=== PATIENT | female | born 1940 | race Caucasian/White ===

== ENCOUNTER 2023-07-17 15:49 | Outpatient (CLI) | payer MEDICARE, BC, SELFPAY | END 2023-07-17 15:50 | disposition home or self-care (01) | LOC: AMB 07-20 21:15 | PROVIDERS: PCP Family Medicine; Visit Provider Emergency Medicine | DX: R07.89 Other chest pain (principal) | CPT/HCPCS: A0425; A0427; A0434 ==

== ENCOUNTER 2023-07-17 16:17 | Emergency (ER) | payer MEDICARE, BC, SELFPAY ==
[2023-07-17 16:21] VITALS: BP 134/73; O2SAT 96
[2023-07-17 16:26] VITALS: BP 133/75; BP 142/72; O2SAT 94; O2SAT 95
[2023-07-17 16:28] VITALS: BP 127/73; PULSE 67; RESP 17; TEMP 36.1; O2SAT 95; BMI 28.3
--- NOTE | 2023-07-17 16:29 | ED_ITS ---
HPI - Chest Pain General Chief Complaint: Chest Pain Stated Complaint: Possible STEMI Time Seen by Provider: 07/17/23 16:25 History of Present Illness HPI narrative: This 83-year-old female comes in by ambulance because of chest pain that began about an hour prior to arrival. She states that she was vacuuming at the time in began to have chest pain and pressure. She had some associated shortness of breath and lightheadedness. She also had diaphoresis. She does not report any nausea or vomiting. She states that she may have had some more mild chest discomfort with exertion in the recent past. EKG from ambulance personnel shows evidence of acute STEMI. Initial EKG here also shows suspicion for an anterior lateral infarct. She has some ST elevation in lead 1, aVL, and V2. The patient received 100 mcg of fentanyl from ambulance and root. She states that she still is having pain at 9/10 in severity. She also received 4 baby aspirin prior to arrival. She states that she is DNR DNI. Related Data Home Medications Medication Instructions Recorded Confirmed sertraline 100 mg tablet 100 mg PO BID 07/05/23 07/05/23 Previous Rx's Medication Instructions Recorded benzonatate 200 mg capsule 200 mg PO BID-TID PRN cough #30 07/05/23 caps nirmatrelvir 300 mg (150 mg See Rx Instructions PO .COMPLEX 07/05/23 x2)-ritonavir 100 mg tablet,dose #30 ea pack (Paxlovid) Allergies Allergy/AdvReac Type Severity Reaction Status Date / Time Penicillins Allergy Unknown Verified 07/05/23 16:45 Review of Systems Status of ROS Reports: 10 or more systems reviewed and unremarkable except as noted in History and below Narrative Constitutional: No fevers, no weight gain or loss. Eyes: No discharge. No vision changes. HENT: No congestion, no sore throat, no ear pain. Cardiovascular: No palpitations. Chest pain as described above. Respiratory: No wheezes, no cough. She reports some shortness of breath with the chest pain. She was diagnosed with COVID a couple weeks ago. Gastrointestinal: No abdominal pain, no vomiting, no diarrhea. Genitourinary: No dysuria, no hematuria. Musculoskeletal: Normal range of motion. Skin: No rashes, no pruritis. Neurological: No weakness, sensory change, speech change. She reports some lightheadedness with the chest pain. Endo/Heme/Allergies: No bruising or bleeding. No polydipsia. Pysch: no suicidality, no anxiety, no insomnia. All other systems reviewed and are negative. Exam Narrative Exam Narrative: Constitutional: Well-developed, well-nourished, no acute distress. HEENT: Normocephalic, atraumatic. Neck: Normal range of motion. Nontender. Supple. Heart: Regular. No murmurs. Normal rate. Intact distal pulses. Lungs: Clear to auscultation. No chest discomfort. No wheezes, rhonchi, or r ales. Abdomen: Normal bowel sounds. Nontender. No rebound tenderness. Genitalia: Deferred. Back: No midline tenderness. Normal range of motion. Extremities: Normal range of motion. No injury. Skin: Intact. No rash. Warm. No erythema or pallor. Neurologic: No altered sensation. No weakness. Alert and oriented. Psychiatric: No suicidality. No anxiety or depression. No insomnia. Nursing notes and vitals signs are reviewed. Const Vital Signs, click to edit/add: Vital Signs - 24 hr 07/17/23 16:28 Temperature 96.9 F L Pulse Rate [Apical] 67 Respiratory Rate 17 Blood Pressure [Left Upper Arm] 127/73 Pulse Oximetry 95 Oxygen Delivery Method Nasal Cannula Course Vital Signs Vital signs: Initial Vital Signs Temperature 96.9 F L 07/17/23 16:28 Temperature Source Temporal Artery Scan 07/17/23 16:28 Pulse Rate 67 07/17/23 16:28 Respiratory Rate 17 07/17/23 16:28 Blood Pressure 127/73 07/17/23 16:28 Blood Pressure Mean 91 07/17/23 16:28 Pulse Oximetry 95 07/17/23 16:28 Oxygen Delivery Method Nasal Cannula 07/17/23 16:28 Vital Signs Temperature 96.9 F L 07/17/23 16:28 Pulse Rate 67 07/17/23 16:28 Respiratory Rate 17 07/17/23 16:28 Blood Pressure 127/73 07/17/23 16:28 Pulse Oximetry 95 07/17/23 16:28 Oxygen Delivery Method Nasal Cannula 07/17/23 16:28 Temperature 96.9 F L 07/17/23 16:28 Pulse Rate 67 07/17/23 16:28 Respiratory Rate 17 10/28/23 16:28 Blood Pressure 127/73 10/28/23 16:28 Pulse Oximetry 95 07/17/23 16:28 Oxygen Delivery Method Nasal Cannula 07/17/23 16:28 MDM - Chest Pain MDM Narrative Medical decision making narrative: This patient arrives from ambulance transport with evidence of acute STEMI. I was able to see her within a minute upon arrival and did hear report from ambulance personnel. EKG was acquired in the next couple minutes which did show evidence of STEMI. A page went to [facility] immediately and Y was able to speak with the environmental program manager there to arrange for transfer. She did receive aspirin in route here along with fentanyl. Upon arrival she is continuing to have pain at 9/10 in severity and is maintaining normal vital signs. An IV is established where she received heparin according to ACS protocol, ticagrelor 180 mg orally, morphine 2 mg IV, and metoprolol 5 mg IV. I spoke with the environmental program manager on-call at [facility], Dr. Taylor, who agrees to her transfer to the emergency department at [facility] where she will be next in line for an angiogram. The patient states that she is DNR DNI but agrees to have this status lifted for the next 24 hours in order for the angiogram to occur. The patient also received nitroglycerin at 5 mcg to be titrated for pain relief and to maintain sufficient blood pressure. Despite these treatments the patient continues to have severe chest pain that she reports at 9/10 in severity. ECG Data Attestation: I personally reviewed and interpreted this ECG as follows: Interpretation: Normal sinus rhythm. ST elevation in leads 1, aVL, and V2. ST depression in leads 3 and AVF. Rate is 66 beats per minute. EKG shows evidence of acute STEMI. Discharge Plan Discharge Clinical Impression: ST elevation (STEMI) myocardial infarction Patient Disposition: Xfer [facility] Condition: Unchanged Prescriptions: No Action sertraline 100 mg tablet 100 mg PO BID benzonatate 200 mg capsule 200 mg PO BID-TID PRN (Reason: cough) Qty: 30 0RF Paxlovid 300 mg (150 mg x 2)-100 mg tablets,dose pack See Rx Instructions PO .COMPLEX Qty: 30 0RF Rx Instructions: take TWO 150 mg tablets of nirmatrelvir with ONE 100 mg tablet of ritonavir twice daily for 5 days PO Stand Alone Forms: [employer] Info Instructions
[2023-07-17] MEDS: MORPHINE 4 MG/ML INJ 2 MG IVP (16:35)
[2023-07-17 16:37] VITALS: BP 138/74; BP 142/92; O2SAT 94; O2SAT 96
[2023-07-17 16:42] LABS: Basophils Absolute Auto 0.01 K/uL (0.00-0.30); Basophils Percent Auto 0.2 % (0.0-3.0); Eosinophils Absolute Auto 0.06 K/uL (0.00-0.50); Eosinophils Percent Auto 1.1 % (0.0-7.0); Hematocrit 44.5 % (33.0-51.0); Hemoglobin* 14.7 gm/dL (12.0-16.0); Immature Granulocytes Abs Auto 0.01 K/uL (0.00-0.30); Immature Granulocytes Pct Auto 0.2 %; Lymphocytes Percent Auto 33.8 % (20-44); Mean Corpuscular HGB Conc 33 gm/dL (32-36); Mean Corpuscular Hemoglobin 27 pg (26-34); Mean Corpuscular Volume 82 fL (80-100); Monocytes Percent Auto 10.3 % (0.0-11.0); Neutrophils Absolute Auto 2.89 K/uL (1.7-7.0); Neutrophils Percent Auto 54.4 % (42.0-72.0); Platelet Count* 164 K/uL (140-440); Red Blood Count 5.42 m/uL (4.00-5.20); White Blood Count* 5.32 K/uL (4.50-11.00)
[2023-07-17] MEDS: METOPROLOL TARTRATE 1 MG/ML inj 5 MG IVP (16:46)
--- NOTE | 2023-07-17 16:47 | ED.NURSE ---
Dispatch contacted for emergent transport to [facility]. Pre-arrival details also given to [facility].
[2023-07-17] MEDS: TICAGRELOR 90 MG TABLET 180 MG PO (16:51)
[2023-07-17] MEDS: HEPARIN 5,000 UNIT/0.5 ML INJ 3900 UNIT IVP (16:53)
[2023-07-17] MEDS: HEPARIN 25,000 UNIT/500 ML BAG 20 UNIT IV (16:54)
[2023-07-17 17:03] LABS: Slide Review Reflex No
[2023-07-17 17:08] LABS: Chloride* 108 mmol/L (96-114); Sodium* 142 mmol/L (135-149)
[2023-07-17 17:09] LABS: Potassium* 3.3 mmol/L (3.6-5.1)
[2023-07-17 17:11] LABS: Anion Gap 10 mEq/L (7-15); Blood Urea Nitrogen* 15 mg/dL (7-30); Carbon Dioxide* 24 mmol/L (20-32); Creatinine* 0.6 mg/dL (0.5-1.5); Est. Creatinine Clearance* 30.08; Estimated Glomerular Filt Rate 88 ml/min
[2023-07-17 17:12] VITALS: BP 136/72; O2SAT 94
[2023-07-17 17:12] LABS: Calcium* 9.6 mg/dL (8.4-10.6); Glucose* 103 mg/dL (60-115)
[2023-07-17 17:13] VITALS: BP 139/70; BP 140/73; O2SAT 93; O2SAT 98
[2023-07-17] MEDS: NITROGLYCERIN/DEXTROSE 25,000 MCG/250 ML BOTTLE 3 MCG IVPB (17:20)
[2023-07-17 17:22] LABS: NT Pro B Type NatriureticPept* 336 pg/mL
--- NOTE | 2023-07-17 17:32 | ED.NURSE ---
Report called to [facility] triage nurse, pt transferred via ambulance to [facility].
[2023-07-17 19:19] LABS: Troponin, Point-of-Care* 0.73 ng/ml (0.01-0.04)
== END 2023-07-17 17:33 | disposition short-term general hospital (02) ==
PROVIDERS: Emergency Provider Emergency Medicine Emergency Medical Services; PCP Family Medicine
DX: I21.3 ST elevation (STEMI) myocardial infarction of unspecified site (principal)
CPT/HCPCS: 36415; 80048; 83880; 84484; 85025; 85730; 93005; 96374; 96375; 99285; A9270; J1644; J2270

== ENCOUNTER 2023-07-17 17:02 | Outpatient (CLI) | payer MEDICARE, BC, SELFPAY | END 2023-07-17 17:03 | disposition home or self-care (01) | LOC: AMB 07-20 22:08 | PROVIDERS: PCP Family Medicine; Visit Provider Emergency Medicine | DX: I21.3 ST elevation (STEMI) myocardial infarction of unspecified site (principal) | CPT/HCPCS: A0425; A0434 ==

== ENCOUNTER 2024-03-30 13:00 | Outpatient (RCR) | payer MEDICARE, BC, SELFPAY | END 2024-07-28 23:59 | disposition home or self-care (01) | PROVIDERS: PCP Family Medicine; Visit Provider Family Medicine | DX: R41.3 Other amnesia (principal); Z91.89 Other specified personal risk factors, not elsewhere classified; Z51.89 Encounter for other specified aftercare | CPT/HCPCS: 97165; 97535 ==

== ENCOUNTER 2024-04-10 08:44 | Emergency (ER) | payer MEDICARE, BC, SELFPAY ==
[2024-04-10] VITALS (9 sets, daily range): BP systolic 136–155; BP diastolic 62–70; PULSE 58–68; RESP 18; TEMP 36.5; O2SAT 94–97; BMI 28.3
--- NOTE | 2024-04-10 10:17 | CRLHL7_ITS ---
For Patients: As a result of the Century Cures Act, medical imaging exams and procedure reports are released immediately into your electronic medical record. You may view this report before your referring provider. If you have questions, please contact your health care provider. INDICATION: Dizziness, vertigo TECHNIQUE: Noncontrast axial CT of the head. Coronal and sagittal reformats. Bone and soft tissue algorithms. COMPARISON: No relevant comparison studies available at this institution. FINDINGS: Prominence of the ventricles and cortical sulci, compatible with generalized cerebral volume loss. No acute intracranial hemorrhage or abnormal extra-axial fluid collection. No midline shift, hydrocephalus or herniation. Preserved coppola-white matter differentiation. Scattered hypoattenuation throughout the supratentorial white matter, typical of chronic microangiopathy. Calcific intracranial atherosclerotic plaquing. Unremarkable midline structures. Intact calvarium. Clear visualized paranasal sinuses and mastoid air cells. Bilateral lens implants. IMPRESSION: 1. No CT evidence of acute intracranial abnormality. 2. Mild generalized cerebral volume loss and mild chronic microangiopathy changes. Please note that all CT scans at this facility use dose modulation, iterative reconstruction, and/or weight-based dosing when appropriate to reduce radiation dose to as low as reasonably achievable. Dictated by Maggy Castillo MD @ 04/10/2024 11:24:34 AM (Electronically Signed)
--- NOTE | 2024-04-10 10:20 | ED_ITS ---
HPI - General Adult General Date Seen: 04/10/24 Chief complaint: Hypertension Stated complaint: High BP Time Seen by Provider: 04/10/24 09:49 Source: patient Mode of arrival: ambulatory Limitations: no limitations History of Present Illness HPI narrative: 83-year-old female who presents here with the her grand daughter, with vague complaints of head feeling funny. This is been for the last 48 hours, she feels it was a gradual onset, did start all the sudden, went to urgent care yesterday. And had complaints of high blood pressure, with systolic readings of 180. The doctor or provider there was checked her out and thought that everything seemed okay. Said the come to the emergency room if the symptoms were ongoing. She said she feels better today, but there is still this which she describes is a funny feeling in her head. She does not describe his pain. She feels that it is more that she feels slightly dizzy. Worse when she walks. She has not fallen she has no nausea she describes no visual changes that are new. She has no numbness tingling or weakness in her hands or feet. No problems with talking or none seeing her words. She describes no headache per se with this. Chest pain shortness of breath abdominal pain, dysuria frequency or really any other complaints. She tells me she has been taking her medications as directed, she feels she is more forgetful last year. But this is more of a chronic problem. 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 Treatments prior to arrival: none Related Data Home Medications ?Medication ?Instructions ?Recorded ?Confirmed sertraline 100 mg tablet 100 mg PO BID 07/05/23 04/10/24 doesn't know medications PO 04/09/24 calcium carbonate (Calcium 500) 500 mg PO DAILY 04/10/24 04/10/24 clopidogrel 75 mg tablet 75 mg PO DAILY 04/10/24 04/10/24 famotidine 40 mg tablet 40 mg PO QPM 04/10/24 04/10/24 losartan 25 mg tablet mg PO 04/10/24 metoprolol succinate 25 mg mg PO 04/10/24 tablet,extended release 24 hr omeprazole 40 mg capsule,delayed 40 mg PO 04/10/24 release rosuvastatin 10 mg tablet 10 mg PO QPM 07/22/24 07/22/24 spironolactone 25 mg tablet 12.5 mg PO QAM 04/10/24 04/10/24 sucralfate 1 gram tablet 1 g PO QID 04/10/24 04/10/24 zolpidem 5 mg tablet 5 mg PO QPM 04/10/24 04/10/24 Allergies Allergy/AdvReac Type Severity Reaction Status Date / Time bee venom protein (honey bee) Allergy Mild swelling Verified 04/10/24 09:25 Penicillins Allergy Unknown Verified 04/10/24 09:25 Review of Systems Status of ROS: Reports: 10 or more systems reviewed and unremarkable except as noted in History and below [facility] Medical History Depression ?F32.A - Depression, unspecified (ICD-10) Heart attack ?I21.9 - Acute myocardial infarction, unspecified (ICD-10) Surgical History H/O heart artery stent ?Z95.5 - Presence of coronary angioplasty implant and graft (ICD-10) Social History Smoking Status: Never smoker Do you use any of these nicotine containing products: None How often do you have a drink containing alcohol: never AUDIT-C Alcohol total score: 0 Non-prescribed substance use: denies use Exam Narrative: Exam Narrative: Patient is seen and stabilization room 2, she is in no apparent distress she is very pleasant, when I tell her her blood pressure has normalized, in the 128/70 region. She says then she would like to go home. She speaks normally she is oriented x3, GCS is 15/15 her pupils are equal round reactive to light but she does have 2 beats of nystagmus, primarily to the left. When she looks around. There is an no abnormality of her visual figueroa. Her TMs bilaterally are normal, her oropharynx is normal her cranial nerves 3-12 are all normal, carotid upstrokes are equal bilaterally, no bruits are noted JVP is flat, her chest is good air entry bilaterally with no wheezes crackles noted her heart sounds no clicks murmurs or gallops. Slightly kyphotic. Her abdomen is soft there is no guarding no organomegaly. Bowel sounds are normal, she moves all extremities independently well both upper lower, her gait is a reviewed. She is not ataxic, or wide-based when she walks. Skin reveals no petechiae or rashes. Const: Vital Signs, click to edit/add: Vital Signs - 24 hr 04/10/24 09:11 04/10/24 10:17 04/10/24 11:04 Temperature 97.7 F Pulse Rate 63 Pulse Rate [Pulse Oximeter] 68 Respiratory Rate 18 Blood Pressure 136/62 Blood Pressure [Ri ght Upper Arm] 136/70 Pulse Oximetry 97 95 96 Oxygen Delivery Me thod Room Air 04/10/24 11:05 04/10/24 11:30 04/10/24 11:32 Temperature Pulse Rate 62 62 61 Pulse Rate [Pulse Oximeter] Respiratory Rate Blood Pressure 137/62 Blood Pressure [Ri ght Upper Arm] Pulse Oximetry 97 94 95 Oxygen Delivery Me thod Course Course ED Course: I discussed with the patient that her lab tests show some mild thrombocytopenia leukopenia, and her examination shows that she is maybe has some slight vertigo, likely from a peripheral source. Everything else looks fairly normal with the exception her urinalysis is not back. I will check this to ensure that she does not have a bladder infection, but she feels excellent at the present time and I watched her walk, she clearly does not have ataxia are any problems with walking. She would like to go and I think this is reasonable. Follow-up with her regular physician in 1-2 weeks for recheck would be suggested. And maybe a blood test in 2-3 to recheck her CBC. Return as needed. Vital Signs Vital signs: Initial Vital Signs Temperature 97.7 F 04/10/24 09:11 Temperature Source Temporal Artery Scan 04/10/24 09:11 Pulse Rate 68 04/10/24 09:11 Respiratory Rate 18 04/10/24 09:11 Blood Pressure 136/70 04/10/24 09:11 Blood Pressure Mean 92 04/10/24 09:11 Blood Pressure Position Sitting 04/10/24 09:11 Pulse Oximetry 97 04/10/24 09:11 Oxygen Delivery Method Room Air 04/10/24 09:11 Vital Signs Temperature 97.7 F 04/10/24 09:11 Pulse Rate 68 04/10/24 09:11 Respiratory Rate 18 04/10/24 09:11 Blood Pressure 136/70 04/10/24 09:11 Pulse Oximetry 97 04/10/24 09:11 Oxygen Delivery Method Room Air 04/10/24 09:11 Temperature 97.7 F 04/10/24 09:11 Pulse Rate 61 04/10/24 11:32 Respiratory Rate 18 04/10/24 09:11 Blood Pressure 137/62 04/10/24 11:32 Pulse Oximetry 95 04/10/24 11:32 Oxygen Delivery Method Room Air 04/10/24 09:11 Medical Decision Making MDM Narrative Medical decision making narrative: Life-threatening differential diagnosis considered include stroke, coronary artery disease, pneumonia, and heart failure. Other differential diagnosis include but are not limited to electrolyte imbalances, anemia, medication reactions, and urinary tract infection I think it would be reasonable to check some labs, his head CT, EKG. On this nice lady. I do believe that there is an element of anxiety. With this but given her past history, I could not rule out numerous things going on with her. Lab Data Lab results reviewed: Yes I reviewed the patient's lab results Labs: Lab Results 04/10/24 04/10/24 Range/Units 10:38 10:58 WBC 3.68 L (4.50-11.00) K/uL RBC 4.80 (4.00-5.20) m/uL Hgb 13.0 (12.0-16.0) gm/dL Hct 40.6 (33.0-51.0) % MCV 85 (80-100) fL MCH 27 (26-34) pg MCHC 32 (32-36) gm/dL RDW Coeff of Jose Manuel 13.6 (11.5-15.5) % Plt Count 112 L (140-440) K/uL Neut % (Auto) 71.5 (42.0-72.0) % Lymph % (Auto) 17.1 L (20-44) % [place] % (Auto) 8.4 (0.0-11.0) % Eos % (Auto) 2.4 (0.0-7.0) % Baso % (Auto) 0.3 (0.0-3.0) % Neut # (Auto) 2.60 (1.7-7.0) K/uL Lymph # (Auto) 0.60 L (0.90-2.90) K/uL [place] # (Auto) 0.30 (0.00-0.90) K/UL Eos # (Auto) 0.10 (0.00-0.50) K/uL Baso # (Auto) 0.00 (0.00-0.30) K/uL Abs Immat Gran (auto) 0.00 (0.00-0.30) K/uL Imm/Tot Granulo (auto) 0.3 % D-Dimer Quant (PE/DVT) 0.23 (0.00-0.50) ug/ml Sodium 143 (135-149) mmol/L Potassium 3.9 (3.6-5.1) mmol/L Chloride 109 (96-114) mmol/L Carbon Dioxide 27 (20-32) mmol/L Anion Gap 7 (7-15) mEq/L BUN 17 (7-30) mg/dL Creatinine 0.8 (0.5-1.5) mg/dL Estimated Creat Clear 30.08 Estimated GFR 73 ml/min Glucose 101 (60-115) mg/dL Calcium 8.9 (8.4-10.6) mg/dL Troponin I < 0.01 L (0.01-0.04) ng/mL Procalcitonin 0.07 (<0.50) ng/mL Ethyl Alcohol < 0.01 L (0.01-0.03) % SARS-CoV-2 (PCR) Negative SARS-CoV-2 (Negative) Imaging Data CT scan - head: Attestation: I have reviewed the pertinent imaging results. My impression: My review of her head CT did not show anything acute, some overall volume loss. Is noted ECG Data Attestation: I personally reviewed and interpreted this ECG as follows: Prior ECG tracings: available for review Interpretation: EKG shows normal sinus rhythm, left axis deviation, ventricular rate of 64, rhythm appears to be sinus. QT QTC are normal. Poor R-wave progression over the precordial leads may be related to previous anteroseptal infarct. Assessment abnormal EKG with no acute changes when compared to old EKG from 07/15/2023. Acute changes have resolved. Discharge Plan Discharge Clinical Impression: Leukopenia, Thrombocytopenia, Vertigo Patient Disposition: Home w/ Parent or Adult Condition: Stable Instructions: Dizziness (ED), Thrombocytopenia (ED) Additional Instructions: I would suggest you follow-up with your doctor in 2-3 weeks and get a repeat CBC did check where the leukopenia and thrombocytopenia are going. I do think that she might have had a virus causing these problems, clearly your walking is good and there is no evidence of any problems to suggest that she might fall. Would however be careful in standing and getting up, going from lying to standing positions cause often this will exacerbate the feeling of dizziness or funny feeling in your head. Overall if you have problems with numbness or tingling or weakness or headache which were not seeing here that I would recommend to come back and get reassessed, but everything looks good at the present time. I will check your urine to make sure that you do not have a bladder infection. Activity Level: Light activity Prescriptions: No Action doesn't know medications PO sertraline 100 mg tablet 100 mg PO BID calcium carbonate [Calcium 500] 500 mg calcium (1,250 mg) tablet,chewable 500 mg PO DAILY sucralfate 1 gram tablet 1 g PO QID famotidine 40 mg tablet 40 mg PO QPM clopidogrel 75 mg tablet 75 mg PO DAILY omeprazole 40 mg capsule,delayed release(DR/EC) 40 mg PO spironolactone 25 mg tablet 12.5 mg PO QAM losartan 25 mg tablet PO zolpidem 5 mg tablet 5 mg PO QPM metoprolol succinate 25 mg tablet extended release 24 hr PO rosuvastatin 10 mg tablet 10 mg PO QPM Follow Up/Referrals: Pau Franklin MD [Primary Care Provider] - Stand Alone Forms: [employer] Info Instructions
[2024-04-10 10:56] LABS: Basophils Percent Auto 0.3 % (0.0-3.0); Eosinophils Percent Auto 2.4 % (0.0-7.0); Hematocrit 40.6 % (33.0-51.0); Immature Granulocytes Pct Auto 0.3 %; Lymphocytes Percent Auto 17.1 % (20-44); Mean Corpuscular HGB Conc 32 gm/dL (32-36); Mean Corpuscular Hemoglobin 27 pg (26-34); Mean Corpuscular Volume 85 fL (80-100); Monocytes Percent Auto 8.4 % (0.0-11.0); Neutrophils Percent Auto 71.5 % (42.0-72.0); Platelet Count* 112 K/uL (140-440); RDW Coefficient of Variation % 13.6 % (11.5-15.5); White Blood Count* 3.68 K/uL (4.50-11.00)
[2024-04-10 11:08] LABS: Slide Review Reflex No
[2024-04-10 11:17] LABS: Chloride* 109 mmol/L (96-114); Sodium* 143 mmol/L (135-149)
[2024-04-10 11:18] LABS: D Dimer Quantitative* 0.23 ug/ml (0.00-0.50); Potassium* 3.9 mmol/L (3.6-5.1)
[2024-04-10 11:20] LABS: Creatinine* 0.8 mg/dL (0.5-1.5); Est. Creatinine Clearance* 30.08; Estimated Glomerular Filt Rate 73 ml/min
[2024-04-10 11:21] LABS: Anion Gap 7 mEq/L (7-15); Blood Urea Nitrogen* 17 mg/dL (7-30); Calcium* 8.9 mg/dL (8.4-10.6); Carbon Dioxide* 27 mmol/L (20-32); Glucose* 101 mg/dL (60-115)
[2024-04-10 11:36] LABS: Procalcitonin* 0.07 ng/mL (<0.50)
[2024-04-10 11:42] LABS: Ethanol* < 0.01 % (0.01-0.03); Troponin I* < 0.01 ng/mL (0.01-0.04)
[2024-04-10 11:47] LABS: SARS PCR* Negative SARS-CoV-2 (Negative)
[2024-04-10 12:26] LABS: Appearance Urine Clear (Clear); Bilirubin Urine Negative (Negative); Blood Urine Negative (Negative); Color Urine Yellow (Yellow); Glucose Urine Negative (Negative); Ketones Urine Negative (Negative); Leukocyte Esterase Urine Negative (Negative); Nitrite Urine Negative (Negative); Protein Urine Negative (Negative); Specific Gravity Urine <= 1.005 (1.000-1.030); Urobilinogen Urine 0.2 (0.2-1.0)
[2024-04-10 12:41] LABS: RBC Urine 0-2 (0-2); Squamous Epithelial Cell Urine Few (None-Few); WBC Urine 0-2 (0-5)
== END 2024-04-10 12:52 | disposition home or self-care (01) ==
PROVIDERS: Emergency Provider Family Medicine; PCP Family Medicine
DX: I10 Essential (primary) hypertension (principal)
CPT/HCPCS: 36415; 70450; 80048; 81001; 82077; 84145; 84484; 85025; 85379; 87635; 93005; 94761; 99284; 99285

== ENCOUNTER 2024-04-12 09:03 | Emergency (ER) | payer MEDICARE, BC, SELFPAY ==
[2024-04-12 09:10] VITALS: BP 176/67; PULSE 68; RESP 16; TEMP 36.3; O2SAT 99; BMI 28.1
--- OUTSIDE RECORDS SUMMARY | 2024-04-12 10:06 | XMS_ITS | Clinical Summary ---
Author Organization [facility] Address [place], [place] [address] Care Team Providers Care Auto Dismantler Name Role Phone Steven Tellez Unavailable [phone] Pau Franklin MD Primary Care Provide r Allergies Active Allergy Reactions Criticality Noted Date Comments Bee Pollen Edema 02/11/2007 Codeine GI Upset Penicillins Other - Describe In Comment Field 02/11/2007 Lips and fingers go numb Medications Medication Sig Dispensed Refills Start Date End Date Status cholecalciferol (VITAMIN D) 1,000 unit capsule Take 1 capsule by mouth once daily. 0 01/30/2011 Active LORazepam (ATIVAN) 0.5 mg tabIndications:An xiety state Take 1 Tablet (0.5 mg) by mouth once daily if needed for Anxiety. 30 Tablet 05/19/2022 Active calcium carbonate (OS-JOSÉ LUIS 500) 500 mg calcium (1,250 mg) tablet Take 500 mg by mouth once daily with a meal. Active multivitamins-min erals-lutein (Multivitamin 50 Plus) tab tablet Take 1 Tablet by mouth once daily. Active ascorbic acid, vitamin C, (Vitamin C) 500 mg tablet Take 500 mg by mouth once daily. Active tetrahydrozoline (Visine) 0.05 % ophthalmic solution Place 1 Drop into both eyes 4 times daily if needed (irritated eyes). Active clopidogreL (PLAVIX) 75 mg tabletIndications :ST elevation myocardial infarction (STEMI), unspecified artery (HC) Take 1 Tablet (75 mg) by mouth once daily. Do not stop taking or miss doses for minimum one year/ until OK'd by caregiver assisted living. 30 Tablet 11 07/23/2023 Active Walker - 4 wheelsIndications :Post-op pain For home use. Length of need: 20 years Walker with a seat. 1 Each 07/29/2023 Active omeprazole (PRILOSEC) 40 mg Delayed-Release capsuleIndication s:Chronic GERD Take 1 Capsule (40 mg) by mouth once daily before a meal. 90 Capsule 3 08/09/2023 Active rosuvastatin (CRESTOR) 10 mg tabletIndications :ST elevation myocardial infarction (STEMI), unspecified artery (HC) Take 1 Tablet (10 mg) by mouth at bedtime. 90 Tablet 3 08/31/2023 Active metoprolol succinate (TOPROL XL) 25 mg Sustained-Release tabletIndications :ST elevation myocardial infarction (STEMI), unspecified artery (HC) Take 0.5 Tablets (12.5 mg) by mouth once daily. 45 Tablet 3 08/31/2023 Active losartan (COZAAR) 25 mg tabletIndications :ST elevation myocardial infarction (STEMI), unspecified artery (HC) Take 0.5 Tablets (12.5 mg) by mouth once daily. 45 Tablet 3 08/31/2023 Active spironolactone (ALDACTONE) 25 mg tabletIndications :ST elevation myocardial infarction (STEMI), unspecified artery (HC) Take 0.5 Tablets (12.5 mg) by mouth every morning. 45 Tablet 3 08/31/2023 Active sertraline (ZOLOFT) 100 mg tabletIndications :Major depressive disorder, recurrent episode, mild (HC) Take 1 Tablet (100 mg) by mouth once daily. 90 Tablet 3 11/09/2023 Active aspirin (ECOTRIN) 81 mg enteric coated tablet Take 1 Tablet (81 mg) by mouth once daily with a meal. 11/22/2023 Active sucralfate (CARAFATE) 1 gram tabletIndications :Chronic GERD TAKE 1 TABLET (1 G) BY MOUTH FOUR TIMES DAILY BEFORE MEALS AND AT BEDTIME. 360 Tablet 03/24/2024 Active zolpidem (AMBIEN) 5 mg tabletIndications :Insomnia, idiopathic TAKE 1 TABLET (5 MG) BY MOUTH AT BEDTIME. 60 Tablet 2 03/26/2024 Active zolpidem (AMBIEN) 5 mg tabletIndications :Insomnia, idiopathic Take 1 Tablet (5 mg) by mouth at bedtime. 90 Tablet 3 08/31/2023 03/26/2024 Discontinued sucralfate (CARAFATE) 1 gram tabletIndications :Chronic GERD TAKE 1 TABLET (1 G) BY MOUTH FOUR TIMES DAILY BEFORE MEALS AND AT BEDTIME. 360 Tablet 12/24/2023 03/24/2024 Discontinued Active Problems Problem Noted Date Diagnosed Date Acute anterior wall GA 07/17/2023 Long sleeper 02/02/2023 Insomnia, idiopathic 10/01/2017 Routine adult health maintenance 09/01/2017 Overview: Colonoscopy 08/2017 normal, no follow up needed HARDY (stress urinary incontinence, female) 2014 Major depressive disorder, recurrent episode, mi ld 07/02/2014 TRI 05/2007 AHI-26.5 03/20/2013 Allergy to insect stings 02/17/2013 ACP (advance care planning) 01/29/2012 Overview: Done years ago. She has HCD available. Anxiety state, unspecified 07/11/2007 Reflux esophagitis Osteopenia Overview: dexa in 2006 Resolved Problems Problem Noted Date Diagnosed Date Resolved Date Obstructive sleep apnea (adult) (pediatric) 07/11/2007 07/17/2019 Overview: Uses CPAP and works well 07/08/2010 Encounters Date Type Department Care Team Description 04/10/2024 Orders Only [facility] Scanner 1 scan: (1-Ord) [facility], CT HEAD/BRAIN WO CON, 04/10/2024 03/22/2024 Refill [facility] [address] [place] [address] Pau Franklin MD Refill Request (Sucralfate, Zolpidem) from Last 3 Months Immunizations Name Administration Dates Next Due AMB Influenza, IIV3 (Age >=3 years)(Flu Clinic Only) 06/28/2009 COVID-19 vaccine ([employer] 30mcg/0.3mL) TREVOR KENDALL 07/15/2021,11/26/2020,11/05/2020 Influenza Virus, Unspecified 07/17/2019, 07/08/2018,06/20/2018,2016,07/20/2016,07/16/2016,06/20/2014,0 06/02/2013,06/02/2011,07/08/2010, 009,07/12/2008,07/11/2007,07/07/2005,,07/16/2003 Influenza, High-dose Inactivated 07/08/2018,06/21,06/20/2014 Influenza, High-dose Quadriv alent Inactivated 06/23/2023,07/03/2022,06/24/2021,2019 Influenza, IIV3 (Age 6-35 mos) 06/02/2011 Influenza, IIV3 (Age >=3 years) 06/02/20 13,06/02/2011,07/08/2010,2008,07/12/2008,07/11/2007,07/07/2005,1 ,07/16/2003 Influenza, Inactivated IIV3 (Age 65+ Years) Preserv Free 06/07/2017 Pneumococcal Poly,23-Valent (Pneumovax) 07/11/2007,07/29/1995 Pneumococcal conj 13-Valent (Prevnar 13) 05/26/2016 Td (Age >=7 Years) 07/11/2007,01/05/1996 Td, Preservative Free (age > = 7 Years) 07/11/2007 Tdap 01/30/2011 Zoster (Shingrix-RZV, recombinant) 03/09/2019, Zoster (Zostavax-ZVL, live) 05/07/2009 Family History Medical History Relation Name Comments Hypertension Brother 1 Hypertension Brother 2 Hypertension Father at 94 Heart Disease Mother age 72--first GA. at 90. dementia Hypertension Mother Stroke Mother Cancer Other 1 none Diabetes Other 2 none Cancer-breast Paternal Aunt Hypertension Sister Relation Name Status Comments Brother 1 Brother 2 Father Alive Mother Alive Other 1 Other 2 Paternal Aunt Sister Social History Tobacco Use Types Packs/Day Years Used Date Smoking Tobacco: Never Smokeless Tobacco: Never Tobacco Cessation:Counseling Given: Yes Alcohol Use Standard Drinks/Week Comments No 0 (1 standard drink = 0.6 oz pur e alcohol) PHQ-2 Answer Date Recorded PHQ-2 TOTAL SCORE 1 12/07/2023 Social Connections Answer Date Recorded Frequency of Communication with Friends and Fami ly 0 07/27/2023 Financial Resource Strain Answer Date R ecorded Difficulty of Paying Living Expenses 3 07/27/2023 Difficulty of Paying Living Expenses Not on file 07/27/2023 Food Insecurity Answer Date Recorded Worried About Running Out of Food in the Last Ye ar 1 07/27/2023 Transportation Needs Answer Date Record ed Lack of Transportation (Medical) 1 07/27/2023 Housing Stability Answer Date Recorded Unable to Pay for Housing in the Last Year 1 07/27/2023 Sex and Gender Information Value Date Recorded Sex Assigned at Female 10/02/2020 12:00 PM DOOR AND ARRIVAL ATTENDANT Gender Identity Female 10/02/2020 12:00 PM DOOR AND ARRIVAL ATTENDANT Sexual Orientation Straight 10/02/2020 12 :00 PM DOOR AND ARRIVAL ATTENDANT Obstetrics History Para Term AB IAB SAB Ectopic Multiple Livin g Live Births 6 5 5 1 1 5 Date Outcome GA Total Labor Labor/2nd/3rd Weight Sex Type Anes PTL Janneth A1 A5 Name Clin Term Term Term Term Term SAB Last Filed Vital Signs Vital Sign Reading Time Taken Comments Blood Pressure 119/68 11/09/2023 3:56 PM DOOR AND ARRIVAL ATTENDANT Pulse 60 11/09/2023 3:56 PM DOOR AND ARRIVAL ATTENDANT Temperature 36.8 ??C (98.2 ??F) 08/19/2023 1 0:51 AM DOOR AND ARRIVAL ATTENDANT Respiratory Rate 16 09/29/2023 8:30 AM DOOR AND ARRIVAL ATTENDANT Oxygen Saturation 97% 11/09/2023 3:56 PM DOOR AND ARRIVAL ATTENDANT Inhaled Oxygen Concentration - - Weight 63.4 kg (139 lb 12.8 oz) 11/09/2023 3:56 PM DOOR AND ARRIVAL ATTENDANT Height 152.4 cm (5') 11/09/2023 3:56 PM DOOR AND ARRIVAL ATTENDANT Body Mass Index 27.3 11/09/2023 3:56 PM DOOR AND ARRIVAL ATTENDANT Plan of Treatment Upcoming Encounters Date Type Department Care Team (Late st Contact Info) Description 04/18/2024 1:25 PM CDT Office Visit [facility] [address] [place] [address] Pau Franklin MD [address] [place] [id number] Health Maintenance Due Date Last Done Comments Tetanus booster 01/30/2021 01/30/2011, 06/21, 07/11/2007, Additional history exists Medicare Wellness for age 65+ 11/18/2023, 10/10/2021, 10/04/2020, Additional history exists COVID-19 vaccine series (2022-24 season) 2024 11/08/2023, 07/03/2022, 04/09/2022, Additional history exists Influenza for age 65+ 05/21/2024 06/23/2023 , 07/03/2022, 06/24/2021, Additional history exists BMI (ht and wt on same day) for age 18+ 11/09/2024 11/09/2023, 11/17/2022, 10/10/2021, Additional history exists Depression screening for age 12+ 12/06/2024 12/07/2023, 12/03/2023, 08/31/2023, Additional history exists Tdap Completed 01/30/2011 Pneumococcal series for age 65+ Completed 05/26/2016, 07/11/2007, 07/29/1995 Zoster (shingles) series for age 50+ Completed 03/09/2019, 11/15/2018, 05/07/2009 DEXA/DXA scan for age 65+ Completed 2020, 07/29/2017, 02/28/2013, Additional history exists Procedures Procedure Name Priority Date/Time Associated Diagnosis Comments SCAN-CT INTERPRETATION 12:00 AM CDT XR DXA BONE DENSITY 2 SITES AXIAL Routine 10/07/2020 1:32 PM DOOR AND ARRIVAL ATTENDANT Asymptomatic postmenopausal state from Last 3 Months or Most Recently Relevant to Health Maintenance Results * SCAN-CT INTERPRETATION (04/10/2024 12:00 AM CDT) Anatomical Region Laterality Modality Other Scanner OTHER * (ABNORMAL) XR DXA BONE DENSITY 2 SITES AXIAL (10/07/2020 1:32 PM DOOR AND ARRIVAL ATTENDANT) Anatomical Region Laterality Modality Spine, HIPS, HIPL, HIPR Other Narrative 10/09/2020 2:44 PM DOOR AND ARRIVAL ATTENDANT Please see scanned document for results of this study. Pau SHEIKH from Last 3 Months or Most Recently Relevant to Health Maintenance Advance Directives Documents on File Type Date Recorded Patient Embedded Firmware Engineer Expl anation Healthcare Directive 02/24/2013 12:14 PM AM Girma ANA ROSA, 08/06/2005 * DNR (Latest Code Status on File) Date Activated Date Inactivated Comments 07/18/2023 8:51 AM 07/22/2023 8:41 PM Question Answer Comments Code Status Discussion: Reviewed Preferences * Full Code Date Activated Date Inactivated Comments 07/17/2023 6:17 PM 07/18/2023 8:51 AM Patient re versed her code status for cardiac cath Question Answer Comments Code Status Discussion: Reviewed Preferences Care Teams Auto Dismantler Relationship Specialty Start Date End Date Pau Franklin MD [address] [place] [address] PCP - General Family Practice 06/25/14 Steven Tellez [address] [place] [id number] Benefit Authorizer 01/29/12
--- NOTE | 2024-04-12 11:33 | ED.GENADULT ---
HPI - General Adult General Date Seen: 04/12/24 Chief complaint: Hypertension Stated complaint: High BP again, seen yesterday Time Seen by Provider: 04/12/24 09:44 Source: patient, RN notes reviewed and old records reviewed Mode of arrival: ambulatory Limitations: no limitations History of Present Illness HPI narrative: Patient is an 83-year-old woman who was here couple days ago feeling just a little bit off and concerned about her blood pressure. It was elevated initially but then was normal after she rested in the ER for a little while, she had labs and a CT of the head, only findings were of mild neutropenia with the white blood cell count in the mid threes and mild thrombocytopenia with 112,000 platelets. She was recommended to follow this up with primary care in the next week or 2 for recheck. She comes in today saying that she still having high blood pressures in the morning. She does not feel badly really but she was concerned and did not know what to do about it. She says on our initial conversation that she does not take anything for her blood pressure and has no history of high blood pressure. She does have a history of coronary artery disease and stenting. She has losartan listed on her medications, 25 mg daily. She says that medicine does some from earlier in she thinks she takes it, she was not aware was for blood pressure. She does not smoke or drink. Lives independently. Related Data Home Medications ?Medication ?Instructions ?Recorded ?Confirmed sertraline 100 mg tablet 100 mg PO BID 07/05/23 04/10/24 doesn't know medications PO 04/09/24 calcium carbonate (Calcium 500) 500 mg PO DAILY 04/10/24 04/10/24 clopidogrel 75 mg tablet 75 mg PO DAILY 04/10/24 04/10/24 famotidine 40 mg tablet 40 mg PO QPM 04/10/24 04/10/24 losartan 25 mg tablet mg PO 04/10/24 metoprolol succinate 25 mg mg PO 04/10/24 tablet,extended release 24 hr omeprazole 40 mg capsule,delayed 40 mg PO 04/10/24 release rosuvastatin 10 mg tablet 10 mg PO QPM 04/10/24 04/10/24 spironolactone 25 mg tablet 12.5 mg PO QAM 04/10/24 04/10/24 sucralfate 1 gram tablet 1 g PO QID 04/10/24 04/10/24 zolpidem 5 mg tablet 5 mg PO QPM 04/10/24 04/10/24 Previous Rx's ?Medication ?Instructions ?Recorded losartan 50 mg tablet 50 mg PO DAILY #30 tabs 04/12/24 Allergies Allergy/AdvReac Type Severity Reaction Status Date / Time bee venom protein (honey bee) Allergy Mild swelling Verified 04/10/24 09:25 Penicillins Allergy Unknown Verified 04/10/24 09:25 Review of Systems Status of ROS: Reports: 6 or more systems reviewed and unremarkable except as noted in History and below [facility] Medical History Depression ?F32.A - Depression, unspecified (ICD-10) Heart attack ?I21.9 - Acute myocardial infarction, unspecified (ICD-10) Surgical History H/O heart artery stent ?Z95.5 - Presence of coronary angioplasty implant and graft (ICD-10) Social History Smoking Status: Never smoker Do you use any of these nicotine containing products: None How often do you have a drink containing alcohol: never AUDIT-C Alcohol total score: 0 Non-prescribed substance use: denies use Exam Narrative: Exam Narrative: Vital signs as noted above. In general, an alert, well-appearing patient. Head: Normocephalic, atraumatic. Eyes: Pupils are equal reactive. Extraocular movements are full. Conjunctivae are normal. ENT: Mucous membranes are moist. Neck: Supple without lymphadenopathy. Heart: Regular rate and rhythm. No murmur or rub. Lungs: Clear bilaterally. No increased work of breathing, crackles or wheezes. Extremities: Well perfused. No edema. No calf tenderness. Pulses intact. Neurologic: Patient is alert and oriented to person and place. Speech is fluent. Face is symmetric. Moves all extremities equally. Affect: Normal. Skin: Warm and dry. Well perfused. Const: Vital Signs, click to edit/add: Vital Signs - 24 hr 04/12/24 09:10 Temperature 97.4 F L Pulse Rate [Pulse Oximeter] 68 Respiratory Rate 16 Blood Pressure [Ri ght Upper Arm] 176/67 H Pulse Oximetry 99 Oxygen Delivery Me thod Room Air Documenting provider has reviewed patient's vital signs: yes Course Course ED Course: Had a long chat with her. Her blood pressure is elevated here 176/67. She is otherwise pretty asymptomatic and I do not think needs repeat evaluation. Reviewed that losartan is a blood pressure medicine, she is on a relatively small dose. Discussed that without knowing what her blood pressures or drooling throughout the day it is a little hard to know whether we might run into trouble with lower blood pressures if we increase the dose, but she would like to give that a try and see how she does. I prescribed 50 mg losartan for her, she has an appointment with her primary doctor next week and they can see how she is doing on that dose. Reviewed that if she is having problems with dizziness or seeing blood pressures that are lower than 100/60 that she should go back to the 25 mg dose and then discuss further with Dr. Franklin. Return as needed. Vital Signs Vital signs: Initial Vital Signs Temperature 97.4 F L 04/12/24 09:10 Temperature Source Temporal Artery Scan 04/12/24 09:10 Pulse Rate 68 04/12/24 09:10 Respiratory Rate 16 04/12/24 09:10 Respiratory Effort Normal 04/12/24 09:10 Respiratory Depth Normal 04/12/24 09:10 Respiratory Pattern Normal 04/12/24 09:10 Blood Pressure 176/67 H 04/12/24 09:10 Blood Pressure Mean 103 04/12/24 09:10 Blood Pressure Position Supine 04/12/24 09:10 Pulse Oximetry 99 04/12/24 09:10 Oxygen Delivery Method Room Air 04/12/24 09:10 Vital Signs Temperature 97.4 F L 04/12/24 09:10 Pulse Rate 68 04/12/24 09:10 Respiratory Rate 16 04/12/24 09:10 Blood Pressure 176/67 H 04/12/24 09:10 Pulse Oximetry 99 04/12/24 09:10 Oxygen Delivery Method Room Air 04/12/24 09:10 Temperature 97.4 F L 04/12/24 09:10 Pulse Rate 68 04/12/24 09:10 Respiratory Rate 16 04/12/24 09:10 Blood Pressure 176/67 H 04/12/24 09:10 Pulse Oximetry 99 04/12/24 09:10 Oxygen Delivery Method Room Air 04/12/24 09:10 Discharge Plan Discharge Clinical Impression: BP (high blood pressure) Patient Disposition: Home, Self-Care Condition: Stable Instructions: Hypertension (ED) Additional Instructions: Increase losartan as directed. Follow-up with primary care next week for reassessment and to determine whether dosage is having the desired effect. If you start to have trouble with lower blood pressures, less than 100/60, you should hold the medication and discuss further with your primary doctor. Prescriptions: New losartan 50 mg tablet 50 mg PO DAILY Qty: 30 2RF No Action doesn't know medications PO sertraline 100 mg tablet 100 mg PO BID calcium carbonate [Calcium 500] 500 mg calcium (1,250 mg) tablet,chewable 500 mg PO DAILY sucralfate 1 gram tablet 1 g PO QID famotidine 40 mg tablet 40 mg PO QPM clopidogrel 75 mg tablet 75 mg PO DAILY omeprazole 40 mg capsule,delayed release(DR/EC) 40 mg PO spironolactone 25 mg tablet 12.5 mg PO QAM losartan 25 mg tablet PO zolpidem 5 mg tablet 5 mg PO QPM metoprolol succinate 25 mg tablet extended release 24 hr PO rosuvastatin 10 mg tablet 10 mg PO QPM Follow Up/Referrals: Pau Franklin MD [Primary Care Provider] - Stand Alone Forms: SMB Suite Info Instructions
== END 2024-04-12 10:17 | disposition home or self-care (01) ==
LOC: ED 10:03
PROVIDERS: Emergency Provider Emergency Medicine; PCP Family Medicine
DX: I10 Essential (primary) hypertension (principal)
CPT/HCPCS: 99282; 99283

== ENCOUNTER 2024-05-07 10:20 | Emergency (ER) | payer MEDICARE, BC, SELFPAY ==
[2024-05-07 10:28] VITALS: BP 159/67; PULSE 65; RESP 14; TEMP 36.7; O2SAT 97; BMI 27.9
[2024-05-07 11:02] VITALS: BP 138/60
--- NOTE | 2024-05-07 11:09 | ED_ITS ---
HPI - General Adult General Chief complaint: Hypertension Stated complaint: High blood pressure Time Seen by Provider: 05/07/24 10:33 History of Present Illness HPI narrative: This 83-year-old female comes in with her daughter stating that she has felt some mild symptoms of fatigue and weakness recently. During this time she is measure her blood pressure and saw that it was somewhat elevated. She is able to get up and ambulate. She does not have any unilateral weakness. She is not reporting any chest pain. She does have a history of a STEMI almost a year ago and has been doing well since then. She was seen about a month ago in this emergency department with concern about blood pressure. At that time it was explained that we typically do not manage elevated blood pressure. Her blood pressure was a systolic value of around 170 at that time. She was taking losartan 25 mg daily and this was increased to 50 mg daily. She did have a follow-up appointment with her primary physician about 2 weeks ago and labs were acquired at that time with normal results. Today she arrives reporting a blood pressure in the 140s and blood pressure here upon arrival was 159/67. Related Data Home Medications ?Medication ?Instructions ?Recorded ?Confirmed sertraline 100 mg tablet 200 mg PO DAILY 07/05/23 05/07/24 calcium carbonate (Calcium 500) 500 mg PO DAILY 04/10/24 05/07/24 clopidogrel 75 mg tablet 75 mg PO DAILY 04/10/24 05/07/24 metoprolol succinate 25 mg 12.5 mg PO DAILY 04/10/24 05/07/24 tablet,extended release 24 hr omeprazole 40 mg capsule,delayed 40 mg PO DAILY 04/10/24 05/07/24 release rosuvastatin 10 mg tablet 10 mg PO QPM 04/10/24 05/07/24 spironolactone 25 mg tablet 12.5 mg PO QAM 04/10/24 05/07/24 sucralfate 1 gram tablet 1 g PO QID 04/10/24 05/07/24 Previous Rx's ?Medication ?Instructions ?Recorded losartan 50 mg tablet 50 mg PO DAILY #30 tabs 04/12/24 Allergies Allergy/AdvReac Type Severity Reaction Status Date / Time bee venom protein (honey bee) Allergy Mild swelling Verified 05/07/24 10:26 Penicillins Allergy Unknown Verified 05/07/24 10:26 Review of Systems Status of ROS: Reports: 10 or more systems reviewed and unremarkable except as noted in History and below Narrative: Constitutional: No fevers, no weight gain or loss. Eyes: No discharge. No vision changes. HENT: No congestion, no sore throat, no ear pain. Cardiovascular: No chest pain, no palpitations. Respiratory: No shortness of breath, no wheezes, no cough. Gastrointestinal: No abdominal pain, no vomiting, no diarrhea. Genitourinary: No dysuria, no hematuria. Musculoskeletal: Normal range of motion. Skin: No rashes, no pruritis. Neurological: No dizziness, weakness, sensory change, speech change. Endo/Heme/Allergies: No bruising or bleeding. No polydipsia. Pysch: no suicidality, no anxiety, no insomnia. All other systems reviewed and are negative. [facility] Medical History Depression ?F32.A - Depression, unspecified (ICD-10) Heart attack ?I21.9 - Acute myocardial infarction, unspecified (ICD-10) Surgical History H/O heart artery stent ?Z95.5 - Presence of coronary angioplasty implant and graft (ICD-10) Social History Smoking Status: Never smoker Do you use any of these nicotine containing products: None How often do you have a drink containing alcohol: never AUDIT-C Alcohol total score: 0 Non-prescribed substance use: denies use Exam Narrative: Exam Narrative: Constitutional: Well-developed, well-nourished, no acute distress. HEENT: Normocephalic, atraumatic. Neck: Normal range of motion. Nontender. Supple. Heart: Regular. No murmurs. Normal rate. Intact distal pulses. Lungs: Clear to auscultation. No chest discomfort. No wheezes, rhonchi, or rales. Abdomen: Normal bowel sounds. Nontender. No rebound tenderness. Genitalia: Deferred. Back: No midline tenderness. Normal range of motion. Extremities: Normal range of motion. No injury. Skin: Intact. No rash. Warm. No erythema or pallor. Neurologic: No altered sensation. No weakness. Alert and oriented. Psychiatric: No suicidality. No anxiety or depression. No insomnia. Nursing notes and vitals signs are reviewed. Const: Vital Signs, click to edit/add: Vital Signs - 24 hr 05/07/24 10:28 Temperature 98.1 F Pulse Rate [Pulse Oximeter] 65 Respiratory Rate 14 Blood Pressure [Ri ght Upper Arm] 159/67 H Pulse Oximetry 97 Oxygen Delivery Me thod Room Air Course Vital Signs Vital signs: Initial Vital Signs Temperature 98.1 F 05/07/24 10:28 Temperature Source Temporal Artery Scan 05/07/24 10:28 Pulse Rate 65 05/07/24 10:28 Pulse Rhythm Regular 05/07/24 10:28 Respiratory Rate 14 05/07/24 10:28 Blood Pressure 159/67 H 05/07/24 10:28 Blood Pressure Mean 97 05/07/24 10:28 Blood Pressure Position Sitting 05/07/24 10:28 Pulse Oximetry 97 05/07/24 10:28 Oxygen Delivery Method Room Air 05/07/24 10:28 Vital Signs Temperature 98.1 F 05/07/24 10:28 Pulse Rate 65 05/07/24 10:28 Respiratory Rate 14 05/07/24 10:28 Blood Pressure 159/67 H 05/07/24 10:28 Pulse Oximetry 97 05/07/24 10:28 Oxygen Delivery Method Room Air 05/07/24 10:28 Temperature 98.1 F 05/07/24 10:28 Pulse Rate 65 05/07/24 10:28 Respiratory Rate 14 05/07/24 10:28 Blood Pressure 159/67 H 05/07/24 10:28 Pulse Oximetry 97 05/07/24 10:28 Oxygen Delivery Method Room Air 05/07/24 10:28 Medical Decision Making MDM Narrative Medical decision making narrative: This patient comes in with concern about her blood pressure. She is not having any significant symptoms. I did explain matters related to blood pressure management. She did have an increase in her dosage in her last ER visit and is following through with her primary physician. This discussion about his blood pressure was informed of a specially to the patient's daughter who understands management and treatment processes and goals. She will continue to monitor her blood pressure and follow-up with her primary physician for ongoing management. Discharge Plan Discharge Clinical Impression: Elevated blood pressure reading Patient Disposition: Home, Self-Care Condition: Stable Additional Instructions: Continue current plans. Record blood pressures and follow up with primary physician for ongoing management. Return if worsening. Prescriptions: No Action sertraline 100 mg tablet 200 mg PO DAILY calcium carbonate [Calcium 500] 500 mg calcium (1,250 mg) tablet,chewable 500 mg PO DAILY sucralfate 1 gram tablet 1 g PO QID clopidogrel 75 mg tablet 75 mg PO DAILY omeprazole 40 mg capsule,delayed release(DR/EC) 40 mg PO DAILY spironolactone 25 mg tablet 12.5 mg PO QAM metoprolol succinate 25 mg tablet extended release 24 hr 12.5 mg PO DAILY rosuvastatin 10 mg tablet 10 mg PO QPM losartan 50 mg tablet 50 mg PO DAILY Qty: 30 2RF Follow Up/Referrals: Pau Franklin MD [Primary Care Provider] - Stand Alone Forms: [employer] Info Instructions
[2024-05-07 11:18] VITALS: BP 138/60; PULSE 65; RESP 14; TEMP 36.7
== END 2024-05-07 11:20 | disposition home or self-care (01) ==
PROVIDERS: Emergency Provider Emergency Medicine Emergency Medical Services; PCP Family Medicine
DX: R03.0 Elevated blood-pressure reading, without diagnosis of hypertension (principal)
CPT/HCPCS: 99282; 99283; 99284

== ENCOUNTER 2024-08-13 09:11 | Emergency (ER) | payer MEDICARE, BC, SELFPAY ==
[2024-08-13 09:13] VITALS: BP 167/81; PULSE 74; RESP 18; TEMP 36.6; O2SAT 98; BMI 28.3
--- NOTE | 2024-08-13 09:53 | ED_ITS ---
HPI - General Adult General Time Seen by Provider: 10:05 Date Seen: 08/13/24 Chief complaint: Constipation Stated complaint: Constipation/Bowel Obstruction Time Seen by Provider: 08/13/24 09:52 Source: patient and RN notes reviewed Mode of arrival: ambulatory Limitations: no limitations History of Present Illness HPI narrative: This 84-year-old female is coming in with complaint of constipation and no stool result for 5 days. She states her appetite is good, no nausea or vomiting, she has been able to eat without any complication. She has been trying prunes at home, MiraLax, enemas. She last took an enema last night. She denies any abdominal pain right now, no cramping. She states she starting to feel the urge to defecate. She told nursing staff that she had not had a stool in 4 days, she believes it is going on 5 days when I talked to her further. She has no fevers or chills with this. Related Data Home Medications ?Medication ?Instructions ?Recorded ?Confirmed sertraline 100 mg tablet 200 mg PO DAILY 07/05/23 08/13/24 calcium carbonate (Calcium 500) 500 mg PO DAILY 04/10/24 08/13/24 metoprolol succinate 25 mg 12.5 mg PO DAILY 04/10/24 08/13/24 tablet,extended release 24 hr omeprazole 40 mg capsule,delayed 40 mg PO DAILY 04/10/24 08/13/24 release rosuvastatin 10 mg tablet 10 mg PO QPM 04/10/24 08/13/24 spironolactone 25 mg tablet 12.5 mg PO QAM 04/10/24 08/13/24 sucralfate 1 gram tablet 1 g PO QID 04/10/24 08/13/24 Previous Rx's ?Medication ?Instructions ?Recorded losartan 50 mg tablet 50 mg PO DAILY #30 tabs 04/12/24 Allergies Allergy/AdvReac Type Severity Reaction Status Date / Time bee venom protein (honey bee) Allergy Mild swelling Verified 08/13/24 09:20 Penicillins Allergy Unknown Verified 08/13/24 09:20 Review of Systems Status of ROS: Reports: 6 or more systems reviewed and unremarkable except as noted in History and below [facility] Medical History Depression ?F32.A - Depression, unspecified (ICD-10) Heart attack ?I21.9 - Acute myocardial infarction, unspecified (ICD-10) Surgical History H/O heart artery stent ?Z95.5 - Presence of coronary angioplasty implant and graft (ICD-10) Social History Smoking Status: Never smoker Do you use any of these nicotine containing products: None How often do you have a drink containing alcohol: never AUDIT-C Alcohol total score: 0 Non-prescribed substance use: denies use Exam Const: Vital Signs, click to edit/add: Vital Signs - 24 hr 08/13/24 09:13 Temperature 97.9 F Pulse Rate [Pulse Oximeter] 74 Respiratory Rate 18 Blood Pressure [Ri ght Upper Arm] 167/81 H Pulse Oximetry 98 Oxygen Delivery Me thod Room Air This 84-year-old female is alert, interactive, no apparent distress. She is ambulatory into the ED of her own accord. She is very pleasant and conversive. Sclera clear, symmetrical facial function. Lungs are clear, good air entry, no wheeze or crackles. CV regular rate and rhythm, no murmur, normal S1-S2. Abdomen is soft, nontender, nondistended, normal bowel sounds, no organomegaly or masses noted, no rebound or guarding. She has some redundant tissue but no evidence of any bleeding or hemorrhoids at her anus. Digital rectal exam reveals empty rectal vault, cannot feel any stool. Removal of the glove reveals no blood, no significant stool. Documenting provider has reviewed patient's vital signs: yes Course Course ED Course: Reviewed with patient that I do not feel any stool in the rectal vault. We did review that sometimes the stool can be higher than what we can reach, this means that things like enemas may not be as effective. We may need to work from above. Discussed with her doing some abdominal imaging with plain films to see the stool burden. She actually feels the urge to defecate, she wants to try to sit on the toilet 1st. Nursing staff will let me know if there is no results per her abdominal exam is certainly benign right now, she is not tender at all, she has good bowel sounds, feel no masses. Reevaluation(s) Time of Reevaluation #1: 10:29 Reevaluation #1: Nursing staff reports that patient did not have any success, will order flat and upright abdominal imaging. Time of Reevaluation #2: 11:43 Reevaluation #2: Have reviewed patient's abdominal imaging with her, provided a copy. There really is no stool that is seen in the colon. She states she is able to eat, has had no nausea vomiting, no abdominal pain, is passing gas, no fevers or chills. Have reviewed with her that next step in management would be to consider labs and CT imaging of her abdomen. She has absolutely no abdominal pain, was just concerned as she had not had a stool for 5 days. We discussed warning signs, she declines doing any further workup and would like to return home at this time. I do think it is reasonable. Her abdominal exam is absolutely benign at this time. Vital Signs Vital signs: Initial Vital Signs Temperature 97.9 F 08/13/24 09:13 Temperature Source Temporal Artery Scan 08/13/24 09:13 Pulse Rate 74 08/13/24 09:13 Respiratory Rate 18 08/13/24 09:13 Blood Pressure 167/81 H 08/13/24 09:13 Blood Pressure Mean 109 H 08/13/24 09:13 Blood Pressure Position Sitting 08/13/24 09:13 Pulse Oximetry 98 08/13/24 09:13 Oxygen Delivery Method Room Air 08/13/24 09:13 Vital Signs Temperature 97.9 F 08/13/24 09:13 Pulse Rate 74 08/13/24 09:13 Respiratory Rate 18 08/13/24 09:13 Blood Pressure 167/81 H 08/13/24 09:13 Pulse Oximetry 98 08/13/24 09:13 Oxygen Delivery Method Room Air 08/13/24 09:13 Temperature 97.9 F 08/13/24 09:13 Pulse Rate 74 08/13/24 09:13 Respiratory Rate 18 08/13/24 09:13 Blood Pressure 167/81 H 08/13/24 09:13 Pulse Oximetry 98 08/13/24 09:13 Oxygen Delivery Method Room Air 08/13/24 09:13 Medical Decision Making Imaging Data Abdominal x-ray: Attestation: I have reviewed the pertinent imaging results. My impression: Do not see any significant stool, no pathologic bowel pattern on my preliminary review. Radiologist's impression: Patient: JADEN CASTILLO Facility:?[facility] Patient ID:?[id number] Site Patient ID:?[id number]. Site :?[id number] Study:?XRay-Abdomen 2V-08/13/2024 11:12:54 AM Ordering Physician:?Carlos Inman Final Report: Indication: Constipation. Technique: Abdomen 2 view. Comparison: None. Findings/Impression: Bowel: No sign of constipation. There is little to no colonic stool. Moderate amount of gas in the colon. Small bowel is decompressed. Soft tissues: No sign of free air. No sign of soft tissue mass. No suspicious calcifications. Bones: Unremarkable for age. Dictated by Dc Victoria MD @ 08/13/2024 11:33:51 AM (Electronic Signature) Discharge Plan Discharge Clinical Impression: Normal exam Instructions: Constipation (ED) Additional Instructions: If you develop abdominal pain, have nausea vomiting or fever with these symptoms, need to return for further evaluation. As long as you can not eat and are passing gas and do not have abdominal pain, can observe for few days. Try to eat high-fiber foods, drink plenty of fluids. Recheck in clinic if you do not have any concerning abdominal symptoms but have not had stool production within the next couple of days. Activity Level: Activity as Tolerated Prescriptions: No Action sertraline 100 mg tablet 200 mg PO DAILY calcium carbonate [Calcium 500] 500 mg calcium (1,250 mg) tablet,chewable 500 mg PO DAILY sucralfate 1 gram tablet 1 g PO QID omeprazole 40 mg capsule,delayed release(DR/EC) 40 mg PO DAILY spironolactone 25 mg tablet 12.5 mg PO QAM metoprolol succinate 25 mg tablet extended release 24 hr 12.5 mg PO DAILY rosuvastatin 10 mg tablet 10 mg PO QPM losartan 50 mg tablet 50 mg PO DAILY Qty: 30 2RF Follow Up/Referrals: Pau Franklin MD [Primary Care Provider] - Stand Alone [facility]: [facility] Info Instructions
--- NOTE | 2024-08-13 10:28 | CRLHL7_ITS ---
For Patients: As a result of the Century Cures Act, medical imaging exams and procedure reports are released immediately into your electronic medical record. You may view this report before your referring provider. If you have questions, please contact your health care provider. Indication: Constipation. Technique: Abdomen 2 view. Comparison: None. Findings/Impression: Bowel: No sign of constipation. There is little to no colonic stool. Moderate amount of gas in the colon. Small bowel is decompressed. Soft tissues: No sign of free air. No sign of soft tissue mass. No suspicious calcifications. Bones: Unremarkable for age. Dictated by Dc Victoria MD @ 08/13/2024 11:33:51 AM (Electronically Signed)
--- OUTSIDE RECORDS SUMMARY | 2024-08-13 10:43 | XMS_ITS | Continuity of Care Document ---
Author Organization [facility] Address [address] [address] [place] [address] Phone Care Team Providers Care Founder And President Name Role Phone Sharath Sloan MD, Tenzin Hernández Unavailabl e Allergies, Adverse Reactions, Alerts Substance Reaction Status Criticality PENICILLIN HivesHives Active No Information Medications Medication Instructions Dosage Effective Dates (start - stop) Status Comments omeprazole 40 mg capsule,delayed release take 1 capsule by oral route 2 times every day 30-60 mins before breakfast and dinner 40 MG - Active ascorbic acid (vitamin C) 500 mg tablet take 1 tablet by oral route every day 1 tablet - Active calcium carbonate 500 mg calcium (1,250 mg) tablet take 1 tablet by oral route 2 times every day 1 tablet - Active cholecalciferol (vitamin D3) 25 mcg (1,000 unit) capsule take 1 capsule by oral route every day 1 capsule - Active clopidogrel 75 mg tablet take 1 tablet by oral route every day 75 MG - Active lorazepam 0.5 mg tablet take 1 - 2 table t by oral route 3 times every day as needed 0.5 MG - Active losartan 25 mg tablet take .5 tablet by oral route every day - Active metoprolol succinate ER 25 mg tablet,extended release 24 hr take .5 tablet by oral route every day - Active Multivitamin 50 Plus tablet - Active pantoprazole 40 mg tablet,delayed release take 1 tablet by oral route every day 40 MG - Active rosuvastatin 10 mg tablet take 1 tablet by oral route every day 10 MG - Active sertraline 100 mg tablet take 1 tablet by oral route every bedtime 100 MG - Active spironolactone 25 mg tablet take 0.5 tablet by oral route every day 12.5 MG - Active Visine 0.05 % eye drops place 1 drop int o both eyes 4 times daily if needed - Active zolpidem 5 mg tablet take 1 tablet by oral route every day at bedtime 5 MG - Active Vitamin C 500 mg tablet take 1 tablet by oral route every day 1 tablet - Active Vitamin D3 25 mcg (1,000 unit) tablet take 1 tablet by oral route every day 1 tablet - Active sucralfate 1 gram tablet take 1 tablet by oral route 4 times every day on an empty stomach 1 hour before meals and at bedtime 1 G - Active amiodarone 200 mg tablet take 1 tablet by oral route every day 200 MG - Active omeprazole 40 mg capsule,delayed release take 1 capsule by oral route every day 30-60 mins before breakfast 40 MG - Active Ambien 5 mg tablet take 0.5 tablet by oral route every day at bedtime 2.5 MG - Active Procedures Procedure Date Offic/outpt E&m [facility] Advance Directives Directive Yes / No Effective Date File Name No Information Encounters Encounter Description Practice Location Reason(s) For Visit Diagnoses Date Provider Providers Copied on Encounter [facility] [place], [address] [address], [place], [place], [id number], [place] tel:[phone] [facility] No Information 4 Sharath Dave. [address] [facility], [facility] [address], [place], [place], [id number] , [place]. tel:[phone] [facility], [address] [address], [place], [place], [id number], [place] tel:[phone] [facility] No Information 4 Adan Esquivel. [address] [facility], [address], [place], [place], [id number] , [place]. tel:[phone] Offic/outpt E&m [place] [facility], [address] [address], [place], [place], [id number], [place] tel:[phone] [facility] GI Symptoms or Concerns (chief complaint) Gastroesophageal reflux disease, unspecified whether esophagitis presentEssential (primary) hypertension 3 Adan Esquivel. [address] [facility], [address], [place], [place], [id number] , [place]. tel:[phone] Referring Provider: Pau Johnson, [address] [place] [address], [place], [address]. tel:[phone] [facility], [address] [address], [place], [place], [id number], [place] tel:[phone] [facility] No Information 3 Sharath Dave. [address] [facility], [address], [place], [place], [id number] , [place]. [phone] Family History Family Member Type Diagnosis Age At Onset No Information Immunizations Vaccine Date Status Comments tetanus toxoid, reduced diphtheria toxoid, and acellular pertussis vaccine, adsorbed administered Note: [facility] b i-directional interface ; Source: Other Registry Respiratory syncytial virus (RSV), vaccine, recombinant, protein subunit RSV prefusion F, adjuvant reconstituted, 0.5 mL, preservative free administered Note: [facility] bi-direct ional interface ; Source: Other Registry Influenza, high-dose, split virus, trivalent, injectable, preservative free administered Note: [facility] bi-direct ional interface ; Source: Other Registry SARS-COV-2 (COVID-19) vaccin e, mRNA, spike protein, LNP, preservative free, 50 mcg/0.5 mL dose administered Note: [facility] bi-direct ional interface ; Source: Other Registry SARS-COV-2 (COVID-19) vaccin e, mRNA, spike protein, LNP, preservative free, 50 mcg/0.5 mL dose administered Note: [facility] bi-direct ional interface ; Source: Other Registry Influenza, high-dose, split virus, quadrivalent, injectable, preservative free administered Note: [facility] bi-direct ional interface ; Source: Other Registry Influenza, high-dose, split virus, quadrivalent, injectable, preservative free administered Note: [facility] bi-direct ional interface ; Source: Other Registry influenza, high-dose seasona l, quadrivalent, 0.7mL dose, preservative free administered Note: [facility] bi-direct ional interface ; Source: Other Registry Influenza, high-dose, split virus, quadrivalent, injectable, preservative free administered Note: [facility] bi-direct ional interface ; Source: Other Registry SARS-COV-2 (COVID-19) vaccin e, mRNA, spike protein, LNP, bivalent, preservative free, 30 mcg/0.3 mL dose, guicho-sucrose formulation administered Note: [facility] bi-direct ional interface ; Source: Other Registry influenza, high-dose seasona l, quadrivalent, 0.7mL dose, preservative free administered Note: [facility] bi-direct ional interface ; Source: Other Registry SARS-COV-2 (COVID-19) vaccin e, mRNA, spike protein, LNP, preservative free, 30 mcg/0.3mL dose, guicho-sucrose formulation administered Note: [facility] C bi- directional interface ; Source: Other Registry SARS-COV-2 (COVID-19) vaccin e, mRNA, spike protein, LNP, preservative free, 30 mcg/0.3mL dose administered Note: [facility] bi-direct ional interface ; Source: Other Registry Influenza, high-dose, split virus, quadrivalent, injectable, preservative free administered Note: [facility] bi-direct ional interface ; Source: Other Registry influenza, high-dose seasona l, quadrivalent, 0.7mL dose, preservative free administered Note: [facility] bi-direct ional interface ; Source: Other Registry SARS-COV-2 (COVID-19) vaccin e, mRNA, spike protein, LNP, preservative free, 30 mcg/0.3mL dose administered Note: [facility] bi-direct ional interface ; Source: Other Registry SARS-COV-2 (COVID-19) vaccin e, mRNA, spike protein, LNP, preservative free, 30 mcg/0.3mL dose administered Note: [facility] bi-direct ional interface ; Source: Other Registry Influenza, high-dose, split virus, quadrivalent, injectable, preservative free administered Note: [facility] bi-direct ional interface ; Source: Other Registry influenza, high-dose seasona l, quadrivalent, 0.7mL dose, preservative free administered Note: [facility] bi-direct ional interface ; Source: Other Registry Influenza, recombinant, quadrivalent, injectable, preservative free administered Note: [facility] bi-direct ional interface ; Source: Other Registry Seasonal, quadrivalent, recombinant, injectable influenza vaccine, preservative free administered Note: [facility] bi-direct ional interface ; Source: Other Registry zoster vaccine recombinant administered N ote: [facility] bi-directional interface ; Source: Other Registry zoster vaccine recombinant administered N ote: [facility] bi-directional interface ; Source: Other Registry Influenza, high-dose, split virus, trivalent, injectable, preservative free administered Note: [facility] bi-direct ional interface ; Source: Other Registry influenza, high dose seasona l, preservative-free administered Note: [facility] bi-direct ional interface ; Source: Other Registry Influenza, high-dose, split virus, trivalent, injectable, preservative free administered Note: [facility] bi-direct ional interface ; Source: Other Registry influenza, high dose seasona l, preservative-free administered Note: [facility] bi-direct ional interface ; Source: Other Registry Influenza, adjuvanted, inactivated, trivalent, injectable, preservative free administered Note: [facility] bi-directional interface ; Source: Other Registry Seasonal trivalent influenza vaccine, adjuvanted, preservative free administered Note: [facility] bi-direct ional interface ; Source: Other Registry Influenza, high-dose, split virus, trivalent, injectable, preservative free administered Note: [facility] bi-direct ional interface ; Source: Other Registry influenza, high dose seasona l, preservative-free administered Note: [facility] bi-direct ional interface ; Source: Other Registry Influenza, high-dose, split virus, trivalent, injectable, preservative free administered Note: [facility] bi-direct ional interface ; Source: Other Registry influenza, high dose seasona l, preservative-free administered Note: [facility] bi-direct ional interface ; Source: Other Registry Prevnar 13 administered Note: [facility] bi-d irectional interface ; Source: Other Registry Influenza, high-dose, split virus, trivalent, injectable, preservative free administered Note: [facility] bi-direct ional interface ; Source: Other Registry influenza, high dose seasona l, preservative-free administered Note: [facility] bi-direct ional interface ; Source: Other Registry Influenza, split virus, trivalent, injectable, preservative free administered Note: [facility] bi-direct ional interface ; Source: Other Registry Influenza, seasonal, injecta ble, preservative free administered Note: [facility] bi-direct ional interface ; Source: Other Registry tetanus toxoid, reduced diphtheria toxoid, and acellular pertussis vaccine, adsorbed administered Note: [facility] b i-directional interface ; Source: Other Registry Influenza, split virus, trivalent, injectable, contains preservative administered Note: [facility] bi-direct ional interface ; Source: Other Registry Influenza, seasonal, injectable administe red Note: [facility] bi- directional interface ; Source: Other Registry Influenza, split virus, trivalent, injectable, contains preservative administered Note: [facility] bi-direct ional interface ; Source: Other Registry Influenza, seasonal, injectable administe red Note: [facility] bi- directional interface ; Source: Other Registry zoster vaccine, live administered Note: II bi-directional interface ; Source: Other Registry Influenza, split virus, trivalent, injectable, contains preservative administered Note: [facility] bi-direct ional interface ; Source: Other Registry Influenza, seasonal, injectable administe red Note: [facility] bi- directional interface ; Source: Other Registry Influenza, split virus, trivalent, injectable, contains preservative administered Note: [facility] bi-direct ional interface ; Source: Other Registry Pneumovax 23 administered Note: [facility] bi-d irectional interface ; Source: Other Registry tetanus and diphtheria toxoi ds, adsorbed, preservative free, for adult use (5 Lf of tetanus toxoid and 2 Lf of diphtheria toxoid) administered Note: [facility] bi-direct ional interface ; Source: Other Registry Influenza, seasonal, injectable administe red Note: [facility] bi- directional interface ; Source: Other Registry Influenza, split virus, trivalent, injectable, contains preservative administered Note: [facility] bi-direct ional interface ; Source: Other Registry Influenza, seasonal, injectable administe red Note: [facility] bi- directional interface ; Source: Other Registry Influenza, split virus, trivalent, injectable, contains preservative administered Note: [facility] bi-direct ional interface ; Source: Other Registry Influenza, seasonal, injectable administe red Note: [facility] bi- directional interface ; Source: Other Registry Influenza, split virus, trivalent, injectable, contains preservative administered Note: [facility] bi-direct ional interface ; Source: Other Registry Influenza, seasonal, injectable administe red Note: [facility] bi- directional interface ; Source: Other Registry Payers Payer name Insurance type Covered alliance party ID Authoriza tistevie(s) Medicare NGS MB [id number] [employer] Medicare Supplement BL [id number] Social History Type Description Quantity Date Captured Comments Sex Female Smoking Status No Information Chief Complaint And Reason For Visit No Information Reason For Referral Reason For Referral No Information Plan Of Treatment Date Type Action Status Referral Ordered: EGD Appointment date/timeframe: 01/16/2024 ordered History Of Present Illness Encounter Date Complaint History Of Prese nt Illness GI Symptoms or Concerns Radha is an 83-year-old female, seen in clinic today for concerns regarding heartburn and GERD.Radha reports that she has had trouble with heartburn and reflux for the last 2 years. She describes typical retrosternal burning sensation that is made worse by certain foods, particularly citrus. Kfvr-oxi-hayotel antacids as well as PPI seemed to help. She reports having an endoscopy done at [facility] couple of years ago when all these symptoms started and was told that everything was unremarkable. I do not have the results of that endoscopy for review today.In late June 2023, she had an episode of STEMI requiring 3 cardiac stents. She was in the hospital and was started on aspirin, Plavix, another anticoagulant, which she has been taking since discharge. Unfortunately, since that episode of STEMI, her heartburn and reflux symptoms have also gotten much worse.Previously, she was taking pantoprazole 40 mg daily, which was controlling the symptoms, but t Functional Status Date Functional Assessmen t No Information Instructions Date Instruction Additional Infor ramos 1. Increase omeprazo le to 40 mg twice daily. 2. Stop Pepcid. 3. Continue Carafate 1 gram 4 times a day for the next month and then try to stop. 4. We will tentatively plan on repeating an EGD 6 months from her episode of STEMI, which would be end of December 2023. If, however, her symptoms worsen again in the interim, then she will give us a call and we may have to arrange this more urgently.Follow up after endoscopy for continued management. Related to Gastroesophageal reflux disease, unspecified whether esophagitis present Assessments Type Assessment Date No Information Patient Care Teams Name Effective Dates (start - stop) Status Members No Information
--- OUTSIDE RECORDS SUMMARY | 2024-08-13 10:43 | XMS_ITS | Clinical Summary ---
Author Organization [facility] Address [place], [place] [address] Care Team Providers Care Gin Feeder Name Role Phone Steven Tellez Unavailable Pau Franklin MD Primary Care Provide r Allergies Active Allergy Reactions Criticality Noted Date Comments Bee Pollen Edema 02/11/2007 Bee Venom Protein (Honey Bee) Edema,Angioedema Low 04/10/2024 Codeine GI Upset Penicillins Other - Describe In Comment Field,Hives 02/11/2007 Lips and fingers go numb Medications Medication Sig Dispensed Refills Start Date End Date Status cholecalciferol (VITAMIN D) 1,000 unit capsule Take 1 capsule by mouth once daily. 0 1 Active LORazepam (ATIVAN) 0.5 mg tabIndications:A nxiety state Take 1 Tablet (0.5 mg) by mouth once daily if needed for Anxiety. 30 Tablet 2 Active calcium carbonate (OS-JOSÉ LUIS 500) 500 mg calcium (1,250 mg) tablet Take 500 mg by mouth once daily with a meal. Active multivitamins-mi nerals-lutein (Multivitamin 50 Plus) tab tablet Take 1 Tablet by mouth once daily. Active ascorbic acid, vitamin C, (Vitamin C) 500 mg tablet Take 500 mg by mouth once daily. Active tetrahydrozoline (Visine) 0.05 % ophthalmic solution Place 1 Drop into both eyes 4 times daily if needed (irritated eyes). Active Walker - 4 wheelsIndication s:Post-op pain For home use. Length of need: 20 years Walker with a seat. 1 Each 3 Active omeprazole (PRILOSEC) 40 mg Delayed-Release capsuleIndicatio ns:Chronic GERD Take 1 Capsule (40 mg) by mouth once daily before a meal. 90 Capsule 3 3 Active rosuvastatin (CRESTOR) 10 mg tabletIndication s:ST elevation myocardial infarction (STEMI), unspecified artery (HC) Take 1 Tablet (10 mg) by mouth at bedtime. 90 Tablet 3 3 Active metoprolol succinate (TOPROL XL) 25 mg Sustained-Releas e tabletIndication s:ST elevation myocardial infarction (STEMI), unspecified artery (HC) Take 0.5 Tablets (12.5 mg) by mouth once daily. 45 Tablet 3 3 Active aspirin (ECOTRIN) 81 mg enteric coated tablet Take 1 Tablet (81 mg) by mouth once daily with a meal. 4 Active melatonin 1 mg tablet Take 1 Tablet (1 mg) by mouth at bedtime. 4 Active sertraline (ZOLOFT) 100 mg tabletIndication s:Major depressive disorder, recurrent episode, mild (HC) Take 2 Tablets (200 mg) by mouth once daily. 180 Tablet 3 4 Active sucralfate (CARAFATE) 1 gram tabletIndication s:Chronic GERD Take 1 Tablet (1 g) by mouth four times daily before meals and at bedtime. 360 Tablet 3 4 Active losartan (COZAAR) 50 mg tabletIndication s:HTN (hypertension) Take 1 Tablet (50 mg) by mouth once daily. 90 Tablet 3 4 Active CPAPIndications: Obstructive sleep apnea RESMED CPAP (E0601) machine for home use at pressure: 5-15cmw, Choice of mask (A7030 or A7034) w/full face cushion (A7031) x1/mo, nasal cushion (A7032) x2/mo, or nasal pillows (A7033) x 2/mo; Length of Need: 99 months; Frequency of use: Daily 1 Each 11 4 Active DULoxetine (CYMBALTA) 30 mg Delayed-release capsuleIndicatio ns:Major depressive disorder, recurrent episode, mild (HC) Take 30 mg daily for 2 weeks and then 30 mg twice daily 180 Capsule 3 4 Active spironolactone (ALDACTONE) 25 mg tabletIndication s:ST elevation myocardial infarction (STEMI), unspecified artery (HC) TAKE 1/2 TABLET (12.5 MG) BY MOUTH EVERY MORNING. 45 Tablet 2 4 Active spironolactone (ALDACTONE) 25 mg tabletIndication s:ST elevation myocardial infarction (STEMI), unspecified artery (HC) Take 0.5 Tablets (12.5 mg) by mouth every morning. 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 She has HCD available. Anxiety state, unspecified 07/11/2007 Reflux esophagitis Osteopenia Overview (07/15/2009): dexa in 2006 Resolved Problems Problem Noted Date Diagnosed Date Resolved Date Obstructive sleep apnea (adult) (pediatric) 07/11/2007 07/17/2019 Overview (07/08/2010): Uses CPAP and works well 07/08/2010 Encounters Date Type Department Care Team Description 08/11/2024 3:30 PM AIR PLANT ENGINEER Office Visit [facility] [address] [place] [address] Rai Vera MD Follow Up (1 year follow up - Acute anterior wall ID) 08/11/2024 Travel 07/31/2024 Refill [facility] [address] [place] [address] Pau Franklin MD Refill Request (Spironolactone) 07/20/2024 2:40 PM CDT Office Visit [facility] [address] [place] [address] Pau Franklin MD Pre-Op Exam (Upper endoscopy 07/31/24 [facility] / [facility] Memory Loss (Fatigue changes daily and patient suspects it is depression./Anxiety/In terested in Aricept) 07/20/2024 Travel 07/14/2024 Telephone [facility] [address] [place] [address] Pau Franklin MD upcoming appointments 07/10/2024 2:30 PM CDT Telemedicine [address] [address] Nicolás Pryor MD Telehealth (cpap) 07/06/2024 11:30 AM CDT Office Visit [address] [address] Nadeen Pelayo PA Fatigue 07/06/2024 Travel 07/06/2024 Nurse Triage [facility] [address] [place] [address] Nadeen Pelayo PA Fatigue 07/05/2024 Orders Only [facility] Scanner 1 scan: (1-Ord) RESMED, COMPLIANCE REPORT, 07/05/2024 06/21/2024 Refill [facility] [address] [place] [address] Pau Franklin MD Refill Request (Clopidogrel) from Last 3 Months Immunizations Name Administration Dates Next Due AMB Influenza, IIV3 (Age >=3 years)(Flu Clinic Only) 06/28/2009 COVID-19 vaccine (M/A[place]COM [place] Free Classifieds 30mcg/0.3mL) PF, MDV 07/15/2021,11/26/2020,11/05/2020 Influenza Virus, Unspecified 07/17/2019, 07/08/2018,06/20/2018,2016,07/20/2016,07/16/2016,06/20/2014,0 06/02/2013,06/02/2011,07/08/2010, 009,07/12/2008,07/11/2007,07/07/2005,,07/16/2003 Influenza, High-dose Inactivated 024,07/08/2018,07/16/2016,2013 Influenza, High-dose Quadriv alent Inactivated 11/01/2023,06/23/2023,07/03/2022,2020,05/21/2020 Influenza, IIV3 (Age 6-35 mos) 06/02/2011 Influenza, [...] at 89 Heart Disease Mother age 72--first ID. at 90. dementia Hypertension Mother Stroke Mother Cancer Other 1 none Diabetes Other 2 none Cancer-breast Paternal Aunt Hypertension Sister Cancer-ovarian No Family History Relation Name Status Comments Brother 1 Brother [...] 1 12/07/2023 Social Connections Answer Date Recorded Do you often feel lonely or isolated from those around you? 0 07/27/2023 Financial Resource Strain Answer Date R ecorded Difficulty of Paying Living Expenses 3 07/27/2023 Difficulty of Paying Living Expenses Not on file 07/27/2023 Food Insecurity Answer Date Recorded Do you worry your food will run out before you are able to buy more? 1 07/27/2023 Transportation Needs Answer Date Record ed Does lack of transportation keep you from medica l appointments? 1 07/27/2023 Does lack of transportation keep you from work, meetings or getting things that you need? 1 07/27/2023 Housing Stability Answer Date Recorded What is your housing situation today? 1 07/27/2023 Sex and Gender Information Value Date Recorded Sex Assigned at Female 10/02/2020 12:00 PM [employer] PLANT ENGINEER Gender Identity Female 10/02/2020 12:00 PM [employer] PLANT ENGINEER Sexual Orientation Straight 10/02/2020 12 :00 PM AIR PLANT ENGINEER Obstetrics History Para Term AB IAB SAB Ectopic Multiple Livin g Live Births 6 5 5 1 1 5 Date Outcome GA Total Labor Labor/2nd/3rd Weight Sex Type Anes PTL Janneth A1 A5 Name Clin Term Term Term Term Term SAB Last Filed Vital Signs Vital Sign Reading Time Taken Comments Blood Pressure 133/69 08/11/2024 3:43 PM AIR PLANT ENGINEER Pulse 72 08/11/2024 3:43 PM AIR PLANT ENGINEER Temperature 36.6 C (97.9 F) 07/06/2024 11:37 AM CDT Respiratory Rate 16 09/29/2023 8:30 AM AIR PLANT ENGINEER Oxygen Saturation 99% 08/11/2024 3:43 PM AIR PLANT ENGINEER Inhaled Oxygen Concentration - - Weight 66.1 kg (145 lb 12.8 oz) 08/11/2024 3:43 PM AIR PLANT ENGINEER Height 152.4 cm (5') 11/09/2023 3:56 PM AIR PLANT ENGINEER Body Mass Index 28.47 11/09/2023 3:56 PM AIR PLANT ENGINEER Plan of Treatment Upcoming Encounters Date Type Department Care Team (Late st Contact Info) Description 09/14/2024 9:15 AM AIR PLANT ENGINEER Orders Only [facility] [address] [place] [address] Lab, [facility] Maintenance Due Date Last Done Comments RSV vaccine for adults or (1 - 1-dose 75+ series) 2014 Tetanus booster 01/30/2021 01/30/2011, 06/21, 07/11/2007, Additional history exists Medicare Wellness for age 65+ 11/18/2023, 10/10/2021, 10/04/2020, Additional history exists BMI (ht and wt [...] Completed 2020, 07/29/2017, 02/28/2013, Additional history exists COVID-19 vaccine series Completed 06/24/20, 11/08/2023, 07/03/2022, Additional history exists Influenza for age 65+ Completed 06/24/2024 , 11/01/2023, 06/23/2023, Additional history exists Procedures Procedure Name Priority Date/Time Associated Diagnosis Comments BASIC METABOLIC PANEL Routine 07/06/2024 12:07 PM CDT Fatigue, unspecified type CBC WITH AUTO DIFFERENTIAL Routine 07/06/2024 12:07 PM CDT Fatigue, unspecified type URINALYSIS MACROSCOPIC - [facility] ONLY POC DIP ([facility]) Routine 07/06/2024 12:06 PM CDT Fatigue, unspecified type SCAN-DIAGNOSTIC REPORT 07/05/2024 12:00 AM CDT XR DXA BONE DENSITY 2 SITES AXIAL Routine 10/07/2020 1:32 PM AIR PLANT ENGINEER Asymptomatic postmenopausal state from Last 3 Months or Most Recently Relevant to Health Maintenance Results * (ABNORMAL) CBC AND DIFFERENTIAL (07/06/2024 12:07 PM CDT) Pathologist [facility] WHITE BLOOD CELL COUNT 5.0 3.8 - 10.8 Thousand/u L [facility] RED BLOOD CELL COUNT 4.51 3.80 - 5.10 Million/uL [facility] HEMOGLOBIN 12.4 11.7 - 15.5 g/dL [facility] HEMATOCRIT 39.1 35.0 - 45.0 % [facility] MCV 86.7 80.0 - 100.0 fL [facility] MCH 27.5 27.0 - 33.0 pg [facility] MCHC 31.7(L) 32.0 - 36.0 g/dL [facility] Comment: For adults, a slight decrease in the calculated MCHC value (in the range of 30 to 32 g/dL) is most likely not clinically significant; however, it should be interpreted with caution in correlation with other red cell parameters and the patient's clinical condition. RDW 13.5 11.0 - 15.0 % [facility] PLATELET COUNT 138(L) 140 - 400 Thousand/u L [facility] MPV 10.3 7.5 - 12.5 fL [facility] ABSOLUTE NEUTROPHILS 3,670 1,500 - 7,800 cells/uL [facility] ABSOLUTE LYMPHOCYTES 805(L) 850 - 3,900 cells/uL [facility] ABSOLUTE MONOCYTES 425 200 - 950 cells/uL [facility] ABSOLUTE EOSINOPHILS 90 15 - 500 cells/uL [facility] ABSOLUTE BASOPHILS 10 0 - 200 cells/uL [facility] NEUTROPHILS 73.4 % [facility] LYMPHOCYTES 16.1 % [facility] MONOCYTES 8.5 % [facility] EOSINOPHILS 1.8 % [facility] BASOPHILS 0.2 % [facility] Blood BLOOD SPECIMEN / Unknown 07/06/2024 12:07 PM CDT 07/06/2024 12:07 PM CDT Narrative [facility] - 07/07/2024 4:49 AM CDT PATIENT UNABLE TO VOID; ADVISED TO RETURN FOR COLLECTION. Nadeen CHACON HEMATOLOGY [email or web address] [facility] [address] [place] [address], [facility] [address] [place] [address] * (ABNORMAL) BASIC METABOLIC PANEL (07/06/2024 12:07 PM CDT) GLUCOSE 78 65 - 99 mg/dL [facility] Comment: Fasting reference interval UREA NITROGEN (BUN) 20 7 - 25 mg/dL [facility] CREATININE 0.98(H) 0.60 - 0.95 mg/dL [facility] EGFR 57(L) > OR = 60 mL/min/1.7 3m2 [facility] BUN/CREATININE RATIO 20 6 - 22 (calc) [facility] SODIUM 141 135 - 146 mmol/L [facility] POTASSIUM 4.1 3.5 - 5.3 mmol/L [facility] CHLORIDE 105 98 - 110 mmol/L [facility] CARBON DIOXIDE 28 20 - 32 mmol/L [facility] ELECTROLYTE BALANCE 8 7 - 17 mmol/L (calc) [facility] CALCIUM 9.1 8.6 - 10.4 mg/dL [facility] Blood BLOOD SPECIMEN / Unknown 07/06/2024 12:07 PM CDT 07/06/2024 12:07 PM CDT Narrative [facility] - 07/07/2024 11:15 AM CDT PATIENT UNABLE TO VOID; ADVISED TO RETURN FOR COLLECTION. Nadeen CHACON CHEMISTRY [facility] [address] [place] [address], [place] [phone] [facility] [address] [place] [address] * POCT Urinalysis Dipstick Only (07/06/2024 12:06 PM CDT) PH 6.0 5.0 - 8.0 [facility] SPECIFIC GRAVITY < OR = 1.005 1.001 - 1.035 [facility] Comment: Specific Douglas values resulted are outside the analytical measurement range of this device. Recommend repeat/additional testing as clinically indicated. GLUCOSE NEGATIVE NEGATIVE [facility] BILIRUBIN NEGATIVE NEGATIVE [facility] KETONES NEGATIVE NEGATIVE [facility] OCCULT BLOOD NEGATIVE NEGATIVE [facility] PROTEIN NEGATIVE NEGATIVE [facility] NITRITE NEGATIVE NEGATIVE [facility] LEUKOCYTE ESTERASE NEGATIVE NEGATIVE [facility] Urine URINE SPECIMEN / Unknown 07/06/2024 12:06 PM CDT 07/06/2024 12:06 PM CDT Nadeen CHACON URINE [facility] [address] [place] [address], [place] [phone] [facility] [address] [place] [address] * SCAN-DIAGNOSTIC REPORT (07/05/2024 12:00 AM CDT) Scanner OTHER * (ABNORMAL) XR DXA BONE DENSITY 2 SITES AXIAL (10/07/2020 1:32 PM AIR PLANT ENGINEER) Anatomical Region Laterality Modality Spine, HIPS, HIPL, HIPR Other Narrative 10/09/2020 2:44 PM AIR PLANT ENGINEER Please see scanned document for results of this study. Pau Franklin MD DEXA from Last 3 Months or Most Recently Relevant to Health Maintenance Advance Directives Documents on File Type Date Recorded Patient Back Filler Operator Expl anation Healthcare Directive 02/24/2013 12:14 PM AM Girma OSEGUERA 08/06/2005 * DNR (Latest Code Status on File) Date Activated Date Inactivated Comments 07/18/2023 8:51 AM 07/22/2023 8:41 PM Question Answer Comments Code Status Discussion: Reviewed Preferences * Full Code Date Activated Date Inactivated Comments 07/17/2023 6:17 PM 07/18/2023 8:51 AM Patient re versed her code status for cardiac cath Question Answer Comments Code Status Discussion: Reviewed Preferences Care Teams Gin Feeder Relationship Specialty Start Date End Date Pau Franklin MD [address] [place] [address] PCP - General Family Practice 06/25/14 Steven Tellez [address] [place] [id number] Labels Molder 01/29/12
== END 2024-08-13 12:05 | disposition home or self-care (01) ==
LOC: ED 10:42
PROVIDERS: Emergency Provider Family Medicine; PCP Family Medicine
DX: Z71.1 Person with feared health complaint in whom no diagnosis is made (principal)
CPT/HCPCS: 74019; 99283

== ENCOUNTER 2024-08-14 16:16 | Emergency (ER) | payer MEDICARE, BC, SELFPAY ==
[2024-08-14 16:26] VITALS: BP 131/62; PULSE 79; RESP 18; TEMP 36.5; O2SAT 97; BMI 28.3
--- NOTE | 2024-08-14 16:44 | ED.GENADULT ---
HPI - General Adult General Time Seen by Provider: 16:44 Date Seen: 08/14/24 Chief complaint: Constipation Stated complaint: Rectal pain Time Seen by Provider: 08/14/24 16:19 Source: patient, family and RN notes reviewed Mode of arrival: ambulatory Limitations: no limitations History of Present Illness HPI narrative: This 84-year-old female is returning to the ER today with complaint of rectal pain, some bleeding and complaint that she has not had a stool in maybe 5, possibly 6 days now. She told nursing staff as well as her son that she was in urgent care on , had an x-ray done. The son pulled the nurse aside and reviewed concerns for his mom's memory. patient was actually here in the ER yesterday, complained of 4-5 day history of constipation with no results with home remedies including enemas. Her rectal vault was empty, abdominal x-rays revealed no stool burden. I reviewed with the patient that I had actually seen her yesterday here in the ER, she stated sometimes her memory isn't the best since her heart attack. She states her memory has been affected after her heart attack. She does know it is 2023, she does know that she is in the ER at [facility]. Yesterday was Wednesday when she was evaluated, she believes that she was seen in an urgent care on . She tells me that the 2 girls with her x-ray were wrong, she believes that an x-ray was not done, there could not possibly be no stool on the imaging. I did review with her that I personally was the 1 that ordered the x-ray, reviewed my a clinical exam with her yesterday as well as the radiology reading. We did send the radiology report home with the patient as well yesterday. Her son has gotten her [id number] medicines. She has been doing suppositories, told her son that she has been using him over and over. This obviously does not make sense as a suppository is use once and then should be liquified in the rectal vault. She has also been using enemas. She has been given [id number] modalities from her son. She states she has been able to eat without difficulty, no fevers, no abdominal pain. Today she started having rectal pain and did notice a little blood. It is unclear how many suppositories and how many enemas she has actually been using. She does states that she went home in used more enema is maybe last night as well as this morning, we cannot be sure. She has no idea when she last had a colonoscopy. Related Data Home Medications ?Medication ?Instructions ?Recorded ?Confirmed sertraline 100 mg tablet 200 mg PO DAILY 07/05/23 08/13/24 calcium carbonate (Calcium 500) 500 mg PO DAILY 04/10/24 08/13/24 metoprolol succinate 25 mg 12.5 mg PO DAILY 04/10/24 08/13/24 tablet,extended release 24 hr omeprazole 40 mg capsule,delayed 40 mg PO DAILY 04/10/24 08/13/24 release rosuvastatin 10 mg tablet 10 mg PO QPM 04/10/24 08/13/24 spironolactone 25 mg tablet 12.5 mg PO QAM 04/10/24 08/13/24 sucralfate 1 gram tablet 1 g PO QID 04/10/24 08/13/24 Previous Rx's ?Medication ?Instructions ?Recorded losartan 50 mg tablet 50 mg PO DAILY #30 tabs 04/12/24 Allergies Allergy/AdvReac Type Severity Reaction Status Date / Time bee venom protein (honey bee) Allergy Mild swelling Verified 08/13/24 09:20 Penicillins Allergy Unknown Verified 08/13/24 09:20 Review of Systems Status of ROS: Reports: 6 or more systems reviewed and unremarkable except as noted in History and below [facility] Medical History Depression ?F32.A - Depression, unspecified (ICD-10) Heart attack ?I21.9 - Acute myocardial infarction, unspecified (ICD-10) Surgical History H/O heart artery stent ?Z95.5 - Presence of coronary angioplasty implant and graft (ICD-10) Social History Smoking Status: Never smoker Do you use any of these nicotine containing products: None How often do you have a drink containing alcohol: never AUDIT-C Alcohol total score: 0 Non-prescribed substance use: denies use Exam Const: Vital Signs, click to edit/add: Vital Signs - 24 hr 08/14/24 16:26 Temperature 97.7 F Pulse Rate [Pulse Oximeter] 79 Respiratory Rate 18 Blood Pressure [Ri ght Upper Arm] 131/62 Pulse Oximetry 97 Oxygen Delivery Me thod Room Air This 84-year-old female is alert, interactive, no apparent distress. She is pleasant, conversive, laughing at times. Sclera clear, symmetrical facial function, able speak in complete sentences. Lungs are clear, good air entry, no wheezing or crackles, no tachypnea. CV regular rate and rhythm, no murmur, normal S1-S2, no S3-S4. Abdomen is soft, nontender, nondistended, no organomegaly, do not feel any masses, bowel sounds are present and sound normal. She has bit more edematous redundant mucosa around the anus, no thrombosed hemorrhoids. Digital rectal exam reveals no mass or stool that is palpable in the rectal vault, she is notably not tender on examination. Documenting provider has reviewed patient's vital signs: yes Course Course ED Course: Reviewed with patient that we will proceed with CT imaging and labs. Did review with her that we had discussed this yesterday but she does not remember this. She did make comment about feeling funny about being here and maybe she should not have come. Did review with her that we had discussed yesterday if she was having ongoing symptoms that she needed re-evaluation. We will proceed with imaging of her abdomen and pelvis, this will definitely identify any possible stool buildup, there possibly could be restrictive lesion. Her abdominal imaging really did not show any stool on plain films yesterday. If her CT imaging is not showing any concerning change, think we need to consider that this might be summary perseverating on bowel issues and concern for her overall mentation/mental capacity at this time. Reevaluation(s) Time of Reevaluation #1: 17:56 Reevaluation #1: The CT report is reviewed with patient's son Kenny. He had asked that we call him. He notes that he had to get up night and go get his mom MiraLax. Wednesday he got other medicines for her. Wednesday morning she was calling him, 1 did try to stay home to have bowel movement. They did get to urgent care but not until 3:00 p.m. and were not able to be seen. He went to [facility] with her afterwards, got her an enema kit, suppositories, oral laxatives. Wednesday they did go to the urgent care but were advised come here. He received 4 calls from her during the day today stating she was constipated. He does admit that she is having more and more difficulty processing and notes diminished cognitive ability. We reviewed the lesion on the left ovary, potential area of concern within the bladder. I will ultrasound the ovary with a pelvic ultrasound here. This certainly could be an ovarian cancer, there is concern about the right posterior bladder wall with a lesion there, may need to follow-up with urology outpatient. I do have concerns about this patient's cognitive status. She reportedly has a granddaughter that stays with her right now. I do think that they long-term were going to need to look for placement for her sooner rather than later. I did go in to talk to the patient after I spoke with her son. She is dressed, she tells me that she had a really good bowel movement today. I reviewed with her that she is been in to the ER twice in 24 hours with complaint of constipation and telling us that she has had no bowel movement. With the liquid stool that is seen on her CT, there really is not a chance for her to have had a formed bowel movement here. We went over her CT report, reviewed with her that she was going to be getting an ultrasound for a left ovarian lesion. She is dressed, wanting to eat but agrees to have the ultrasound done. Time of Reevaluation #2: 20:45 Reevaluation #2: Reviewed with patient as well as her son and daughter the ultrasound findings. This is appearing to be more consistent with a simple looking cyst but at her age is not expected and certainly not normal. I did do a lab add on for a CA 125 which is tumor marker for ovarian cancer. They were made aware that she is possibly feeling pelvic pressure from this large cyst sitting in her pelvis. There is blood flow, she is having no pain either. We did discuss potentially Tylenol but family really does not feel she is having pain, they agree with this scenario that she is having pressure sensation when making her think she has to go. We discussed keeping her on MiraLax as there is the possibility that there could be pressure and some outlet obstruction from this size of a ovarian cyst in her pelvis. They understand that it could give her diarrhea but I think if she is passing stool she will definitely feel better. They have arrangements at the house to have somebody stay with her. We discussed not having her have access to all the bowel regimens. They will have the MiraLax dispensed in the morning and then put the bottle away. Vital Signs Vital signs: Initial Vital Signs Temperature 97.7 F 08/14/24 16:26 Temperature Source Temporal Artery Scan 08/14/24 16:26 Pulse Rate 79 08/14/24 16:26 Respiratory Rate 18 08/14/24 16:26 Blood Pressure 131/62 08/14/24 16:26 Blood Pressure Mean 85 08/14/24 16:26 Pulse Oximetry 97 08/14/24 16:26 Oxygen Delivery Method Room Air 08/14/24 16:26 Vital Signs Temperature 97.7 F 08/14/24 16:26 Pulse Rate 79 08/14/24 16:26 Respiratory Rate 18 08/14/24 16:26 Blood Pressure 131/62 08/14/24 16:26 Pulse Oximetry 97 08/14/24 16:26 Oxygen Delivery Method Room Air 08/14/24 16:26 Temperature 97.7 F 08/14/24 16:26 Pulse Rate 79 08/14/24 16:26 Respiratory Rate 18 08/14/24 16:26 Blood Pressure 131/62 08/14/24 16:26 Pulse Oximetry 97 08/14/24 16:26 Oxygen Delivery Method Room Air 08/14/24 16:26 Medical Decision Making Lab Data Lab results reviewed: Yes I reviewed the patient's lab results Labs: Lab Results 08/14/24 08/14/24 08/14/24 Range/Units 17:00 17:24 20:08 WBC 4.09 L (4.50-11.00) K/uL RBC 4.60 (4.00-5.20) m/uL Hgb 12.6 (12.0-16.0) gm/dL Hct 39.0 (33.0-51.0) % MCV 85 (80-100) fL MCH 27 (26-34) pg MCHC 32 (32-36) gm/dL RDW Coeff of Jose Manuel 13.5 (11.5-15.5) % Plt Count 120 L (140-440) K/uL Neut % (Auto) 69.5 (42.0-72.0) % Lymph % (Auto) 15.9 L (20-44) % [place] % (Auto) 7.8 (0.0-11.0) % Eos % (Auto) 5.1 (0.0-7.0) % Baso % (Auto) 0.7 (0.0-3.0) % Neut # (Auto) 2.80 (1.7-7.0) K/uL Lymph # (Auto) 0.70 L (0.90-2.90) K/uL [place] # (Auto) 0.30 (0.00-0.90) K/UL Eos # (Auto) 0.20 (0.00-0.50) K/uL Baso # (Auto) 0.00 (0.00-0.30) K/uL Abs Immat Gran (auto) 0.00 (0.00-0.30) K/uL Imm/Tot Granulo (auto) 1.0 % Sodium 141 (135-149) mmol/L Potassium 4.1 (3.6-5.1) mmol/L Chloride 107 (96-114) mmol/L Carbon Dioxide 27 (20-32) mmol/L Anion Gap 7 (7-15) mEq/L BUN 11 (7-30) mg/dL Creatinine 0.7 (0.5-1.5) mg/dL Estimated Creat Clear 29.54 Estimated GFR 85 ml/min Glucose 128 H (60-115) mg/dL Lactate 1.2 (0.5-1.9) mmol/L Calcium 9.3 (8.4-10.6) mg/dL Total Bilirubin 0.3 (0.1-1.5) mg/dL AST 27 (12-35) U/L ALT 25 (4-35) U/L Alkaline Phosphatase 79 (40-150) U/L C-Reactive Protein < 0.5 L (0.5-1.0) mg/dL Total Protein 6.5 (6.0-8.3) g/dL Albumin 4.5 (3.3-5.0) g/dL Urine Color Yellow (Yellow) Urine Appearance Clear (Clear) Urine pH 5.5 (5.0-8.5) Ur Specific [place] <= 1.005 (1.000-1.030) Urine Protein Negative (Negative) Urine Glucose (UA) Negative (Negative) Urine Ketones Negative (Negative) Urine Blood 2+ A (Negative) Urine Nitrite Negative (Negative) Urine Bilirubin Negative (Negative) Urine Urobilinogen 0.2 (0.2-1.0) Ur Leukocyte Esterase Trace A (Negative) Urine RBC 0-2 (0-2) Urine WBC 0-2 (0-5) Ur Squamous Epith Cells None (None-Few) Urine Bacteria None (None) Lab Acknowledgement Test Added POC Creatinine 0.9 (0.6-1.3) mg/dl Imaging Data CT scan - abdomen: Attestation: I have reviewed the pertinent imaging results. My impression: Did review CT imaging. Radiologist's impression: Patient: JADEN CASTILLO Facility:?[facility] Patient ID:?[id number] Site Patient ID:?[id number]. Site :?[id number] Study:?CT-Abdomen/Pelvis W/ ISOVUE 370-08/14/2024 5:39:58 PM Ordering Physician:?Carlos Inman Final Report: INDICATION: Rectal pain, concern for constipation. TECHNIQUE: CT abdomen and pelvis acquired with 71 cc Isovue 370 IV contrast. COMPARISON: None. FINDINGS: Lower chest: Scattered atelectasis. Liver: Unremarkable. Normal in size and attenuation. No suspicious masses. Gallbladder and bile ducts: Cholecystectomy. Pancreas: Unremarkable. No mass or inflammation. Spleen: Unremarkable. Normal in size. No masses. Adrenal glands: Unremarkable. No nodules. Kidneys: Tiny 3 millimeter calcification about the distal right ureter (series 2/image 100), possibly phlebolith. Distal obstructing stone not excluded but thought less likely in the absence of hydronephrosis. No suspicious masses, stones, or hydronephrosis. GI tract: Fluid throughout the colon. Normal in caliber. No sign of mass or inflammation. Appendix not definitely seen, however no right lower quadrant inflammatory stranding. Vasculature: Aortoiliac arterial calcifications. Abdominal aorta is normal in caliber. Mesenteric arteries are patent. Lymph nodes: No lymphadenopathy. Peritoneum/Abdominal Wall: Tiny fat containing umbilical hernia. No sign of mass or infiltration. No free air or significant free fluid. Pelvis: Incidental 8.2 centimeter left adnexal cystic lesion. Moderately distended bladder. Focal 10 millimeter hypervascular lesion in the right posterior bladder wall adjacent to the UVJ.. Bones: Unremarkable for age. IMPRESSION: Fluid throughout the colon which can be seen with diarrheal illness/colitis. Focal 10 millimeter hypervascular lesion in the right posterior bladder wall adjacent to the UVJ. Malignancy is not excluded. Recommend correlation with urinalysis and nonemergent cystoscopy for further evaluation. Also recommend correlation with history of Deflux implant which could have a similar appearance. Incidental 8.2 centimeter left adnexal cystic lesion. This could be further evaluated with nonemergent pelvic ultrasound. Tiny 3 millimeter calcification about the distal right ureter (series 2/image 100), possibly phlebolith. Distal obstructing stone not excluded but thought less likely in the absence of hydronephrosis. Otherwise, no acute intra-abdominal/pelvic abnormality. Please note that all CT scans at this facility use dose modulation, iterative reconstruction, and/or weight-based dosing when appropriate to reduce radiation dose to as low as reasonably achievable. Dictated by Rivas Singletary MD @ 08/14/2024 6:33:45 PM (Electronic Signature) Discharge Plan Discharge Clinical Impression: Cyst of left ovary, Abnormal computed tomography of bladder Instructions: Ovarian Cyst (ED) Additional Instructions: Need to contact clinic and get scheduled for follow-up with Dr. Noemi blas, hopefully within the next week. Need to discuss referral to specialist to discuss ovarian cyst as well as possible bladder abnormality on CT imaging. Gyne Oncology maybe preferred specialist for the ovarian cyst, again, CA 125 has been ordered but is pending. Urology would need to do cystoscopy to look at the bladder, referral can be provided from clinic. There is no constipation, anticipate liquid stools for the next day or so given the liquid that is in her bowel. Activity Level: Activity as Tolerated Prescriptions: No Action sertraline 100 mg tablet 200 mg PO DAILY calcium carbonate [Calcium 500] 500 mg calcium (1,250 mg) tablet,chewable 500 mg PO DAILY sucralfate 1 gram tablet 1 g PO QID omeprazole 40 mg capsule,delayed release(DR/EC) 40 mg PO DAILY spironolactone 25 mg tablet 12.5 mg PO QAM metoprolol succinate 25 mg tablet extended release 24 hr 12.5 mg PO DAILY rosuvastatin 10 mg tablet 10 mg PO QPM losartan 50 mg tablet 50 mg PO DAILY Qty: 30 2RF Follow Up/Referrals: Pau Franklin MD [Primary Care Provider] -
--- NOTE | 2024-08-14 16:54 | CRLHL7_ITS ---
For Patients: As a result of the 21st Century Cures Act, medical imaging exams and procedure reports are released immediately into your electronic medical record. You may view this report before your referring provider. If you have questions, please contact your health care provider. INDICATION: Rectal pain, concern for constipation. TECHNIQUE: CT abdomen and pelvis acquired with 71 cc Isovue 370 IV contrast. COMPARISON: None. FINDINGS: Lower chest: Scattered atelectasis. Liver: Unremarkable. Normal in size and attenuation. No suspicious masses. Gallbladder and bile ducts: Cholecystectomy. Pancreas: Unremarkable. No mass or inflammation. Spleen: Unremarkable. Normal in size. No masses. Adrenal glands: Unremarkable. No nodules. Kidneys: Tiny 3 millimeter calcification about the distal right ureter (series 2/image 100), possibly phlebolith. Distal obstructing stone not excluded but thought less likely in the absence of hydronephrosis. No suspicious masses, stones, or hydronephrosis. GI tract: Fluid throughout the colon. Normal in caliber. No sign of mass or inflammation. Appendix not definitely seen, however no right lower quadrant inflammatory stranding. Vasculature: Aortoiliac arterial calcifications. Abdominal aorta is normal in caliber. Mesenteric arteries are patent. Lymph nodes: No lymphadenopathy. Peritoneum/Abdominal Wall: Tiny fat containing umbilical hernia. No sign of mass or infiltration. No free air or significant free fluid. Pelvis: Incidental 8.2 centimeter left adnexal cystic lesion. Moderately distended bladder. Focal 10 millimeter hypervascular lesion in the right posterior bladder wall adjacent to the UVJ.. Bones: Unremarkable for age. IMPRESSION: Fluid throughout the colon which can be seen with diarrheal illness/colitis. Focal 10 millimeter hypervascular lesion in the right posterior bladder wall adjacent to the UVJ. Malignancy is not excluded. Recommend correlation with urinalysis and nonemergent cystoscopy for further evaluation. Also recommend correlation with history of Deflux implant which could have a similar appearance. Incidental 8.2 centimeter left adnexal cystic lesion. This could be further evaluated with nonemergent pelvic ultrasound. Tiny 3 millimeter calcification about the distal right ureter (series 2/image 100), possibly phlebolith. Distal obstructing stone not excluded but thought less likely in the absence of hydronephrosis. Otherwise, no acute intra-abdominal/pelvic abnormality. Please note that all CT scans at this facility use dose modulation, iterative reconstruction, and/or weight-based dosing when appropriate to reduce radiation dose to as low as reasonably achievable. Dictated by Rivas Singletary MD @ 08/14/2024 6:33:45 PM (Electronically Signed)
[2024-08-14 17:11] LABS: Lactate* 1.2 mmol/L (0.5-1.9)
--- OUTSIDE RECORDS SUMMARY | 2024-08-14 17:11 | XMS_ITS | Clinical Summary ---
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 Memory Loss (Fatigue changes daily and patient suspects it is depression./Anxiety/In terested in Aricept) 07/20/2024 Travel 07/14/2024 Telephone [facility] [address] [place] [address] Pau Franklin MD upcoming appointments 07/10/2024 2:30 PM CDT Telemedicine [address] [address] Nicolás Pryor MD Telehealth (cpap) 07/06/2024 11:30 AM CDT Office Visit [address] [address] Nadeen Pelayo PA Fatigue 07/06/2024 Travel 07/06/2024 Nurse Triage [facility] [address] [place] [address] Nadeen Pelayo PA Fatigue 07/05/2024 Orders Only [facility] Scanner 1 scan: (1-Ord) RESMED, COMPLIANCE REPORT, 07/05/2024 06/21/2024 Refill [facility] [address] [place] [address] Pau Franklin MD Refill Request (Clopidogrel) from Last 3 Months Immunizations Name Administration Dates Next Due AMB Influenza, IIV3 (Age >=3 years)(Flu Clinic Only) 06/28/2009 COVID-19 vaccine ([employer] NTNext 1 Interactive 30mcg/0.3mL) PF, MDV 07/15/2021,11/26/2020,11/05/2020 Influenza Virus, Unspecified [...] at 89 Heart Disease Mother age 72--first NH. at 90. dementia Hypertension Mother Stroke Mother [...] Sex Assigned at Female 10/02/2020 12:00 PM [employer] Gender Identity Female 10/02/2020 12:00 PM [employer] Sexual Orientation Straight 10/02/2020 12 :00 PM [employer] Obstetrics History Para Term AB IAB SAB Ectopic Multiple Livin g Live Births 6 5 5 1 1 5 Date Outcome GA Total Labor Labor/2nd/3rd Weight Sex Type Anes PTL Janneth A1 A5 Name Clin Term Term Term Term Term SAB Last Filed Vital Signs Vital Sign Reading Time Taken Comments Blood Pressure 133/69 08/11/2024 3:43 PM [employer] Pulse 72 08/11/2024 3:43 PM [employer] Temperature 36.6 C (97.9 F) 07/06/2024 11:37 AM CDT Respiratory Rate 16 09/29/2023 8:30 AM [employer] Oxygen Saturation 99% 08/11/2024 3:43 PM [employer] Inhaled Oxygen Concentration - - Weight 66.1 kg (145 lb 12.8 oz) 08/11/2024 3:43 PM [employer] Height 152.4 cm (5') 11/09/2023 3:56 PM [employer] Body Mass Index 28.47 11/09/2023 3:56 PM [employer] Plan of Treatment Upcoming Encounters Date Type Department Care Team (Late st Contact Info) Description 09/14/2024 9:15 AM [employer] Orders Only [facility] [address] [place] [address] Lab, [facility] Maintenance Due Date Last [...] 2 SITES AXIAL Routine 10/07/2020 1:32 PM [employer] Asymptomatic postmenopausal state from Last 3 Months or Most Recently Relevant to Health Maintenance Results * (ABNORMAL) CBC AND DIFFERENTIAL (07/06/2024 12:07 PM CDT) Pathologist [facility] WHITE BLOOD CELL COUNT 5.0 3.8 - [...] TO RETURN FOR COLLECTION. Nadeen CHACON HEMATOLOGY [facility] [address] [place] [address], [facility] [address] [place] [address] * (ABNORMAL) BASIC METABOLIC PANEL (07/06/2024 12:07 [...] FOR COLLECTION. Nadeen CHACON CHEMISTRY [facility] [address] [place] [address], [place] [phone] [facility] [address] [place] [address] * POCT Urinalysis Dipstick Only (07/06/2024 12:06 PM CDT) PH 6.0 5.0 - 8.0 [facility] SPECIFIC GRAVITY < OR = 1.005 1.001 - 1.035 [facility] Comment: Specific Calvert values resulted are outside the analytical measurement range of this device. Recommend repeat/additional testing as clinically indicated. GLUCOSE NEGATIVE NEGATIVE [facility] BILIRUBIN NEGATIVE NEGATIVE [facility] KETONES NEGATIVE NEGATIVE [facility] OCCULT BLOOD NEGATIVE NEGATIVE [facility] PROTEIN NEGATIVE NEGATIVE [facility] NITRITE NEGATIVE NEGATIVE [facility] LEUKOCYTE ESTERASE NEGATIVE NEGATIVE [facility] Urine URINE SPECIMEN / Unknown 07/06/2024 12:06 PM CDT 07/06/2024 12:06 PM CDT Nadeen CHACON URINE [facility] [address] [place] [address], [place] [phone] [facility] [address] [place] [address] * SCAN-DIAGNOSTIC REPORT (07/05/2024 12:00 AM CDT) Scanner OTHER * (ABNORMAL) XR DXA BONE DENSITY 2 SITES AXIAL (10/07/2020 1:32 PM [employer]) Anatomical Region Laterality Modality Spine, HIPS, HIPL, HIPR Other Narrative 10/09/2020 2:44 PM [employer] Please see scanned document for results of this study. Pau Franklin MD DEXA from Last 3 Months or Most Recently Relevant to Health Maintenance Advance Directives Documents on File Type Date Recorded Patient Product Strategy Director Expl anation Healthcare Directive 02/24/2013 12:14 PM [...] Code Status Discussion: Reviewed Preferences Care Teams River Expedition Guide Relationship Specialty Start Date End Date Pau Franklin MD [address] [place] [address] PCP - General Family Practice 06/25/14 Steven Tellez [address] [place] [address] Painter And Paperhanger Apprentice 01/29/12
[2024-08-14 17:14] LABS: Basophils Percent Auto 0.7 % (0.0-3.0); Eosinophils Percent Auto 5.1 % (0.0-7.0); Hemoglobin* 12.6 gm/dL (12.0-16.0); Lymphocytes Percent Auto 15.9 % (20-44); Mean Corpuscular HGB Conc 32 gm/dL (32-36); Mean Corpuscular Hemoglobin 27 pg (26-34); Mean Corpuscular Volume 85 fL (80-100); Monocytes Percent Auto 7.8 % (0.0-11.0); Neutrophils Percent Auto 69.5 % (42.0-72.0); Platelet Count* 120 K/uL (140-440); RDW Coefficient of Variation % 13.5 % (11.5-15.5); White Blood Count* 4.09 K/uL (4.50-11.00)
[2024-08-14 17:20] LABS: Creatinine, Point-of-Care* 0.9 mg/dl (0.6-1.3)
[2024-08-14 17:23] LABS: Slide Review Reflex No
[2024-08-14 17:29] LABS: Albumin* 4.5 g/dL (3.3-5.0); Chloride* 107 mmol/L (96-114)
[2024-08-14 17:30] LABS: Potassium* 4.1 mmol/L (3.6-5.1); Sodium* 141 mmol/L (135-149)
[2024-08-14 17:32] LABS: Bilirubin Total* 0.3 mg/dL (0.1-1.5); Creatinine* 0.7 mg/dL (0.5-1.5); Est. Creatinine Clearance* 29.54; Estimated Glomerular Filt Rate 85 ml/min
[2024-08-14 17:33] LABS: Alanine Aminotransferase* 25 U/L (4-35); Alkaline Phosphatase* 79 U/L (40-150); Aspartate Amino Transferase* 27 U/L (12-35); Blood Urea Nitrogen* 11 mg/dL (7-30); Calcium* 9.3 mg/dL (8.4-10.6); Carbon Dioxide* 27 mmol/L (20-32); Glucose* 128 mg/dL (60-115); Total Protein* 6.5 g/dL (6.0-8.3)
[2024-08-14 17:34] LABS: Anion Gap 7 mEq/L (7-15)
[2024-08-14 17:35] LABS: Appearance Urine Clear (Clear); Bilirubin Urine Negative (Negative); Blood Urine 2+ (Negative); Color Urine Yellow (Yellow); Glucose Urine Negative (Negative); Ketones Urine Negative (Negative); Leukocyte Esterase Urine Trace (Negative); Nitrite Urine Negative (Negative); Protein Urine Negative (Negative); Specific Gravity Urine <= 1.005 (1.000-1.030); Urobilinogen Urine 0.2 (0.2-1.0); pH Urine 5.5 (5.0-8.5)
[2024-08-14 17:36] LABS: C Reactive Protein* < 0.5 mg/dL (0.5-1.0)
[2024-08-14 17:52] LABS: RBC Urine 0-2 (0-2); WBC Urine 0-2 (0-5)
--- NOTE | 2024-08-14 18:46 | CRLHL7_ITS ---
For Patients: As a result of the Century Cures Act, medical imaging exams and procedure reports are released immediately into your electronic medical record. You may view this report before your referring provider. If you have questions, please contact your health care provider. Indication: Pelvic pain, CT with abnormal left ovary Technique: Real-time sonographic images of the pelvis were obtained transabdominally utilizing grayscale, color, and Doppler imaging. Comparison: 08/14/2024. Findings: Suboptimal examination secondary to empty urinary bladder and overlying bowel gas. Uterus: Not visualized. Right ovary: Not visualized. Left ovary: Size: 9.5 x 6.2 x 8.5 cm. Appearance: Normal morphology. Cystic structure measuring 9.2 x 6.0 x 6.9 centimeter; it is difficult to definitively separate from the urinary bladder. Preserved blood flow. Free fluid: None. Impression: 1. Left ovarian cystic structure measuring 9.2 x 6.0 x 6.9 centimeter. Simple cysts measuring greater than 7 cm should be evaluated with pelvic MRI regardless of patient age. Alternatively, surgical consultation may be considered. Adapted from Consensus Recommendations, Radiol:2010;256:943-955. 2. Suboptimal examination secondary to empty urinary bladder and overlying bowel gas. Uterus and right ovary are not visualized. Dictated by Damian Mohan MD @ 08/14/2024 8:30:13 PM (Electronically Signed)
[2024-08-16 13:51] LABS: Cancer Antigen 125 14 U/mL (<=38)
== END 2024-08-14 21:15 | disposition home or self-care (01) ==
LOC: ED 17:09
PROVIDERS: Emergency Provider Family Medicine; PCP Family Medicine
DX: N83.202 Unspecified ovarian cyst, left side (principal); R93.41 Abnormal radiologic findings on diagnostic imaging of renal pelvis, ureter, or bladder
CPT/HCPCS: 36415; 74177; 76856; 80053; 81001; 82565; 83605; 85025; 86140; 86304; 87086; 99284; 99285; Q9967

== ENCOUNTER 2024-09-22 20:41 | Emergency (ER) | payer MEDICARE, BC, SELFPAY ==
--- OUTSIDE RECORDS SUMMARY | 2024-09-22 20:44 | XMS_ITS | Data Portability ---
Author Organization [place] [facility], [facility] Address [address] [place] [address] Care Team Providers Care Chisel Mortiser Operator Name Role Phone GLADYS LANIER Primary Care Provider Assessment Encounter Date Assessment Date Assessment LastModified [...] (TURBT) - Surgery to be performed at [facility] or [facility] - Procedure to include: - Biopsy/resection of [...] Organization Details Last Modified Time Details Appointments None recorded. Lab urinalysis , dipstick 2023 024 [id number] [facility], [address], [place], [address], 08:17:48 Referral None recorded. Procedures None recorded. Surgeries None recorded. Imaging None recorded. Medication Orders None recorded. Patient TargetsNo targets recorded. Patient InstructionsNo instructions recorded. Reason for Referral None Reported. Results Created Date Observation Date Name Description Value Unit Range Abnormal Flag Note LastModifiedBy Organization Detail LastModifiedTime 09/01/20 24 09/01/2024 urina lysis , dipst ick Color-Status Yellow Not Available [facility] [address] [facility] [address], [place], [address], 09/01/2024 16:07:08 09/01/20 24 09/01/2024 urina lysis , dipst ick pH-Status 6.0 Not Available [facility], [place], [address], 09/01/2024 16:07:08 09/01/20 24 09/01/2024 urina lysis , dipst ick Nitrates-Sta tus negati ve Not Available [facility], [place], [address], 09/01/2024 16:07:08 09/01/20 24 09/01/2024 urina lysis , dipst ick Blood-Status Negati ve Not Available [facility], [place], [address], 09/01/2024 16:07:08 09/01/20 24 09/01/2024 urina lysis , dipst ick Leuko-Status Negati ve Not Available [facility], [place], [address], 09/01/2024 16:07:08 08/25/20 24 08/14/2024 CT, abdom [...] Address Organization Details Recorded Time Ureteric stone 76995720 Active 024 JOÃO LOVETT MD [address] [place] [address],[address], [place], [address], [facility] 4 11:38:23 Abnormal findings on diagnostic imaging of urinary organs 772086607 Active 024 JOÃO LOVETT MD [address] [place] [address],[address], [place], [address], [facility] 4 11:39:03 Mass of urinary bladder 896453395 Active 024 JOÃO LOVETT MD [address] [place] [address],[address], [place], [address], [facility] 4 16:03:19 Problem Notes None recorded. Procedures Surgical History Date Name Laterality Status Provider Name and Address Organization Details Recorded Time 09/01/20 CystoscopyFemale completed JOÃO LOVETT MD [address] [place] [address],[address], [place], [address], [facility] 09/01/2024 16:24:17 Imaging Results Imaging Date Name Status LastModified by Organization Details LastModified Time 08/14/2024 CT, abdomen + pelvis, w/ contrast completed Information not available 08/25/2024 16:51:28 08/14/2024 US, pelvis, transabdominal + transvaginal completed Information not available 08/25/2024 16:57:57 Procedure Notes None recorded. Medical Equipment None Reported. Allergies Allergen ID Allergen Name Allergen Category Reaction Reaction Severity Criticality Documentation Date Start Date Code Code System Note Provider Name and Address Organization Details Recorded Time [id number] 2824e Medicinal product containin g penicilli n and acting as antibacte rial agent (product) medicatio n Not available Not available Not available 09/14/2024 33132 05 SNOMED per patie nt Not Available Not Available Not Available Medications Name Sig Start Date Stop Date [...] Updated DateTime 09/01/2024 152.4 cm 27.3 kg/m2 46208.93 g Xiao Giraldo MD - [facility] 09/01/2024 16:04:36 Social History Question Answer Notes LastModified by Organizat ion Details LastModified Time Tobacco Smoking Status Never Smoker Xiao Giraldo haja, [facility] 09/01/2024 16:05:35 What Is Your Level Of [...] History Nothing Reported. Medical History Condition Response Diabetes N Sexually Transmitted Infection N Other N Bleeding Disorder N High Blood Pressure N Kidney Stones N Cancer N Lung Disease N Depression N High Cholesterol N GERD/Acid Reflux Y Heart Disease Y Gynecological HistoryNo gynecological history recorded. Obstetrics History GPAL:G 0 P 0 0 0 0 Immunizations Vaccine Type Date Status Note Provider Nam e and Address Organization Details Recorded Time Influenza, adjuvanted, trivalent, PF 7 [facility] 15:27:30 Influenza, recombinant, quadrivalent, PF 9 completed [facility]/06[facility]24 15:27:30 zoster recombinant 9 completed [facility] [place] [facility] 09/06/2024 15:27:30 zoster recombinant 9 completed Asmita Grady null, [facility] 09/06/2024 15:27:30 Influenza, high-dose, quadrivalent, PF 4 completed [facility]/06/[facility]24 15:27:30 Influenza, high-dose, quadrivalent, PF 0 completed Asmita [place] null, [facility] 09/06/2024 15:27:30 Influenza, high-dose, quadrivalent, PF 3 completed [facility] 15:27:30 Influenza, high-dose, quadrivalent, PF 1 completed Asmita [place] null, [facility] 09/06/2024 15:27:30 Influenza, high-dose, quadrivalent, PF 2 completed Asmita Grady null, [facility] 09/06/2024 15:27:31 COVID-19, mRNA, LNP-S, PF, 30 mcg/0.3 mL dose 1 completed Asmita [place] null, [facility] 09/06/2024 15:27:31 COVID-19, mRNA, LNP-S, PF, 30 mcg/0.3 mL dose 1 completed Asmita Grady null, [facility] 09/06/2024 15:27:31 COVID-19, mRNA, LNP-S, PF, 30 mcg/0.3 mL dose 1 completed Asmita Grady null, [facility] 09/06/2024 15:27:31 COVID-19, mRNA, LNP-S, PF, 30 mcg/0.3 mL dose, guicho-sucrose 2 completed Asmita Grady null, [facility] 09/06/2024 15:27:31 COVID-19, mRNA, LNP-S, bivalent, PF, 30 mcg/0.3 mL dose 2 completed Asmita Grady null, [facility] 09/06/2024 15:27:31 RSV, recombinant, protein subunit RSVpreF, adjuvant reconstituted, 0.5 mL, PF 4 completed Asmita Grady null, [facility] 09/06/2024 15:27:31 COVID-19, mRNA, LNP-S, PF, 50 mcg/0.5 mL 4 completed Asmita Grady null, [facility] 09/06/2024 15:27:31 COVID-19, mRNA, LNP-S, PF, 50 mcg/0.5 mL 4 completed Asmita [place] null, [facility] 09/06/2024 15:27:31 pneumococcal polysaccharide PPV23 7 completed Asmita [place] null, [facility] 09/06/2024 15:27:31 Tdap 1 completed Asmita [place] null, [facility] 09/06/2024 15:27:31 Tdap 4 completed Asmita [place] null, [facility] 09/06/2024 15:27:31 Pneumococcal conjugate PCV 13 6 completed Asmita [place] null, [facility] 09/06/2024 15:27:31 zoster live 9 completed Asmita [place] null, [facility] 09/06/2024 15:27:31 Influenza, high-dose, trivalent, PF 4 completed Asmita [place] null, [facility] [place] 09/06/2024 15:27:31 Influenza, high-dose, trivalent, PF 8 completed Asmita Grady null, [facility] 09/06/2024 15:27:31 Influenza, high-dose, trivalent, PF 4 completed Asmita Grady null, [facility] 09/06/2024 15:27:31 Influenza, high-dose, trivalent, PF 8 completed Asmita [place] null, [facility] 09/06/2024 15:27:31 Influenza, high-dose, trivalent, PF 6 completed Asmita Grady null, [facility] 09/06/2024 15:27:31 Influenza, high-dose, trivalent, PF 6 completed Asmita [place] null, [facility] 09/06/2024 15:27:31 Influenza, split virus, trivalent, preservative 3 completed Asmita Grady null, [facility] 09/06/2024 15:27:31 Influenza, split virus, trivalent, preservative 9 completed Asmita [place] null, [facility] 09/06/2024 15:27:31 Influenza, split virus, trivalent, preservative 4 completed Asmita [place] null, [facility] 09/06/2024 15:27:31 Influenza, split virus, trivalent, preservative 5 completed Asmita [place] null, [facility] [place] [facility] 09/06/2024 15:27:31 Influenza, split virus, trivalent, preservative 0 completed Asmita [place] null, [facility] 09/06/2024 15:27:31 Influenza, split virus, trivalent, preservative 7 completed Asmita [place] null, [facility] 09/06/2024 15:27:31 Influenza, split virus, trivalent, preservative 8 completed Asmita Grady null, [facility] 09/06/2024 15:27:31 Influenza, split virus, trivalent, preservative 3 completed Asmita Grady null, [facility] 09/06/2024 15:27:31 Influenza, split virus, trivalent, PF 1 completed Asmita Grady null, [facility] 09/06/2024 15:27:31 Td (adult), 5 Lf tetanus toxoid, preservative free, adsorbed 7 completed Asmita [place] null, [facility] 09/06/2024 15:27:31 Past Encounters Encounter ID Performer Location Encounter Start Date Encounter Closed Date Diagnosis/Indication Diagnosis SNOMED-CT Code Diagnosis ICD10 Code [id number] JOÃO LOVETT MD _[facility] [address] [address],[address] [place] [address] 09/01/2024 16:03:55 09/04/2024 17:11:46 Ureteric stone 86797002 N20.1 Abnormal f indings on diagnostic imaging of urinary organs 890657417 R93.41 Recurrent urinary tract infection 981335419 N39.0 Mass of ur inary bladder 968264289 N32.89 Health Concerns Section Related Observation LastModified by Organization Detai ls LastModified Time None Recorded Concern Status LastModified by Organization Details LastModified Time None Recorded Advance Directives Directive None Recorded Payers Encounter Date Sequence Insurance Name Policy Number Policy Watters Covered Member ID Watters Member ID Guarantor Name 09/01/2024 1 [place] [employer] Radha A Hand [id number] Radha A Hand 09/01/2024 2 [place] [id number] Radha A Hand [id number] Radha A Hand Notes Date Note Type Note Provider Name and Address Organization Details Recorded Time 09/01/2024 text/html Patient is a 84 yo F with PMH of memory impairment who presents as a new patient for evaluation of possible bladder lesion. Referred by: Dr Lanier Outside records reviewed and in sum:Pt seen in [place] [facility] 08/14/24 for constipation with no BM [...] of urinary tract infectionsPast Medical History:-TRI-HTN-HLD -Constipation-Prior ZH-Cmuwadyhnz-Qtmbrn loss Past Surgical hx- Cholecystectomy- No known kidney or bladder surgeries Social hx: nonsmoker JOÃO LOVETT MD [address], [place], [address], [facility] 09/04/2024 16:05:04 OBGyn Episode No OBEpisode recorded.
--- OUTSIDE RECORDS SUMMARY | 2024-09-22 20:45 | XMS_ITS | Encounter Summary ---
Author Organization [place] Address [address] [place] [address] Care Team Providers Care City Detective Name Role Phone Pau Franklin Primary Care Provider [phone] Reason for Visit * Reason Onset Date Comments Prior Auth - Medication 09/21/2024 Trospium - Denied Encounter Details Date Type Department Care Team (Late st Contact Info) Description 09/21/2024 [facility]phone [facility] [address] [place] [address] Nikki Bartlett MD [facility] [address] [place] [id number] Prior Auth - Medication (Trospium - Denied) Social History Tobacco Use Types Packs/Day Years Used Date Smoking Tobacco: Never Smokeless Tobacco: Never Alcohol Use Standard Drinks/Week Comments Not Currently 0 (1 standard drink = 0.6 oz pur e alcohol) Interpersonal Safety Answer Date Record ed Do you feel physically and e motionally safe where you currently live? Yes 09/21/2024 Within the past 12 months, h ave you been hit, slapped, kicked or otherwise physically hurt by someone? No 09/21/2024 Within the past 12 months, h ave you been humiliated or emotionally abused in other ways by your partner or ex-partner? No 09/21/2024 Comments No Sex and Gender Information Value Date Recorded Sex Assigned at Not on file Legal Sex Female 1:38 PM CDT Gender Identity Not on file Sexual Orientation Not on file documented as of this encounter Miscellaneous Notes * Telephone Encounter - Marta Lara Coy - 09/21/2024 3:38 PM CST Images from the original note were not included. PRIOR AUTHORIZATION DENIED Medication: TROSPIUM CHLORIDE 20 MG PO TABS Insurance Company: Medicare [employer] - Denial Date: 09/21/2024 Denial Reason(s): Appeal Information: Patient Notified: L DIE FINISHER documented in this encounter Plan of Treatment Not on file documented as of this encounter Visit Diagnoses Not on filedocumented in this encounter Care Teams City Detective Relationship Specialty Start Date End Date Pau Franklin [address] [place] [address] PCP - General Family Medicine 09/18/24 documented as of this encounter
--- OUTSIDE RECORDS SUMMARY | 2024-09-22 20:45 | XMS_ITS | Encounter Summary ---
Author Organization [facility] Address [address] [facility] 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.89] Procedures ME CYSTOSCOPY W TX MINOR LESION <0.5 CM ME CYSTOURETHROSCOPY,FULGUR .5-2CM LE* ME CYSTOURETHROSCOPY,FULGUR 2-5CM LESN ME CYSTOURETHROSCOPY,FULGUR >5CM LESN Cystoscopy, with transurethral resection bladder tumor [facility] [address] [place] [address] Phone: tel: Referral ID Status Reason Start Date Expiration Date Visits Re quested Visits Authorized [id number] 1 1 Encounter Details Date Type Department Care Team (Late st Contact Info) Description 09/21/2024 12:23 PM PILOT Anesthesia Event [facility] [address] [place] [address] Lizbeth Thronton [place] [facility] [place] [address] [place], [place] [address] Anesthesia Record Procedure Summary Procedure Name Responsible Anesthesiologist Anesthesia Start Time Anesthesia Stop Time Cystoscopy, with transurethral resection bladder tumor (Urethra) Lizbeth Thornton MD 09/21/24 1223 09/21/24 1329 Events Date Time Event Comment 09/21/2024 1135 1223 An Start Anesthesia Star t is defined as when the anesthesia provider assumed care, began anesthesia prep, remained continuously present with the patient, and excludes all time for performing the pre-anesthesia evaluation. The Pre-Anesthesia Evaluation was completed before Anesthesia Start. 1223 An Start Data 1229 MD Present 1230 AN REASSESS I attest that I have identified and re-evaluated the patient immediately before the induction of anesthesia and I am satisfied that the anesthetic plan is suitable for the patient's condition and procedure. The first vital signs recorded are pre-induction. Jing Alexander APRN COPY CAMERA OPERATOR 1231 An Induction 1234 An Intubation 1235 Anesthesia Ready for Procedu re 1310 AN Extubation All extubation criteria met prior to removal. 1320 an stop data 1329 An Stop Electronically signed by Flor Kirby APRN COPY CAMERA OPERATOR on September 21, 2024 1:29 PM Meds Name Total fentaNYL 50 mcg/mL 100 mcg lidocaine 2% 100 mg propofol 10 mg/mL 120 mg propofol drip mcg/kg/min 230.34 mg rocuronium 10 mg/mL 50 mg dexamethasone (DECADRON) 4 mg/mL 4 mg ondansetron 2 mg/mL 4 mg sugammadex (BRIDION) 200mg/2mL 200 mg dexmedeTOMIDine (PRECEDEX) 4 mcg/mL in N aCl 25mL 8 mcg ceFAZolin Sodium (ANCEF) injection 2 g 2 g lactated ringers infusion 400 mL * Agents Name O2 N2O Air Exp Sevoflurane Exp Isoflurane Exp Desflurane O2 Delivery Device Ins Sevoflurane Ins Isoflurane Ins Desflurane O2 Auxiliary * Blood No blood administrations on file. Lines, Drains, and Airways Type Details Placement Removal Peripheral IV 09/21/24; 1115; 20 G ; Distal, Left, Posterior; Lower forearm; Tolerated well 09/21/24 1115 by Chloe Lancaster RN 09/21/24 1540 by Maurice Pabon RN ETT Placement Date: 09/21/24; Placement Time: 1234 (created via procedure documentation); Mask Ventilation: 1; Induction Type: Intravenous; Ease of Intubation: Easy; Technique: Video laryngoscopy; Tube Size: 7 mm; VL Blade Size: Graham 3; Grade View: 1; Adjucts: Stylet; Placement Person: COPY CAMERA OPERATOR; Attempts: 1 09/21/24 1234 by Jing Alexander APRN COPY CAMERA OPERATOR 09/21/24 1310 by Jing Alexander APRN CRNA Urethral Catheter 09/21/24; 1304; No; Surgical procedure; 18 fr 09/21/24 1304 by Maria Alejandra Dc RN 09/21/24 1707 by Inpatient, Nurse documented in this encounter Social History Tobacco Use Types Packs/Day Years [...] on file documented as of this encounter OR Notes * Anesthesia Postprocedure Evaluation - Lizbeth Thornton MD - 09/21/2024 4:45 PM CST Patient: Radha Painter Procedure: Procedure(s): Cystoscopy, with transurethral resection bladder tumor Anesthesia Type: General Note: Disposition: Outpatient Postop Pain Control: Uneventful Sign Out: Well controlled pain PONV: No Neuro/Psych: Uneventful Sign Out: Acceptable/Baseline neuro status Airway/Respiratory: Uneventful Sign Out: Acceptable/Baseline resp. status CV/Hemodynamics: Uneventful Sign Out: Acceptable CV status; No obvious hypovolemia; No obvious fluid overload Other NRE: NONE DID A NON-ROUTINE EVENT OCCUR? No Last vitals: Vitals Value Taken Time BP 130/65 09/21/24 1445 Temp 36.5 ??C (97.7 ??F) 09/21/24 1445 Pulse 74 09/21/24 1447 Resp 21 09/21/24 1447 SpO2 94 % 09/21/24 1447 Vitals shown include unfiled device data. Electronically Signed By: Lizbeth Thornton MD September 21, 2024 4:45 PM T * Anesthesia Procedure Notes - Jing Alexander APRN CRNA - 09/21/2024 12:46 PM CSTAssociated Order(s): Airway Airway Patient location during procedure: OR Procedure Start/Stop Times: 09/21/2024 12:34 PM Staff - COPY CAMERA OPERATOR: Jing Alexander APRN CRNA Performed By: COPY CAMERA OPERATOR Consent for Airway Urgency: elective Indications and Patient Condition Indications for airway management: ray-procedural Induction type:intravenous Mask difficulty assessment: 1 - vent by mask Final Airway Details Final airway type: endotracheal airway Successful airway: ETT - single Endotracheal Airway Details ETT size (mm): 7.0 Cuffed: yes Successful intubation technique: video laryngoscopy VL Blade Size: Graham 3 Grade View of Cords: 1 Adjucts: stylet Position: Center Measured from: gums/teeth Secured at (cm): 22 Bite block used: None Post intubation assessment Placement verified by: capnometry and equal breath sounds Number of attempts at approach: 1 Secured with: commercial tube bose and tape Ease of procedure: easy Dentition: Intact and Unchanged Medication(s) Administered Medication Administration Time: 09/21/2024 12:34 PM T * Anesthesia Preprocedure Evaluation - Lizbeth Thornton MD - 09/21/2024 10:31 AM CST Anesthesia Pre-Procedure Evaluation Patient: Radha Painter : 1940 Procedure : Procedure(s): Cystoscopy, with transurethral resection bladder tumor Past Medical History: Diagnosis Date Anxiety Gastroesophageal reflux disease with esophagitis Insomnia Major depression, recurrent (H) Mild cognitive impairment NSTEMI (non-ST elevated myocardial infarction) (H) TRI (obstructive sleep apnea) Osteopenia HARDY (stress urinary incontinence, female) Past Surgical History: Procedure Laterality Date APPENDECTOMY ESOPHAGOSCOPY, DIAGNOSTIC BREAST SURGERY CHOLECYSTECTOMY COLONOSCOPY STENT, CORONARY, JESSICA Allergies Allergen Reactions Codeine GI Disturbance GI Upset Honey Bee Venom Protein [Bee Venom] Angioedema Penicillins Hives and Other (See Comments) Lips and fingers go numb Social History Tobacco Use Smoking status: Never Smokeless tobacco: Never Substance Use Topics Alcohol use: Not Currently Wt Readings from Last 1 Encounters: No data found for Wt Anesthesia Evaluation ROS/MED HX ENT/Pulmonary: (+) sleep apnea, uses CPAP, (-) tobacco use, asthma and recent URI Neurologic: Comment: Mild cognitive impairment (-) no seizures, no CVA and no TIA Cardiovascular: (+) - - CAD - past MD (~1 year ago. Completed cardiac rehab. No symptoms since.) - stent- (-) arrhythmias METS/Exercise Tolerance: 3 - Able to walk 1-2 blocks without stopping Hematologic: (-) history of blood clots Musculoskeletal: GI/Hepatic: (+) GERD, Asymptomatic on medication, (-) liver disease Renal/Genitourinary: Comment: Bladder mass Ovarian cyst (-) renal disease Endo: (-) Type II DM Psychiatric/Substance Use: (+) psychiatric history anxiety and depression Infectious Disease: (-) Recent Fever Malignancy: Other: Physical Exam Airway Mallampati: II TM distance: > 3 FB Neck ROM: full Mouth opening: > 3 cm Respiratory Devices and Support Dental (+) Minor Abnormalities - some fillings, tiny chips Cardiovascular Rhythm and rate: regular and normal Pulmonary breath sounds clear to auscultation OUTSIDE LABS: CBC: No results found for: WBC, HGB, HCT, PLT BMP: No results found for: NA, POTASSIUM, CHLORIDE, CO2, BUN, CR, GLC COAGS: No results found for: PTT, INR, FIBR POC: No results found for: BGM, HCG, HCGS HEPATIC: No results found for: ALBUMIN, PROTTOTAL, ALT, AST, GGT, ALKPHOS, BILITOTAL,BILIDIRECT, WADE OTHER: No results found for: PH, LACT, A1C, JOSÉ LUIS, PHOS, MAG, LIPASE, AMYLASE, TSH,T4, T3, CRP, SED Anesthesia Plan ASA Status: 2 NPO Status: NPO Appropriate Anesthesia Type: General. - Airway: LMA Induction: Intravenous, Propofol. Maintenance: TIVA. Consents Anesthesia Plan(s) and associated risks, benefits, and realistic alternatives discussed. Questions answered and patient/entry level sales representative(s) expressed understanding. - Discussed: Risks, Benefits and Alternatives for the PROCEDURE were discussed - Discussed with: Patient (& 2 adult daughters) Postoperative Care Pain management: IV analgesics, Oral pain medications, Multi-modal analgesia. PONV prophylaxis: Ondansetron (or other 5HT-3), Dexamethasone or Solumedrol Comments: Lizbeth Thornton MD I have reviewed the pertinent notes and labs in the chart from the past 30 days and (re)examined the patient. Any updates or changes from those notes are reflected in this note. # Drug Induced Platelet Defect: home medication list includes an antiplatelet medication # Hypertension: Home medication list includes antihypertensive(s) T T documented in this encounter Miscellaneous Notes * Anesthesia Care Transfer Note - Flor Kirby APRN COPY CAMERA OPERATOR - 09/21/2024 1:29 PM CST Patient: Radha Painter Procedure: Procedure(s): Cystoscopy, with transurethral resection bladder tumor Diagnosis: Other specified disorders of bladder [N32.89] Diagnosis Additional Information: No value filed. Anesthesia Type: General Note: Oropharynx: oropharynx clear of all foreign objects and spontaneously breathing Level of Consciousness: awake Oxygen Supplementation: face mask Level of Supplemental Oxygen (L/min / FiO2): 6 Independent Airway: airway patency satisfactory and stable Dentition: dentition unchanged Vital Signs Stable: post-procedure vital signs reviewed and stable Report to RN Given: handoff report given Patient transferred to: PACU Handoff Report: Identifed the Patient, Identified the Reponsible Provider, Reviewed the pertinent medical history, Discussed the surgical course, Reviewed Intra-OP anesthesia mangement and issues during anesthesia, Set expectations for post-procedure period and Allowed opportunity for questions andacknowledgement of understanding Vitals: Vitals Value Taken Time BP 159/69 09/21/24 1323 Temp Pulse 81 09/21/24 1327 Resp 28 09/21/24 1327 SpO2 100 % 09/21/24 1327 Electronically Signed By: Flor Kirby APRN CRNA September 21, 2024 1:29 PM T documented in this encounter Plan of Treatment Not on file documented as of this encounter Procedures Procedure Name Priority Date/Time Associated Diagnosis Comments ANE AIRWAY ETT PERFORMABLE Routine 09/21/2024 12:34 PM PILOT documented in this encounter Results * ANE AIRWAY ETT PERFORMABLE (09/21/2024 12:34 PM PILOT) Narrative Jing Alexander APRN CRNA - 09/21/2024 12:34 PM PILOT Jing Alexander APRN CRNA 09/21/2024 12:47 PM Airway Patient location during procedure: OR Procedure Start/Stop Times: 09/21/2024 12:34 PM Staff - COPY CAMERA OPERATOR: Jing Alexander APRN CRNA Performed By: COPY CAMERA OPERATOR Consent for Airway Urgency: elective Indications and Patient Condition Indications for airway management: ray-procedural Induction type:intravenous Mask difficulty assessment: 1 - vent by mask Final Airway Details Final airway type: endotracheal airway Successful airway: ETT - single Endotracheal Airway Details ETT size (mm): 7.0 Cuffed: yes Successful intubation technique: video laryngoscopy VL Blade Size: Graham 3 Grade View of Cords: 1 Adjucts: stylet Position: Center Measured from: gums/teeth Secured at (cm): 22 Bite block used: None Post intubation assessment Placement verified by: capnometry and equal breath sounds Number of attempts at approach: 1 Secured with: commercial tube bose and tape Ease of procedure: easy Dentition: Intact and Unchanged Medication(s) Administered Medication Administration Time: 09/21/2024 12:34 PM Lizbeth Thornton MD ME ANESTHESIA Final Res ult documented in this encounter Visit Diagnoses Not on filedocumented in this encounter Administered Medications Inactive Administered Medications - up to 3 most recent administrations Medication Order MAR Action Action Date Dose Rate Site ceFAZolin Sodium (ANCEF) injection 2 g Routine, 2 g, Intravenous, PRE-OP/PRE-PROCEDURE, Starting on Yojana 1/2/25 at 1203, For 1 dose, Indications: Perioperative Pharmacoprophylaxis, Pre-procedureIndications:Perioperat ritchie Pharmacoprophylaxis $Given 09/21/2024 12:34 PM PILOT 2 g dexAMETHasone (DECADRON) injection Intravenous, PRN, Administer over 1 Minutes, Starting on Yojana 09/21/24 at 1239, Anesthesia Intra-op $Given 09/21/2024 12:39 PM PILOT 4 mg dexmedeTOMIDine (PRECEDEX) 4 mcg/mL in sodium chloride 0.9 % 50 mL infusion Intravenous, PRN, Starting on Yojana 09/21/24 at 1241, Anesthesia Intra-op $Given 09/21/2024 12:41 P M PILOT 8 mcg fentaNYL (PF) (SUBLIMAZE) injection Intravenous, PRN, Administer over 3-5 Minutes, Starting on Yojana 09/21/24 at 1237, Anesthesia Intra-op $Given 09/21/2024 12:37 PM PILOT 50 mcg $Given 09/21/2024 12:23 PM PILOT 50 mcg lactated ringers infusion at 100 mL/hr, Intravenous, CONTINUOUS, Pre-procedure, Starting on Yojana 09/21/24 at 1100, Until Yojana 09/21/24 at 1322 $New Bag 09/21/2024 12:23 PM PILOT lidocaine 2% injection (MDV) Intravenous, PRN, Starting on Yojana 09/21/24 at 1231, Anesthesia Intra-op $Given 09/21/2024 12:31 PM PILOT 100 mg ondansetron (ZOFRAN) injection Intravenous, PRN, Administer over 2-5 Minutes, Starting on Yojana 09/21/24 at 1239, Anesthesia Intra-op $Given 09/21/2024 12:39 PM PILOT 4 mg propofol (DIPRIVAN) infusion Intravenous, CONTINUOUS PRN, Starting on Yojana 09/21/24 at 1235, Anesthesia Intra-op Rate/Dose Change 09/21/2024 12:56 PM PILOT 125 mcg/kg/min 49.5 mL/hr Rate/Dose Change 09/21/2024 12:43 PM PILOT 150 mcg/kg/min 59 .4 mL/hr Rate/Dose Change 09/21/2024 12:39 PM PILOT 140 mcg/kg/min 55 .44 mL/hr propofol (DIPRIVAN) injection 10 mg/mL vial Intravenous, PRN, Starting on Yojana 09/21/24 at 1231, Anesthesia Intra-op $Given 09/21/2024 12:31 PM PILOT 120 mg rocuronium injection Intravenous, PRN, Starting on Yojana 09/21/24 at 1232, Anesthesia Intra-op $Given 09/21/2024 12:32 PM PILOT 50 mg sugammadex (BRIDION) injection Intravenous, PRN, Starting on Yojana 09/21/24 at 1300, Anesthesia Intra-op $Given 09/21/2024 1:00 PM PILOT 200 mg documented in this encounter Care Teams Operations Clerk Relationship Specialty Start Date End Date Pau Franklin [address] [place] [address] PCP - General Family Medicine 09/18/24 documented as of this encounter
--- OUTSIDE RECORDS SUMMARY | 2024-09-22 20:45 | XMS_ITS | Clinical Summary ---
Author Organization [facility] Address [address] [place] [address] Care Team Providers Care Rn Child Name Role Phone Pau Franklin Primary Care Provider [phone] Allergies Active Allergy Reactions Criticality Noted Date Comments Ciprofloxacin Itching 09/21/2024 Itching above IV access site during infusion. Codeine GI Disturbance 09/21/2024 GI Upset Bee Venom Angioedema 09/21/2024 Penicillins Hives,Other (See Comments) 02/11/2007 Lips and fingers go numb Medications Ascorbic Acid (VITAMIN C) 500 MG CAPS Take 500 mg by mouth daily. Active aspirin 81 MG EC tablet Take 81 mg by mouth daily. Active calcium carbonate (OS-JOSÉ LUIS) 500 MG tablet Take 1 tablet by mouth daily. Active Vitamin D, Cholecalciferol , 25 MCG (1000 UT) CAPS Take 1,000 Units by mouth daily. Active donepezil (ARICEPT) 5 MG tablet Take 5 mg by mouth at bedtime. Active DULoxetine (CYMBALTA) 30 MG capsule Take 30 mg by mouth 2 times daily. Take 60mg in AM and 30m in PM Active LORazepam (ATIVAN) 0.5 MG tablet Take 0.5 mg by mouth daily as needed for anxiety. Active losartan (COZAAR) 50 MG tablet Take 50 mg by mouth daily. Active melatonin 1 MG TABS tablet Take 1 mg by mouth at bedtime. Active metoprolol succinate ER (TOPROL XL) 25 MG 24 hr tablet Take 12.5 mg by mouth daily. Active UNABLE TO FIND Take 1 tablet by mouth daily. MEDICATION NAME: multivitamins-m inerals-lutein (Multivitamin 50 Plus) Active omeprazole (PRILOSEC) [address] capsule Take 40 mg by mouth daily. Active spironolactone (ALDACTONE) 25 MG tablet Take 12.5 mg by mouth daily. Active sucralfate (CARAFATE) 1 GM tablet Take 1 g by mouth 4 times daily. Active tetrahydrozolin e (VISINE) 0.05 % ophthalmic solution Place 1 drop into both eyes 4 times daily as needed. Active rosuvastatin (CRESTOR) 10 MG tablet Take 10 mg by mouth daily. 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 Start taking tomorrow 1/3 5 tablet 5 Active Encounters Date Type Department Care Team Description 09/21/2024 12:23 PM DIETARY SERVER Anesthesia Event [facility] [address] [place] [phone] Lizbeth Thornton MD 09/21/2024 12:15 PM DIETARY SERVER - 09/21/2024 2:35 PM DIETARY SERVER Surgery [facility] [address] [place] [phone] Nikki Bartlett MD Cystoscopy, with transurethral resection bladder tumor 09/21/2024 10:28 AM DIETARY SERVER - 09/21/2024 4:07 PM DIETARY SERVER Hospital Encounter [facility] PreOP/Phase II [address] [place] [address] Nikki Bartlett MD 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) Discharge Disposition: Home or Self Care 09/21/2024 Telephone [facility] Hospitalist Program [address] [place] [address] Nikki Bartlett MD Prior Auth - Medication (Trospium - Denied) from Last 3 Months Social History Tobacco Use Types Packs/Day Years Used Date Smoking Tobacco: Never Smokeless Tobacco: Never Tobacco Cessation:Counseling Given: Not Answered Alcohol Use Standard Drinks/Week Comments Not Currently [...] on file Sexual Orientation Not on file Last Filed Vital Signs Vital Sign Reading Time Taken Comments Blood Pressure 134/74 09/21/2024 3:35 PM DIETARY SERVER Pulse 75 09/21/2024 2:45 PM DIETARY SERVER Temperature 36.6 C (97.9 F) 09/21/2024 3:35 PM DIETARY SERVER Respiratory Rate 18 09/21/2024 3:35 PM DIETARY SERVER Oxygen Saturation 94% 09/21/2024 3:35 PM DIETARY SERVER Inhaled Oxygen Concentration - - Weight 65.9 kg (145 lb 4.8 oz) 09/21/2024 10:58 AM DIETARY SERVER Height 152.4 cm (5') 09/21/2024 10:58 AM DIETARY SERVER Body Mass Index 28.38 09/21/2024 10:58 AM DIETARY SERVER Plan of Treatment Health Maintenance Due Date Last Done Comments ADVANCE CARE PLANNING 1940 ANNUAL REVIEW OF HM ORDERS 1940 LIPID 1939 FALL RISK ASSESSMENT 2004 RSV VACCINE (1 - 1-dose 75+ series) 2014 MEDICARE ANNUAL WELLNESS VISIT 11/17/2023 11/17/2022, 10/10/2021, 10/04/2020 COVID-19 Vaccine ( season) 2024 06/24/2024, 11/08/2023, 07/03/2022, Additional history exists PHQ-2 (once per calendar year) 2024 DTAP/TDAP/TD IMMUNIZATION (3 - Td or Tdap) 07/27/2034 07/27/2024, 01/30/2011, 07/11/2007, Additional history exists DEXA 10/07/2035 10/07/2020 Pneumococcal Vaccine: 50+ Years Completed 05/26/2016, 07/11/2007, 07/29/1995 ZOSTER IMMUNIZATION Completed 03/09/2019, 11/15/2018, 05/07/2009 INFLUENZA VACCINE Completed 06/24/2024, , 06/23/2023, Additional history exists HPV IMMUNIZATION Aged Out No longer e ligible based on patient's age to complete this topic MENINGITIS IMMUNIZATION Aged Out No l onger eligible based on patient's age to complete this topic RSV MONOCLONAL ANTIBODY Aged Out No l onger eligible based on patient's age to complete this topic Procedures Procedure Name Priority Date/Time Associated Diagnosis Comments SURGICAL PATHOLOGY EXAM Routine 09/21/2024 1:04 PM DIETARY SERVER ANE AIRWAY ETT PERFORMABLE Routine 09/21/2024 12:34 PM DIETARY SERVER CYSTOSCOPY, WITH TRANSURETHRAL RESECTION BLADDER TUMOR 09/21/2024 12:23 PM DIETARY SERVER Other specified disorders of bladder Special Needs *marco antonio-cpap, stemi(2022), s3ckd, bgmgyqvjoxszjxky-nas-ooctb appt 09/19 @2pm minutes EKG CARDIAC - HIM SCAN 08/24/2024 12:00 AM DIETARY SERVER from Last 3 Months Results * (ABNORMAL) Surgical Pathology Exam (09/21/2024 1:04 PM DIETARY SERVER) Case Report Surgical Pathology Report Case: [id number] Authorizing Provider: Nikki Bartlett MD Collected: 09/21/2024 01:04 PM Ordering Location: [facility] Received: 09/21/2024 01:19 PM [facility] Pathologist: Rebecca Ortez MD Specimen: Urinary Bladder, BLADDER TUMOR 09/22/2024 10:51 AM [facility] Final Diagnosis Bladder, 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 09/22/2024 10:51 AM [facility] Clinical Information Procedure: Cystoscopy, with transurethral resection bladder tumor Pre-op Diagnosis: Other specified disorders of bladder [N32.89] Post-op Diagnosis: N32.89 - Other specified disorders of bladder [ICD-10-CM] 09/22/2024 10:51 AM [facility] Gross Description A(1). Urinary Bladder, BLADDER TUMOR: The specimen is received in formalin, labeled with the patient's name, medical record number and other identifying information designated bladder tumor. It consists of a Telfa pad containing a 1.0 x 0.7 x 0.2 cm aggregate of richey-pink, shaggy soft tissue fragments which are filtered and submitted entirely in 1 cassette. [facility]) 09/21/2024 1:21 PM 09/22/2024 10:51 AM [facility] Microscopic Description Microscopic examination was performed. 09/22/2024 10:51 AM [facility] MCRS Yes(A) N/A 09/22/2024 10:51 AM [facility] Performing Labs The technical component of this testing was completed at [facility]. Stain controls for all stains resulted within this report have been reviewed and show appropriate reactivity. 09/22/2024 10:51 AM [facility] Case Images 09/22/2024 10:51 AM [facility] Tissue URINARY BLADDER STRUCTURE / Unknown 09/21/2024 1:04 PM DIETARY SERVER 09/21/2024 1:19 PM DIETARY SERVER us Nikki Bartlett MD LAB - PA ELE Final Result [facility] [address] (1st floor, no room number) [place] [address], [place] LABORATORY [facility] [address] floor, [address] [place] [address], [place] [phone] * ANE AIRWAY ETT PERFORMABLE (09/21/2024 12:34 PM DIETARY SERVER) Narrative Jing Alexander APRN TELETYPE TELEGRAPHER - 09/21/2024 12:34 PM DIETARY SERVER Jing Alexander APRN TELETYPE TELEGRAPHER 09/21/2024 12:47 PM Airway Patient location during procedure: OR Procedure Start/Stop Times: 09/21/2024 12:34 PM Staff - TELETYPE TELEGRAPHER: Jing Alexander APRN TELETYPE TELEGRAPHER Performed By: TELETYPE TELEGRAPHER Consent for Airway Urgency: elective Indications and [...] Administered Medication Administration Time: 09/21/2024 12:34 PM us Lizbeth Thornton MD IN ANESTHESIA Final Res ult * EKG Cardiac - HIM Scan (08/24/2024 12:00 AM DIETARY SERVER) 08/24/2024 us Provider Outside ECG ORDERABLES Final Result from Last 3 Months Insurance [place] Care Teams Rn Child Relationship Specialty Start Date End Date Pau Franklin [address] [place] [address] PCP - General Family Medicine 09/18/24
--- OUTSIDE RECORDS SUMMARY | 2024-09-22 20:45 | XMS_ITS | Continuity of Care Document ---
Author Organization [place] [facility] Address [address] [place] [address] Care Team Providers Care Fur Cleaner Name Role Phone GLADYS LANIER Primary Care Provider [phone] Assessment Encounter Date Assessment Date Assessment LastModified [...] (TURBT) - Surgery to be performed at [facility] or [facility] - Procedure to include: - Biopsy/resection of [...] recorded. Lab urinalysis , dipstick 2023 024 [id number] [facility], [address], [place], [address], 08:17:48 Referral None recorded. Procedures None recorded. Surgeries None recorded. Imaging None recorded. Medication Orders None recorded. Patient TargetsNo targets recorded. Patient InstructionsNo instructions recorded. Reason for Referral None Reported. Results Created Date Observation Date Name Description Value Unit Range Abnormal Flag Note LastModifiedBy Organization Detail LastModifiedTime 09/01/20 24 09/01/2024 urina lysis , dipst ick Color-Status Yellow Not Available [facility] [address], [place], [address], 09/01/2024 16:07:08 09/01/20 24 09/01/2024 urina lysis , dipst ick pH-Status 6.0 Not Available [facility], [place], [address], 09/01/2024 16:07:08 09/01/20 24 09/01/2024 urina lysis , dipst ick Nitrates-Sta tus negati ve Not Available [facility], [place], [address], 09/01/2024 16:07:08 09/01/20 24 09/01/2024 urina lysis , dipst ick Blood-Status Negati ve Not Available [facility], [place], [address], 09/01/2024 16:07:08 09/01/20 24 09/01/2024 urina lysis , dipst ick Leuko-Status Negati ve Not Available [facility], [place], [address], 09/01/2024 16:07:08 08/25/20 24 08/14/2024 CT, abdom [...] Address Organization Details Recorded Time Ureteric stone 49013966 Active 024 JOÃO LOVETT MD [address] [place] [address],[address], [place], [address], [facility] 4 11:38:23 Abnormal findings on diagnostic imaging of urinary organs 786517063 Active 024 JOÃO LOVETT MD [address] [place] [address],[address], [place], [address], [facility] 4 11:39:03 Mass of urinary bladder 505221670 Active 024 JOÃO LOVETT MD [address] [place] [address],[address], [place], [address], [facility] 4 16:03:19 Problem Notes None recorded. Procedures Surgical History Date Name Laterality Status Provider Name and Address Organization Details Recorded Time 09/01/20 24 CystoscopyFemale completed JOÃO LOVETT MD [address] [place] [address],[address], [place], [address], [facility] 09/01/2024 16:24:17 Imaging Results None recorded. Procedure Notes None recorded. Medical Equipment None Reported. Allergies Allergen ID Allergen Name Allergen Category Reaction Reaction Severity Criticality Documentation Date Start Date Code Code System Note Provider Name and Address Organization Details Recorded Time [id number] Medicinal product containin g penicilli n and acting as antibacte rial agent (product) medicatio n Not available Not available Not available 09/14/2024 00867 05 SNOMED per patie nt Not Available [...] Updated DateTime 09/01/2024 152.4 cm 27.3 kg/m2 98773.93 g Xiao Giraldo [facility] 09/01/2024 16:04:36 Social History Question Answer Notes LastModified by Organizat ion Details LastModified Time Tobacco Smoking Status Never Smoker Xiao smyth [facility] 09/01/2024 16:05:35 What Is Your Level [...] adjuvanted, trivalent, PF 7 completed Asmita Grady null, [facility] 09/06/2024 15:27:30 Influenza, recombinant, quadrivalent, PF 9 completed Asmita Wainaku null, [facility] 09/06/2024 15:27:30 zoster recombinant 9 completed Asmita Wainaku null, [facility] 09/06/2024 15:27:30 zoster recombinant 9 completed Asmita Wainaku null, [facility] 09/06/2024 15:27:30 Influenza, high-dose, quadrivalent, PF 4 completed Asmita Wainaku null, [facility] 09/06/2024 15:27:30 Influenza, high-dose, quadrivalent, PF 0 completed Asmita Wainaku null, [facility] 09/06/2024 15:27:30 Influenza, high-dose, quadrivalent, PF 3 completed Asmita Grady null, [facility] 09/06/2024 15:27:30 Influenza, high-dose, quadrivalent, PF 1 completed Asmita Grady null, [facility] 09/06/2024 15:27:30 Influenza, high-dose, quadrivalent, PF 2 completed Asmita Grady null, [facility] 09/06/2024 15:27:31 COVID-19, mRNA, LNP-S, PF, 30 mcg/0.3 mL dose 1 completed Asmita Wainaku null, [facility] 09/06/2024 15:27:31 COVID-19, mRNA, LNP-S, PF, 30 mcg/0.3 mL dose 1 completed Asmita Wainaku null, [facility] 09/06/2024 15:27:31 COVID-19, mRNA, LNP-S, PF, 30 mcg/0.3 mL dose 1 completed Asmita Wainaku null, [facility] 09/06/2024 15:27:31 COVID-19, mRNA, LNP-S, PF, 30 mcg/0.3 mL dose, guicho-sucrose 2 completed Asmita Wainaku null, [facility] 09/06/2024 15:27:31 COVID-19, mRNA, LNP-S, bivalent, PF, 30 mcg/0.3 mL dose 2 completed Asmita Wainaku null, [facility] 09/06/2024 15:27:31 RSV, recombinant, protein subunit RSVpreF, adjuvant reconstituted, 0.5 mL, PF 4 completed Asmita Wainaku null, [facility] 09/06/2024 15:27:31 COVID-19, mRNA, LNP-S, PF, 50 mcg/0.5 mL 4 completed Asmita Wainaku null, [facility] 09/06/2024 15:27:31 COVID-19, mRNA, LNP-S, PF, 50 mcg/0.5 mL 4 completed Asmita Wainaku null, [facility] 09/06/2024 15:27:31 pneumococcal polysaccharide PPV23 7 completed Asmita Wainaku null, [facility] 09/06/2024 15:27:31 Tdap 1 completed Asmita Wainaku null, [facility] 09/06/2024 15:27:31 Tdap 4 completed Asmita Grady null, [facility] 09/06/2024 15:27:31 Pneumococcal conjugate PCV 13 6 completed Asmita Wainaku null, [facility] 09/06/2024 15:27:31 zoster live 9 completed Asmita Grady null, [facility] 09/06/2024 15:27:31 Influenza, high-dose, trivalent, PF 4 completed Asmita Grady null, [facility] 09/06/2024 15:27:31 Influenza, high-dose, trivalent, PF 8 completed Asmita Wainaku null, [facility] 09/06/2024 15:27:31 Influenza, high-dose, trivalent, PF 4 completed Asmita Wainaku null, [facility] 09/06/2024 15:27:31 Influenza, high-dose, trivalent, PF 8 completed Asmita Grady null, [facility] 09/06/2024 15:27:31 Influenza, high-dose, trivalent, PF 6 completed Asmita Grady null, [facility] 09/06/2024 15:27:31 Influenza, high-dose, trivalent, PF 6 completed Asmita Grady null, [facility] 09/06/2024 15:27:31 Influenza, split virus, trivalent, preservative 3 completed Asmita Wainaku null, [facility] 09/06/2024 15:27:31 Influenza, split virus, trivalent, preservative 9 completed Asmita Grady null, [facility] 09/06/2024 15:27:31 Influenza, split virus, trivalent, preservative 4 completed Asmita Grady null, [facility] 09/06/2024 15:27:31 Influenza, split virus, trivalent, preservative 5 completed Asmita Wainaku null, [facility] 09/06/2024 15:27:31 Influenza, split virus, trivalent, preservative 0 completed Asmita Wainaku null, [facility] 09/06/2024 15:27:31 Influenza, split virus, trivalent, preservative 7 completed Asmita Wainaku null, [facility] 09/06/2024 15:27:31 Influenza, split virus, trivalent, preservative 8 completed Asmita Grady null, [facility] 09/06/2024 15:27:31 Influenza, split virus, trivalent, preservative 3 completed Asmita Wainaku null, [facility] 09/06/2024 15:27:31 Influenza, split virus, trivalent, PF 1 completed Asmita Wainaku null, [facility] 09/06/2024 15:27:31 Td (adult), 5 Lf tetanus toxoid, preservative free, adsorbed 7 [facility] 15:27:31 Past Encounters Encounter ID Performer Location Encounter Start Date Encounter Closed Date Diagnosis/Indication Diagnosis SNOMED-CT Code Diagnosis ICD10 Code [id number] JOÃO LOVETT MD [facility] [address] [address],[address] [address] 09/01/2024 16:03:55 09/04/2024 17:11:46 Ureteric stone 58878392 N20.1 Abnormal f indings on diagnostic imaging of urinary organs 256542040 R93.41 Recurrent urinary tract infection 134684531 N39.0 Mass of ur inary bladder 562231099 N32.89 Health Concerns Section Related Observation LastModified by Organization Detai ls LastModified Time None Recorded Concern Status LastModified by Organization Details LastModified Time None Recorded Payers Encounter Date Sequence Insurance Name Policy Number Policy Watters Covered Member ID Watters Member ID Guarantor Name 09/01/2024 1 [place] [employer] Radha A Hand [id number] Radha A Hand 09/01/2024 2 [place] [id number] Radha A Hand [id number] Radha A Hand Notes Date Note Type Note Provider Name and Address Organization Details Recorded Time 09/01/2024 text/html Patient is a 84 yo F with PMH of memory impairment who presents as a new patient for evaluation of possible bladder lesion. Referred by: Dr Lanier Outside records reviewed and in sum:Pt seen in [place] [facility] 08/14/24 for constipation with no BM [...] of urinary tract infectionsPast Medical History:-TRI-HTN-HLD -Constipation-Prior LW-Cuirvmpnbt-Xhbsgq loss Past Surgical hx- Cholecystectomy- No known kidney or bladder surgeries Social hx: nonsmoker JOÃO LOVETT MD [address] [place] [address],[address], [place], [address], [facility] 09/04/2024 16:05:04 OBGyn Episode No OBEpisode recorded.
--- OUTSIDE RECORDS SUMMARY | 2024-09-22 20:45 | XMS_ITS | Encounter Summary ---
Author Organization [facility] Address [address] 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.89] Procedures IA CYSTOSCOPY W TX MINOR LESION <0.5 CM IA CYSTOURETHROSCOPY,FULGUR .5-2CM LE* IA CYSTOURETHROSCOPY,FULGUR 2-5CM LESN IA CYSTOURETHROSCOPY,FULGUR >5CM LESN [facility], [facility] [address] [place] [address] Phone: tel: Referral ID Status Reason Start Date Expiration Date Visits Re quested Visits Authorized [id number] 1 1 Encounter Details Date Type Department Care Team (Late st Contact Info) Description 09/21/2024 12:15 PM MINERAL WOOL INSULATION SUPERVISOR - 09/21/2024 2:35 PM MINERAL WOOL INSULATION SUPERVISOR Surgery [facility] [address] [place] [address] Nikki Bartlett MD [facility] [address] [place] [address] Cystoscopy, with transurethral resection bladder tumor Surgery Details Date/Time Status Location OR Service Patient Class Case Class Case Type Trauma Case? 09/21/2024 12:15 PM Posted [facility] OR OR M 31 Urology Same Day Surgery Elective Panel 1 Procedure LRB Anes Op Region Wound Class Comments Cystoscopy, with transurethr al resection bladder tumor N/A General Urethra II-Clean Contamin ated Surgeon Surgeon Role Service Panel Nikki Bartlett MD Primary Urology 1 Special Needs *marco antonio-cpap, stemi(2022), s3ckd, ctuczfqlzxdjyadq-eaj-noswh appt 09/19 @2pm [id number] minutes documented in this encounter Social History Tobacco [...] on file documented as of this encounter Last Filed Vital Signs Vital Sign Reading Time Taken Comments Blood Pressure 131/65 09/21/2024 2:30 PM MIN[employer]AL WOOL INSULATION SUPERVISOR Pulse 74 09/21/2024 2:30 PM MINERAL WOOL INSULATION SUPERVISOR Temperature 37.2 C (99 F) 09/21/2024 2:15 PM MINERAL WOOL INSULATION SUPERVISOR Respiratory Rate 18 09/21/2024 2:30 PM MIN[employer]AL WOOL INSULATION SUPERVISOR Oxygen Saturation 93% 09/21/2024 2:30 PM MINERAL [employer]OL INSULATION SUPERVISOR Inhaled Oxygen Concentration - - Weight 65.9 kg (145 lb 4.8 oz) 09/21/2024 10:58 AM MINERAL WOOL INSULATION SUPERVISOR Height 152.4 cm (5') 09/21/2024 10:58 AM MINERAL WOOL INSULATION SUPERVISOR Body Mass Index 28.38 09/21/2024 10:58 AM MINERAL WOOL INSULATION SUPERVISOR documented in this encounter Discharge Instructions * Discharge Instructions* Pau Egan RN - 09/21/2024 2:05 PM MIN[employer] INSULATION SUPERVISOR Remove catheter at home, Monday 09/25. See instructions below. Same Day Surgery Discharge Instructions for Sedation and General Anesthesia It's not unusual to feel dizzy, light-headed or faint for up to 24 hours after surgery or while taking pain medication. If you have these symptoms: sit for a few minutes before standing and have someone assist you when you get up to walk or use the bathroom. You should rest and relax for the next 24 hours. We recommend you make arrangements to have an adult stay with you for at least 24 hours after your discharge. Avoid hazardous and strenuous activity. DO NOT DRIVE any vehicle or operate mechanical equipment for 24 hours following the end of your surgery. Even though you may feel normal, your reactions may be affected by the medication you have received. Do not drink alcoholic beverages for 24 hours following surgery. Slowly progress to your regular diet as you feel able. It's not unusual to feel nauseated and/or vomit after receiving anesthesia. If you develop these symptoms, drink clear liquids (apple juice, kathy terry, broth, 7-up, etc. ) until you feel better. If your nausea and vomiting persists for 24 hours, please notify your surgeon. All narcotic pain medications, along with inactivity and anesthesia, can cause constipation. Drinking plenty of liquids and increasing fiber intake will help. For any questions of a medical nature, call your surgeon. Do not make important decisions for 24 hours. If you had general anesthesia, you may have a sore throat for a couple of days related to the breathing tube used during surgery. You may use Cepacol lozenges to help with this discomfort. If it worsens or if you develop a fever, contact your surgeon. If you feel your pain is not well managed with the pain medications prescribed by your surgeon, please contact your surgeon's office to let them know so they can address your concerns. Cystoscopy Discharge Instructions Diet: Return to the diet that you were on before the procedure, unless you are given specific diet instructions. It is important to drink 6-8 glasses of fluids per day at home - at least 3-4 glasses should be water. Activity: Walk short distances and increase as your strength allows. You may climb stairs. Do not do strenuous exercise or heavy lifting until approved by surgeon. Do not drive while taking narcotic pain medications. Bathing: You may take a shower. Call your physician if these signs/symptoms are present: Pain that is not relieved by a short rest or ordered pain medications. Temperature at or above 101.0??F or chills. Inability or difficulty urinating. Excessive blood in urine. Any questions or concerns. DISCHARGE INSTRUCTIONS FOR CATHETER CARE AT HOME . Basic Catheter Care Always wash hands before and after handling your catheter. Use soap and water to wash the area around your catheter. Do this procedure twice a day. Proper cleansing will help keep the area from becoming irritated or infected. Leg Bag This is a small plastic bag that collects urine draining from your catheter and then strapped around your thigh. It will need to be emptied when the bag is 1/2 to 3/4 full. Large Drainage Bag This bag is larger than the leg bag and holds more urine. It is to be used while at home, especially at night. Before you go to bed, change the leg bag to the large drainage bag. Pinch off the catheter with your fingers and swab the connection between the catheter and leg bag with alcohol sponge. Disconnect the leg bag and connect the large drainage bag to your catheter. When you get into bed, arrange the drainage tubing so that it doesn???t kink. Be sure to keep the bag below the level of your bladder and allow enough slack for turning. Cleaning Your Drainage Bags Wash hands. Using funnel or syringe, fill the bag half full with a solution of 1/2 vinegar and 1/2 water. Shake bag, allowing mixture to cleanse inside of bag. Empty out all vinegar and water mixture from your bag. Hang bag to dry when not in use. Clean your bags anytime you change them. Helpful Hints Always keep drainage bags below bladder level to insure adequate drainage. Drink 4-6 glasses of water daily along with other fluids you normally drink to keep urine free of infection and / or clots. If you notice no urine in your bag for 2 to 4 hours or you develop extreme discomfort in bladder area, your catheter maybe plugged. Notify your doctor. If you notice your urine becomes foul smelling and cloudy, notify your doctor. Also notify your doctor if you develop fever or chills. If you notice urine leaking around the outside of the catheter, check to be sure catheter or tubingis not kinked. Don???t use leg bag while in bed. HOW TO REMOVE YOUR CATHETER INSTRUCTIONS Wash your hands. Insert the syringe into balloon port of the catheter. Withdraw all the fluid from the balloon. You may have to re-insert the syringe into the port additional times until no more fluid can be withdrawn. Pull gently on the catheter. If no resistance, slowly withdraw. Dispose of the catheter and the syringe. Wash your hands. Call your doctor if unable to urinate within 6-8 hours, or when uncomfortable. If you have questions or concerns about your procedure, call Dr. Bartlett at [phone] RAL WOOL INSULATION SUPERVISOR RAL WOOL INSULATION SUPERVISOR RAL WOOL INSULATION SUPERVISOR documented in this encounter Medications at Time of Discharge Ascorbic Acid (VITAMIN C) 500 MG CAPS Take 500 mg by mouth daily. aspirin 81 MG EC tablet Take 81 mg by mouth daily. calcium carbonate (OS-JOSÉ LUIS) 500 MG tablet Take 1 tablet by mouth daily. donepezil (ARICEPT) 5 MG tablet Take 5 mg by mouth at bedtime. DULoxetine (CYMBALTA) 30 MG capsule Take 30 mg by mouth 2 times daily. Take 60mg in AM and 30m in PM LORazepam (ATIVAN) 0.5 MG tablet Take 0.5 mg by mouth daily as needed for anxiety. losartan (COZAAR) 50 MG tablet Take 50 mg by mouth daily. melatonin 1 MG TABS tablet Take 1 mg by mouth at bedtime. metoprolol succinate ER (TOPROL XL) 25 MG 24 hr tablet Take 12.5 mg by mouth daily. omeprazole (PRILOSEC) [address] capsule Take 40 mg by mouth daily. rosuvastatin (CRESTOR) 10 MG tablet Take 10 mg by mouth daily. 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 30 tablet 09/21/2024 spironolactone (ALDACTONE) 25 MG tablet Take 12.5 mg by mouth daily. sucralfate (CARAFATE) 1 GM tablet Take 1 g by mouth 4 times daily. 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 Start taking tomorrow 1/3 5 tablet 09/21/2024 tetrahydrozoline (VISINE) 0.05 % ophthalmic solution Place 1 drop into both eyes 4 times daily as needed. 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 10 tablet 09/21/2024 UNABLE TO FIND Take 1 tablet by mouth daily. MEDICATION NAME: multivitamins-mi nerals-lutein (Multivitamin 50 Plus) Vitamin D, Cholecalciferol, 25 MCG (1000 UT) CAPS Take 1,000 Units by mouth daily. documented as of this encounter Nursing Notes * Maurice Pabon RN - 09/21/2024 4:06 PM CST Meets criteria for discharge. Discharge instructions reviewed with pt and pt's designated responsible alliance party. Pt label on prescription bag from pharmacy matched to pt's wristband. Pharmacy bag opened with 3 prescriptions inside. Medications were reviewed to match pt wristband while pt and significant other agreed with identification. Prescriptions placed back in pharmacy bag resealed with tape and given to daughter per pt request. RAL WOOL INSULATION SUPERVISOR * Pau Egan RN - 09/21/2024 2:48 PM CST Candelario teaching done with daughters. RAL WOOL INSULATION SUPERVISOR * Kwame Beth RN - 09/21/2024 11:50 AM CST Pt had itching just above the IV site. No redness noted. No hives on body, no swelling of lips, tongue or throat. Cipro stopped and flushed with NS. Dr. Bartlett in room and said no new iv needed and ordered ancef instead. RAL WOOL INSULATION SUPERVISOR * Beverly Handley RN - 09/14/2024 8:50 AM CST Fax number given to daughter Lanny to fax H&P to us. RAL WOOL INSULATION SUPERVISOR documented in this encounter Miscellaneous Notes * Op Note - Nikki Bartlett MD - 09/21/2024 1:30 PM CST OPERATIVE REPORT PATIENT: Radha Painter : 1940, AGE: [age] year old SSN: [id number] SURGEON Nikki Bartlett MD Legal Secretary Receptionist: Sanaz Matos RN; Maria Alejandra Dc RN Scrub Person: Jes Cole; Candice Solis PREOP DIAGNOSIS: Bladder mass, 1.5cm, right trigone POSTOP DIAGNOSIS: Same Procedure(s): Cystoscopy with transurethral resection bladder tumor (TURBT), small ANESTHESIA General COMPLICATIONS: None FINDINGS There was a solitary 1.5cm papillary bladder mass at the right trigone, in close proximity/just lateral to the right UO. The mass was removed in its entirety using the bipolar resectoscope and the base was fulgurated. The resection was deep without perforation. The right UO was intact at the conclusion of case. Urethral caruncle and labia minora erythema redemonstrated on external examination. SPECIMENS Bladder tumor IMPLANTS 18 Fr candelario catheter with 10cc in balloon EBL 0cc OPERATIVE INDICATIONS: The patient is a 84 year old female with a history of hematuria and a small 1.5 cm bladder mass noted on office cystoscopy who presents for cystoscopy with TURBT. She and her family were appraised ofthe risks and benefits of the procedure and wish to proceed. DESCRIPTION OF PROCEDURE: After properly identifying the patient and verifying informed consent, he was brought to the operating room in stable condition. After sufficient induction of general anesthetic, she was placed in the lithotomy position. Her genitalia were prepped and draped in the usual fashion. The case was begunby introducing the 22Fr rigid cystoscope. There was redemonstration of a urethral caruncle and additional patchy erythema involving the labia minora around the introitus. The bladder was surveyed in its entirety and notable for a solitary small 1.5cm right trigonal bladder mass which was papillary appearing. I then introduced the 26-Tristanian resectoscope into the patient's bladder. Resection of the tumor was undertaken with the bipolar cautery loop. The tumor was resected completely and down to the level of visible muscle fibers. The specimen was removed and sent to pathology. The resection site was cauterized. The bladder was then emptied and surveyed. All visible tumor was resected, hemostasis was excellent and there was no evidence of bladder perforation. A 18 Fr candelario catheter was placed at the conclusion of the case, using 10 cc of sterile water to inflate the balloon. The bladder was irrigated via the catheter and the returns were clear. At this point, the patient was awakened from anesthesia and brought to recovery in stable condition. There was minimal blood loss and no apparent complications. PLAN: Remove candelario at home on Wednesday09/25/24. Follow up in clinic in about 2-3 weeks to review pathology. Will obtain renal US in 4-6 weeks to assess for any hydronephrosis given close proximity of the mass and resection site to the right UO. Nikki Bartlett MD [facility] Pager: [phone] Office: [phone] Surgical [phone] RAL WOOL INSULATION SUPERVISOR RAL WOOL INSULATION SUPERVISOR documented in this encounter Plan of Treatment Not on file documented as of this encounter Procedures Procedure Name Priority Date/Time Associated Diagnosis Comments SURGICAL PATHOLOGY EXAM Routine 09/21/2024 1:04 PM MINERAL WOOL INSULATION SUPERVISOR CYSTOSCOPY, WITH TRANSURETHRAL RESECTION BLADDER TUMOR 09/21/2024 12:23 PM MINERAL WOOL INSULATION SUPERVISOR Other specified disorders of bladder Special Needs *marco antonio-cpap, stemi(2022), s3ckd, cjygmrjakodczpug-uct-phvkg appt 09/19 @2pm [id number] minutes EKG CARDIAC - HIM SCAN 08/24/2024 12:00 AM MIN[employer]OL INSULATION SUPERVISOR documented in this encounter Results * (ABNORMAL) Surgical Pathology Exam (09/21/2024 1:04 PM MINERAL WOOL INSULATION SUPERVISOR) Case Report Surgical Pathology Report Case: [id number] Authorizing Provider: Nikki Bartlett MD Collected: 09/21/2024 01:04 PM Ordering Location: [facility] Received: 09/21/2024 01:[address] [facility] OR Pathologist: Rebecca Ortez MD Specimen: Urinary Bladder, BLADDER TUMOR 09/22/2024 10:51 AM [facility] Final Diagnosis Bladder, 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 09/22/2024 10:51 AM [facility] Clinical Information Procedure: Cystoscopy, with transurethral resection bladder tumor Pre-op Diagnosis: Other specified disorders of bladder [N32.89] Post-op Diagnosis: N32.89 - Other specified disorders of bladder [ICD-10-CM] 09/22/2024 10:51 AM [facility] Gross Description A(1). Urinary Bladder, BLADDER TUMOR: The specimen is received in formalin, labeled with the patient's name, medical record number and other identifying information designated bladder tumor. It consists of a Telfa pad containing a 1.0 x 0.7 x 0.2 cm aggregate of richey-pink, shaggy soft tissue fragments which are filtered and submitted entirely in 1 cassette. (OSWALDO Vieira (ASCP) 09/21/2024 1:21 PM 09/22/2024 10:51 AM [facility] Microscopic Description Microscopic examination was performed. 09/22/2024 10:51 AM [facility] MCRS Yes(A) N/A 09/22/2024 10:51 AM [facility] Performing Labs The technical component of this testing was completed at [facility]. Stain controls for all stains resulted within this report have been reviewed and show appropriate reactivity. 09/22/2024 10:51 AM MINERAL WOOL INSULATION SUPERVISOR LABORATORY Case Images 09/22/2024 10:51 AM MINERAL WOOL INSULATION SUPERVISOR LABORATORY Tissue URINARY BLADDER STRUCTURE / Unknown 09/21/2024 1:04 PM MINERAL WOOL INSULATION SUPERVISOR 09/21/2024 1:19 PM MINERAL WOOL INSULATION SUPERVISOR Nikki HSIEH - PA AP Final Result LABORATORY [facility] [address] Lab (1st floor, no room number) [place] [address], [facility] [address] 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 bladder documented in this encounter Administered Medications Inactive Administered Medications - up to 3 most recent administrations Medication Order MAR Action Action Date Dose Rate Site acetaminophen (TYLENOL) tablet 975 mg 975 mg, Oral, ONCE, On Yojana 09/21/24 at 1100, For 1 dose, Maximum acetaminophen dose from all sources = 75 mg/kg/day not to exceed 4 grams/day., Pre-procedure $Given 09/21/2024 11:17 AM MIN[employer] WOOL INSULATION SUPERVISOR 975 mg ciprofloxacin (CIPRO) infusion 400 mg Routine, 400 mg, Intravenous, EVERY 12 HOURS, First dose on Yojana 09/21/24 at 1100, Indications: Perioperative Pharmacoprophylaxis, Pre-procedureIndications:Periopera tive Pharmacoprophylaxis $New Bag 09/21/2024 11:17 AM MIN[employer] WOOL INSULATION SUPERVISOR 400 mg sodium chloride 0.9% (bottle) irrigation PRN, Starting on Yojana 09/21/24 at 1250, Intra-procedure $Given 09/21/2024 12:50 PM MIN[employer]AL WOOL INSULATION SUPERVISOR 1,000 mLs sodium chloride 0.9% irrigation (bag) PRN, Starting on Yojana 09/21/24 at 1251, Intra-procedure $Given 09/21/2024 12:51 PM MINERAL WOOL INSULATION SUPERVISOR 1,000 mLs documented in this encounter Active and Recently Administered Medications Times are shown in MINERAL WOOL INSULATION SUPERVISOR. Scheduled Medication Order 09/19/2024 09/20/2024 09/21/2024 acetaminophen (TYLENOL) tablet 975 mg (COMPLETED)(Linked Group 1) 975 mg, Oral, ONCE, On Yojana 09/21/24 at 1100, For 1 dose, Maximum acetaminophen dose from all sources = 75 mg/kg/day not to exceed 4 grams/day., Pre-procedure 1117 ($Given - Provi laureano: Chloe Lancaster RN) ceFAZolin Sodium (ANCEF) injection 2 g (COMPLETED) Routine, 2 g, Intravenous, PRE-OP/PRE-PROCEDURE, Starting on Yojana 09/21/24 at 1203, For 1 dose, Indications: Perioperative Pharmacoprophylaxis, Pre-procedure 1234 ($Given - Provi laureano: Jing Alexander APRN CRNA) ciprofloxacin (CIPRO) infusion 400 mg (CANCELED) Routine, 400 mg, Intravenous, EVERY 12 HOURS, First dose on Yojana 09/21/24 at 1100, Indications: Perioperative Pharmacoprophylaxis, Pre-procedure 1117 ($New Bag - Pro vider: Chloe Lancaster RN)1205 (Stopped - Provider: Kwame Beth RN - Comment: pt had itching just above the IV site.) Continuous Medication Order 09/19/2024 09/20/2024 09/21/2024 lactated ringers infusion (CANCELED) at 100 mL/hr, Intravenous, CONTINUOUS, Pre-procedure, Starting on Yojana 09/21/24 at 1100, Until Yojana 09/21/24 at 1322 1223 ($New Bag - Pro vider: Jing Alexander APRN CRNA)1302 (Anesthesia Volume Adjustment - Provider: Jing Alexander APRN CRNA) PRN Medication Order 09/19/2024 09/20/2024 09/21/2024 sodium chloride 0.9% (bottle) irrigation (CANCELED) PRN, Starting on Yojana 09/21/24 at 1250, Intra-procedure 1250 ($Given - Provi laureano: Nikki Bartlett MD) sodium chloride 0.9% irrigation (bag) (CANCELED) PRN, Starting on Yojana 09/21/24 at 1251, Intra-procedure 1251 ($Given - Provi laureano: Nikki Bartlett MD) Linked Groups Order Group 1: acetaminophen (TYLENOL) tablet 975 mg (COMPLETED)Jump to med 975 mg, Oral, ONCE, On Yojana 09/21/24 at 1100, For 1 dose, Maximum acetaminophen dose from all sources = 75 mg/kg/day not to exceed 4 grams/day., Pre-procedure Or acetaminophen (TYLENOL) Suppository 650 mg (COMPLETED) 650 mg, Rectal, ONCE, On Yojana 09/21/24 at 1100, For 1 dose, Maximum acetaminophen dose from all sources = 75 mg/kg/day not to exceed 4 grams/day., Pre-procedure documented in this encounter Care Teams Driver Courier Relationship Specialty Start Date End Date Pau Franklin [address] [place] [address] PCP - General Family Medicine 09/18/24 documented as of this encounter
--- OUTSIDE RECORDS SUMMARY | 2024-09-22 20:45 | XMS_ITS | Clinical Summary ---
Author Organization [facility] Address [place], [place] [address] Care Team Providers Care Marine Drafter Name Role Phone Steven Tellez Aida Unavailable [phone] Pau Franklin MD Primary Care Provide r Allergies Active Allergy Reactions Criticality Noted Date Comments Bee Pollen Edema 02/11/2007 Bee Venom Protein (Honey Bee) Angioedema,Edema Low 04/10/2024 Codeine GI Upset Penicillins Other - Describe In Comment Field,Hives 02/11/2007 Lips and fingers go numb Medications cholecalciferol (VITAMIN D) 1,000 unit capsule Take 1 capsule by mouth once daily. 0 1 Active calcium carbonate (OS-JOSÉ LUIS 500) 500 mg calcium (1,250 mg) tablet Take 500 mg by mouth once daily with a meal. Active multivitamins-m inerals-lutein (Multivitamin 50 Plus) tab tablet Take 1 Tablet by mouth once daily. Active ascorbic acid, vitamin C, (Vitamin C) 500 mg tablet Take 500 mg by mouth once daily. Active tetrahydrozolin e (Visine) 0.05 % ophthalmic solution Place 1 Drop into both eyes 4 times daily if needed (irritated eyes). Active Walker - 4 wheelsIndicatio ns:Post-op pain For home use. Length of need: 20 years Walker with a seat. 1 Each 3 Active omeprazole (PRILOSEC) 40 mg Delayed-Release capsuleIndicati ons:Chronic GERD Take 1 Capsule (40 mg) by mouth once daily before a meal. 90 Capsule 3 3 Active rosuvastatin (CRESTOR) 10 mg tabletIndicatio ns:ST elevation myocardial infarction (STEMI), unspecified artery (HC) Take 1 Tablet (10 mg) by mouth at bedtime. 90 Tablet 3 3 Active metoprolol succinate (TOPROL XL) 25 mg Sustained-Relea se tabletIndicatio ns:ST elevation myocardial infarction (STEMI), unspecified artery (HC) Take 0.5 Tablets (12.5 mg) by mouth once daily. 45 Tablet 3 3 Active aspirin (ECOTRIN) 81 mg enteric coated tablet Take 1 Tablet (81 mg) by mouth once daily with a meal. 4 Active melatonin 1 mg tablet Take 1 Tablet (1 mg) by mouth at bedtime. 4 Active sucralfate (CARAFATE) 1 gram tabletIndicatio ns:Chronic GERD Take 1 Tablet (1 g) by mouth four times daily before meals and at bedtime. 360 Tablet 3 4 Active losartan (COZAAR) 50 mg tabletIndicatio ns:HTN (hypertension) Take 1 Tablet (50 mg) by mouth once daily. 90 Tablet 3 4 Active CPAPIndications :Obstructive sleep apnea RESMED CPAP (E0601) machine for home use at pressure: 5-15cmw, Choice of mask (A7030 or A7034) w/full face cushion (A7031) x1/mo, nasal cushion (A7032) x2/mo, or nasal pillows (A7033) x 2/mo; Length of Need: 99 months; Frequency of use: Daily 1 Each 4 Active spironolactone (ALDACTONE) 25 mg tabletIndicatio ns:ST elevation myocardial infarction (STEMI), unspecified artery (HC) TAKE 1/2 TABLET (12.5 MG) BY MOUTH EVERY MORNING. 45 Tablet 2 4 Active DULoxetine (CYMBALTA) 30 mg Delayed-release capsuleIndicati ons:Major depressive disorder, recurrent episode, mild (HC) Take two tablets or 60 mg in the AM and 30 mg in the PM 270 Capsule 3 4 Active donepeziL (ARICEPT) 5 mg tabletIndicatio ns:Memory loss Take 1 Tablet (5 mg) by mouth at bedtime. 90 Tablet 3 4 Active LORazepam (ATIVAN) 0.5 mg tabIndications: Anxiety state Take 1 Tablet (0.5 mg) by mouth once daily if needed for Anxiety. 10 Tablet 4 Active LORazepam (ATIVAN) 0.5 mg tabIndications: Anxiety state Take 1 Tablet (0.5 mg) by mouth once daily if needed for Anxiety. 30 Tablet 2 09/08/20 24 Discontinu ed(Reorder (E-cancel not sent)) sertraline (ZOLOFT) 100 mg tabletIndicatio ns:Major depressive disorder, recurrent episode, mild (HC) Take 2 Tablets (200 mg) by mouth once daily. 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 Long sleeper 02/02/2023 Insomnia, idiopathic 10/01/2017 [...] Encounters Date Type Department Care Team Description 09/19/2024 2:05 PM DIRECTOR VOLUNTEER SERVICES Office Visit [facility] [address] [place] [address] Jed Cleary MD Preoperative Exam (Bladder, 09/21/24, [facility]) 09/19/2024 Travel 09/19/2024 Refill [facility] [address] [facility] [place] [address] Pau Franklin MD Refill Request (Zolpidem, Rosuvastatin, Metoprolol Succinate, Clopidogrel) 09/14/2024 9:15 AM DIRECTOR VOLUNTEER SERVICES Orders Only [facility] [address] [place] [address] Lab, [facility] 09/14/2024 Travel 08/30/2024 Nurse Triage [facility] [address] [facility] [place] [address] Pau Franklin MD Fatigue (Exhaustion and fatigue - worse x3 days) 08/24/2024 9:55 AM DIRECTOR VOLUNTEER SERVICES Office Visit [facility] [address] [place] [address] Pau Franklin MD ER Follow up (cyst in her ovary and a lesion in her bladder found); Medication Management (Duloxetine increase?) 08/24/2024 Orders Only [facility] [address] [facility] [place] [address] Pau Franklin MD 1 scan: (1-Ord) NFLD-EKG-08/24/24 08/24/2024 Travel 08/14/2024 Orders Only [facility] Scanner 1 scan: (1-Ord) [facility], CLINICAL LABORATORY REPORT, 08/14/2024 08/14/2024 Orders Only [facility] Scanner 1 scan: (1-Ord) [facility], PELVIC TA COMPLETE , 08/14/2024 08/14/2024 Orders Only [facility] Scanner 1 scan: (1-Ord) [place], ABDOMEN PELVIS W CONTRAST, 08/14/2024 08/13/2024 Orders Only [facility] Scanner 1 scan: (1-Ord) [facility], XR ABDOMEN, 08/13/2024 08/11/2024 3:30 PM DIRECTOR VOLUNTEER SERVICES Office Visit [facility] [address] [place] [address] Rai Vera MD Follow Up (1 year follow up - Acute anterior wall VT) 08/11/2024 Travel 07/31/2024 Refill [facility] [address] [facility] [place] [address] Pau Franklin MD Refill Request (Spironolactone) 07/20/2024 2:40 PM CDT Office Visit [facility] [address] [facility] [place] [address] Pau Franklin MD Pre-Op Exam (Upper endoscopy 07/31/24 [facility] Memory Loss (Fatigue changes daily and patient suspects it is depression./Anxiety/I nterested in Aricept) 07/20/2024 Travel 07/14/2024 Telephone [facility] [address] [place] [address] Pau Franklin MD upcoming appointments 07/10/2024 2:30 PM CDT Telemedicine [facility] [address] [place] [address] Nicolás Pryor MD Telehealth (cpap) 07/06/2024 11:30 AM CDT Office Visit [facility] [address] [place] [address] Nadeen Pelayo PA Fatigue 07/06/2024 Travel 07/06/2024 Nurse Triage [facility] [address] [place] [address] Nadeen Pelayo PA Fatigue 07/05/2024 Orders Only [facility] Scanner 1 scan: (1-Ord) RESMED, COMPLIANCE REPORT, 07/05/2024 from Last 3 Months Immunizations Name Administration Dates Next Due AMB Influenza, IIV3 (Age >=3 years)(Flu Clinic Only) 06/28/2009 COVID-19 vaccine ([employer] 30mcg/0.3mL) PF, MDV 07/15/2021,11/26/2020,11/05/2020 Influenza Virus, Unspecified 07/17/2019, 07/08/2018,06/20/2018,06/07,07/20/2016,07/16/2016,06/20/2014 ,06/02/2013,06/02/2011,07/08/2010,05/2009,07/12/2008,07/11/2007, 5,07/03/2004,07/16/2003 Influenza, High-dose Inactivated 024,07/08/2018,07/16/2016,06/20 Influenza, High-dose Quadriv alent Inactivated 11/01/2023,06/23/2023,07/03/2022,06/24,05/21/2020 Influenza, IIV3 (Age 6-35 mos) 06/02/2011 Influenza, IIV3 (Age >=3 years) 06/02/20 13,06/02/2011,07/08/2010,06/28,07/12/2008,07/11/2007,07/07/2005 ,07/03/2004,07/16/2003 Influenza, Inactivated IIV3 (Age 65+ Years) Preserv Free 06/07/2017 Pneumococcal Poly,23-Valent (Pneumovax) 07/11/2007,07/29/1995 Pneumococcal conj 13-Valent (Prevnar 13) 05/26/2016 RSV, Recombinant ADJ Reconst ituted (Arexvy 120MCG/0.5mL) 07/27/2024 Td (Age >=7 Years) 07/11/2007,01/05/1996 Td, Preservative Free (age >= 7 Years) 7 Tdap 07/27/2024,01/30/2011 Zoster (Shingrix-RZV, recombinant) 03/09/2019, Zoster (Zostavax-ZVL, live) 05/07/2009 Family History Medical History Relation Name Comments Hypertension Brother 1 Hypertension Brother 2 Hypertension Father at 94 Heart Disease Mother age 72--first VT. at 90. dementia Hypertension Mother Stroke Mother [...] drink = 0.6 oz pur e alcohol) [facility] Utilities Answer Date Recorded Do you have trouble paying f or utilities (for example, heat, electricity, water, phone)? Yes 08/24/2024 PHQ-2 Answer Date Recorded PHQ-2 TOTAL SCORE 1 12/07/2023 Social Connections Answer Date Recorded Do you often feel lonely or isolated from those around you? 0 08/24/2024 Financial Resource Strain Answer Date R ecorded Difficulty of Paying Living Expenses 3 08/24/2024 Difficulty of Paying Living Expenses Not on file 08/24/2024 Food Insecurity Answer Date Recorded Do you worry your food will run out before you are able to buy more? 1 08/24/2024 Transportation Needs Answer Date Record ed Does lack of transportation keep you from medica l appointments? 1 08/24/2024 Does lack of transportation keep you from work, meetings or getting things that you need? 1 08/24/2024 Housing Stability Answer Date Recorded What is your housing situation today? 1 08/24/2024 Comments No Sex and Gender Information Value Date Recorded Sex Assigned at Female 10/02/2020 12:00 PM DIRECTOR VOLUNTEER SERVICES Legal Sex Female 6:41 AM DIRECTOR VOLUNTEER SERVICES Gender Identity Female 10/02/2020 12:00 PM DIRECTOR VOLUNTEER SERVICES Sexual Orientation Straight 10/02/2020 12 :00 PM DIRECTOR VOLUNTEER SERVICES Occupation Industry Job Start Date Job End Date retired Not on file Not on file Not on file Obstetrics History Para Term AB IAB SAB Ectopic Multiple Livin g Live Births 6 5 5 1 1 5 Date Outcome GA Total Labor Labor/2nd/3rd Weight Sex Type Anes PTL Janneth A1 A5 Name Clin Term Term Term Term Term SAB Last Filed Vital Signs Vital Sign Reading Time Taken Comments Blood Pressure 129/69 09/19/2024 2:14 PM DIRECTOR VOLUNTEER SERVICES Pulse 69 09/19/2024 2:14 PM DIRECTOR VOLUNTEER SERVICES Temperature 36.6 C (97.9 F) 09/19/2024 2:14 PM DIRECTOR VOLUNTEER SERVICES Respiratory Rate 16 09/29/2023 8:30 AM DIRECTOR VOLUNTEER SERVICES Oxygen Saturation 100% 09/19/2024 2:14 PM DIRECTOR VOLUNTEER SERVICES Inhaled Oxygen Concentration - - Weight 66.3 kg (146 lb 1.6 oz) 09/19/2024 2:14 P M DIRECTOR VOLUNTEER SERVICES Height 152.4 cm (5') 09/19/2024 2:14 PM DIRECTOR VOLUNTEER SERVICES Body Mass Index 28.53 09/19/2024 2:14 PM DIRECTOR VOLUNTEER SERVICES Plan of Treatment Upcoming Encounters Date Type Department Care Team (Late st Contact Info) Description 10/03/2024 3:05 PM DIRECTOR VOLUNTEER SERVICES Office Visit [facility] [address] [place] [address] Pau Franklin MD [address] [place] [address] Health Maintenance Due Date Last Done Comments Medicare Wellness for age 65+ 11/18/2023, 10/10/2021, 10/04/2020, Additional history exists Depression screening for age 12+ 12/06/2024 12/07/2023, 12/03/2023, 08/31/2023, Additional history exists BMI (ht and wt on same day) for age 18+ 09/19/2025 09/19/2024, 11/09/2023, 11/17/2022, Additional history exists Tetanus booster 07/27/2034 07/27/2024, 01/18, 07/11/2007, Additional history exists Pneumococcal series for age 50+ Completed 05/26/2016, 07/11/2007, 07/29/1995 Zoster (shingles) series for age 50+ Completed 03/09/2019, 11/15/2018, 05/07/2009 DEXA/DXA scan for age 65+ Completed 2020, 07/29/2017, 02/28/2013, Additional history exists COVID-19 vaccine series Completed 06/24/20, 11/08/2023, 07/03/2022, Additional history exists Influenza for age 65+ Completed 06/24/2024 , 11/01/2023, 06/23/2023, Additional history exists RSV vaccine for adults or Completed 07/27/2024 Tdap Completed 07/27/2024, 01/30/2011 Procedures Procedure Name Priority Date/Time Associated Diagnosis Comments LIPID PANEL W REFLEX MEASURED LDL Routine 09/14/2024 8:57 AM DIRECTOR VOLUNTEER SERVICES Pure hypercholesterolemia TX READING EKG - NO CHARGE, COMP ONLY Routine 08/24/2024 3:33 PM DIRECTOR VOLUNTEER SERVICES Left-sided chest pain EKG 12 LEAD Routine 08/24/2024 3:33 PM DIRECTOR VOLUNTEER SERVICES Left-sided chest pain SCAN-LABORATORY REPORT 08/14/2024 12:00 AM DIRECTOR VOLUNTEER SERVICES SCAN-ULTRASOUND REPORT 08/14/2024 12:00 AM DIRECTOR VOLUNTEER SERVICES SCAN-CT INTERPRETATION 08/14/2024 12:00 AM DIRECTOR VOLUNTEER SERVICES SCAN-RADIOLOGY REPORT 08/13/2024 12:00 AM DIRECTOR VOLUNTEER SERVICES BASIC METABOLIC PANEL Routine 07/06/2024 12:07 PM CDT Fatigue, unspecified type CBC WITH AUTO DIFFERENTIAL Routine 07/06/2024 12:07 PM CDT Fatigue, unspecified type URINALYSIS MACROSCOPIC - [facility] ONLY POC DIP ([facility]) Routine 07/06/2024 12:06 PM CDT Fatigue, unspecified type SCAN-DIAGNOSTIC REPORT 07/05/2024 12:00 AM CDT XR DXA BONE DENSITY 2 SITES AXIAL Routine 10/07/2020 1:32 PM DIRECTOR VOLUNTEER SERVICES Asymptomatic postmenopausal state from Last 3 Months or Most Recently Relevant to Health Maintenance Results * LIPID PANEL W REFLEX MEASURED LDL ([id number]) (09/14/2024 8:57 AM DIRECTOR VOLUNTEER SERVICES) [facility] Signature CHOLESTEROL, TOTAL 146 <200 mg/dL [facility] HDL CHOLESTEROL 50 > OR = 50 mg/dL [facility] TRIGLYCERIDES 96 <150 mg/dL [facility] LDL-CHOLESTEROL 78 mg/dL (calc) [facility] Comment: Reference range: <100 Desirable range <100 mg/dL for primary prevention; <70 mg/dL for patients with CHD or diabetic patients with > or = 2 CHD risk factors. LDL-C is now calculated using the Moncho-Aguilar calculation, which is a validated novel method providing better accuracy than the Friedewald equation in the estimation of LDL-C. Moncho SS et al. HAYLEE. 2013;310(19): 6884-1364 (http://education.[employer]/faq/KXA609) CHOL/HDLC RATIO 2.9 <5.0 (calc) [facility] NON HDL CHOLESTEROL 96 <130 mg/dL (calc) [facility] Comment: For patients with diabetes plus 1 major ASCVD risk factor, treating to a non-HDL-C goal of <100 mg/dL (LDL-C of <70 mg/dL) is considered a therapeutic option. Blood BLOOD SPECIMEN / Unknown 09/14/2024 8:57 AM DIRECTOR VOLUNTEER SERVICES 09/14/2024 8:58 AM DIRECTOR VOLUNTEER SERVICES Rai Vera MD CHEMISTRY Final Result [facility] [address] [place] [address], [facility] [address] [place] [address] * EKG 12 LEAD (08/24/2024 3:33 PM DIRECTOR VOLUNTEER SERVICES) Pau Franklin MD EKG ORD Final Result * TX READING EKG - NO CHARGE, COMP ONLY (08/24/2024 3:33 PM DIRECTOR VOLUNTEER SERVICES) Pau Franklin MD PB - PROVIDER READING S Final Result * SCAN-LABORATORY REPORT (08/14/2024 12:00 AM DIRECTOR VOLUNTEER SERVICES) us Scanner OTHER Final Result * SCAN-ULTRASOUND REPORT (08/14/2024 12:00 AM DIRECTOR VOLUNTEER SERVICES) Anatomical Region Laterality Modality Other us Scanner OTHER Final Result * SCAN-CT INTERPRETATION (08/14/2024 12:00 AM DIRECTOR VOLUNTEER SERVICES) Anatomical Region Laterality Modality Other us Scanner OTHER Final Result * SCAN-RADIOLOGY REPORT (08/13/2024 12:00 AM DIRECTOR VOLUNTEER SERVICES) Anatomical Region Laterality Modality Other us Scanner OTHER Final Result * (ABNORMAL) CBC AND DIFFERENTIAL (07/06/2024 12:07 [...] TO RETURN FOR COLLECTION. Nadeen CHACON HEMATOLOGY Final Result Attender [facility] [address] [place] [address], [facility] [address] [place] [id number] * (ABNORMAL) BASIC METABOLIC PANEL (07/06/2024 12:07 PM CDT) [facility] Signature GLUCOSE 78 65 - 99 mg/dL [facility] [...] TO VOID; ADVISED TO RETURN FOR COLLECTION. us Nadeen CHACON CHEMISTRY Final Result Attender [facility] [address] [place] [address], [facility] [address] [place] [address] * POCT Urinalysis Dipstick Only (07/06/2024 12:06 PM CDT) PH 6.0 5.0 - 8.0 [facility] SPECIFIC GRAVITY < OR = 1.005 1.001 - 1.035 [facility] Comment: Specific Peytona values resulted are outside the analytical measurement range of this device. Recommend repeat/additional testing as clinically indicated. GLUCOSE NEGATIVE NEGATIVE [facility] BILIRUBIN NEGATIVE NEGATIVE [facility] KETONES NEGATIVE NEGATIVE [facility] OCCULT BLOOD NEGATIVE NEGATIVE [facility] PROTEIN NEGATIVE NEGATIVE [facility] NITRITE NEGATIVE NEGATIVE [facility] LEUKOCYTE ESTERASE NEGATIVE NEGATIVE [facility] Urine URINE SPECIMEN / Unknown 07/06/2024 12:06 PM CDT 07/06/2024 12:06 PM CDT us Nadeen CHACON URINE Final Result [facility] [address] [place] [address], [facility] [address] [place] [address] * SCAN-DIAGNOSTIC REPORT (07/05/2024 12:00 AM CDT) us Scanner OTHER Final Result * (ABNORMAL) XR DXA BONE DENSITY 2 SITES AXIAL (10/07/2020 1:32 PM DIRECTOR VOLUNTEER SERVICES) Anatomical Region Laterality Modality Spine, HIPS, HIPL, HIPR Other Narrative 10/09/2020 2:44 PM DIRECTOR VOLUNTEER SERVICES Please see scanned document for results of this study. us Pau Franklin MD DEXA Final Result from Last 3 Months or Most Recently Relevant to Health Maintenance Insurance MEDICARE PB ONLY [facility] MEDICARE PART B HB ONLY MEDICARE PART A HB ONLY [facility] MEDICARE PPS Advance Directives Documents on File Type Date Recorded Patient Fagoter Expl anation Healthcare Directive 02/24/2013 12:14 PM AM Girma OSEGUERA, 08/06/2005 * DNR (Latest Code Status on File) Date Activated Date Inactivated Comments 07/18/2023 8:51 AM 07/22/2023 8:41 PM Question Answer Comments Code Status Discussion: Reviewed Preferences * Full Code Date Activated Date Inactivated Comments 07/17/2023 6:17 PM 07/18/2023 8:51 AM Patient re versed her code status for cardiac cath Question Answer Comments Code Status Discussion: Reviewed Preferences Care Teams Marine Drafter Relationship Specialty Start Date End Date Pau Franklin MD [address] [place] [address] PCP - General Family Practice 06/25/14 Steven Tellez [address] [place] [id number] Hall Worker 01/29/12
--- OUTSIDE RECORDS SUMMARY | 2024-09-22 20:45 | XMS_ITS | Encounter Summary ---
Author Organization [place] Address [address] [facility] 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] Procedures MS CYSTOSCOPY W TX MINOR LESION <0.5 CM MS CYSTOURETHROSCOPY,FULGUR .5-2CM LE* MS CYSTOURETHROSCOPY,FULGUR 2-5CM LESN MS CYSTOURETHROSCOPY,FULGUR >5CM LESN Cystoscopy, with transurethral resection bladder tumor [facility] PeriOP Services [address] [place] [address] Phone: tel: Referral ID Status Reason Start Date Expiration Date Visits Re quested Visits Authorized [id number] 1 1 Encounter Details Date Type Department Care Team (Latest Contact Info) Description 09/21/2024 10:28 AM INFORMATION TECHNOLOGY ANALYST - 09/21/2024 4:07 PM INFORMATION TECHNOLOGY ANALYST Hospital Encounter [facility] PreOP/Phase II [address] [place] [phone] Nikki Bartlett MD [facility] [address] [place] [id number] 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) Discharge Disposition: Home or Self Care Social History Tobacco Use Types Packs/Day Years [...] Comments Blood Pressure 134/74 09/21/2024 3:35 PM INFORMATION TECHNOLOGY ANALYST Pulse 75 09/21/2024 2:45 PM INFORMATION TECHNOLOGY ANALYST Temperature 36.6 C (97.9 F) 09/21/2024 3:35 PM INFORMATION TECHNOLOGY ANALYST Respiratory Rate 18 09/21/2024 3:35 PM INFORMATION TECHNOLOGY ANALYST Oxygen Saturation 94% 09/21/2024 3:35 PM INFORMATION TECHNOLOGY ANALYST Inhaled Oxygen Concentration - - Weight 65.9 kg (145 lb 4.8 oz) 09/21/2024 10:58 AM INFORMATION TECHNOLOGY ANALYST Height 152.4 cm (5') 09/21/2024 10:58 AM INFORMATION TECHNOLOGY ANALYST Body Mass Index 28.38 09/21/2024 10:58 AM INFORMATION TECHNOLOGY ANALYST documented in this encounter Discharge Instructions * Discharge Instructions* Pau Egan RN - 09/21/2024 2:05 PM INFORMATION TECHNOLOGY ANALYST Remove catheter at home, Monday 09/25. See [...] about your procedure, call Dr. Bartlett at [phone] RMATION TECHNOLOGY ANALYST RMATION TECHNOLOGY ANALYST RMATION TECHNOLOGY ANALYST documented in this encounter Medications at Time [...] tablet by mouth daily. Start taking tomorrow /3 5 tablet 09/21/2024 tetrahydrozoline (VISINE) 0.05 % [...] of this encounter Nursing Notes * Maurice Pabno RN - 09/21/2024 4:06 PM CST Meets [...] and given to daughter per pt request. RMATION TECHNOLOGY ANALYST * Pau Egan RN - 09/21/2024 2:48 PM CST Candelario teaching done with daughters. RMATION TECHNOLOGY ANALYST * Kwame Beth RN - 09/21/2024 11:50 AM CST Pt had itching just above the IV site. No redness noted. No hives on body, no swelling of lips, tongue or throat. Cipro stopped and flushed with NS. Dr. Bartlett in room and said no new iv needed and ordered ancef instead. RMATION TECHNOLOGY ANALYST * Beverly Handley RN - 09/14/2024 8:50 AM CST Fax number given to daughter Lanny to fax H&P to us. RMATION TECHNOLOGY ANALYST documented in this encounter Miscellaneous Notes * Op Note - Nikki Bartlett MD - 09/21/2024 1:30 PM CST OPERATIVE REPORT PATIENT: Radha Painter : 1940, AGE: [age] year old SSN: [id number] SURGEON Nikki Bartlett MD Supervisor Tubing: Sanaz Matos RN; Maria Alejandra Dc RN [...] was papillary appearing. I then introduced the 26-Hong Konger resectoscope into the patient's bladder. Resection of [...] to the right UO. Nikki Bartlett MD [facility] Pager: [phone] Office: [phone] Surgical [phone] RMATION TECHNOLOGY ANALYST RMATION TECHNOLOGY ANALYST documented in this encounter Plan of Treatment Not on file documented as of this encounter Procedures Procedure Name Priority Date/Time Associated Diagnosis Comments SURGICAL PATHOLOGY EXAM Routine 09/21/2024 1:04 PM INFORMATION TECHNOLOGY ANALYST CYSTOSCOPY, WITH TRANSURETHRAL RESECTION BLADDER TUMOR 09/21/2024 12:23 PM INFORMATION TECHNOLOGY ANALYST Other specified disorders of bladder Special Needs *marco antonio-cpap, stemi(2022), s3ckd, asngcplcfyexuifc-sye-vkirg appt 09/19 @2pm [id number] minutes EKG CARDIAC - HIM SCAN 08/24/2024 12:00 AM INFORMATION TECHNOLOGY ANALYST documented in this encounter Results * (ABNORMAL) Surgical Pathology Exam (09/21/2024 1:04 PM INFORMATION TECHNOLOGY ANALYST) Case Report Surgical Pathology Report Case: [id number] Authorizing Provider: Nikki Bartlett MD Collected: 09/21/2024 01:04 PM Ordering Location: [facility] Received: 09/21/2024 01:19 PM [facility] Main OR Pathologist: Rebecca Ortez MD Specimen: Urinary Bladder, BLADDER TUMOR 09/22/2024 10:51 AM [facility] Final Diagnosis Bladder, 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 09/22/2024 10:51 AM [facility] Clinical Information Procedure: Cystoscopy, with [...] Microscopic examination was performed. 09/22/2024 10:51 AM [facility] MCRS Yes(A) N/A 09/22/2024 10:51 AM [facility] Performing Labs The technical component of this testing was completed at [facility]. Stain controls for all stains resulted within this report have been reviewed and show appropriate reactivity. 09/22/2024 10:51 AM [facility] Case Images 09/22/2024 10:51 AM [facility] Tissue URINARY BLADDER STRUCTURE / Unknown 09/21/2024 1:04 PM INFORMATION TECHNOLOGY ANALYST 09/21/2024 1:19 PM [facility] us Nikki HSIEH - PA LEE Final Result LABORATORY [facility] Acute Care Lab [address] Lab (1st floor, no room number) [place] [address], [place] LABORATORY [facility] Acute Care Lab [address] 1st floor, [address] [place] [address], [place] [phone] * EKG Cardiac - HIM Scan (08/24/2024 12:00 AM INFORMATION TECHNOLOGY ANALYST) 08/24/2024 us Provider Outside ECG ORDERABLES Final Result documented in this encounter Visit Diagnoses Diagnosis 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)- Primary Malignant neoplasm of trigone of urinary bladder documented in this encounter Administered Medications Inactive Administered Medications - up to 3 most recent administrations Medication Order MAR Action Action Date Dose Rate Site acetaminophen (TYLENOL) tablet 975 mg 975 mg, Oral, ONCE, On Yojana 09/21/24 at 1100, For 1 dose, Maximum acetaminophen dose from all sources = 75 mg/kg/day not to exceed 4 grams/day., Pre-procedure $Given 09/21/2024 11:17 AM INFORMATION TECHNOLOGY ANALYST 975 mg ciprofloxacin (CIPRO) infusion 400 mg Routine, 400 mg, Intravenous, EVERY 12 HOURS, First dose on Yojana 09/21/24 at 1100, Indications: Perioperative Pharmacoprophylaxis, Pre-procedureIndications:Perioperat ritchie Pharmacoprophylaxis $New Bag 09/21/2024 11:17 AM INFORMATION TECHNOLOGY ANALYST 400 mg documented in this encounter Active and Recently Administered Medications Times are shown in INFORMATION TECHNOLOGY ANALYST. Scheduled Medication Order 09/19/2024 09/20/2024 09/21/2024 acetaminophen [...] Pharmacoprophylaxis, Pre-procedure 1234 ($Given - Provi laureano: iJng Alexander APRN CRNA) ciprofloxacin (CIPRO) infusion 400 [...] Pre-procedure documented in this encounter Care Teams Children'S Author Relationship Specialty Start Date End Date Pau Franklin [address] [place] [address] PCP - General Family Medicine 09/18/24 documented as of this encounter
--- OUTSIDE RECORDS SUMMARY | 2024-09-22 20:45 | XMS_ITS | Referral Summary ---
Author Organization [place] Address [address] [place] [address] Care Team Providers Care Gasket Maker Name Role Phone Pau Franklin Primary Care Provider [phone] Encounters Date Type Department Care Team Description 09/21/2024 Telephone [facility] Hospitalist Program [address] [facility] [place] [phone] Nikki Bartlett MD Prior Auth - Medication (Trospium - Denied) 09/21/2024 12:23 PM PRODUCE WEIGHER Anesthesia Event [facility] PeriOP Services [address] [place] [phone] Lizbeth Thornton MD 09/21/2024 12:15 PM PRODUCE WEIGHER - 09/21/2024 2:35 PM PRODUCE WEIGHER Surgery [facility] [address] [place] [phone] Nikki Bartlett MD Cystoscopy, with transurethral resection bladder tumor 09/21/2024 10:28 AM PRODUCE WEIGHER - 09/21/2024 4:07 PM PRODUCE WEIGHER Hospital Encounter [facility] PreOP/Phase II [address], [address] [place] [phone] Nikki Bartlett MD 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 10 tablet 01/02/09/26/19 25 Active senna-docusate (SENOKOT-S/RAY COLACE) 8.6-50 MG tabletIndicatio ns: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) Take 1-2 tablets by mouth 2 times daily. 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 Start taking tomorrow 09/22 5 tablet Active Social History Tobacco Use Types Packs/Day Years [...] Comments Blood Pressure 134/74 09/21/2024 3:35 PM PRODUCE WEIGHER Pulse 75 09/21/2024 2:45 PM PRODUCE WEIGHER Temperature 36.6 C (97.9 F) 09/21/2024 3:35 PM PRODUCE WEIGHER Respiratory Rate 18 09/21/2024 3:35 PM PRODUCE WEIGHER Oxygen Saturation 94% 09/21/2024 3:35 PM PRODUCE WEIGHER Inhaled Oxygen Concentration - - Weight 65.9 kg (145 lb 4.8 oz) 09/21/2024 10:58 AM PRODUCE WEIGHER Height 152.4 cm (5') 09/21/2024 10:58 AM PRODUCE WEIGHER Body Mass Index 28.38 09/21/2024 10:58 AM PRODUCE WEIGHER Plan of Treatment Not on file Procedures Procedure Name Priority Date/Time Associated Diagnosis Comments SURGICAL PATHOLOGY EXAM Routine 09/21/2024 1:04 PM PRODUCE WEIGHER ANE AIRWAY ETT PERFORMABLE Routine 09/21/2024 12:34 PM PRODUCE WEIGHER CYSTOSCOPY, WITH TRANSURETHRAL RESECTION BLADDER TUMOR 09/21/2024 12:23 PM PRODUCE WEIGHER Other specified disorders of bladder Special Needs *marco antonio-cpap, stemi(2022), s3ckd, azsqhdqwjnilthhw-tgd-vywxa appt 09/19 @2pm kvliis15 minutes EKG CARDIAC - HIM SCAN 08/24/2024 12:00 AM PRODUCE WEIGHER from Last 3 Months Results * (ABNORMAL) Surgical Pathology Exam (09/21/2024 1:04 PM PRODUCE WEIGHER) Case Report Surgical Pathology Report Case: [id number] Authorizing Provider: Nikki Bartlett MD Collected: 09/21/2024 01:04 PM Ordering Location: [facility] Received: 09/21/2024 01:19 PM [facility] Main OR Pathologist: Rebecca Ortez MD Specimen: Urinary Bladder, BLADDER TUMOR 09/22/2024 10:51 AM PR[facility] WEIG[facility]AT[facility] Final Diagnosis Bladder, 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 09/22/2024 10:51 AM [facility] Clinical Information Procedure: Cystoscopy, with transurethral resection bladder tumor Pre-op Diagnosis: Other specified disorders of bladder [N32.89] Post-op Diagnosis: N32.89 - Other specified disorders of bladder [ICD-10-CM] 09/22/2024 10:51 AM [facility] WE[facility] LABORATORY Gross Description A(1). Urinary Bladder, BLADDER [...] (ASCP) 09/21/2024 1:21 PM 09/22/2024 10:51 AM [facility] WE[facility] LABORATORY Microscopic Description Microscopic examination was performed. 09/22/2024 10:51 AM [facility] MCRS Yes(A) N/A 09/22/2024 10:51 AM [facility] Performing Labs The technical component of this testing was completed at [facility]. Stain controls for all stains resulted within this report have been reviewed and show appropriate reactivity. 09/22/2024 10:51 AM [facility] Case Images 09/22/2024 10:51 AM [facility] Tissue URINARY BLADDER STRUCTURE / Unknown 09/21/2024 1:04 PM PRODUCE WEIGHER 09/21/2024 1:19 PM PRODUCE WEIGHER us Nikki HSIEH - PA LEE Final Result LABORATORY [facility] Acute Care Lab [address] [facility] Lab (1st floor, no room number) [place] [address], [facility] Acute Care Lab [address] 1st floor, [address] [place] [address], [facility] [phone] * ANE AIRWAY ETT PERFORMABLE (09/21/2024 12:34 PM PRODUCE WEIGHER) Narrative Jing Alexander APRN FITNESS CENTRE MANAGER - 09/21/2024 12:34 PM PRODUCE WEIGHER Jing Alexander APRN FITNESS CENTRE MANAGER 09/21/2024 12:47 PM Airway Patient location during procedure: OR Procedure Start/Stop Times: 09/21/2024 12:34 PM Staff - FITNESS CENTRE MANAGER: Jing Alxeander APRN FITNESS CENTRE MANAGER Performed By: FITNESS CENTRE MANAGER Consent for Airway Urgency: elective Indications and [...] 09/21/2024 12:34 PM us Lizbeth Thornton MD [place] [facility] Final Res ult * EKG Cardiac - HIM Scan (08/24/2024 12:00 AM PRODUCE WEIGHER) 08/24/2024 us Provider Outside ECG ORDERABLES Final Result from Last 3 Months Insurance MEDICARE [facility] MEDICARE SUPPLEMENT MEDICARE [employer] [place] MEDICARE SUPPLEMENT Care Teams Gasket Maker Relationship Specialty Start Date End Date Pau Franklin [address] [place] [address] PCP - General Family Medicine 09/18/24
[2024-09-22 20:48] VITALS: BP 136/73; PULSE 70; RESP 16; TEMP 36.5; O2SAT 96
--- NOTE | 2024-09-22 22:14 | ED.GENADULT ---
HPI - General Adult General Date Seen: 09/22/24 Chief complaint: Urogenital Problems, Female Stated complaint: had bladder surgery, may have removed catheter Time Seen by Provider: 09/22/24 21:39 History of Present Illness HPI narrative: Patient is an 84-year-old woman here with her son. She had a bladder surgery done at [facility] last week and has a catheter in place. She scheduled in a couple of weeks to have an ovarian cyst removed as well. She has had cognitive decline over the past months which her son says is been pretty rapid. She is hyper focused on bowel movements, seems to always feel like she needs to have a bowel movement which may be related to this large cyst in her pelvis. She tends to want to use enemas another bowel regimens so they have had to keep pills away from her. Mihaela, she tried to remove her catheter. She does tell me that she knows she is having a lot more problems with her memory and she for got that someone else was post to take catheter out. It is written on the bag not to remove until September 25, which will be 3 days from now. She notes that someone only road on 1 side of the bag instead of both sides the bag and she did not see that side. Her granddaughter is staying with her, she was seen here back in July and had imaging which found these issues, noted at that time to have problems with cognition and concerns about her ability to live independently. It sounds as if family continues to have those concerns, family with her mihaela expressed to me that they feel like she probably will need more help going forward after this next procedure. He is not exactly sure where that procedure is being done. With regard to the Mortensen, they noted a little bit of blood earlier, she denies any pain and the blood has cleared. Mortensen seems to be draining well. Related Data Home Medications ?Medication ?Instructions ?Recorded ?Confirmed sertraline 100 mg tablet 200 mg PO DAILY 07/05/23 09/25/24 calcium carbonate (Calcium 500) 500 mg PO DAILY 04/10/24 09/25/24 metoprolol succinate 25 mg 12.5 mg PO DAILY 04/10/24 09/25/24 tablet,extended release 24 hr omeprazole 40 mg capsule,delayed 40 mg PO DAILY 04/10/24 09/25/24 release rosuvastatin 10 mg tablet 10 mg PO QPM 04/10/24 09/25/24 spironolactone 25 mg tablet 12.5 mg PO QAM 04/10/24 09/25/24 sucralfate 1 gram tablet 1 g PO QID 04/10/24 09/25/24 apixaban 5 mg tablet (Eliquis) 5 mg PO BID 09/25/24 09/25/24 aspirin 81 mg tablet,delayed 81 mg PO QDAY 09/25/24 09/25/24 release clopidogrel 75 mg tablet 75 mg PO DAILY 09/25/24 09/25/24 donepezil 5 mg tablet 5 mg PO QPM 09/25/24 09/25/24 duloxetine 30 mg capsule,delayed mg PO 09/25/24 09/25/24 release lorazepam 0.5 mg tablet 0.5 mg PO DAILY PRN anxiety 09/25/24 09/25/24 losartan 25 mg tablet mg PO 09/25/24 09/25/24 sulfamethoxazole 800 1 tab PO DAILY 09/25/24 09/25/24 mg-trimethoprim 160 mg tablet Previous Rx's ?Medication ?Instructions ?Recorded losartan 50 mg tablet 50 mg PO DAILY #30 tabs 04/12/24 Allergies Allergy/AdvReac Type Severity Reaction Status Date / Time bee venom protein (honey bee) Allergy Mild swelling Verified 09/25/24 14:44 Penicillins Allergy Unknown Verified 09/25/24 14:44 [facility] Medical History Abnormal computed tomography of bladder ?R93.41 - Abnormal radiologic findings on diagnostic imaging of renal pelvis, ureter, or bladder (ICD-10) Cyst of left ovary ?N83.202 - Unspecified ovarian cyst, left side (ICD-10) Depression ?F32.A - Depression, unspecified (ICD-10) Heart attack ?I21.9 - Acute myocardial infarction, unspecified (ICD-10) Surgical History History of cholecystectomy ?Z90.49 - Acquired absence of other specified parts of digestive tract (ICD-10) History of appendectomy ?Z90.49 - Acquired absence of other specified parts of digestive tract (ICD-10) H/O heart artery stent ?Z95.5 - Presence of coronary angioplasty implant and graft (ICD-10) Family History Mother Heart disease Social History Smoking Status: Never smoker Do you use any of these nicotine containing products: None Second hand tobacco smoke exposure: No How often do you have a drink containing alcohol: never AUDIT-C Alcohol total score: 0 Non-prescribed substance use: denies use service: No Exam Narrative: Exam Narrative: Vital signs reviewed. In general, alert, pleasant and cooperative elderly woman. Abdomen: Nontender. Const: Vital Signs, click to edit/add: Vital Signs - 24 hr 09/22/24 20:48 Temperature 97.7 F Pulse Rate [Pulse Oximeter] 70 Respiratory Rate 16 Blood Pressure [Ri ght Upper Arm] 136/73 Pulse Oximetry 96 Oxygen Delivery Me thod Room Air Documenting provider has reviewed patient's vital signs: yes Course Course ED Course: She has clear yellow urine draining out of the Mortensen catheter. No external trauma visualized. I do not see an indication to change the catheter at this time, so will leave in place. There is lot of blood in the bag but this seems to have resolved. Did talk with her son about her cognitive problems, they have concerns about being able to manage things at home after this next procedure. I have encouraged him to discuss this with whoever is doing this procedure so that they can work on placement for after that. Vital Signs Vital signs: Initial Vital Signs Temperature 97.7 F 09/22/24 20:48 Temperature Source Temporal Artery Scan 09/22/24 20:48 Pulse Rate 70 09/22/24 20:48 Respiratory Rate 16 09/22/24 20:48 Blood Pressure 136/73 09/22/24 20:48 Blood Pressure Mean 94 09/22/24 20:48 Blood Pressure Position Sitting 09/22/24 20:48 Pulse Oximetry 96 09/22/24 20:48 Oxygen Delivery Method Room Air 09/22/24 20:48 Vital Signs Temperature 97.7 F 09/22/24 20:48 Pulse Rate 70 09/22/24 20:48 Respiratory Rate 16 09/22/24 20:48 Blood Pressure 136/73 09/22/24 20:48 Pulse Oximetry 96 09/22/24 20:48 Oxygen Delivery Method Room Air 09/22/24 20:48 Temperature 97.7 F 09/22/24 20:48 Pulse Rate 70 09/22/24 20:48 Respiratory Rate 16 09/22/24 20:48 Blood Pressure 136/73 09/22/24 20:48 Pulse Oximetry 96 09/22/24 20:48 Oxygen Delivery Method Room Air 09/22/24 20:48 Discharge Plan Discharge Clinical Impression: Problem with Mortensen catheter, Cyst of left ovary, Cognitive decline Patient Disposition: Home w/ Parent or Adult Condition: Stable Instructions: Ovarian Cyst (ED) Additional Instructions: With regard to the catheter, this appears to be well positioned and draining well. I would not recommend changing this as your urologist did not want the catheter to come out until September 25. As an aside, it looks like there have been some concerns about cognition and ability to manage things at home for several months according to our records. I would strongly suggest that you discuss this with the surgeon doing her next procedure so that alternate arrangements can be made. If the catheter is not draining, or you have other problems, return any time to the ER. Prescriptions: No Action sertraline 100 mg tablet 200 mg PO DAILY sulfamethoxazole-trimethoprim 800-160 mg tablet 1 tab PO DAILY duloxetine 30 mg capsule,delayed release(DR/EC) PO donepezil 5 mg tablet 5 mg PO QPM lorazepam 0.5 mg tablet 0.5 mg PO DAILY PRN (Reason: anxiety) clopidogrel 75 mg tablet 75 mg PO DAILY losartan 25 mg tablet PO Eliquis 5 mg tablet 5 mg PO BID aspirin 81 mg tablet,delayed release (DR/EC) 81 mg PO QDAY calcium carbonate [Calcium 500] 500 mg calcium (1,250 mg) tablet,chewable 500 mg PO DAILY sucralfate 1 gram tablet 1 g PO QID omeprazole 40 mg capsule,delayed release(DR/EC) 40 mg PO DAILY spironolactone 25 mg tablet 12.5 mg PO QAM metoprolol succinate 25 mg tablet extended release 24 hr 12.5 mg PO DAILY rosuvastatin 10 mg tablet 10 mg PO QPM losartan 50 mg tablet 50 mg PO DAILY Qty: 30 2RF Follow Up/Referrals: Pau Franklin MD [Primary Care Provider] - Stand Alone Forms: [employer] Info Instructions
--- OUTSIDE RECORDS SUMMARY | 2024-09-22 22:14 | XMS_ITS | Encounter Summary ---
Author Organization [place] Address [address] [facility] 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 [N32.89] Procedures MT CYSTOSCOPY W TX MINOR LESION <0.5 CM MT CYSTOURETHROSCOPY,FULGUR .5-2CM LE* MT CYSTOURETHROSCOPY,FULGUR 2-5CM LESN MT CYSTOURETHROSCOPY,FULGUR >5CM LESN Cystoscopy, with transurethral resection bladder tumor [facility] [address] [place] [address] Phone: tel: Referral ID Status Reason Start Date Expiration Date Visits Re quested Visits Authorized [id number] 1 1 Encounter Details Date Type Department Care Team (Late st Contact Info) Description 09/21/2024 12:23 PM CNC LASER OPERATOR Anesthesia Event [facility] [address] [place] [address] Lizbeth Thornton [place] [place] [address] [place], [place] [phone] Anesthesia Record Procedure Summary Procedure Name Responsible [...] signs recorded are pre-induction. Jing Alexander APRN SALESPERSON HOUSEHOLD APPLIANCES 1231 An Induction 1234 An Intubation 1235 Anesthesia Ready for Procedu re 1310 AN Extubation All extubation criteria met prior to removal. 1320 an stop data 1329 An Stop Electronically signed by Flor Kirby APRN SALESPERSON HOUSEHOLD APPLIANCES on September 21, 2024 1:29 PM Meds [...] Grade View: 1; Adjucts: Stylet; Placement Person: SALESPERSON HOUSEHOLD APPLIANCES; Attempts: 1 09/21/24 1234 by Jing Alexander APRN SALESPERSON HOUSEHOLD APPLIANCES 09/21/24 1310 by Jing Alexander APRN CRNA [...] Thornton MD September 21, 2024 4:45 PM LASER OPERATOR * Anesthesia Procedure Notes - Jing Alexander APRN CRNA - 09/21/2024 12:46 PM CSTAssociated Order(s): Airway Airway Patient location during procedure: OR Procedure Start/Stop Times: 09/21/2024 12:34 PM Staff - SALESPERSON HOUSEHOLD APPLIANCES: Jing Alexander APRN CRNA Performed By: SALESPERSON HOUSEHOLD APPLIANCES Consent for Airway Urgency: elective Indications and [...] Administered Medication Administration Time: 09/21/2024 12:34 PM LASER OPERATOR * Anesthesia Preprocedure Evaluation - Lizbeth Thornton [...] Cardiovascular: (+) - - CAD - past NH (~1 year ago. Completed cardiac rehab. No [...] and realistic alternatives discussed. Questions answered and patient/new accounts banking representative(s) expressed understanding. - Discussed: Risks, Benefits [...] # Hypertension: Home medication list includes antihypertensive(s) LASER OPERATOR LASER OPERATOR documented in this encounter Miscellaneous Notes * Anesthesia Care Transfer Note - Flor Kirby APRN SALESPERSON HOUSEHOLD APPLIANCES - 09/21/2024 1:29 PM CST Patient: Radha [...] APRN CRNA September 21, 2024 1:29 PM LASER OPERATOR documented in this encounter Plan of Treatment Not on file documented as of this encounter Procedures Procedure Name Priority Date/Time Associated Diagnosis Comments ANE AIRWAY ETT PERFORMABLE Routine 09/21/2024 12:34 PM CNC LASER OPERATOR documented in this encounter Results * ANE AIRWAY ETT PERFORMABLE (09/21/2024 12:34 PM CNC LASER OPERATOR) Narrative Jing Alexander APRN CRNA - 09/21/2024 12:34 PM CNC LASER OPERATOR Jing Alexander APRN CRNA 09/21/2024 12:47 PM Airway Patient location during procedure: OR Procedure Start/Stop Times: 09/21/2024 12:34 PM Staff - SALESPERSON HOUSEHOLD APPLIANCES: Jing Alexander APRN CRNA Performed By: SALESPERSON HOUSEHOLD APPLIANCES Consent for Airway Urgency: elective Indications and [...] Time: 09/21/2024 12:34 PM Lizbeth Thornton MD [place] ANESTHESIA Final Res ult documented in this [...] Pre-procedureIndications:Perioperat ritchie Pharmacoprophylaxis $Given 09/21/2024 12:34 PM CNC LASER OPERATOR 2 g dexAMETHasone (DECADRON) injection Intravenous, PRN, Administer over 1 Minutes, Starting on Yojana 09/21/24 at 1239, Anesthesia Intra-op $Given 09/21/2024 12:39 PM CNC LASER OPERATOR 4 mg dexmedeTOMIDine (PRECEDEX) 4 mcg/mL in sodium chloride 0.9 % 50 mL infusion Intravenous, PRN, Starting on Yojana 09/21/24 at 1241, Anesthesia Intra-op $Given 09/21/2024 12:41 P M CNC LASER OPERATOR 8 mcg fentaNYL (PF) (SUBLIMAZE) injection Intravenous, PRN, Administer over 3-5 Minutes, Starting on Yojana 09/21/24 at 1237, Anesthesia Intra-op $Given 09/21/2024 12:37 PM CNC LASER OPERATOR 50 mcg $Given 09/21/2024 12:23 PM CNC LASER OPERATOR 50 mcg lactated ringers infusion at 100 mL/hr, Intravenous, CONTINUOUS, Pre-procedure, Starting on Yojana 09/21/24 at 1100, Until Yojana 09/21/24 at 1322 $New Bag 09/21/2024 12:23 PM CNC LASER OPERATOR lidocaine 2% injection (MDV) Intravenous, PRN, Starting on Yojana 09/21/24 at 1231, Anesthesia Intra-op $Given 09/21/2024 12:31 PM CNC LASER OPERATOR 100 mg ondansetron (ZOFRAN) injection Intravenous, PRN, Administer over 2-5 Minutes, Starting on Yojana 09/21/24 at 1239, Anesthesia Intra-op $Given 09/21/2024 12:39 PM CNC LASER OPERATOR 4 mg propofol (DIPRIVAN) infusion Intravenous, CONTINUOUS PRN, Starting on Yojana 09/21/24 at 1235, Anesthesia Intra-op Rate/Dose Change 09/21/2024 12:56 PM CNC LASER OPERATOR 125 mcg/kg/min 49.5 mL/hr Rate/Dose Change 09/21/2024 12:43 PM CNC LASER OPERATOR 150 mcg/kg/min 59 .4 mL/hr Rate/Dose Change 09/21/2024 12:39 PM CNC LASER OPERATOR 140 mcg/kg/min 55 .44 mL/hr propofol (DIPRIVAN) injection 10 mg/mL vial Intravenous, PRN, Starting on Yojana 09/21/24 at 1231, Anesthesia Intra-op $Given 09/21/2024 12:31 PM CNC LASER OPERATOR 120 mg rocuronium injection Intravenous, PRN, Starting on Yojana 09/21/24 at 1232, Anesthesia Intra-op $Given 09/21/2024 12:32 PM CNC LASER OPERATOR 50 mg sugammadex (BRIDION) injection Intravenous, PRN, Starting on Yojana 09/21/24 at 1300, Anesthesia Intra-op $Given 09/21/2024 1:00 PM CNC LASER OPERATOR 200 mg documented in this encounter Care Teams Stem Maker Relationship Specialty Start Date End Date Pau Franklin [address] [place] [address] PCP - General Family Medicine 09/18/24 documented as of this encounter
--- OUTSIDE RECORDS SUMMARY | 2024-09-22 22:14 | XMS_ITS | Encounter Summary ---
Author Organization [place] Address [address] [facility] [place] [address] Care Team Providers Care Educational Paraprofessional Name Role Phone Pau Franklin Primary Care Provider [phone] Reason for Visit * Reason Onset Date Comments Prior Auth - Medication 09/21/2024 Trospium - Denied Encounter Details Date Type Department Care Team (Late st Contact Info) Description 09/21/2024 Telephone [facility] Home[facility] [address] [place] [address] Nikki Bartlett MD [facility] [address] [place] [id number] Prior Auth - Medication (Trospium - Denied) [...] 09/21/2024 Denial Reason(s): Appeal Information: Patient Notified: OF MATHEMATICS documented in this encounter Plan of Treatment Not on file documented as of this encounter Visit Diagnoses Not on filedocumented in this encounter Care Teams Educational Paraprofessional Relationship Specialty Start Date End Date Pau Franklin [address] [place] [address] PCP - General Family Medicine 09/18/24 documented as of this encounter
--- OUTSIDE RECORDS SUMMARY | 2024-09-22 22:14 | XMS_ITS | Encounter Summary ---
Author Organization [place] Address [address] [facility] 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] Procedures CA CYSTOSCOPY W TX MINOR LESION <0.5 CM CA CYSTOURETHROSCOPY,FULGUR .5-2CM LE* CA CYSTOURETHROSCOPY,FULGUR 2-5CM LESN CA CYSTOURETHROSCOPY,FULGUR >5CM LESN Cystoscopy, with transurethral resection bladder tumor [facility] PeriOP Services [address] [place] [address] Phone: tel: Referral ID Status Reason Start Date Expiration Date Visits Re quested Visits Authorized [id number] 1 1 Encounter Details Date Type Department Care Team (Latest Contact Info) Description 09/21/2024 10:28 AM LINECASTING MACHINE KEYBOARD OPERATOR - 09/21/2024 4:07 PM LINECASTING MACHINE KEYBOARD OPERATOR Hospital Encounter [facility] PreOP/Phase II [address], [address] [place] [phone] Nikki [place] MD [facility] [address] [place] [id number] Malignant neoplasm of trigone of urinary bladder [...] Comments Blood Pressure 134/74 09/21/2024 3:35 PM LINECASTING MACHINE KEYBOARD OPERATOR Pulse 75 09/21/2024 2:45 PM LINECASTING MACHINE KEYBOARD OPERATOR Temperature 36.6 C (97.9 F) 09/21/2024 3:35 PM LINECASTING MACHINE KEYBOARD OPERATOR Respiratory Rate 18 09/21/2024 3:35 PM LINECASTING MACHINE KEYBOARD OPERATOR Oxygen Saturation 94% 09/21/2024 3:35 PM LINECASTING MACHINE KEYBOARD OPERATOR Inhaled Oxygen Concentration - - Weight 65.9 kg (145 lb 4.8 oz) 09/21/2024 10:58 AM LINECASTING MACHINE KEYBOARD OPERATOR Height 152.4 cm (5') 09/21/2024 10:58 AM LINECASTING MACHINE KEYBOARD OPERATOR Body Mass Index 28.38 09/21/2024 10:58 AM LINECASTING MACHINE KEYBOARD OPERATOR documented in this encounter Discharge Instructions * Discharge Instructions* Pau Egan RN - 09/21/2024 2:05 PM LINECASTING MACHINE KEYBOARD OPERATOR Remove catheter at home, Monday 09/25. See [...] about your procedure, call Dr. [place] at [phone] CASTING MACHINE KEYBOARD OPERATOR CASTING MACHINE KEYBOARD OPERATOR CASTING MACHINE KEYBOARD OPERATOR documented in this encounter Medications at Time [...] reviewed with pt and pt's designated responsible democrat. Pt label on prescription bag from pharmacy matched to pt's wristband. Pharmacy bag opened with 3 prescriptions inside. Medications were reviewed to match pt wristband while pt and significant other agreed with identification. Prescriptions placed back in pharmacy bag resealed with tape and given to daughter per pt request. CASTING MACHINE KEYBOARD OPERATOR * Pau Egan RN - 09/21/2024 2:48 PM CST Candelario teaching done with daughters. CASTING MACHINE KEYBOARD OPERATOR * Kwame Beth RN - 09/21/2024 11:50 AM CST Pt had itching just above the IV site. No redness noted. No hives on body, no swelling of lips, tongue or throat. Cipro stopped and flushed with NS. Dr. [place] in room and said no new iv needed and ordered ancef instead. CASTING MACHINE KEYBOARD OPERATOR * Beverly Handley RN - 09/14/2024 8:50 AM CST Fax number given to daughter Lanny to fax H&P to us. CASTING MACHINE KEYBOARD OPERATOR documented in this encounter Miscellaneous Notes * Op Note - Nikki [place] MD - 09/21/2024 1:30 PM CST OPERATIVE REPORT PATIENT: Radha Painter : 1940, AGE: [age] year old SSN: [id number] SURGEON Nikki [place] MD Hone Operator: Sanaz Matos RN; Maria Alejandra Dc RN [...] was papillary appearing. I then introduced the 26-Ugandan resectoscope into the patient's bladder. Resection of [...] to the right UO. Nikki [place] MD [place] Urology Pager: [phone] Office: [phone] Surgical [phone] CASTING MACHINE KEYBOARD OPERATOR CASTING MACHINE KEYBOARD OPERATOR documented in this encounter Plan of Treatment Not on file documented as of this encounter Procedures Procedure Name Priority Date/Time Associated Diagnosis Comments SURGICAL PATHOLOGY EXAM Routine 09/21/2024 1:04 PM LINECASTING MACHINE KEYBOARD OPERATOR CYSTOSCOPY, WITH TRANSURETHRAL RESECTION BLADDER TUMOR 09/21/2024 12:23 PM LINECASTING MACHINE KEYBOARD OPERATOR Other specified disorders of bladder Special Needs *marco antonio-cpap, stemi(2022), s3ckd, gjoqizgttditipdr-vri-rebho appt 09/19 @2pm minutes EKG CARDIAC - HIM SCAN 08/24/2024 12:00 AM LINECASTING MACHINE KEYBOARD OPERATOR documented in this encounter Results * (ABNORMAL) Surgical Pathology Exam (09/21/2024 1:04 PM LINECASTING MACHINE KEYBOARD OPERATOR) Case Report Surgical Pathology Report Case: [id number] Authorizing Provider: Nikki [place] MD Collected: 09/21/2024 01:04 PM Ordering Location: [facility] Received: 09/21/2024 01:19 PM [place] Main OR Pathologist: Rebecca Ortez MD Specimen: Urinary Bladder, BLADDER TUMOR 09/22/2024 10:51 AM [facility] Final Diagnosis Bladder, 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 Urinary Bladder, BLADDER [...] (ASCP) 09/21/2024 1:21 PM 09/22/2024 10:51 AM [facility] Microscopic Description Microscopic examination was performed. 09/22/2024 10:51 AM [facility] MCRS Yes(A) N/A 09/22/2024 10:51 AM [facility] Performing Labs The technical component of this testing was completed at [facility]. Stain controls for all stains resulted within this report have been reviewed and show appropriate reactivity. 09/22/2024 10:51 AM [facility] Case Images 09/22/2024 10:51 AM [facility] Tissue URINARY BLADDER STRUCTURE / Unknown 09/21/2024 1:04 PM LINECASTING MACHINE KEYBOARD OPERATOR 09/21/2024 1:19 PM [facility] us Nikki HSIEH - PA LEE Final Result LABORATORY [facility] Acute Care Lab [address] Lab (1st floor, no room number) [place] [address], [place] LABORATORY [facility] Acute Care Lab [address] 1st floor, [address] [place] [address], [place] [phone] * EKG Cardiac - HIM Scan (08/24/2024 12:00 AM LINECASTING MACHINE KEYBOARD OPERATOR) 08/24/2024 us Provider Outside ECG ORDERABLES Final [...] 4 grams/day., Pre-procedure $Given 09/21/2024 11:17 AM LINECASTING MACHINE KEYBOARD OPERATOR 975 mg ciprofloxacin (CIPRO) infusion 400 mg Routine, 400 mg, Intravenous, EVERY 12 HOURS, First dose on Yojana 09/21/24 at 1100, Indications: Perioperative Pharmacoprophylaxis, Pre-procedureIndications:Perioperat ritchie Pharmacoprophylaxis $New Bag 09/21/2024 11:17 AM LINECASTING MACHINE KEYBOARD OPERATOR 400 mg documented in this encounter Active and Recently Administered Medications Times are shown in LINECASTING MACHINE KEYBOARD OPERATOR. Scheduled Medication Order 09/19/2024 09/20/2024 09/21/2024 acetaminophen [...] 1250, Intra-procedure 1250 ($Given - Provi laureano: Nkiki Bart[place] MD) sodium chloride 0.9% irrigation (bag) [...] Pre-procedure documented in this encounter Care Teams International Nurse Relationship Specialty Start Date End Date Pau Franklin [address] [place] [address] PCP - General Family Medicine 09/18/24 documented as of this encounter
--- OUTSIDE RECORDS SUMMARY | 2024-09-22 22:14 | XMS_ITS | Referral Summary ---
Author Organization [place] Address [address] [place] [address] Care Team Providers Care Barn Worker Name Role Phone Pau [place] Primary Care Provider [phone] Encounters Date Type Department Care Team Description 09/21/2024 Telephone [facility] Hospitalist Program [address] [phone] Nikki [place] MD Prior Auth - Medication (Trospium - Denied) 09/21/2024 12:23 PM LOOM STOP CHECKER Anesthesia Event [facility] PeriOP Services [address] [place] [phone] Lizbeth Thornton MD 09/21/2024 12:15 PM LOOM STOP CHECKER - 09/21/2024 2:35 PM LOOM STOP CHECKER Surgery [facility] PeriOP Services [address] [place] [phone] Nikki [place] MD Cystoscopy, with transurethral resection bladder tumor 09/21/2024 10:28 AM LOOM STOP CHECKER - 09/21/2024 4:07 PM LOOM STOP CHECKER Hospital Encounter [facility] PreOP/Phase II [address] [place] [phone] Nikki [place] MD Malignant neoplasm of trigone [...] Comments Blood Pressure 134/74 09/21/2024 3:35 PM LOOM STOP CHECKER Pulse 75 09/21/2024 2:45 PM LOOM STOP CHECKER Temperature 36.6 C (97.9 F) 09/21/2024 3:35 PM LOOM STOP CHECKER Respiratory Rate 18 09/21/2024 3:35 PM LOOM STOP CHECKER Oxygen Saturation 94% 09/21/2024 3:35 PM LOOM STOP CHECKER Inhaled Oxygen Concentration - - Weight 65.9 kg (145 lb 4.8 oz) 09/21/2024 10:58 AM LOOM STOP CHECKER Height 152.4 cm (5') 09/21/2024 10:58 AM LOOM STOP CHECKER Body Mass Index 28.38 09/21/2024 10:58 AM LOOM STOP CHECKER Plan of Treatment Not on file Procedures Procedure Name Priority Date/Time Associated Diagnosis Comments SURGICAL PATHOLOGY EXAM Routine 09/21/2024 1:04 PM LOOM STOP CHECKER ANE AIRWAY ETT PERFORMABLE Routine 09/21/2024 12:34 PM LOOM STOP CHECKER CYSTOSCOPY, WITH TRANSURETHRAL RESECTION BLADDER TUMOR 09/21/2024 12:23 PM LOOM STOP CHECKER Other specified disorders of bladder Special Needs *marco antonio-cpap, stemi(2022), s3ckd, qmdfggosbmjyodtp-nfq-wtfvo appt 09/19 @2pm [id number] minutes EKG CARDIAC - HIM SCAN 08/24/2024 12:00 AM LOOM STOP CHECKER from Last 3 Months Results * (ABNORMAL) Surgical Pathology Exam (09/21/2024 1:04 PM LOOM STOP CHECKER) Case Report Surgical Pathology Report Case: [id number] Authorizing Provider: Nikki [place] MD Collected: 09/21/2024 01:04 PM Ordering Location: [facility] Received: 09/21/2024 01:19 PM [facility] Main OR Pathologist: Rebecca Ortez MD Specimen: Urinary Bladder, BLADDER TUMOR 09/22/2024 10:51 AM LOOM STOP CHECKER LABORATORY Final Diagnosis Bladder, 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 09/22/2024 10:51 AM [facility] Clinical Information Procedure: Cystoscopy, with transurethral resection bladder tumor Pre-op Diagnosis: Other specified disorders of bladder [N32.89] Post-op Diagnosis: N32.89 - Other specified disorders of bladder [ICD-10-CM] 09/22/2024 10:51 AM LOOM STOP CHECKER LABORATORY Gross Description A(1). Urinary Bladder, BLADDER [...] (ASCP) 09/21/2024 1:21 PM 09/22/2024 10:51 AM LOOM STOP CHECKER LABORATORY Microscopic Description Microscopic examination was performed. 09/22/2024 10:51 AM [facility] MCRS Yes(A) N/A 09/22/2024 10:51 AM [facility] Performing Labs The technical component of this testing was completed at [facility]. Stain controls for all stains resulted within this report have been reviewed and show appropriate reactivity. 09/22/2024 10:51 AM [facility] Case Images 09/22/2024 10:51 AM [facility] Tissue URINARY BLADDER STRUCTURE / Unknown 09/21/2024 1:04 PM LOOM STOP CHECKER 09/21/2024 1:19 PM LOOM STOP CHECKER us Nikki HSIEH - PA LEE Final Result LABORATORY [facility] Acute Care Lab [address] [facility] Lab (1st floor, no room number) [place] [address], [facility] LABORATORY [facility] Acute Care Lab [address] 1st floor, [address] [place] [address], [facility] [phone] * ANE AIRWAY ETT PERFORMABLE (09/21/2024 12:34 PM LOOM STOP CHECKER) Narrative Jing Alexander APRN CHANNEL CEMENTER OUTSOLE MACHINE - 09/21/2024 12:34 PM LOOM STOP CHECKER Jing Alexander APRN CHANNEL CEMENTER OUTSOLE MACHINE 09/21/2024 12:47 PM Airway Patient location during procedure: OR Procedure Start/Stop Times: 09/21/2024 12:34 PM Staff - CHANNEL CEMENTER OUTSOLE MACHINE: Jing Alexander APRN CHANNEL CEMENTER OUTSOLE MACHINE Performed By: CHANNEL CEMENTER OUTSOLE MACHINE Consent for Airway Urgency: elective Indications and [...] 09/21/2024 12:34 PM us Lizbeth Thornton MD [place] ANESTHESIA Final Res ult * EKG Cardiac - HIM Scan (08/24/2024 12:00 AM LOOM STOP CHECKER) 08/24/2024 us Provider Outside ECG ORDERABLES Final Result from Last 3 Months Insurance MEDICARE [facility] MEDICARE SUPPLEMENT [place]ICARE [place] Care Teams Barn Worker Relationship Specialty Start Date End Date Pau Franklin [address] [place] [address] PCP - General Family Medicine 09/18/24
--- OUTSIDE RECORDS SUMMARY | 2024-09-22 22:14 | XMS_ITS | Encounter Summary ---
Author Organization [place] Address [address] 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 Services [address] [place] [address] Nikki [place] MD [facility] [address] [place] [...] 1 Special Needs *marco antonio-cpap, stemi(2022), s3ckd, hjoupgvhfxdesrkt-ukq-vkshm appt 09/19 @2pm [id number] minutes documented in this encounter Social History [...] Comments Blood Pressure 131/65 09/21/2024 2:30 PM NET REPAIRER Pulse 74 09/21/2024 2:30 PM NET REPAIRER Temperature 37.2 C (99 F) 09/21/2024 2:15 PM NET REPAIRER Respiratory Rate 18 09/21/2024 2:30 PM NET REPAIRER Oxygen Saturation 93% 09/21/2024 2:30 PM NET REPAIRER Inhaled Oxygen Concentration - - Weight 65.9 kg (145 lb 4.8 oz) 09/21/2024 10:58 AM NET REPAIRER Height 152.4 cm (5') 09/21/2024 10:58 AM NET REPAIRER Body Mass Index 28.38 09/21/2024 10:58 AM NET REPAIRER documented in this encounter Discharge Instructions * Discharge Instructions* Pau Egan RN - 09/21/2024 2:05 PM NET REPAIRER Remove catheter at home, Monday 09/25. See [...] about your procedure, call Dr. [place] at [phone] REPAIRER REPAIRER REPAIRER documented in this encounter Medications at Time [...] reviewed with pt and pt's designated responsible green party. Pt label on prescription bag from pharmacy matched to pt's wristband. Pharmacy bag opened with 3 prescriptions inside. Medications were reviewed to match pt wristband while pt and significant other agreed with identification. Prescriptions placed back in pharmacy bag resealed with tape and given to daughter per pt request. REPAIRER * Pau Egan RN - 09/21/2024 2:48 PM CST Candelario teaching done with daughters. REPAIRER * Kwame Beth RN - 09/21/2024 11:50 AM CST Pt had itching just above the IV site. No redness noted. No hives on body, no swelling of lips, tongue or throat. Cipro stopped and flushed with NS. Dr. [place] in room and said no new iv needed and ordered ancef instead. REPAIRER * Beverly Handley RN - 09/14/2024 8:50 AM CST Fax number given to daughter Lanny to fax H&P to us. REPAIRER documented in this encounter Miscellaneous Notes * Op Note - Nikki [place] MD - 09/21/2024 1:30 PM CST OPERATIVE REPORT PATIENT: Radha Painter : 1940, AGE: [age] year old SSN: [id number] SURGEON Nikki [place] MD Cloth Shrinking Machine Operator: Sanaz Matos RN; Maria Alejandra Dc [...] was papillary appearing. I then introduced the 26-Czech resectoscope into the patient's bladder. Resection of [...] to the right UO. Nikki [place] MD [place] [facility] Pager: [phone] Office: [phone] Surgical [phone] REPAIRER REPAIRER documented in this encounter Plan of Treatment Not on file documented as of this encounter Procedures Procedure Name Priority Date/Time Associated Diagnosis Comments SURGICAL PATHOLOGY EXAM Routine 09/21/2024 1:04 PM NET REPAIRER CYSTOSCOPY, WITH TRANSURETHRAL RESECTION BLADDER TUMOR 09/21/2024 12:23 PM NET REPAIRER Other specified disorders of bladder Special Needs *marco antonio-cpap, stemi(2022), s3ckd, ohfsqfjgehhpnmer-fyk-jdkwn appt 09/19 @2pm [id number] minutes EKG CARDIAC - HIM SCAN 08/24/2024 12:00 AM NET REPAIRER documented in this encounter Results * (ABNORMAL) Surgical Pathology Exam (09/21/2024 1:04 PM NET REPAIRER) Case Report Surgical Pathology Report Case: [id number] Authorizing Provider: Nikki [place] MD Collected: 09/21/2024 01:04 PM Ordering Location: [facility] Received: 09/21/2024 01:19 PM [facility] OR Pathologist: Rebecca Ortez MD Specimen: Urinary Bladder, BLADDER TUMOR 09/22/2024 10:51 AM [facility] Final Diagnosis Bladder, 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 09/22/2024 10:51 AM [facility] Clinical Information Procedure: Cystoscopy, with transurethral resection bladder tumor Pre-op Diagnosis: Other specified disorders of bladder [N32.89] Post-op Diagnosis: N32.89 - Other specified disorders of bladder [ICD-10-CM] 09/22/2024 10:51 AM [facility] Gross Description A(1). Urinary Bladder, [...] (ASCP) 09/21/2024 1:21 PM 09/22/2024 10:51 AM [facility] Microscopic Description Microscopic examination was performed. 09/22/2024 10:51 AM [facility] MCRS Yes(A) N/A 09/22/2024 10:51 AM [facility] Performing Labs The technical component of this testing was completed at [facility]. Stain controls for all stains resulted within this report have been reviewed and show appropriate reactivity. 09/22/2024 10:51 AM NET REPAIRER LABORATORY Case Images 09/22/2024 10:51 AM NET REPAIRER LABORATORY Tissue URINARY BLADDER STRUCTURE / Unknown 09/21/2024 1:04 PM NET REPAIRER 09/21/2024 1:19 PM NET REPAIRER Nikki HSIEH - PA AP Final Result LABORATORY [facility] Acute Care Lab [address] Lab (1st floor, no room number) [place] [address], [facility]ORAT[facility] [address] 1st floor, [address] [place] [address], [place] [phone] * EKG Cardiac - HIM Scan (08/24/2024 12:00 AM NET REPAIRER) 08/24/2024 us Provider Outside ECG ORDERABLES Final [...] 4 grams/day., Pre-procedure $Given 09/21/2024 11:17 AM NET REPAIRER 975 mg ciprofloxacin (CIPRO) infusion 400 mg Routine, 400 mg, Intravenous, EVERY 12 HOURS, First dose on Yojana 09/21/24 at 1100, Indications: Perioperative Pharmacoprophylaxis, Pre-procedureIndications:Periopera tive Pharmacoprophylaxis $New Bag 09/21/2024 11:17 AM NET REPAIRER 400 mg sodium chloride 0.9% (bottle) irrigation PRN, Starting on Yojana 09/21/24 at 1250, Intra-procedure $Given 09/21/2024 12:50 PM NET REPAIRER 1,000 mLs sodium chloride 0.9% irrigation (bag) PRN, Starting on Yojana 09/21/24 at 1251, Intra-procedure $Given 09/21/2024 12:51 PM NET REPAIRER 1,000 mLs documented in this encounter Active and Recently Administered Medications Times are shown in NET REPAIRER. Scheduled Medication Order 09/19/2024 09/20/2024 09/21/2024 acetaminophen [...] Pre-procedure documented in this encounter Care Teams Parking Lot Signaler Relationship Specialty Start Date End Date Pau Franklin [address] [place] [address] PCP - General Family Medicine 09/18/24 documented as of this encounter
--- OUTSIDE RECORDS SUMMARY | 2024-09-22 22:14 | XMS_ITS | Clinical Summary ---
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/01/2017 [...] Department Care Team Description 09/19/2024 2:05 PM BEATER AND PULPER FEEDER Office Visit [facility] [address] [place] [address] Jed Cleary MD Preoperative Exam (Bladder, 09/21/24, [facility]) 09/19/2024 Travel 09/19/2024 Refill [facility] [address] [facility] [place] [address] Pau Franklin MD Refill Request (Zolpidem, Rosuvastatin, Metoprolol Succinate, Clopidogrel) 09/14/2024 9:15 AM BEATER AND PULPER FEEDER Orders Only [facility] [place] [address] Lab, [place] [facility] 09/14/2024 Travel 08/30/2024 Nurse Triage [facility] [address] [facility] [place] [address] Pau Franklin MD Fatigue (Exhaustion and fatigue - worse x3 days) 08/24/2024 9:55 AM BEATER AND PULPER FEEDER Office Visit [facility] [address] [place] [address] Pau Franklin MD ER Follow up (cyst in her ovary and a lesion in her bladder found); Medication Management (Duloxetine increase?) 08/24/2024 Orders Only [facility] [address] [facility] [place] [address] Pau Franklin MD 1 scan: (1-Ord) NFLD-EKG-08/24/24 08/24/2024 Travel 08/14/2024 Orders Only [facility] Scanner 1 scan: (1-Ord) [facility], CLINICAL LABORATORY REPORT, 08/14/2024 08/14/2024 Orders Only [facility] Scanner 1 scan: (1-Ord) [facility], PELVIC TA COMPLETE , 08/14/2024 08/14/2024 Orders Only [facility] Scanner 1 scan: (1-Ord) [place], ABDOMEN PELVIS W CONTRAST, 08/14/2024 08/13/2024 Orders Only [facility] Scanner 1 scan: (1-Ord) [facility], XR ABDOMEN, 08/13/2024 08/11/2024 3:30 PM BEATER AND PULPER FEEDER Office Visit [facility] [address] [place] [address] Rai Vera MD Follow Up (1 year follow up - Acute anterior wall NE) 08/11/2024 Travel 07/31/2024 Refill [facility] [address] [facility] [place] [address] Pau Franklin MD Refill Request (Spironolactone) 07/20/2024 2:40 PM CDT Office Visit [facility] [address] [facility] [place] [address] Pau Franklin MD Pre-Op Exam (Upper endoscopy 07/31/24 [facility] Memory Loss (Fatigue changes daily and patient suspects it is depression./Anxiety/I nterested in Aricept) 07/20/2024 Travel 07/14/2024 Telephone [facility] [address] [facility] [place] [address] Pau Franklin MD upcoming appointments 07/10/2024 2:30 PM CDT Telemedicine [facility] [address] [place] [address] Nicolás Pryor MD Telehealth (cpap) 07/06/2024 11:30 AM CDT Office Visit [facility] [address] [place] [address] Nadeen Pelayo PA Fatigue 07/06/2024 Travel 07/06/2024 Nurse Triage [facility] [address] [place] [address] Nadeen Pelayo PA Fatigue 07/05/2024 Orders Only [facility] Scanner 1 scan: (1-Ord) [facility], COMPLIANCE REPORT, 07/05/2024 from Last 3 Months Immunizations Name Administration Dates Next Due AMB Influenza, IIV3 (Age >=3 years)(Flu Clinic Only) 06/28/2009 COVID-19 vaccine ([employer] 30mcg/0.3mL) PF, MDV 07/15/2021,11/26/2020,11/05/2020 Influenza Virus, Unspecified [...] at 89 Heart Disease Mother age 72--first NE. at 90. dementia Hypertension Mother Stroke Mother [...] drink = 0.6 oz pur e alcohol) [facility] Utilities Answer Date Recorded Do you have [...] Sex Assigned at Female 10/02/2020 12:00 PM BEATER AND PULPER FEEDER Legal Sex Female 6:41 AM BEATER AND PULPER FEEDER Gender Identity Female 10/02/2020 12:00 PM BEATER AND PULPER FEEDER Sexual Orientation Straight 10/02/2020 12 :00 PM BEATER AND PULPER FEEDER Occupation Industry Job Start Date Job End [...] Comments Blood Pressure 129/69 09/19/2024 2:14 PM BEATER AND PULPER FEEDER Pulse 69 09/19/2024 2:14 PM BEATER AND PULPER FEEDER Temperature 36.6 C (97.9 F) 09/19/2024 2:14 PM BEATER AND PULPER FEEDER Respiratory Rate 16 09/29/2023 8:30 AM BEATER AND PULPER FEEDER Oxygen Saturation 100% 09/19/2024 2:14 PM BEATER AND PULPER FEEDER Inhaled Oxygen Concentration - - Weight 66.3 kg (146 lb 1.6 oz) 09/19/2024 2:14 P M BEATER AND PULPER FEEDER Height 152.4 cm (5') 09/19/2024 2:14 PM BEATER AND PULPER FEEDER Body Mass Index 28.53 09/19/2024 2:14 PM BEATER AND PULPER FEEDER Plan of Treatment Upcoming Encounters Date Type Department Care Team (Late st Contact Info) Description 10/03/2024 3:05 PM BEATER AND PULPER FEEDER Office Visit [facility] [address] [place] [address] Pau Franklin MD [address] [place] [address] Health Maintenance Due Date Last Done Comments [...] REFLEX MEASURED LDL Routine 09/14/2024 8:57 AM BEATER AND PULPER FEEDER Pure hypercholesterolemia MS READING EKG - NO CHARGE, COMP ONLY Routine 08/24/2024 3:33 PM BEATER AND PULPER FEEDER Left-sided chest pain EKG 12 LEAD Routine 08/24/2024 3:33 PM BEATER AND PULPER FEEDER Left-sided chest pain SCAN-LABORATORY REPORT 08/14/2024 12:00 AM BEATER AND PULPER FEEDER SCAN-ULTRASOUND REPORT 08/14/2024 12:00 AM BEATER AND PULPER FEEDER SCAN-CT INTERPRETATION 08/14/2024 12:00 AM BEATER AND PULPER FEEDER SCAN-RADIOLOGY REPORT 08/13/2024 12:00 AM BEATER AND PULPER FEEDER BASIC METABOLIC PANEL Routine 07/06/2024 12:07 PM CDT Fatigue, unspecified type CBC WITH AUTO DIFFERENTIAL Routine 07/06/2024 12:07 PM CDT Fatigue, unspecified type URINALYSIS MACROSCOPIC - [facility] ONLY POC DIP ([facility]) Routine 07/06/2024 12:06 PM CDT Fatigue, unspecified type SCAN-DIAGNOSTIC REPORT 07/05/2024 12:00 AM CDT XR DXA BONE DENSITY 2 SITES AXIAL Routine 10/07/2020 1:32 PM BEATER AND PULPER FEEDER Asymptomatic postmenopausal state from Last 3 Months or Most Recently Relevant to Health Maintenance Results * LIPID PANEL W REFLEX MEASURED LDL ([id number]) (09/14/2024 8:57 AM BEATER AND PULPER FEEDER) [facility] Signature CHOLESTEROL, TOTAL 146 <200 mg/dL [facility] HDL CHOLESTEROL 50 > OR = 50 mg/dL [facility] TRIGLYCERIDES 96 <150 mg/dL [facility] LDL-CHOLESTEROL 78 mg/dL (calc) [facility] Comment: Reference range: <100 Desirable range <100 mg/dL for primary prevention; <70 mg/dL for patients with CHD or diabetic patients with > or = 2 CHD risk factors. LDL-C is now calculated using the Moncho-[place]guilar calculation, which is a validated novel method providing better accuracy than the Friedewald equation in the estimation of LDL-C. Moncho SS et al. HAYLEE. 2013;310(19): 9438-4496 (http://education.introNetworks/faq/IAP518) CHOL/HDLC RATIO 2.9 <5.0 (calc) [facility] NON HDL CHOLESTEROL 96 <130 mg/dL (calc) [facility] Comment: For patients with diabetes plus 1 major ASCVD risk factor, treating to a non-HDL-C goal of <100 mg/dL (LDL-C of <70 mg/dL) is considered a therapeutic option. Blood BLOOD SPECIMEN / Unknown 09/14/2024 8:57 AM BEATER AND PULPER FEEDER 09/14/2024 8:58 AM BEATER AND PULPER FEEDER Rai Vera MD CHEMISTRY Final Result [email or web address] [address] [place] [address], [facility] [address] [place] [address] * EKG 12 LEAD (08/24/2024 3:33 PM BEATER AND PULPER FEEDER) Pau Franklin MD EKG ORD Final Result * MS READING EKG - NO CHARGE, COMP ONLY (08/24/2024 3:33 PM BEATER AND PULPER FEEDER) Pau Franklin MD PB - PROVIDER READING S Final Result * SCAN-LABORATORY REPORT (08/14/2024 12:00 AM BEATER AND PULPER FEEDER) us Scanner OTHER Final Result * SCAN-ULTRASOUND REPORT (08/14/2024 12:00 AM BEATER AND PULPER FEEDER) Anatomical Region Laterality Modality Other us Scanner OTHER Final Result * SCAN-CT INTERPRETATION (08/14/2024 12:00 AM BEATER AND PULPER FEEDER) Anatomical Region Laterality Modality Other us Scanner OTHER Final Result * SCAN-RADIOLOGY REPORT (08/13/2024 12:00 AM BEATER AND PULPER FEEDER) Anatomical Region Laterality Modality Other us Scanner OTHER Final Result * (ABNORMAL) CBC AND DIFFERENTIAL (07/06/2024 12:07 PM CDT) Pathologist [facility] WHITE BLOOD CELL COUNT 5.0 3.8 - [...] FOR COLLECTION. Nadeen CHACON HEMATOLOGY Final Result [facility] [address] [place] [address], [facility] [address] [place] [phone] * (ABNORMAL) BASIC METABOLIC PANEL (07/06/2024 12:07 PM CDT) [facility] Signature GLUCOSE 78 65 - 99 mg/dL [...] COLLECTION. us Nadeen CHACON CHEMISTRY Final Result [facility] [address] [place] [address], [facility] [address] [place] [address] * POCT Urinalysis Dipstick Only (07/06/2024 12:06 PM CDT) PH 6.0 5.0 - 8.0 [facility] SPECIFIC GRAVITY < OR = 1.005 1.001 - 1.035 [facility] Comment: Specific [place] values resulted are outside the analytical measurement range of this device. Recommend repeat/additional testing as clinically indicated. GLUCOSE NEGATIVE NEGATIVE [facility] BILIRUBIN NEGATIVE NEGATIVE [facility] KETONES NEGATIVE NEGATIVE [facility] OCCULT BLOOD NEGATIVE NEGATIVE [facility] PROTEIN NEGATIVE NEGATIVE [facility] NITRITE NEGATIVE NEGATIVE [facility] LEUKOCYTE ESTERASE NEGATIVE NEGATIVE [facility] Urine URINE SPECIMEN / Unknown 07/06/2024 12:06 PM CDT 07/06/2024 12:06 PM CDT us Nadeen CHACON URINE Final Result [facility] [address] [place] [address], [facility] [address] [place] [address] * SCAN-DIAGNOSTIC REPORT (07/05/2024 12:00 AM CDT) us Scanner OTHER Final Result * (ABNORMAL) XR DXA BONE DENSITY 2 SITES AXIAL (10/07/2020 1:32 PM BEATER AND PULPER FEEDER) Anatomical Region Laterality Modality Spine, HIPS, HIPL, HIPR Other Narrative 10/09/2020 2:44 PM BEATER AND PULPER FEEDER Please see scanned document for results of this study. us Pau Franklin MD DEXA Final Result from Last 3 Months or Most Recently Relevant to Health Maintenance Insurance MEDICARE PB ONLY [facility] MEDICARE PART B HB ONLY MEDICARE PART A HB ONLY [facility] MEDICARE PPS Advance Directives Documents on File Type Date Recorded Patient Ham Trimmer Expl anation Healthcare Directive 02/24/2013 12:14 PM [...] Code Status Discussion: Reviewed Preferences Care Teams Residential Direct Support Professional Relationship Specialty Start Date End Date Pau Franklin MD [address] [place] [address] PCP - General Family Practice 06/25/14 Steven Tellez [address] [place] [address] Business Operations Coordinator 01/29/12
--- OUTSIDE RECORDS SUMMARY | 2024-09-22 22:14 | XMS_ITS | Clinical Summary ---
Author Organization [facility] Address [address] [place] [address] Care Team Providers Care Silviculture Teacher Name Role Phone Pau Franklin Primary Care Provider [phone] Allergies Active Allergy Reactions Criticality Noted Date [...] Department Care Team Description 09/21/2024 12:23 PM ADVERTISING DESIGNER Anesthesia Event [facility] [address] [place] [phone] Lizbeth Thornton MD 09/21/2024 12:15 PM ADVERTISING DESIGNER - 09/21/2024 2:35 PM ADVERTISING DESIGNER Surgery [facility] [address] [place] [phone] Nikki Bartlett MD Cystoscopy, with transurethral resection bladder tumor 09/21/2024 10:28 AM ADVERTISING DESIGNER - 09/21/2024 4:07 PM ADVERTISING DESIGNER Hospital Encounter [facility] PreOP/Phase II [address] [place] [address] Nikki Bartlett MD 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) Discharge Disposition: Home or Self Care 09/21/2024 Telephone [facility] Hospitalist Program [address] [place] [address] Nikki [...] Comments Blood Pressure 134/74 09/21/2024 3:35 PM ADVERTISING DESIGNER Pulse 75 09/21/2024 2:45 PM ADVERTISING DESIGNER Temperature 36.6 C (97.9 F) 09/21/2024 3:35 PM ADVERTISING DESIGNER Respiratory Rate 18 09/21/2024 3:35 PM ADVERTISING DESIGNER Oxygen Saturation 94% 09/21/2024 3:35 PM ADVERTISING DESIGNER Inhaled Oxygen Concentration - - Weight 65.9 kg (145 lb 4.8 oz) 09/21/2024 10:58 AM ADVERTISING DESIGNER Height 152.4 cm (5') 09/21/2024 10:58 AM ADVERTISING DESIGNER Body Mass Index 28.38 09/21/2024 10:58 AM ADVERTISING DESIGNER Plan of Treatment Health Maintenance Due Date [...] SURGICAL PATHOLOGY EXAM Routine 09/21/2024 1:04 PM ADVERTISING DESIGNER ANE AIRWAY ETT PERFORMABLE Routine 09/21/2024 12:34 PM ADVERTISING DESIGNER CYSTOSCOPY, WITH TRANSURETHRAL RESECTION BLADDER TUMOR 09/21/2024 12:23 PM ADVERTISING DESIGNER Other specified disorders of bladder Special Needs *marco antonio-cpap, stemi(2022), s3ckd, wkkootuzvroxhrkk-fea-igclo appt 09/19 @2pm uzqzoi21 minutes EKG CARDIAC - HIM SCAN 08/24/2024 12:00 AM ADVERTISING DESIGNER from Last 3 Months Results * (ABNORMAL) Surgical Pathology Exam (09/21/2024 1:04 PM ADVERTISING DESIGNER) Case Report Surgical Pathology Report Case: [id number] Authorizing Provider: Nikki Bartlett MD Collected: 09/21/2024 01:04 PM Ordering Location: [facility] Received: 09/21/2024 01:[facility] Pathologist: Rebecca Ortez MD Specimen: Urinary Bladder, BLADDER TUMOR 09/22/2024 10:51 AM [facility] Final Diagnosis Bladder, 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 09/22/2024 10:51 AM [facility] Clinical Information Procedure: Cystoscopy, with transurethral resection bladder tumor Pre-op Diagnosis: Other specified disorders of bladder [N32.89] Post-op Diagnosis: N32.89 - Other specified disorders of bladder [ICD-10-CM] 09/22/2024 10:51 AM [facility] Gross Description A(1). Urinary Bladder, BLADDER TUMOR: The specimen is received in formalin, labeled with the patient's name, medical record number and other identifying information designated bladder tumor. It consists of a Telfa pad containing a 1.0 x 0.7 x 0.2 cm aggregate of richey-pink, shaggy soft tissue fragments which are filtered and submitted entirely in 1 cassette. [facility] ([facility]) 09/21/2024 1:21 PM 09/22/2024 10:51 AM [facility] Microscopic Description Microscopic examination was performed. 09/22/2024 10:51 AM [facility] MCRS Yes(A) N/A 09/22/2024 10:51 AM [facility] Performing Labs The technical component of this testing was completed at [facility]. Stain controls for all stains resulted within this report have been reviewed and show appropriate reactivity. 09/22/2024 10:51 AM [facility] Case Images 09/22/2024 10:51 AM [facility] Tissue URINARY BLADDER STRUCTURE / Unknown 09/21/2024 1:04 PM ADVERTISING DESIGNER 09/21/2024 1:19 PM ADVERTISING DESIGNER us Nikki Bartlett MD LAB - PA LEE Final Result [facility] [address] Lab (1st floor, no room number) [place] [address], [place] LABORATORY [facility] [address] floor[address] [place] [address], [place] [phone] * ANE AIRWAY ETT PERFORMABLE (09/21/2024 12:34 PM ADVERTISING DESIGNER) Narrative Jing Alexander APRN MANAGER PAYROLL - 09/21/2024 12:34 PM ADVERTISING DESIGNER Jing Alexander APRN MANAGER PAYROLL 09/21/2024 12:47 PM Airway Patient location during procedure: OR Procedure Start/Stop Times: 09/21/2024 12:34 PM Staff - MANAGER PAYROLL: Jing Alexander APRN MANAGER PAYROLL Performed By: MANAGER PAYROLL Consent for Airway Urgency: elective Indications and [...] 09/21/2024 12:34 PM us Lizbeth Thornton MD [place] ANESTHESIA Final Res ult * EKG Cardiac - HIM Scan (08/24/2024 12:00 AM ADVERTISING DESIGNER) 08/24/2024 us Provider Outside ECG ORDERABLES Final Result from Last 3 Months Insurance [place] Care Teams Silviculture Teacher Relationship Specialty Start Date End Date Pau Franklin [address] [place] [address] PCP - General Family Medicine 09/18/24
--- OUTSIDE RECORDS SUMMARY | 2024-09-22 22:14 | XMS_ITS | Continuity of Care Document ---
Author Name Kyle User [place]-a llowed Address Unknown Organization Unknown Address Unknown Procedures FILTER APPLIED:Only known Procedures with Onset Date within the last 5 years Procedure Date Procedure Provider Additiona l Information Status ID CYSTOURETHROSCOPY,FULGUR >5CM LESN (45713) Completed ID CYSTOURETHROSCOPY,FULGUR 2-5CM LESN (05081) Completed ID CYSTOURETHROSCOPY,FULGUR .5-2CM LE* (18080) Completed ID CYSTOSCOPY W TX MINOR LESION <0.5 CM (01550) Completed COMPLETE CBC W/AUTO DIFF WBC (54611) Completed ROUTINE VENIPUNCTURE (90772) Completed ASSAY OF TROPONIN QUANT (33968) Completed THER/PROPH/DIAG INJ IV PUSH (27954) Completed ASSAY OF NATRIURETIC PEPTIDE (24220) Completed TX/PRO/DX INJ NEW DRUG ADDON (73898) Completed EMERGENCY DEPT VISIT HI MDM (91016) Completed ELECTROCARDIOGRAM TRACING (18677) Completed METABOLIC PANEL TOTAL CA (13261) Completed Encounters FILTER APPLIED:Only known Encounters with Admission Date within the last 5 years Encounter Location Admission Discharge Billing Code Consultant Javier arceo [facility] Jesus [facility]
== END 2024-09-22 22:29 | disposition home or self-care (01) ==
LOC: ED 22:12
PROVIDERS: Emergency Provider Emergency Medicine; PCP Family Medicine
DX: T83.091A Other mechanical complication of indwelling urethral catheter, initial encounter (principal); T83.028A Displacement of other urinary catheter, initial encounter; R41.81 Age-related cognitive decline; N83.209 Unspecified ovarian cyst, unspecified side
CPT/HCPCS: 99283; 99284

== ENCOUNTER 2024-09-22 23:00 | Emergency (ER) | payer MEDICARE, BC, SELFPAY ==
--- OUTSIDE RECORDS SUMMARY | 2024-09-22 23:02 | XMS_ITS | Clinical Summary ---
Author Organization [place] Address [address] [place] [address] [address] Care Court Magistrate Name Role Phone Pau Franklin Primary Care Provider [phone] Allergies Active Allergy Reactions Criticality Noted Date [...] Department Care Team Description 09/21/2024 12:23 PM WEATHER FORCASTER Anesthesia Event [facility] [address] [place] [phone] Lizbeth Thornton MD 09/21/2024 12:15 PM WEATHER FORCASTER - 09/21/2024 2:35 PM WE[facility]ER [facility]CA[facility] Surgery [facility] [address] [place] [phone] Nikki Bartlett MD Cystoscopy, with transurethral resection bladder tumor 09/21/2024 10:28 AM WE[facility]CASTER - 09/21/2024 4:07 PM WE[facility]ER [facility]STER Hospital Encounter 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ist [facility] [address] [place] [address] [...] Comments Blood Pressure 134/74 09/21/2024 3:35 PM WEATHER FORCASTER Pulse 75 09/21/2024 2:45 PM WEATHER FORCASTER Temperature 36.6 C (97.9 F) 09/21/2024 3:35 PM WEATHER FORCASTER Respiratory Rate 18 09/21/2024 3:35 PM WEATHER [facility]CASTER Oxygen Saturation 94% 09/21/2024 3:35 PM WEATHER [facility]CASTER Inhaled Oxygen Concentration - - Weight 65.9 kg (145 lb 4.8 oz) 09/21/2024 10:58 AM WE[facility]ER [facility]CASTER Height 152.4 cm (5') 09/21/2024 10:58 AM WE[facility] Body Mass Index 28.38 09/21/2024 10:58 AM [facility] Plan of Treatment Health Maintenance Due Date [...] SURGICAL PATHOLOGY EXAM Routine 09/21/2024 1:04 PM WE[facility]ER FORCASTER ANE AIRWAY ETT PERFORMABLE Routine 09/21/2024 12:34 PM WEATHER FORCASTER CYSTOSCOPY, WITH TRANSURETHRAL RESECTION BLADDER TUMOR 09/21/2024 12:23 PM WE[facility]ER FORCASTER Other specified disorders of bladder Special Needs *marco antonio-cpap, stemi(2022), s3ckd, xwqcndxsraiiyakn-vtq-ltojt appt 09/19 @2pm iswhab22 minutes EKG CARDIAC - HIM SCAN 08/24/2024 12:00 AM WEATHER FORCASTER from Last 3 Months Results * (ABNORMAL) Surgical Pathology Exam (09/21/2024 1:04 PM WEATHER FORCASTER) Case Report Surgical Pathology Report Case: [id number] Authorizing Provider: Nikki Bartlett MD Collected: 09/21/2024 01:04 PM Ordering Location: [facility] Received: 09/21/2024 01:19 PM [facility] Pathologist: Rebecca Ortez MD Specimen: Urinary Bladder, BLADDER TUMOR 09/22/2024 10:51 AM [facility] Final Diagnosis Bladder, 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 09/22/2024 10:51 AM [facility] Clinical Information Procedure: Cystoscopy, with transurethral resection bladder tumor Pre-op Diagnosis: Other specified disorders of bladder [N32.89] Post-op Diagnosis: N32.89 - Other specified disorders of bladder [ICD-10-CM] 09/22/2024 10:51 AM [facility] Gross Description A(1). Urinary Bladder, BLADDER TUMOR: The specimen is received in formalin, labeled with the patient's name, medical record number and other identifying information designated bladder tumor. It consists of a Telfa pad containing a 1.0 x 0.7 x 0.2 cm aggregate of richey-pink, shaggy soft tissue fragments which are filtered and submitted entirely in 1 cassette. ([facility] ([facility]) 09/21/2024 1:21 PM 09/22/2024 10:51 AM [facility] Microscopic Description Microscopic examination was performed. 09/22/2024 10:51 AM [facility] MCRS Yes(A) N/A 09/22/2024 10:51 AM [facility] Performing Labs The technical component of this testing was completed at [facility]. Stain controls for all stains resulted within this report have been reviewed and show appropriate reactivity. 09/22/2024 10:51 AM [facility] Case Images 09/22/2024 10:51 AM [facility] Tissue URINARY BLADDER STRUCTURE / Unknown 09/21/2024 1:04 PM WE[facility]ER [facility]CASTER 09/21/2024 1:19 PM [facility]ER [facility]STER us Nikki Bartlett MD LAB - PA LEE Final Result [facility] LABORATORY [facility] Care Lab [address] Lab (1st floor, no room number) [place] [address], [place] LABORATORY [facility] [address] 1[address] floor, [address] [place] [address], [place] [phone] * ANE AIRWAY ETT PERFORMABLE (09/21/2024 12:34 PM [facility]ER [facility]STER) Narrative Jing Alexander APRN [employer]ER - 09/21/2024 12:34 PM [facility] Jing Alexander APRN [employer]ER 09/21/2024 12:47 PM Airway Patient location during procedure: OR Procedure Start/Stop Times: 09/21/2024 12:34 PM Staff - SAND MILL GRINDER: Jing Alexander APRN [employer]ER Performed By: SAND MILL GRINDER Consent for Airway Urgency: elective Indications and [...] Cardiac - HIM Scan (08/24/2024 12:00 AM [facility]ER [facility]CASTER) 08/24/2024 us Provider Outside ECG ORDERABLES Final Result from Last 3 Months Insurance [place] SUPPLEMENT Care Teams Court Magistrate Relationship Specialty Start Date End Date Pau Franklin [address] [place] [address] PCP - General Family Medicine 09/18/24
--- OUTSIDE RECORDS SUMMARY | 2024-09-22 23:02 | XMS_ITS | Encounter Summary ---
Author Organization [place] Address [address] [facility] [place] [address] Care Team Providers Care Hammer Adjuster Name Role Phone Pau Franklin Primary Care Provider [phone] Reason for Visit * Reason Onset Date Comments Prior Auth - Medication 09/21/2024 Trospium - Denied Encounter Details Date Type Department Care Team (Late st Contact Info) Description 09/21/2024 Telephone [facility]ist [facility] [address] [place] [address] Nikki Bartlett MD [facility] [address] [place] [id number] Prior Auth - Medication (Trospium - Denied) [...] 09/21/2024 Denial Reason(s): Appeal Information: Patient Notified: OPERATION MANAGER documented in this encounter Plan of Treatment Not on file documented as of this encounter Visit Diagnoses Not on filedocumented in this encounter Care Teams Hammer Adjuster Relationship Specialty Start Date End Date Pau Franklin [address] [place] [address] PCP - General Family Medicine 09/18/24 documented as of this encounter
--- OUTSIDE RECORDS SUMMARY | 2024-09-22 23:02 | XMS_ITS | Encounter Summary ---
Author Organization [place] Address [address] [facility] [address] Care Team Providers Care Still Operator Helper Name Role Phone Pau Franklin Primary Care Provider [phone] Reason for Visit * Auth/Cert Specialty Diagnoses / Procedures Referred By Ava asencio Referred To Contact Surgery Diagnoses Other specified disorders of bladder Other specified disorders of bladder [N32.89] Procedures AL CYSTOSCOPY W TX MINOR LESION <0.5 CM AL CYSTOURETHROSCOPY,FULGUR .5-2CM LE* AL CYSTOURETHROSCOPY,FULGUR 2-5CM LESN AL CYSTOURETHROSCOPY,FULGUR >5CM LESN Cystoscopy, with transurethral resection bladder tumor [facility] [address] [place] [address] Phone: tel: Referral ID Status Reason Start Date Expiration Date Visits Re quested Visits Authorized [id number] 1 1 Encounter Details Date Type Department Care Team (Latest Contact Info) Description 09/21/2024 10:28 AM EGGS INSPECTOR - 09/21/2024 4:07 PM EGGS INSPECTOR Hospital Encounter [facility] PreOP/Phase II [address] [place] [phone] Nikki Bartlett MD [facility] [address] [place] [phone] Malignant neoplasm of trigone of urinary bladder [...] Comments Blood Pressure 134/74 09/21/2024 3:35 PM EGGS INSPECTOR Pulse 75 09/21/2024 2:45 PM EGGS INSPECTOR Temperature 36.6 C (97.9 F) 09/21/2024 3:35 PM EGGS INSPECTOR Respiratory Rate 18 09/21/2024 3:35 PM EGGS INSPECTOR Oxygen Saturation 94% 09/21/2024 3:35 PM EGGS INSPECTOR Inhaled Oxygen Concentration - - Weight 65.9 kg (145 lb 4.8 oz) 09/21/2024 10:58 AM EGGS INSPECTOR Height 152.4 cm (5') 09/21/2024 10:58 AM EGGS INSPECTOR Body Mass Index 28.38 09/21/2024 10:58 AM EGGS INSPECTOR documented in this encounter Discharge Instructions * Discharge Instructions* Pau Egan RN - 09/21/2024 2:05 PM EGGS INSPECTOR Remove catheter at home, Monday 09/25. See [...] about your procedure, call Dr. Bartlett at [phone] INSPECTOR INSPECTOR INSPECTOR documented in this encounter Medications at Time [...] and given to daughter per pt request. INSPECTOR * Pau Egan RN - 09/21/2024 2:48 PM CST Candelario teaching done with daughters. INSPECTOR * Kwame Beth RN - 09/21/2024 11:50 AM CST Pt had itching just above the IV site. No redness noted. No hives on body, no swelling of lips, tongue or throat. Cipro stopped and flushed with NS. Dr. Bartlett in room and said no new iv needed and ordered ancef instead. INSPECTOR * Beverly Handley RN - 09/14/2024 8:50 AM CST Fax number given to daughter Lanny to fax H&P to us. INSPECTOR documented in this encounter Miscellaneous Notes * Op Note - Nikki Bartlett MD - 09/21/2024 1:30 PM CST OPERATIVE REPORT PATIENT: Radha Painter : 1940, AGE: [age] year old SSN: [id number] SURGEON Nikki Bartlett MD Agility Instructor: Sanaz Matos RN; Maria Alejandra Dc RN [...] was papillary appearing. I then introduced the 26-Libyan resectoscope into the patient's bladder. Resection of [...] to the right UO. Nikki Bartlett MD MD Urology Pager: [phone] Office: [phone] Surgical [phone] INSPECTOR INSPECTOR documented in this encounter Plan of Treatment Not on file documented as of this encounter Procedures Procedure Name Priority Date/Time Associated Diagnosis Comments SURGICAL PATHOLOGY EXAM Routine 09/21/2024 1:04 PM EGGS INSPECTOR CYSTOSCOPY, WITH TRANSURETHRAL RESECTION BLADDER TUMOR 09/21/2024 12:23 PM EGGS INSPECTOR Other specified disorders of bladder Special Needs *marco antonio-cpap, stemi(2022), s3ckd, mtumuoillfbzycqh-waj-wkydn appt 09/19 @2pm [id number] minutes EKG CARDIAC - HIM SCAN 08/24/2024 12:00 AM EGGS INSPECTOR documented in this encounter Results * (ABNORMAL) Surgical Pathology Exam (09/21/2024 1:04 PM EGGS INSPECTOR) Case Report Surgical Pathology Report Case: [id number] Authorizing Provider: Nikki Bartlett MD Collected: 09/21/2024 01:04 PM Ordering Location: [facility] Received: 09/21/2024 01:19 PM [place] Main OR Pathologist: Rebecca Ortez MD Specimen: Urinary Bladder, BLADDER TUMOR 09/22/2024 10:51 AM [facility] Final Diagnosis Bladder, 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 09/22/2024 10:51 AM [facility] Clinical Information Procedure: Cystoscopy, with transurethral resection bladder tumor Pre-op Diagnosis: Other specified disorders of bladder [N32.89] Post-op Diagnosis: N32.89 - Other specified disorders of bladder [ICD-10-CM] 09/22/2024 10:51 AM [facility] Gross Description A(1). Urinary Bladder, BLADDER [...] (ASCP) 09/21/2024 1:21 PM 09/22/2024 10:51 AM [facility] Microscopic Description Microscopic examination was performed. 09/22/2024 10:51 AM [facility] MCRS Yes(A) N/A 09/22/2024 10:51 AM [facility] Performing Labs The technical component of this testing was completed at [facility]. Stain controls for all stains resulted within this report have been reviewed and show appropriate reactivity. 09/22/2024 10:51 AM [facility] Case Images 09/22/2024 10:51 AM [facility] Tissue URINARY BLADDER STRUCTURE / Unknown 09/21/2024 1:04 PM EGGS INSPECTOR 09/21/2024 1:19 PM [facility] us Nikki HSIEH - PA LEE Final Result LABORATORY [facility] Acute [facility] Lab [address] Lab (1st floor, no room number) [place] [address], [place] LABORATORY [facility] [address] 1st floor, [address] [place] [address], [place] [phone] * EKG Cardiac - HIM Scan (08/24/2024 12:00 AM EGGS INSPECTOR) 08/24/2024 us Provider Outside ECG ORDERABLES Final [...] 4 grams/day., Pre-procedure $Given 09/21/2024 11:17 AM EGGS INSPECTOR 975 mg ciprofloxacin (CIPRO) infusion 400 mg Routine, 400 mg, Intravenous, EVERY 12 HOURS, First dose on Yojana 09/21/24 at 1100, Indications: Perioperative Pharmacoprophylaxis, Pre-procedureIndications:Perioperat ritchie Pharmacoprophylaxis $New Bag 09/21/2024 11:17 AM EGGS INSPECTOR 400 mg documented in this encounter Active and Recently Administered Medications Times are shown in EGGS INSPECTOR. Scheduled Medication Order 09/19/2024 09/20/2024 09/21/2024 acetaminophen [...] Pre-procedure documented in this encounter Care Teams Still Operator Helper Relationship Specialty Start Date End Date Pau Franklin [address] [place] [address] PCP - General Family Medicine 09/18/24 documented as of this encounter
--- OUTSIDE RECORDS SUMMARY | 2024-09-22 23:02 | XMS_ITS | Encounter Summary ---
Author Organization [place] Address [address] [facility] [place] [address] Care Team Providers Care Senior Security Analyst Name Role Phone Pau Franklin Primary Care Provider [phone] Reason for Visit * Auth/Cert Specialty Diagnoses / Procedures Referred By Ava asencio Referred To Contact Surgery Diagnoses Other specified disorders of bladder Other specified disorders of bladder [N32.89] Procedures MS CYSTOSCOPY W TX MINOR LESION <0.5 CM MS CYSTOURETHROSCOPY,FULGUR .5-2CM LE* MS CYSTOURETHROSCOPY,FULGUR 2-5CM LESN MS CYSTOURETHROSCOPY,FULGUR >5CM LESN Cystoscopy, with transurethral resection [facility] [address] [place] [address] Phone: tel: Referral ID Status Reason Start Date Expiration Date Visits Re quested Visits Authorized [id number] 1 1 Encounter Details Date Type Department Care Team (Late st Contact Info) Description 09/21/2024 12:15 PM FLOAT OPERATOR - 09/21/2024 2:35 PM FLOAT OPERATOR Surgery [facility] [address] [place] [address] Nikki Bartlett MD [facility] [address] [place] [...] 1 Special Needs *marco antonio-cpap, stemi(2022), s3ckd, iccgztpehkzjelbw-wdu-rbvot appt 09/19 @2pm [id number] minutes documented in this encounter Social History [...] Comments Blood Pressure 131/65 09/21/2024 2:30 PM FLOAT OPERATOR Pulse 74 09/21/2024 2:30 PM FLOAT OPERATOR Temperature 37.2 C (99 F) 09/21/2024 2:15 PM FLOAT OPERATOR Respiratory Rate 18 09/21/2024 2:30 PM FLOAT OPERATOR Oxygen Saturation 93% 09/21/2024 2:30 PM FLOAT OPERATOR Inhaled Oxygen Concentration - - Weight 65.9 kg (145 lb 4.8 oz) 09/21/2024 10:58 AM FLOAT OPERATOR Height 152.4 cm (5') 09/21/2024 10:58 AM FLOAT OPERATOR Body Mass Index 28.38 09/21/2024 10:58 AM FLOAT OPERATOR documented in this encounter Discharge Instructions * Discharge Instructions* Pau Egan RN - 09/21/2024 2:05 PM FLOAT OPERATOR Remove catheter at home, Monday 09/25. [...] about your procedure, call Dr. Bartlett at [phone] T OPERATOR T OPERATOR T OPERATOR documented in this encounter Medications at [...] and given to daughter per pt request. T OPERATOR * Pau Egan RN - 09/21/2024 2:48 PM CST Candelario teaching done with daughters. T OPERATOR * Kwame Beth RN - 09/21/2024 11:50 AM CST Pt had itching just above the IV site. No redness noted. No hives on body, no swelling of lips, tongue or throat. Cipro stopped and flushed with NS. Dr. Bartlett in room and said no new iv needed and ordered ancef instead. T OPERATOR * Beverly Handley RN - 09/14/2024 8:50 AM CST Fax number given to daughter Lanny to fax H&P to us. T OPERATOR documented in this encounter Miscellaneous Notes * Op Note - Nikki Bartlett MD - 09/21/2024 1:30 PM CST OPERATIVE REPORT PATIENT: Radha Painter : 1940, AGE: [age] year old SSN: [id number] SURGEON Nikki Bartlett MD Last Trimmer: Sanaz Matos RN; Maria Alejandra Dc RN [...] was papillary appearing. I then introduced the 26-Vietnamese resectoscope into the patient's bladder. Resection of [...] to the right UO. Nikki Bartlett MD [facility] Pager: [phone] Office: [phone] Surgical [phone] T OPERATOR T OPERATOR documented in this encounter Plan of Treatment Not on file documented as of this encounter Procedures Procedure Name Priority Date/Time Associated Diagnosis Comments SURGICAL PATHOLOGY EXAM Routine 09/21/2024 1:04 PM FLOAT OPERATOR CYSTOSCOPY, WITH TRANSURETHRAL RESECTION BLADDER TUMOR 09/21/2024 12:23 PM FLOAT OPERATOR Other specified disorders of bladder Special Needs *marco antonio-cpap, stemi(2022), s3ckd, wojuikodtypogbln-fxx-dppxg appt 09/19 @2pm [id number] minutes EKG CARDIAC - HIM SCAN 08/24/2024 12:00 AM FLOAT OPERATOR documented in this encounter Results * (ABNORMAL) Surgical Pathology Exam (09/21/2024 1:04 PM FLOAT OPERATOR) Case Report Surgical Pathology Report Case: [id number] Authorizing Provider: Nikki Bartlett MD Collected: 09/21/2024 01:04 PM Ordering Location: [facility] Received: 09/21/2024 01:[address] [facility] OR Pathologist: Rebecca Ortez MD Specimen: Urinary Bladder, BLADDER TUMOR 09/22/2024 10:51 AM [facility] Final Diagnosis Bladder, 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 09/22/2024 10:51 AM [facility] Clinical Information Procedure: Cystoscopy, with transurethral resection bladder tumor Pre-op Diagnosis: Other specified disorders of bladder [N32.89] Post-op Diagnosis: N32.89 - Other specified disorders of bladder [ICD-10-CM] 09/22/2024 10:51 AM [facility] Gross Description A(1). Urinary Bladder, [...] (ASCP) 09/21/2024 1:21 PM 09/22/2024 10:51 AM [facility] Microscopic Description Microscopic examination was performed. 09/22/2024 10:51 AM [facility] MCRS Yes(A) N/A 09/22/2024 10:51 AM [facility] Performing Labs The technical component of this testing was completed at [facility]. Stain controls for all stains resulted within this report have been reviewed and show appropriate reactivity. 09/22/2024 10:51 AM FLOAT OPERATOR LABORATORY Case Images 09/22/2024 10:51 AM FLOAT OPERATOR LABORATORY Tissue URINARY BLADDER STRUCTURE / Unknown 09/21/2024 1:04 PM FLOAT OPERATOR 09/21/2024 1:19 PM FLOAT OPERATOR Nikki HSIEH - PA AP Final Result LABORATORY [facility] Acute Care Lab [address] Lab (1st floor, no room number) [place] [address], [facility] Acute [facility] [address] 1st floor, [address] [place] [address], [place] [phone] * EKG Cardiac - HIM Scan (08/24/2024 12:00 AM FLOAT OPERATOR) 08/24/2024 us Provider Outside ECG ORDERABLES [...] 4 grams/day., Pre-procedure $Given 09/21/2024 11:17 AM FLOAT OPERATOR 975 mg ciprofloxacin (CIPRO) infusion 400 mg Routine, 400 mg, Intravenous, EVERY 12 HOURS, First dose on Yojana 09/21/24 at 1100, Indications: Perioperative Pharmacoprophylaxis, Pre-procedureIndications:Periopera tive Pharmacoprophylaxis $New Bag 09/21/2024 11:17 AM FLOAT OPERATOR 400 mg sodium chloride 0.9% (bottle) irrigation PRN, Starting on Yojana 09/21/24 at 1250, Intra-procedure $Given 09/21/2024 12:50 PM FLOAT OPERATOR 1,000 mLs sodium chloride 0.9% irrigation (bag) PRN, Starting on Yojana 09/21/24 at 1251, Intra-procedure $Given 09/21/2024 12:51 PM FLOAT OPERATOR 1,000 mLs documented in this encounter Active and Recently Administered Medications Times are shown in FLOAT OPERATOR. Scheduled Medication Order 09/19/2024 09/20/2024 09/21/2024 [...] Pre-procedure documented in this encounter Care Teams Senior Security Analyst Relationship Specialty Start Date End Date Pau Franklin [address] [place] [address] PCP - General Family Medicine 09/18/24 documented as of this encounter
--- OUTSIDE RECORDS SUMMARY | 2024-09-22 23:02 | XMS_ITS | Clinical Summary ---
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) 09/19/2024 Travel 09/19/2024 Refill [facility] [address] [facility] [place] [address] Pau Franklin MD Refill Request (Zolpidem, Rosuvastatin, Metoprolol Succinate, Clopidogrel) 09/14/2024 9:15 AM HEALTH CARE / MEDICAL JOB TITLES Orders Only [facility] [place] [address] Lab, [place] [facility] 09/14/2024 Travel 08/30/2024 Nurse Triage [facility] [address] [facility] [place] [address] Pau Franklin MD Fatigue (Exhaustion and fatigue - worse x3 days) 08/24/2024 9:55 AM HEALTH CARE / MEDICAL JOB TITLES Office Visit [facility] [address] [place] [address] Pau Franklin MD ER Follow up (cyst in her ovary and a lesion in her bladder found); Medication Management (Duloxetine increase?) 08/24/2024 Orders Only [facility] [address] [facility] [place] [address] Pau Franklin MD 1 scan: (1-Ord) NFLD-EKG-08/24/24 08/24/2024 Travel 08/14/2024 Orders Only [facility] Scanner 1 scan: (1-Ord) [facility], CLINICAL LABORATORY REPORT, 08/14/2024 08/14/2024 Orders Only [facility] Scanner 1 scan: (1-Ord) [facility], PELVIC TA COMPLETE , 08/14/2024 08/14/2024 Orders Only [facility] Scanner 1 scan: (1-Ord) [place], ABDOMEN PELVIS W CONTRAST, 08/14/2024 08/13/2024 Orders Only [facility] Scanner 1 scan: (1-Ord) [facility], XR ABDOMEN, 08/13/2024 08/11/2024 3:30 PM HEALTH CARE / MEDICAL JOB TITLES Office Visit [facility] [address] [place] [address] Rai Vera MD Follow Up (1 year follow up - Acute anterior wall ND) 08/11/2024 Travel 07/31/2024 Refill [facility] [address] [facility] [place] [address] Pau Franklin MD Refill Request (Spironolactone) 07/20/2024 2:40 PM CDT Office Visit [facility] [address] [facility] [address] [place] [address] Pau Franklin MD Pre-Op Exam (Upper endoscopy 07/31/24 [facility] / /[facility] Memory Loss (Fatigue changes daily and patient suspects it is depression./Anxiety/I nterested in Aricept) 07/20/2024 Travel 07/14/2024 Telephone [facility] [address] [facility] [place] [address] Pau Franklin MD upcoming appointments 07/10/2024 2:30 PM CDT Telemedicine [facility] [address] [place] [address] Nicolás Pryor MD Telehealth (cpap) 07/06/2024 11:30 AM CDT Office Visit [facility] [address] [place] [address] Nadeen Pelayo PA Fatigue 07/06/2024 Travel 07/06/2024 Nurse Triage [facility] [address] [place] [address] Nadeen Pelayo PA Fatigue 07/05/2024 Orders Only [facility] Scanner 1 scan: (1-Ord) RESMED, COMPLIANCE REPORT, 07/05/2024 from Last 3 Months Immunizations Name Administration Dates Next Due AMB Influenza, IIV3 (Age >=3 years)(Flu Clinic Only) 06/28/2009 COVID-19 vaccine ([employer] NTAngelantoni 30mcg/0.3mL) PF, MDV 07/15/2021,11/26/2020,11/05/2020 Influenza Virus, Unspecified [...] at 89 Heart Disease Mother age 72--first ND. at 90. dementia Hypertension Mother Stroke Mother [...] drink = 0.6 oz pur e alcohol) [facility] Utilities Answer Date Recorded Do you [...] Sex Assigned at Female 10/02/2020 12:00 PM HEALTH CARE / MEDICAL JOB TITLES Legal Sex Female 6:41 AM HEALTH CARE / MEDICAL JOB TITLES Gender Identity Female 10/02/2020 12:00 PM HEALTH CARE / MEDICAL JOB TITLES Sexual Orientation Straight 10/02/2020 12 :00 PM HEALTH CARE / MEDICAL JOB TITLES Occupation Industry Job Start Date Job End [...] Comments Blood Pressure 129/69 09/19/2024 2:14 PM HEALTH CARE / MEDICAL JOB TITLES Pulse 69 09/19/2024 2:14 PM HEALTH CARE / MEDICAL JOB TITLES Temperature 36.6 C (97.9 F) 09/19/2024 2:14 PM HEALTH CARE / MEDICAL JOB TITLES Respiratory Rate 16 09/29/2023 8:30 AM HEALTH CARE / MEDICAL JOB TITLES Oxygen Saturation 100% 09/19/2024 2:14 PM HEALTH CARE / MEDICAL JOB TITLES Inhaled Oxygen Concentration - - Weight 66.3 kg (146 lb 1.6 oz) 09/19/2024 2:14 P M HEALTH CARE / MEDICAL JOB TITLES Height 152.4 cm (5') 09/19/2024 2:14 PM HEALTH CARE / MEDICAL JOB TITLES Body Mass Index 28.53 09/19/2024 2:14 PM HEALTH CARE / MEDICAL JOB TITLES Plan of Treatment Upcoming Encounters Date Type Department Care Team (Late st Contact Info) Description 10/03/2024 3:05 PM HEALTH CARE / MEDICAL JOB TITLES Office Visit [facility] [address] [place] [address] Pau Franklin MD [address] [place] [address] Health Maintenance Due Date Last Done Comments [...] REFLEX MEASURED LDL Routine 09/14/2024 8:57 AM HEALTH CARE / MEDICAL JOB TITLES Pure hypercholesterolemia TN READING EKG - NO CHARGE, COMP ONLY Routine 08/24/2024 3:33 PM HEALTH CARE / MEDICAL JOB TITLES Left-sided chest pain EKG 12 LEAD Routine 08/24/2024 3:33 PM HEALTH CARE / MEDICAL JOB TITLES Left-sided chest pain SCAN-LABORATORY REPORT 08/14/2024 12:00 AM HEALTH CARE / MEDICAL JOB TITLES SCAN-ULTRASOUND REPORT 08/14/2024 12:00 AM HEALTH CARE / MEDICAL JOB TITLES SCAN-CT INTERPRETATION 08/14/2024 12:00 AM HEALTH CARE / MEDICAL JOB TITLES SCAN-RADIOLOGY REPORT 08/13/2024 12:00 AM HEALTH CARE / MEDICAL JOB TITLES BASIC METABOLIC PANEL Routine 07/06/2024 12:07 PM CDT Fatigue, unspecified type CBC WITH AUTO DIFFERENTIAL Routine 07/06/2024 12:07 PM CDT Fatigue, unspecified type URINALYSIS MACROSCOPIC - [facility] ONLY POC DIP ([facility]) Routine 07/06/2024 12:06 PM CDT Fatigue, unspecified type SCAN-DIAGNOSTIC REPORT 07/05/2024 12:00 AM CDT XR DXA BONE DENSITY 2 SITES AXIAL Routine 10/07/2020 1:32 PM HEALTH CARE / MEDICAL JOB TITLES Asymptomatic postmenopausal state from Last 3 Months or Most Recently Relevant to Health Maintenance Results * LIPID PANEL W REFLEX MEASURED LDL ([id number]) (09/14/2024 8:57 AM HEALTH CARE / MEDICAL JOB TITLES) [facility] Signature CHOLESTEROL, TOTAL 146 <200 mg/dL [facility] HDL CHOLESTEROL 50 > OR = 50 mg/dL [facility] TRIGLYCERIDES 96 <150 mg/dL [facility] LDL-CHOLESTEROL 78 mg/dL (calc) [facility] Comment: Reference range: <100 Desirable range <100 mg/dL for primary prevention; <70 mg/dL for patients with CHD or diabetic patients with > or = 2 CHD risk factors. LDL-C is now calculated using the Moncho-Aguilar calculation, which is a validated novel method providing better accuracy than the Friedewald equation in the estimation of LDL-C. Moncho SS et al. HAYLEE. 2013;310(19): 1692-8814 (http://education.Womply/faq/MGX945) CHOL/HDLC RATIO 2.9 <5.0 (calc) [facility] NON HDL CHOLESTEROL 96 <130 mg/dL (calc) [facility] Comment: For patients with diabetes plus 1 major ASCVD risk factor, treating to a non-HDL-C goal of <100 mg/dL (LDL-C of <70 mg/dL) is considered a therapeutic option. Blood BLOOD SPECIMEN / Unknown 09/14/2024 8:57 AM HEALTH CARE / MEDICAL JOB TITLES 09/14/2024 8:58 AM HEALTH CARE / MEDICAL JOB TITLES Rai Vera MD CHEMISTRY Final Result [facility] [address] [place] [address], [facility] [address] [place] [address] * EKG 12 LEAD (08/24/2024 3:33 PM HEALTH CARE / MEDICAL JOB TITLES) Pau Franklin MD EKG ORD Final Result * TN READING EKG - NO CHARGE, COMP ONLY (08/24/2024 3:33 PM HEALTH CARE / MEDICAL JOB TITLES) Pau Franklin MD PB - PROVIDER READING S Final Result * SCAN-LABORATORY REPORT (08/14/2024 12:00 AM HEALTH CARE / MEDICAL JOB TITLES) us Scanner OTHER Final Result * SCAN-ULTRASOUND REPORT (08/14/2024 12:00 AM HEALTH CARE / MEDICAL JOB TITLES) Anatomical Region Laterality Modality Other us Scanner OTHER Final Result * SCAN-CT INTERPRETATION (08/14/2024 12:00 AM HEALTH CARE / MEDICAL JOB TITLES) Anatomical Region Laterality Modality Other us Scanner OTHER Final Result * SCAN-RADIOLOGY REPORT (08/13/2024 12:00 AM HEALTH CARE / MEDICAL JOB TITLES) Anatomical Region Laterality Modality Other us Scanner OTHER Final Result * (ABNORMAL) CBC AND DIFFERENTIAL (07/06/2024 12:07 PM CDT) Pathologist [facility] WHITE BLOOD CELL COUNT 5.0 3.8 - [...] FOR COLLECTION. Nadeen CHACON HEMATOLOGY Final Result [facility] [address] [place] [address], [facility] [address] [place] [phone] * (ABNORMAL) BASIC METABOLIC PANEL (07/06/2024 12:07 PM CDT) [facility] Signature GLUCOSE 78 65 - 99 [...] COLLECTION. us Nadeen CHACON CHEMISTRY Final Result [facility] [address] [place] [address], [facility] [address] [place] [address] * POCT Urinalysis Dipstick Only (07/06/2024 12:06 PM CDT) PH 6.0 5.0 - 8.0 [facility] SPECIFIC GRAVITY < OR = 1.005 1.001 - 1.035 [facility] Comment: Specific Raymond values resulted are outside the analytical measurement range of this device. Recommend repeat/additional testing as clinically indicated. GLUCOSE NEGATIVE NEGATIVE [facility] BILIRUBIN NEGATIVE NEGATIVE [facility] KETONES NEGATIVE NEGATIVE [facility] OCCULT BLOOD NEGATIVE NEGATIVE [facility] PROTEIN NEGATIVE NEGATIVE [facility] NITRITE NEGATIVE NEGATIVE [facility] LEUKOCYTE ESTERASE NEGATIVE NEGATIVE [facility] Urine URINE SPECIMEN / Unknown 07/06/2024 12:06 PM CDT 07/06/2024 12:06 PM CDT us Nadeen CHACON URINE Final Result [facility] [address] [place] [address], [facility] [address] [place] [address] * SCAN-DIAGNOSTIC REPORT (07/05/2024 12:00 AM CDT) us Scanner OTHER Final Result * (ABNORMAL) XR DXA BONE DENSITY 2 SITES AXIAL (10/07/2020 1:32 PM HEALTH CARE / MEDICAL JOB TITLES) Anatomical Region Laterality Modality Spine, HIPS, HIPL, HIPR Other Narrative 10/09/2020 2:44 PM HEALTH CARE / MEDICAL JOB TITLES Please see scanned document for results of this study. us Pau Franklin MD DEXA Final Result from Last 3 Months or Most Recently Relevant to Health Maintenance Insurance MEDICARE PB ONLY [facility] MEDICARE PART B HB ONLY MEDICARE PART A HB ONLY [facility] MEDICARE PPS Advance Directives Documents on File Type Date Recorded Patient Lift Manager Expl anation Healthcare Directive 02/24/2013 12:14 PM [...] Code Status Discussion: Reviewed Preferences Care Teams Coffee Host Relationship Specialty Start Date End Date Pau Franklin MD [address] [place] [address] PCP - General Family Practice 06/25/14 Steven Tellez [address] [place] [address] Conveyor Attendant 01/29/12
--- OUTSIDE RECORDS SUMMARY | 2024-09-22 23:02 | XMS_ITS | Referral Summary ---
Author Organization [place] Address [address] [place] [address] Care Team Providers Care Child Care Aide Name Role Phone Pau Franklin Primary Care Provider [phone] Encounters Date Type Department Care Team Description 09/21/2024 Telephone [facility] Hospitalist Program [address] [facility] [place] [phone] Nikki Bartlett MD Prior Auth - Medication (Trospium - Denied) 09/21/2024 12:23 PM INSTITUTIONAL ASSET MANAGER Anesthesia Event [facility] [address] [place] [phone] Lizbeth Thornton MD 09/21/2024 12:15 PM INSTITUTIONAL ASSET MANAGER - 09/21/2024 2:35 PM INSTITUTIONAL ASSET MANAGER Surgery [facility] [address] [place] [phone] Nikki Bartlett MD Cystoscopy, with transurethral resection bladder tumor 09/21/2024 10:28 AM INSTITUTIONAL ASSET MANAGER - 09/21/2024 4:07 PM INSTITUTIONAL ASSET MANAGER Hospital Encounter [facility] PreOP/Phase II [address] [place] [phone] Nikki Bartlett MD Malignant neoplasm of trigone [...] Comments Blood Pressure 134/74 09/21/2024 3:35 PM INSTITUTIONAL ASSET MANAGER Pulse 75 09/21/2024 2:45 PM INSTITUTIONAL ASSET MANAGER Temperature 36.6 C (97.9 F) 09/21/2024 3:35 PM INSTITUTIONAL ASSET MANAGER Respiratory Rate 18 09/21/2024 3:35 PM INSTITUTIONAL ASSET MANAGER Oxygen Saturation 94% 09/21/2024 3:35 PM INSTITUTIONAL ASSET MANAGER Inhaled Oxygen Concentration - - Weight 65.9 kg (145 lb 4.8 oz) 09/21/2024 10:58 AM INSTITUTIONAL ASSET MANAGER Height 152.4 cm (5') 09/21/2024 10:58 AM INSTITUTIONAL ASSET MANAGER Body Mass Index 28.38 09/21/2024 10:58 AM INSTITUTIONAL ASSET MANAGER Plan of Treatment Not on file Procedures Procedure Name Priority Date/Time Associated Diagnosis Comments SURGICAL PATHOLOGY EXAM Routine 09/21/2024 1:04 PM INSTITUTIONAL ASSET MANAGER ANE AIRWAY ETT PERFORMABLE Routine 09/21/2024 12:34 PM INSTITUTIONAL ASSET MANAGER CYSTOSCOPY, WITH TRANSURETHRAL RESECTION BLADDER TUMOR 09/21/2024 12:23 PM INSTITUTIONAL ASSET MANAGER Other specified disorders of bladder Special Needs *marco antonio-cpap, stemi(2022), s3ckd, qzqufsrknwozztmv-icq-cmvjn appt 09/19 @2pm [id number] minutes EKG CARDIAC - HIM SCAN 08/24/2024 12:00 AM INSTITUTIONAL ASSET MANAGER from Last 3 Months Results * (ABNORMAL) Surgical Pathology Exam (09/21/2024 1:04 PM INSTITUTIONAL ASSET MANAGER) Case Report Surgical Pathology Report Case: [id number] Authorizing Provider: Nikki Bartlett MD Collected: 09/21/2024 01:04 PM Ordering Location: [facility] Received: 09/21/2024 01:[address] 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 09/22/2024 10:[address] [facility] Clinical Information Procedure: Cystoscopy, with transurethral resection bladder tumor Pre-op Diagnosis: Other specified disorders of bladder [N32.89] Post-op Diagnosis: N32.89 - Other specified disorders of bladder [ICD-10-CM] 09/22/2024 10:51 AM INSTITUTIONAL ASSET MANAGER LABORATORY Gross Description A(1). Urinary Bladder, BLADDER [...] (ASCP) 09/21/2024 1:21 PM 09/22/2024 10:51 AM INSTITUTIONAL ASSET MANAGER LABORATORY Microscopic Description Microscopic examination was performed. 09/22/2024 10:[address] [facility] MCRS Yes(A) N/A 09/22/2024 10:[address] [facility] Performing Labs The technical component of this testing was completed at [facility]. Stain controls for all stains resulted within this report have been reviewed and show appropriate reactivity. 09/22/2024 10:51 AM [facility] Case Images 09/22/2024 10:[address] [facility] Tissue URINARY BLADDER STRUCTURE / Unknown 09/21/2024 1:04 PM INSTITUTIONAL ASSET MANAGER 09/21/2024 1:19 PM INSTITUTIONAL ASSET MANAGER us Nikki HSIEH - PA LEE Final Result LABORATORY [facility] Acute Care Lab [address] [facility] (1st floor, no room number) [place] [address], [facility] Care Lab [address] 1[address] floor, [address] [place] [address], [facility] [phone] * ANE AIRWAY ETT PERFORMABLE (09/21/2024 12:34 PM INSTITUTIONAL ASSET MANAGER) Narrative Jing Alexander APRN MUD TANK OPERATOR - 09/21/2024 12:34 PM INSTITUTIONAL ASSET MANAGER Jing Alexander APRN MUD TANK OPERATOR 09/21/2024 12:47 PM Airway Patient location during procedure: OR Procedure Start/Stop Times: 09/21/2024 12:34 PM Staff - MUD TANK OPERATOR: Jing Alexander APRN MUD TANK OPERATOR Performed By: MUD TANK OPERATOR Consent for Airway Urgency: elective Indications [...] 09/21/2024 12:34 PM us Lizbeth Thornton MD [place] ANESTHESIA Final Res ult * EKG Cardiac - HIM Scan (08/24/2024 12:00 AM INSTITUTIONAL ASSET MANAGER) 08/24/2024 us Provider Outside ECG ORDERABLES Final Result from Last 3 Months Insurance MEDICARE [facility] MEDICARE SUPPLEMENT MEDICARE BC OF [place] MEDICARE SUPPLEMENT Care Teams Child Care Aide Relationship Specialty Start Date End Date Pau Franklin [address] [place] [address] PCP - General Family Medicine 09/18/24
--- OUTSIDE RECORDS SUMMARY | 2024-09-22 23:02 | XMS_ITS | Encounter Summary ---
Author Organization [place] Address [address] [facility] [place] [address] Care Team Providers Care Motion Picture Commentator Name Role Phone Pau Franklin Primary Care Provider [phone] Reason for Visit * Auth/Cert Specialty Diagnoses / Procedures Referred By Ava asencio Referred To Contact Surgery Diagnoses Other specified disorders of bladder Other specified disorders of bladder [N32.89] Procedures [place] CYSTOSCOPY W [place] MINOR LESION <0.5 CM [place] CYSTOURETHROSCOPY,FULGUR .5-2CM LE* [place] CYSTOURETHROSCOPY,FULGUR 2-5CM LESN [place] CYSTOURETHROSCOPY,FULGUR >5CM LESN Cystoscopy, with transurethral resection bladder tumor [facility] [address] [place] [address] Phone: tel: Referral ID Status Reason Start Date Expiration Date Visits Re quested Visits Authorized [id number] 1 1 Encounter Details Date Type Department Care Team (Late st Contact Info) Description 09/21/2024 12:23 PM HISTOLOGY TEACHER Anesthesia Event [facility] [address] [place] [phone] Lizbeth Thornton [place] [facility] [place] [place] [address] [place], [place] [address] Anesthesia Record Procedure Summary Procedure Name Responsible [...] signs recorded are pre-induction. Jing Alexander APRN GEAR TECHNICIAN 1231 An Induction 1234 An Intubation 1235 Anesthesia Ready for Procedu re 1310 AN Extubation All extubation criteria met prior to removal. 1320 an stop data 1329 An Stop Electronically signed by Flor Kirby APRN GEAR TECHNICIAN on September 21, 2024 1:29 PM Meds [...] Grade View: 1; Adjucts: Stylet; Placement Person: GEAR TECHNICIAN; Attempts: 1 09/21/24 1234 by Jing Alexander APRN GEAR TECHNICIAN 09/21/24 1310 by Jing Alexander APRN CRNA [...] Thornton MD September 21, 2024 4:45 PM OLOGY TEACHER * Anesthesia Procedure Notes - Jing Alexander APRN CRNA - 09/21/2024 12:46 PM CSTAssociated Order(s): Airway Airway Patient location during procedure: OR Procedure Start/Stop Times: 09/21/2024 12:34 PM Staff - GEAR TECHNICIAN: Jing Alexander APRN CRNA Performed By: GEAR TECHNICIAN Consent for Airway Urgency: elective Indications and [...] Administered Medication Administration Time: 09/21/2024 12:34 PM OLOGY TEACHER * Anesthesia Preprocedure Evaluation - Lizbeth Thornton [...] Cardiovascular: (+) - - CAD - past UT (~1 year ago. Completed cardiac rehab. No [...] and realistic alternatives discussed. Questions answered and patient/provider relations representative(s) expressed understanding. - Discussed: Risks, Benefits [...] # Hypertension: Home medication list includes antihypertensive(s) OLOGY TEACHER OLOGY TEACHER documented in this encounter Miscellaneous Notes * Anesthesia Care Transfer Note - Flor Kirby APRN GEAR TECHNICIAN - 09/21/2024 1:29 PM CST Patient: Radha [...] APRN CRNA September 21, 2024 1:29 PM OLOGY TEACHER documented in this encounter Plan of Treatment Not on file documented as of this encounter Procedures Procedure Name Priority Date/Time Associated Diagnosis Comments ANE AIRWAY ETT PERFORMABLE Routine 09/21/2024 12:34 PM HISTOLOGY TEACHER documented in this encounter Results * ANE AIRWAY ETT PERFORMABLE (09/21/2024 12:34 PM HISTOLOGY TEACHER) Narrative Jing Alexander APRN CRNA - 09/21/2024 12:34 PM HISTOLOGY TEACHER Jing Alexander APRN CRNA 09/21/2024 12:47 PM Airway Patient location during procedure: OR Procedure Start/Stop Times: 09/21/2024 12:34 PM Staff - GEAR TECHNICIAN: Jing Alexander APRN CRNA Performed By: GEAR TECHNICIAN Consent for Airway Urgency: elective Indications and [...] Time: 09/21/2024 12:34 PM Lizbeth Thornton MD [place] ANESTHESIA Final Res ult documented in this [...] Pre-procedureIndications:Perioperat ritchie Pharmacoprophylaxis $Given 09/21/2024 12:34 PM HISTOLOGY TEACHER 2 g dexAMETHasone (DECADRON) injection Intravenous, PRN, Administer over 1 Minutes, Starting on Yojana 09/21/24 at 1239, Anesthesia Intra-op $Given 09/21/2024 12:39 PM HISTOLOGY TEACHER 4 mg dexmedeTOMIDine (PRECEDEX) 4 mcg/mL in sodium chloride 0.9 % 50 mL infusion Intravenous, PRN, Starting on Yojana 09/21/24 at 1241, Anesthesia Intra-op $Given 09/21/2024 12:41 P M HISTOLOGY TEACHER 8 mcg fentaNYL (PF) (SUBLIMAZE) injection Intravenous, PRN, Administer over 3-5 Minutes, Starting on Yojana 09/21/24 at 1237, Anesthesia Intra-op $Given 09/21/2024 12:37 PM HISTOLOGY TEACHER 50 mcg $Given 09/21/2024 12:23 PM HISTOLOGY TEACHER 50 mcg lactated ringers infusion at 100 mL/hr, Intravenous, CONTINUOUS, Pre-procedure, Starting on Yojana 09/21/24 at 1100, Until Yojana 09/21/24 at 1322 $New Bag 09/21/2024 12:23 PM HISTOLOGY TEACHER lidocaine 2% injection (MDV) Intravenous, PRN, Starting on Yojana 09/21/24 at 1231, Anesthesia Intra-op $Given 09/21/2024 12:31 PM HISTOLOGY TEACHER 100 mg ondansetron (ZOFRAN) injection Intravenous, PRN, Administer over 2-5 Minutes, Starting on Yojana 09/21/24 at 1239, Anesthesia Intra-op $Given 09/21/2024 12:39 PM HISTOLOGY TEACHER 4 mg propofol (DIPRIVAN) infusion Intravenous, CONTINUOUS PRN, Starting on Yojana 09/21/24 at 1235, Anesthesia Intra-op Rate/Dose Change 09/21/2024 12:56 PM HISTOLOGY TEACHER 125 mcg/kg/min 49.5 mL/hr Rate/Dose Change 09/21/2024 12:43 PM HISTOLOGY TEACHER 150 mcg/kg/min 59 .4 mL/hr Rate/Dose Change 09/21/2024 12:39 PM HISTOLOGY TEACHER 140 mcg/kg/min 55 .44 mL/hr propofol (DIPRIVAN) injection 10 mg/mL vial Intravenous, PRN, Starting on Yojana 09/21/24 at 1231, Anesthesia Intra-op $Given 09/21/2024 12:31 PM HISTOLOGY TEACHER 120 mg rocuronium injection Intravenous, PRN, Starting on Yojana 09/21/24 at 1232, Anesthesia Intra-op $Given 09/21/2024 12:32 PM HISTOLOGY TEACHER 50 mg sugammadex (BRIDION) injection Intravenous, PRN, Starting on Yojana 09/21/24 at 1300, Anesthesia Intra-op $Given 09/21/2024 1:00 PM HISTOLOGY TEACHER 200 mg documented in this encounter Care Teams Motion Picture Commentator Relationship Specialty Start Date End Date Pau Franklin [address] [place] [address] PCP - General Family Medicine 09/18/24 documented as of this encounter
--- OUTSIDE RECORDS SUMMARY | 2024-09-22 23:02 | XMS_ITS | Continuity of Care Document ---
Author Name [place] User [place] Address Unknown Organization Unknown Address Unknown Procedures FILTER APPLIED:Only known Procedures with Onset Date within the last 5 years Procedure Date Procedure Provider Additiona l Information Status [place] CYSTOURETHROSCOPY,FULGUR >5CM LESN (82518) Completed [place] CYSTOURETHROSCOPY,FULGUR 2-5CM LESN (34443) Completed [place] CYSTOURETHROSCOPY,FULGUR .5-2CM LE* (97725) Completed [place] CYSTOSCOPY W [place] MINOR LESION <0.5 CM (42810) Completed COMPLETE CBC W/AUTO DIFF WBC (49211) Completed ROUTINE VENIPUNCTURE (53983) Completed ASSAY OF TROPONIN QUANT (65978) Completed THER/PROPH/DIAG INJ IV PUSH (36418) Completed ASSAY OF NATRIURETIC PEPTIDE (79034) Completed TX/PRO/DX INJ NEW DRUG ADDON (43591) Completed EMERGENCY DEPT VISIT HI MDM (26264) Completed ELECTROCARDIOGRAM TRACING (19219) Completed METABOLIC PANEL TOTAL CA (07583) Completed Encounters FILTER APPLIED:Only known Encounters with Admission Date within the last 5 years Encounter Location Admission Discharge Billing Code Consultant Javier arceo [facility]
[2024-09-22 23:15] VITALS: BP 149/73; PULSE 66; RESP 16; TEMP 36.5; O2SAT 98; BMI 28.1
--- NOTE | 2024-09-22 23:29 | ED.FEMALEGU ---
HPI - Female Genitourinary General Time Seen by Provider: 23:29 Date Seen: 09/22/24 Chief complaint: Urogenital Problems, Female Stated complaint: Catheter came out Time Seen by Provider: 09/22/24 23:27 Source: patient, family and old records reviewed Mode of arrival: ambulatory Limitations: no limitations History of Present Illness HPI Narrative: 84-year-old female who comes in today with catheter concerns. Patient was just seen here today, had blood surgery about a week ago there was concerned about the catheter and some blood in the bag but was draining well. Family reports that on arrival home from the emergency department, accidentally tripped on the catheter pulled out. Patient has no other concerns today. Patient underwent cystoscopy with resection of bladder tumor 09/21/2024 Related Data Home Medications ?Medication ?Instructions ?Recorded ?Confirmed sertraline 100 mg tablet 200 mg PO DAILY 07/05/23 09/22/24 calcium carbonate (Calcium 500) 500 mg PO DAILY 04/10/24 09/22/24 metoprolol succinate 25 mg 12.5 mg PO DAILY 04/10/24 09/22/24 tablet,extended release 24 hr omeprazole 40 mg capsule,delayed 40 mg PO DAILY 04/10/24 09/22/24 release rosuvastatin 10 mg tablet 10 mg PO QPM 04/10/24 09/22/24 spironolactone 25 mg tablet 12.5 mg PO QAM 04/10/24 09/22/24 sucralfate 1 gram tablet 1 g PO QID 04/10/24 09/22/24 Previous Rx's ?Medication ?Instructions ?Recorded losartan 50 mg tablet 50 mg PO DAILY #30 tabs 04/12/24 Allergies Allergy/AdvReac Type Severity Reaction Status Date / Time bee venom protein (honey bee) Allergy Mild swelling Verified 09/22/24 23:19 Penicillins Allergy Unknown Verified 09/22/24 23:19 [facility] Medical History (Updated 09/23/24 @ 00:00 by Bib Sylvester MD) Abnormal computed tomography of bladder ?R93.41 - Abnormal radiologic findings on diagnostic imaging of renal pelvis, ureter, or bladder (ICD-10) Cyst of left ovary ?N83.202 - Unspecified ovarian cyst, left side (ICD-10) Depression ?F32.A - Depression, unspecified (ICD-10) Heart attack ?I21.9 - Acute myocardial infarction, unspecified (ICD-10) Surgical History (Updated 09/04/24 @ 13:51 by Angelina Machado MD) History of cholecystectomy ?Z90.49 - Acquired absence of other specified parts of digestive tract (ICD-10) History of appendectomy ?Z90.49 - Acquired absence of other specified parts of digestive tract (ICD-10) H/O heart artery stent ?Z95.5 - Presence of coronary angioplasty implant and graft (ICD-10) Family History (Updated 09/04/24 @ 13:52 by Angelina Machado MD) Mother Heart disease Social History Smoking Status: Never smoker Do you use any of these nicotine containing products: None How often do you have a drink containing alcohol: never AUDIT-C Alcohol total score: 0 Non-prescribed substance use: denies use service: No Exam Narrative: Exam Narrative: General: Well-developed and well-nourished, no acute distress Head: Atraumatic and normocephalic Eyes: Pupils are equal reactive, extraocular motions intact, conjunctiva clear ENT: External nose and ears are normal, posterior pharynx without erythema or exudate Neck: No midline cervical tenderness, full spontaneous range of motion the neck, trachea midline, no adenopathy Heart: Regular rate and rhythm no murmurs or thrills Lungs: Clear to auscultation bilaterally without wheezes or crackles Abdomen: Soft, nontender, nondistended with active bowel sounds Musculoskeletal: No tenderness, deformity, or edema Neurologic: Awake, alert, and oriented x3, no gross focal neurologic deficits, cranial nerves intact as tested Psych: Mood and affect are appropriate Skin: No rashes Const: Vital Signs, click to edit/add: Vital Signs - 24 hr 09/22/24 23:15 Temperature 97.7 F Pulse Rate [Pulse Oximeter] 66 Respiratory Rate 16 Blood Pressure [Le ft Upper Arm] 149/73 H Pulse Oximetry 98 Oxygen Delivery Me thod Room Air Course Course ED Course: The patient seen and examined, presents today with catheter concern. Patient has a catheter in for postoperative care, this pulled out tonight. This was scheduled to be taken out in 3 days. Other than this patient has no complaints. Reevaluation(s) Time of Reevaluation #1: 23:58 Reevaluation #1: Care discussed with Dr. Bartlett, [facility] who performed patient's surgery, agrees with plan to replace catheter and does recommend follow-up on Wednesday as scheduled. Time of Reevaluation #2: 00:08 Reevaluation #2: Catheter replaced without difficulty, pink tinged urine in the bag, stable for discharge Vital Signs Vital signs: Initial Vital Signs Temperature 97.7 F 09/22/24 23:15 Temperature Source Temporal Artery Scan 09/22/24 23:15 Pulse Rate 66 09/22/24 23:15 Respiratory Rate 16 09/22/24 23:15 Blood Pressure 149/73 H 09/22/24 23:15 Blood Pressure Mean 98 09/22/24 23:15 Blood Pressure Position Supine 09/22/24 23:15 Pulse Oximetry 98 09/22/24 23:15 Oxygen Delivery Method Room Air 09/22/24 23:15 Vital Signs Temperature 97.7 F 09/22/24 23:15 Pulse Rate 66 09/22/24 23:15 Respiratory Rate 16 09/22/24 23:15 Blood Pressure 149/73 H 09/22/24 23:15 Pulse Oximetry 98 09/22/24 23:15 Oxygen Delivery Method Room Air 09/22/24 23:15 Temperature 97.7 F 09/22/24 23:15 Pulse Rate 66 09/22/24 23:15 Respiratory Rate 16 09/22/24 23:15 Blood Pressure 149/73 H 09/22/24 23:15 Pulse Oximetry 98 09/22/24 23:15 Oxygen Delivery Method Room Air 09/22/24 23:15 Discharge Plan Discharge Clinical Impression: Dislodged Mortensen catheter Patient Disposition: Home w/ Parent or Adult Condition: Stable Instructions: Mortensen Catheter Placement and Care (ED), How to Change a Catheter Drainage Bag (DC) Additional Instructions: Follow-up with Urology on Wednesday as scheduled Activity Level: Activity as Tolerated Discharge Diet: Regular Prescriptions: No Action sertraline 100 mg tablet 200 mg PO DAILY calcium carbonate [Calcium 500] 500 mg calcium (1,250 mg) tablet,chewable 500 mg PO DAILY sucralfate 1 gram tablet 1 g PO QID omeprazole 40 mg capsule,delayed release(DR/EC) 40 mg PO DAILY spironolactone 25 mg tablet 12.5 mg PO QAM metoprolol succinate 25 mg tablet extended release 24 hr 12.5 mg PO DAILY rosuvastatin 10 mg tablet 10 mg PO QPM losartan 50 mg tablet 50 mg PO DAILY Qty: 30 2RF Follow Up/Referrals: Pau Franklin MD [Primary Care Provider] - Stand Alone Forms: [facility] Info Instructions
--- OUTSIDE RECORDS SUMMARY | 2024-09-22 23:51 | XMS_ITS | Clinical Summary ---
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 [address] Pau Franklin MD Refill Request (Zolpidem, Rosuvastatin, Metoprolol Succinate, Clopidogrel) 09/14/2024 9:15 AM WASTE MANAGEMENT ENGINEER Orders Only [facility] [place] [address] Lab, [place] [facility] 09/14/2024 Travel 08/30/2024 Nurse Triage [facility] [address] [place] [address] Pau Franklin MD Fatigue (Exhaustion and fatigue - worse x3 days) 08/24/2024 9:55 AM WASTE MANAGEMENT ENGINEER Office Visit [facility] [address] [place] [address] Pau Franklin MD ER Follow up (cyst in her ovary and a lesion in her bladder found); Medication Management (Duloxetine increase?) 08/24/2024 Orders Only [facility] [address] [place] [address] Pau Franklin MD 1 scan: (1-Ord) NFLD-EKG-08/24/24 08/24/2024 Travel 08/14/2024 Orders Only [facility] Scanner 1 scan: (1-Ord) [facility], CLINICAL LABORATORY REPORT, 08/14/2024 08/14/2024 Orders Only [facility] Scanner 1 scan: (1-Ord) [facility], PELVIC TA COMPLETE , 08/14/2024 08/14/2024 Orders Only [facility] Scanner 1 scan: (1-Ord) [place], ABDOMEN PELVIS W CONTRAST, 08/14/2024 08/13/2024 Orders Only [facility] Scanner 1 scan: (1-Ord) [facility], XR ABDOMEN, 08/13/2024 08/11/2024 3:30 PM WASTE MANAGEMENT ENGINEER Office Visit [facility] [address] [place] [address] Rai Vera MD Follow Up (1 year follow up - Acute anterior wall IA) 08/11/2024 Travel 07/31/2024 Refill [facility] [address] [place] [address] Pau Franklin MD Refill Request (Spironolactone) 07/20/2024 2:40 PM CDT Office Visit [facility] [address] [facility] [place] [address] Pau Franklin MD Pre-Op Exam (Upper endoscopy 07/31/24 [facility] Memory Loss (Fatigue changes daily and patient suspects it is depression./Anxiety/I nterested in Aricept) 07/20/2024 Travel 07/14/2024 Telephone [facility] [address] [facility] [place] [address] Pau Franklin MD upcoming appointments 07/10/2024 2:30 PM CDT Telemedicine [facility] [address] [place] [address] Nicolás Pryor MD Telehealth (cpap) 07/06/2024 11:30 AM CDT Office Visit [facility] [address] [place] [address] Nadeen Pelayo PA Fatigue 07/06/2024 Travel 07/06/2024 Nurse Triage [facility] [address] [place] [address] Nadeen Pelayo PA Fatigue 07/05/2024 Orders Only [facility] Scanner 1 scan: (1-Ord) RESMED, COMPLIANCE REPORT, 07/05/2024 from Last 3 Months Immunizations Name Administration Dates Next Due AMB Influenza, IIV3 (Age >=3 years)(Flu Clinic Only) 06/28/2009 COVID-19 vaccine (Rewardpod NTXGear 30mcg/0.3mL) PF, MDV 07/15/2021,11/26/2020,11/05/2020 Influenza Virus, Unspecified [...] at 89 Heart Disease Mother age 72--first IA. at 90. dementia Hypertension Mother Stroke Mother [...] Sex Assigned at Female 10/02/2020 12:00 PM WASTE MANAGEMENT ENGINEER Legal Sex Female 6:41 AM WASTE MANAGEMENT ENGINEER Gender Identity Female 10/02/2020 12:00 PM WASTE MANAGEMENT ENGINEER Sexual Orientation Straight 10/02/2020 12 :00 PM WASTE MANAGEMENT ENGINEER Occupation Industry Job Start Date Job End [...] Comments Blood Pressure 129/69 09/19/2024 2:14 PM WASTE MANAGEMENT ENGINEER Pulse 69 09/19/2024 2:14 PM WASTE MANAGEMENT ENGINEER Temperature 36.6 C (97.9 F) 09/19/2024 2:14 PM WASTE MANAGEMENT ENGINEER Respiratory Rate 16 09/29/2023 8:30 AM WASTE MANAGEMENT ENGINEER Oxygen Saturation 100% 09/19/2024 2:14 PM WASTE MANAGEMENT ENGINEER Inhaled Oxygen Concentration - - Weight 66.3 kg (146 lb 1.6 oz) 09/19/2024 2:14 P M WASTE MANAGEMENT ENGINEER Height 152.4 cm (5') 09/19/2024 2:14 PM WASTE MANAGEMENT ENGINEER Body Mass Index 28.53 09/19/2024 2:14 PM WASTE MANAGEMENT ENGINEER Plan of Treatment Upcoming Encounters Date Type Department Care Team (Late st Contact Info) Description 10/03/2024 3:05 PM WASTE MANAGEMENT ENGINEER Office Visit [facility] [address] [place] [address] Pau Franklin MD [address] [place] [address] Health Maintenance Due Date Last Done Comments [...] REFLEX MEASURED LDL Routine 09/14/2024 8:57 AM WASTE MANAGEMENT ENGINEER Pure hypercholesterolemia MI READING EKG - NO CHARGE, COMP ONLY Routine 08/24/2024 3:33 PM WASTE MANAGEMENT ENGINEER Left-sided chest pain EKG 12 LEAD Routine 08/24/2024 3:33 PM WASTE MANAGEMENT ENGINEER Left-sided chest pain SCAN-LABORATORY REPORT 08/14/2024 12:00 AM WASTE MANAGEMENT ENGINEER SCAN-ULTRASOUND REPORT 08/14/2024 12:00 AM WASTE MANAGEMENT ENGINEER SCAN-CT INTERPRETATION 08/14/2024 12:00 AM WASTE MANAGEMENT ENGINEER SCAN-RADIOLOGY REPORT 08/13/2024 12:00 AM WASTE MANAGEMENT ENGINEER BASIC METABOLIC PANEL Routine 07/06/2024 12:07 PM CDT Fatigue, unspecified type CBC WITH AUTO DIFFERENTIAL Routine 07/06/2024 12:07 PM CDT Fatigue, unspecified type URINALYSIS MACROSCOPIC - [facility] ONLY POC DIP ([facility]) Routine 07/06/2024 12:06 PM CDT Fatigue, unspecified type SCAN-DIAGNOSTIC REPORT 07/05/2024 12:00 AM CDT XR DXA BONE DENSITY 2 SITES AXIAL Routine 10/07/2020 1:32 PM WASTE MANAGEMENT ENGINEER Asymptomatic postmenopausal state from Last 3 Months or Most Recently Relevant to Health Maintenance Results * LIPID PANEL W REFLEX MEASURED LDL ([id number]) (09/14/2024 8:57 AM WASTE MANAGEMENT ENGINEER) [facility] Signature CHOLESTEROL, TOTAL 146 <200 mg/dL [facility] HDL CHOLESTEROL 50 > OR = 50 mg/dL [facility] TRIGLYCERIDES 96 <150 mg/dL [facility] LDL-CHOLESTEROL 78 mg/dL (calc) [facility] Comment: Reference range: <100 Desirable range <100 mg/dL for primary prevention; <70 mg/dL for patients with CHD or diabetic patients with > or = 2 CHD risk factors. LDL-C is now calculated using the Moncho-Aguilar calculation, which is a validated novel method providing better accuracy than the Friedewald equation in the estimation of LDL-C. Moncho SS et al. HAYLEE. 2013;310(19): 8747-1348 (http://education.Fanmode/faq/UAR573) CHOL/HDLC RATIO 2.9 <5.0 (calc) [facility] NON HDL CHOLESTEROL 96 <130 mg/dL (calc) [facility] Comment: For patients with diabetes plus 1 major ASCVD risk factor, treating to a non-HDL-C goal of <100 mg/dL (LDL-C of <70 mg/dL) is considered a therapeutic option. Blood BLOOD SPECIMEN / Unknown 09/14/2024 8:57 AM WASTE MANAGEMENT ENGINEER 09/14/2024 8:58 AM WASTE MANAGEMENT ENGINEER Rai Vera MD CHEMISTRY Final Result [facility] [address] [place] [address], [facility] [address] [place] [address] * EKG 12 LEAD (08/24/2024 3:33 PM WASTE MANAGEMENT ENGINEER) Pau Franklin MD EKG ORD Final Result * MI READING EKG - NO CHARGE, COMP ONLY (08/24/2024 3:33 PM WASTE MANAGEMENT ENGINEER) Pau Franklin MD PB - PROVIDER READING S Final Result * SCAN-LABORATORY REPORT (08/14/2024 12:00 AM WASTE MANAGEMENT ENGINEER) us Scanner OTHER Final Result * SCAN-ULTRASOUND REPORT (08/14/2024 12:00 AM WASTE MANAGEMENT ENGINEER) Anatomical Region Laterality Modality Other us Scanner OTHER Final Result * SCAN-CT INTERPRETATION (08/14/2024 12:00 AM WASTE MANAGEMENT ENGINEER) Anatomical Region Laterality Modality Other us Scanner OTHER Final Result * SCAN-RADIOLOGY REPORT (08/13/2024 12:00 AM WASTE MANAGEMENT ENGINEER) Anatomical Region Laterality Modality Other us Scanner OTHER Final Result * (ABNORMAL) CBC AND DIFFERENTIAL (07/06/2024 12:07 PM CDT) Pathologist [facility] WHITE BLOOD CELL COUNT 5.0 [...] FOR COLLECTION. Nadeen CHACON HEMATOLOGY Final Result [facility] [address] [place] [address], [facility] [address] [place] [phone] * (ABNORMAL) BASIC METABOLIC PANEL (07/06/2024 12:07 PM CDT) [facility] Signature GLUCOSE 78 65 - 99 mg/dL [...] COLLECTION. us Nadeen CHACON CHEMISTRY Final Result [facility] [address] [place] [address], [facility] [address] [place] [address] * POCT Urinalysis Dipstick Only (07/06/2024 12:06 PM CDT) PH 6.0 5.0 - 8.0 [facility] SPECIFIC GRAVITY < OR = 1.005 1.001 - 1.035 [facility] Comment: Specific [place] values resulted are outside the analytical measurement range of this device. Recommend repeat/additional testing as clinically indicated. GLUCOSE NEGATIVE NEGATIVE [facility] BILIRUBIN NEGATIVE NEGATIVE [facility] KETONES NEGATIVE NEGATIVE [facility] OCCULT BLOOD NEGATIVE NEGATIVE [facility] PROTEIN NEGATIVE NEGATIVE [facility] NITRITE NEGATIVE NEGATIVE [facility] LEUKOCYTE ESTERASE NEGATIVE NEGATIVE [facility] Urine URINE SPECIMEN / Unknown 07/06/2024 12:06 PM CDT 07/06/2024 12:06 PM CDT us Nadeen CHACON URINE Final Result [facility] [address] [place] [address], [facility] [address] [place] [address] * SCAN-DIAGNOSTIC REPORT (07/05/2024 12:00 AM CDT) us Scanner OTHER Final Result * (ABNORMAL) XR DXA BONE DENSITY 2 SITES AXIAL (10/07/2020 1:32 PM WASTE MANAGEMENT ENGINEER) Anatomical Region Laterality Modality Spine, HIPS, HIPL, HIPR Other Narrative 10/09/2020 2:44 PM WASTE MANAGEMENT ENGINEER Please see scanned document for results of this study. us Pau Franklin MD DEXA Final Result from Last 3 Months or Most Recently Relevant to Health Maintenance Insurance MEDICARE PB ONLY [facility] MEDICARE PART B HB ONLY MEDICARE PART A HB ONLY [facility] MEDICARE PPS Advance Directives Documents on File Type Date Recorded Patient Golf Course Manager Expl anation Healthcare Directive 02/24/2013 12:14 [...] Code Status Discussion: Reviewed Preferences Care Teams Steel Analyst Relationship Specialty Start Date End Date Pau Franklin MD [address] [place] [address] PCP - General Family Practice 06/25/14 Steven Tellez [address] [place] [address] Scale Agent 01/29/12
--- OUTSIDE RECORDS SUMMARY | 2024-09-22 23:52 | XMS_ITS | Encounter Summary ---
Author Organization [place] Address [address] [facility] [place] [address] Care Team Providers Care Cd Mixer Name Role Phone Pau Franklin Primary Care Provider [phone] Reason for Visit * Reason Onset Date Comments Prior Auth - Medication 09/21/2024 Trospium - Denied Encounter Details Date Type Department Care Team (Late st Contact Info) Description [facility]2024 [facility] [address] [place] [address] Nikki Bartlett MD [facility] [address] [place] [address] Prior Auth - Medication (Trospium - Denied) [...] 09/21/2024 Denial Reason(s): Appeal Information: Patient Notified: RVISOR PHOSPHATIC FERTILIZER documented in this encounter Plan of Treatment Not on file documented as of this encounter Visit Diagnoses Not on filedocumented in this encounter Care Teams Cd Mixer Relationship Specialty Start Date End Date Pau Franklin [address] [place] [address] PCP - General Family Medicine 09/18/24 documented as of this encounter
--- OUTSIDE RECORDS SUMMARY | 2024-09-22 23:52 | XMS_ITS | Encounter Summary ---
Author Organization [place] Address [address] [facility] [place] [address] Care Team Providers Care Integrated Logistics Programs Director Name Role Phone Pau Franklin Primary Care Provider [phone] Reason for Visit * Auth/Cert Specialty Diagnoses / Procedures Referred By Ava asencio Referred To Contact Surgery Diagnoses Other specified disorders of bladder Other specified disorders of bladder [N32.89] Procedures DE CYSTOSCOPY W TX MINOR LESION <0.5 CM DE CYSTOURETHROSCOPY,FULGUR .5-2CM LE* DE CYSTOURETHROSCOPY,FULGUR 2-5CM LESN DE CYSTOURETHROSCOPY,FULGUR >5CM LESN Cystoscopy, with transurethral resection bladder tumor [facility] [address] [place] [address] Phone: tel: Referral ID Status Reason Start Date Expiration Date Visits Re quested Visits Authorized [id number] 1 1 Encounter Details Date Type Department Care Team (Latest Contact Info) Description 09/21/2024 10:28 AM EDGE STAINER - 09/21/2024 4:07 PM EDGE STAINER Hospital Encounter [facility]/Phase II [address] [place] [phone] Nikki Bartlett MD [facility] [address] [place] [id number] Malignant neoplasm of trigone of urinary bladder [...] Comments Blood Pressure 134/74 09/21/2024 3:35 PM EDGE STAINER Pulse 75 09/21/2024 2:45 PM EDGE STAINER Temperature 36.6 C (97.9 F) 09/21/2024 3:35 PM EDGE STAINER Respiratory Rate 18 09/21/2024 3:35 PM EDGE STAINER Oxygen Saturation 94% 09/21/2024 3:35 PM EDGE STAINER Inhaled Oxygen Concentration - - Weight 65.9 kg (145 lb 4.8 oz) 09/21/2024 10:58 AM EDGE STAINER Height 152.4 cm (5') 09/21/2024 10:58 AM EDGE STAINER Body Mass Index 28.38 09/21/2024 10:58 AM EDGE STAINER documented in this encounter Discharge Instructions * Discharge Instructions* Pau Egan RN - 09/21/2024 2:05 PM EDGE STAINER Remove catheter at home, Monday 09/25. See [...] about your procedure, call Dr. Bartlett at [phone] STAINER STAINER STAINER documented in this encounter Medications at Time [...] reviewed with pt and pt's designated responsible libertarian. Pt label on prescription bag from pharmacy matched to pt's wristband. Pharmacy bag opened with 3 prescriptions inside. Medications were reviewed to match pt wristband while pt and significant other agreed with identification. Prescriptions placed back in pharmacy bag resealed with tape and given to daughter per pt request. STAINER * Pau Egan RN - 09/21/2024 2:48 PM CST Candelario teaching done with daughters. STAINER * Kwame Beth RN - 09/21/2024 11:50 AM CST Pt had itching just above the IV site. No redness noted. No hives on body, no swelling of lips, tongue or throat. Cipro stopped and flushed with NS. Dr. Bartlett in room and said no new iv needed and ordered ancef instead. STAINER * Beverly Handley RN - 09/14/2024 8:50 AM CST Fax number given to daughter Lanny to fax H&P to us. STAINER documented in this encounter Miscellaneous Notes * Op Note - Nikki Bartlett MD - 09/21/2024 1:30 PM CST OPERATIVE REPORT PATIENT: Radha Painter : 1940, AGE: [age] year old SSN: [id number] SURGEON Nikki Bartlett MD Electrical Tests Supervisor: Sanaz Matos RN; Maria Alejandra Dc RN [...] was papillary appearing. I then introduced the 26-Vincentian resectoscope into the patient's bladder. Resection of [...] to the right UO. Nikki Bartlett MD [facility] Pager: [phone] Office: [phone] Surgical [phone] STAINER STAINER documented in this encounter Plan of Treatment Not on file documented as of this encounter Procedures Procedure Name Priority Date/Time Associated Diagnosis Comments SURGICAL PATHOLOGY EXAM Routine 09/21/2024 1:04 PM EDGE STAINER CYSTOSCOPY, WITH TRANSURETHRAL RESECTION BLADDER TUMOR 09/21/2024 12:23 PM EDGE STAINER Other specified disorders of bladder Special Needs *marco antonio-cpap, stemi(2022), s3ckd, bfcpbehdkqnhlxkm-kes-mxjol appt 09/19 @2pm [id number] minutes EKG CARDIAC - HIM SCAN 08/24/2024 12:00 AM EDGE STAINER documented in this encounter Results * (ABNORMAL) Surgical Pathology Exam (09/21/2024 1:04 PM EDGE STAINER) Case Report Surgical Pathology Report Case: [id number] Authorizing Provider: Nikki Bartlett MD Collected: 09/21/2024 01:04 PM Ordering Location: [facility] Received: 09/21/2024 01:19 PM [facility] Pathologist: Rebecca Ortez MD Specimen: Urinary Bladder, BLADDER TUMOR 09/22/2024 10:51 AM [facility] Final Diagnosis Bladder, 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 09/22/2024 10:51 AM [facility] Clinical Information Procedure: Cystoscopy, with transurethral resection bladder tumor Pre-op Diagnosis: Other specified disorders of bladder [N32.89] Post-op Diagnosis: N32.89 - Other specified disorders of bladder [ICD-10-CM] 09/22/2024 10:51 AM [facility] Gross Description A(1). Urinary Bladder, [...] (ASCP) 09/21/2024 1:21 PM 09/22/2024 10:51 AM [facility] Microscopic Description Microscopic examination was performed. 09/22/2024 10:51 AM [facility] MCRS Yes(A) N/A 09/22/2024 10:51 AM [facility] Performing Labs The technical component of this testing was completed at [facility]. Stain controls for all stains resulted within this report have been reviewed and show appropriate reactivity. 09/22/2024 10:51 AM [facility] Case Images 09/22/2024 10:51 AM [facility] Tissue URINARY BLADDER STRUCTURE / Unknown 09/21/2024 1:04 PM EDGE STAINER 09/21/2024 1:19 PM [facility] us Nikki HSIEH - PA LEE Final Result LABORATORY [facility] [address] Lab (1st floor, no room number) [place] [address], [place] LABORATORY [facility] [address] 1[address] floor, [address] [place] [address], [place] [phone] * EKG Cardiac - HIM Scan (08/24/2024 12:00 AM EDGE STAINER) 08/24/2024 us Provider Outside ECG ORDERABLES Final [...] 4 grams/day., Pre-procedure $Given 09/21/2024 11:17 AM EDGE STAINER 975 mg ciprofloxacin (CIPRO) infusion 400 mg Routine, 400 mg, Intravenous, EVERY 12 HOURS, First dose on Yojana 09/21/24 at 1100, Indications: Perioperative Pharmacoprophylaxis, Pre-procedureIndications:Perioperat ritchie Pharmacoprophylaxis $New Bag 09/21/2024 11:17 AM EDGE STAINER 400 mg documented in this encounter Active and Recently Administered Medications Times are shown in EDGE STAINER. Scheduled Medication Order 09/19/2024 09/20/2024 09/21/2024 acetaminophen [...] Pre-procedure documented in this encounter Care Teams Integrated Logistics Programs Director Relationship Specialty Start Date End Date Pau Franklin [address] [place] [address] PCP - General Family Medicine 09/18/24 documented as of this encounter
--- OUTSIDE RECORDS SUMMARY | 2024-09-22 23:52 | XMS_ITS | Clinical Summary ---
Author Organization [facility] Address [address] [place] [address] Care Team Providers Care Service Order Dispatcher Name Role Phone Pau Franklin Primary Care Provider [phone] Allergies Active Allergy Reactions Criticality Noted Date [...] Department Care Team Description 09/21/2024 12:23 PM UNDERWRITING SUPPORT SPECIALIST Anesthesia Event [facility] Per[facility] Services [address] [place] [phone] Lizbeth Thornton MD 09/21/2024 12:15 PM UNDERWRITING SUPPORT SPECIALIST - 09/21/2024 2:35 PM UNDERWRITING SUPPORT SPECIALIST Surgery [facility] [address] [place] [phone] Nikki Bartlett MD Cystoscopy, with transurethral resection bladder tumor 09/21/2024 10:28 AM UNDERWRITING SUPPORT SPECIALIST - 09/21/2024 4:07 PM UNDERWRITING SUPPORT SPECIALIST Hospital Encounter [facility] PreOP/Phase II [address] [place] [address] Nikki Bartlett MD 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) Discharge Disposition: Home or Self Care 09/21/2024 Telephone [facility] Hospitalist Program [address] [place] [address] [...] Comments Blood Pressure 134/74 09/21/2024 3:35 PM UNDERWRITING SUPPORT SPECIALIST Pulse 75 09/21/2024 2:45 PM UNDERWRITING SUPPORT SPECIALIST Temperature 36.6 C (97.9 F) 09/21/2024 3:35 PM UNDERWRITING SUPPORT SPECIALIST Respiratory Rate 18 09/21/2024 3:35 PM UNDERWRITING SUPPORT SPECIALIST Oxygen Saturation 94% 09/21/2024 3:35 PM UNDERWRITING SUPPORT SPECIALIST Inhaled Oxygen Concentration - - Weight 65.9 kg (145 lb 4.8 oz) 09/21/2024 10:58 AM UNDERWRITING SUPPORT SPECIALIST Height 152.4 cm (5') 09/21/2024 10:58 AM UNDERWRITING SUPPORT SPECIALIST Body Mass Index 28.38 09/21/2024 10:58 AM UNDERWRITING SUPPORT SPECIALIST Plan of Treatment Health Maintenance Due Date [...] SURGICAL PATHOLOGY EXAM Routine 09/21/2024 1:04 PM UNDERWRITING SUPPORT SPECIALIST ANE AIRWAY ETT PERFORMABLE Routine 09/21/2024 12:34 PM UNDERWRITING SUPPORT SPECIALIST CYSTOSCOPY, WITH TRANSURETHRAL RESECTION BLADDER TUMOR 09/21/2024 12:23 PM UNDERWRITING SUPPORT SPECIALIST Other specified disorders of bladder Special Needs *marco antonio-cpap, stemi(2022), s3ckd, gxxugzuboolfgypu-lma-rzrhm appt 09/19 @2pm [id number] minutes EKG CARDIAC - HIM SCAN 08/24/2024 12:00 AM UNDERWRITING SUPPORT SPECIALIST from Last 3 Months Results * (ABNORMAL) Surgical Pathology Exam (09/21/2024 1:04 PM UNDERWRITING SUPPORT SPECIALIST) Case Report Surgical Pathology Report Case: [id number] Authorizing Provider: Nikki Bartlett MD Collected: 09/21/2024 01:04 PM Ordering Location: [facility] Received: 09/21/2024 01:19 PM [facility] Pathologist: Rebecca Ortez MD Specimen: Urinary Bladder, BLADDER TUMOR 09/22/2024 10:51 AM [facility] Final Diagnosis Bladder, 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 09/22/2024 10:51 AM [facility] Clinical Information Procedure: Cystoscopy, with transurethral resection bladder tumor Pre-op Diagnosis: Other specified disorders of bladder [N32.89] Post-op Diagnosis: N32.89 - Other specified disorders of bladder [ICD-10-CM] 09/22/2024 10:51 AM [facility] Gross Description A(1). Urinary Bladder, BLADDER TUMOR: The specimen is received in formalin, labeled with the patient's name, medical record number and other identifying information designated bladder tumor. It consists of a Telfa pad containing a 1.0 x 0.7 x 0.2 cm aggregate of richey-pink, shaggy soft tissue fragments which are filtered and submitted entirely in 1 cassette. [facility] 09/21/2024 1:21 PM 09/22/2024 10:51 AM [facility] Microscopic Description Microscopic examination was performed. 09/22/2024 10:51 AM [facility] MCRS Yes(A) N/A 09/22/2024 10:51 AM [facility] Performing Labs The technical component of this testing was completed at [facility]. Stain controls for all stains resulted within this report have been reviewed and show appropriate reactivity. 09/22/2024 10:51 AM [facility] Case Images 09/22/2024 10:51 AM [facility] Tissue URINARY BLADDER STRUCTURE / Unknown 09/21/2024 1:04 PM UNDERWRITING SUPPORT SPECIALIST 09/21/2024 1:19 PM UNDERWRITING SUPPORT SPECIALIST us Nikki Bartlett MD LAB - PA LEE Final Result [facility] LABORAT[facility] Acute Care Lab [address] Lab (1st floor, no room number) [place] [address], [place] LABORATORY [facility] Acute Care Lab [address] 1[address] floor, [address] [place] [address], [place] [phone] * ANE AIRWAY ETT PERFORMABLE (09/21/2024 12:34 PM UNDERWRITING SUPPORT SPECIALIST) Narrative Jing Alexander APRN SEO COORDINATOR - 09/21/2024 12:34 PM UNDERWRITING SUPPORT SPECIALIST Jing Alexander APRN SEO COORDINATOR 09/21/2024 12:47 PM Airway Patient location during procedure: OR Procedure Start/Stop Times: 09/21/2024 12:34 PM Staff - SEO COORDINATOR: Jing Alexander APRN SEO COORDINATOR Performed By: SEO COORDINATOR Consent for Airway Urgency: elective Indications and [...] 09/21/2024 12:34 PM us Lizbeth Thornton MD [place] ANESTHESIA Final Res ult * EKG Cardiac - HIM Scan (08/24/2024 12:00 AM UNDERWRITING SUPPORT SPECIALIST) 08/24/2024 us Provider Outside ECG ORDERABLES Final Result from Last 3 Months Insurance [place]ICARE [place] [address] Care Teams Service Order Dispatcher Relationship Specialty Start Date End Date Pau Franklin [address] [place] [address] PCP - General Family Medicine 09/18/24
--- OUTSIDE RECORDS SUMMARY | 2024-09-22 23:52 | XMS_ITS | Referral Summary ---
Author Organization [place] Address [address] [place] [address] Care Team Providers Care Assembler Seat Name Role Phone Pau Franklin Primary Care Provider [phone] Encounters Date Type Department Care Team Description 09/21/2024 Telephone [facility] Hospitalist Program [address] [place] [phone] Nikki Bartlett MD Prior Auth - Medication (Trospium - Denied) 09/21/2024 12:23 PM INSIDE SALES AGENT Anesthesia Event [facility] PeriOP Services [address] [place] [phone] Lizbeth Thornton MD 09/21/2024 12:15 PM INSIDE SALES AGENT - 09/21/2024 2:35 PM INSIDE SALES AGENT Surgery [facility] [address] [place] [phone] Nikki Bartlett MD Cystoscopy, with transurethral resection bladder tumor 09/21/2024 10:28 AM INSIDE SALES AGENT - 09/21/2024 4:07 PM INSIDE SALES AGENT Hospital Encounter [facility] PreOP/Phase II [address] [place] [phone] Nikki Bartlett MD Malignant neoplasm of trigone [...] Comments Blood Pressure 134/74 09/21/2024 3:35 PM INSIDE SALES AGENT Pulse 75 09/21/2024 2:45 PM INSIDE SALES AGENT Temperature 36.6 C (97.9 F) 09/21/2024 3:35 PM INSIDE SALES AGENT Respiratory Rate 18 09/21/2024 3:35 PM INSIDE SALES AGENT Oxygen Saturation 94% 09/21/2024 3:35 PM INSIDE SALES AGENT Inhaled Oxygen Concentration - - Weight 65.9 kg (145 lb 4.8 oz) 09/21/2024 10:58 AM INSIDE SALES AGENT Height 152.4 cm (5') 09/21/2024 10:58 AM INSIDE SALES AGENT Body Mass Index 28.38 09/21/2024 10:58 AM INSIDE SALES AGENT Plan of Treatment Not on file Procedures Procedure Name Priority Date/Time Associated Diagnosis Comments SURGICAL PATHOLOGY EXAM Routine 09/21/2024 1:04 PM INSIDE SALES AGENT ANE AIRWAY ETT PERFORMABLE Routine 09/21/2024 12:34 PM INSIDE SALES AGENT CYSTOSCOPY, WITH TRANSURETHRAL RESECTION BLADDER TUMOR 09/21/2024 12:23 PM INSIDE SALES AGENT Other specified disorders of bladder Special Needs *marco antonio-cpap, stemi(2022), s3ckd, mmmzgukbxskdqtzr-ufm-snoco appt 09/19 @2pm minutes EKG CARDIAC - HIM SCAN 08/24/2024 12:00 AM INSIDE SALES AGENT from Last 3 Months Results * (ABNORMAL) Surgical Pathology Exam (09/21/2024 1:04 PM INSIDE SALES AGENT) Case Report Surgical Pathology Report Case: [id number] Authorizing Provider: Nikki Bartlett MD Collected: 09/21/2024 01:04 PM Ordering Location: [facility] Received: 09/21/2024 01:19 PM [facility] Main OR Pathologist: Rebecca Ortez MD Specimen: Urinary Bladder, BLADDER TUMOR 09/22/2024 10:51 AM INSIDE SALES AGENT LABORATORY Final Diagnosis Bladder, 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 09/22/2024 10:51 AM [facility] Clinical Information Procedure: Cystoscopy, with transurethral resection bladder tumor Pre-op Diagnosis: Other specified disorders of bladder [N32.89] Post-op Diagnosis: N32.89 - Other specified disorders of bladder [ICD-10-CM] 09/22/2024 10:51 AM INSIDE SALES AGENT LABORATORY Gross Description A(1). Urinary Bladder, BLADDER [...] (ASCP) 09/21/2024 1:21 PM 09/22/2024 10:51 AM INSIDE SALES AGENT LABORATORY Microscopic Description Microscopic examination was performed. 09/22/2024 10:51 AM [facility] MCRS Yes(A) N/A 09/22/2024 10:51 AM [facility] Performing Labs The technical component of this testing was completed at [facility]. Stain controls for all stains resulted within this report have been reviewed and show appropriate reactivity. 09/22/2024 10:51 AM [facility] Case Images 09/22/2024 10:51 AM [facility] Tissue URINARY BLADDER STRUCTURE / Unknown 09/21/2024 1:04 PM INSIDE SALES AGENT 09/21/2024 1:19 PM INSIDE SALES AGENT us Nikki HSIEH - PA LEE Final Result LABORATORY [facility] Acute Care Lab [address] [facility] Lab (1st floor, no room number) [place] [address], [facility] Acute Care Lab [address] 1st floor, [address] [place] [address], [facility] [phone] * ANE AIRWAY ETT PERFORMABLE (09/21/2024 12:34 PM INSIDE SALES AGENT) Narrative Jing Alexander APRN CONNIE CLEANER - 09/21/2024 12:34 PM INSIDE SALES AGENT Jing Alexander APRN CONNIE CLEANER 09/21/2024 12:47 PM Airway Patient location during procedure: OR Procedure Start/Stop Times: 09/21/2024 12:34 PM Staff - CONNIE CLEANER: Jing Alexander APRN CONNIE CLEANER Performed By: CONNIE CLEANER Consent for Airway Urgency: elective Indications and [...] 09/21/2024 12:34 PM us Lizbeth Thornton MD [place] ANESTHESIA Final Res ult * EKG Cardiac - HIM Scan (08/24/2024 12:00 AM INSIDE SALES AGENT) 08/24/2024 us Provider Outside ECG ORDERABLES Final Result from Last 3 Months Insurance MEDICARE [facility] MEDICARE SUPPLEMENT MEDICARE [place] OF [place] MEDICARE SUPPLEMENT Care Teams Assembler Seat Relationship Specialty Start Date End Date Pau Franklin [address] [place] [address] PCP - General Family Medicine 09/18/24
--- OUTSIDE RECORDS SUMMARY | 2024-09-22 23:52 | XMS_ITS | Encounter Summary ---
Author Organization [place] Address [address] [facility] [place] [address] Care Team Providers Care Global Chief Creative Officer Name Role Phone Pau Franklin Primary Care Provider [phone] Reason for Visit * Auth/Cert Specialty Diagnoses / Procedures Referred By Ava asencio Referred To Contact Surgery Diagnoses Other specified disorders of bladder Other specified disorders of bladder [N32.89] Procedures MI CYSTOSCOPY W TX MINOR LESION <0.5 CM MI CYSTOURETHROSCOPY,FULGUR .5-2CM LE* MI CYSTOURETHROSCOPY,FULGUR 2-5CM LESN MI CYSTOURETHROSCOPY,FULGUR >5CM LESN Cystoscopy, with transurethral resection bladder tumor [facility] [address] [place] [address] Phone: tel: Referral ID Status Reason Start Date Expiration Date Visits Re quested Visits Authorized [id number] 1 1 Encounter Details Date Type Department Care Team (Late st Contact Info) Description 09/21/2024 12:23 PM PUBLIC HOUSING INTERVIEWER Anesthesia Event [facility] Services [address] [place] [phone] Lizbeth Thornton [place] [place] [address] [place], [place] [address] Anesthesia Record Procedure Summary Procedure Name Responsible [...] signs recorded are pre-induction. Jing Alexander APRN ASSISTED LIVING NURSING DIRECTOR 1231 An Induction 1234 An Intubation 1235 Anesthesia Ready for Procedu re 1310 AN Extubation All extubation criteria met prior to removal. 1320 an stop data 1329 An Stop Electronically signed by Flor Kirby APRN ASSISTED LIVING NURSING DIRECTOR on September 21, 2024 1:29 PM Meds [...] Grade View: 1; Adjucts: Stylet; Placement Person: ASSISTED LIVING NURSING DIRECTOR; Attempts: 1 09/21/24 1234 by Jing Alexander APRN ASSISTED LIVING NURSING DIRECTOR 09/21/24 1310 by Jing Alexander APRN CRNA [...] Thornton MD September 21, 2024 4:45 PM IC HOUSING INTERVIEWER * Anesthesia Procedure Notes - Jing Alexander APRN CRNA - 09/21/2024 12:46 PM CSTAssociated Order(s): Airway Airway Patient location during procedure: OR Procedure Start/Stop Times: 09/21/2024 12:34 PM Staff - ASSISTED LIVING NURSING DIRECTOR: Jing Alexander APRN CRNA Performed By: ASSISTED LIVING NURSING DIRECTOR Consent for Airway Urgency: elective Indications and [...] Administered Medication Administration Time: 09/21/2024 12:34 PM IC HOUSING INTERVIEWER * Anesthesia Preprocedure Evaluation - Lizbeth Thornton [...] Cardiovascular: (+) - - CAD - past [place] (~1 year ago. Completed cardiac rehab. No [...] and realistic alternatives discussed. Questions answered and patient/claims representative(s) expressed understanding. - Discussed: Risks, Benefits [...] # Hypertension: Home medication list includes antihypertensive(s) IC HOUSING INTERVIEWER IC HOUSING INTERVIEWER documented in this encounter Miscellaneous Notes * Anesthesia Care Transfer Note - Flor Kirby APRN ASSISTED LIVING NURSING DIRECTOR - 09/21/2024 1:29 PM CST Patient: Radha [...] APRN CRNA September 21, 2024 1:29 PM IC HOUSING INTERVIEWER documented in this encounter Plan of Treatment Not on file documented as of this encounter Procedures Procedure Name Priority Date/Time Associated Diagnosis Comments ANE AIRWAY ETT PERFORMABLE Routine 09/21/2024 12:34 PM PUBLIC HOUSING INTERVIEWER documented in this encounter Results * ANE AIRWAY ETT PERFORMABLE (09/21/2024 12:34 PM PUBLIC HOUSING INTERVIEWER) Narrative Jing Alexander APRN CRNA - 09/21/2024 12:34 PM PUBLIC HOUSING INTERVIEWER Jing Alexander APRN CRNA 09/21/2024 12:47 PM Airway Patient location during procedure: OR Procedure Start/Stop Times: 09/21/2024 12:34 PM Staff - ASSISTED LIVING NURSING DIRECTOR: Jing Alexander APRN CRNA Performed By: ASSISTED LIVING NURSING DIRECTOR Consent for Airway Urgency: elective Indications and [...] Administered Medication Administration Time: 09/21/2024 12:34 PM Lzibeth Thornton MD [place] ANESTHESIA Final Res ult documented in this [...] Pre-procedureIndications:Perioperat ritchie Pharmacoprophylaxis $Given 09/21/2024 12:34 PM PUBLIC HOUSING INTERVIEWER 2 g dexAMETHasone (DECADRON) injection Intravenous, PRN, Administer over 1 Minutes, Starting on Yojana 09/21/24 at 1239, Anesthesia Intra-op $Given 09/21/2024 12:39 PM PUBLIC HOUSING INTERVIEWER 4 mg dexmedeTOMIDine (PRECEDEX) 4 mcg/mL in sodium chloride 0.9 % 50 mL infusion Intravenous, PRN, Starting on Yojana 09/21/24 at 1241, Anesthesia Intra-op $Given 09/21/2024 12:41 P M PUBLIC HOUSING INTERVIEWER 8 mcg fentaNYL (PF) (SUBLIMAZE) injection Intravenous, PRN, Administer over 3-5 Minutes, Starting on Yojana 09/21/24 at 1237, Anesthesia Intra-op $Given 09/21/2024 12:37 PM PUBLIC HOUSING INTERVIEWER 50 mcg $Given 09/21/2024 12:23 PM PUBLIC HOUSING INTERVIEWER 50 mcg lactated ringers infusion at 100 mL/hr, Intravenous, CONTINUOUS, Pre-procedure, Starting on Yojana 09/21/24 at 1100, Until Yojana 09/21/24 at 1322 $New Bag 09/21/2024 12:23 PM PUBLIC HOUSING INTERVIEWER lidocaine 2% injection (MDV) Intravenous, PRN, Starting on Yojana 09/21/24 at 1231, Anesthesia Intra-op $Given 09/21/2024 12:31 PM PUBLIC HOUSING INTERVIEWER 100 mg ondansetron (ZOFRAN) injection Intravenous, PRN, Administer over 2-5 Minutes, Starting on Yojana 09/21/24 at 1239, Anesthesia Intra-op $Given 09/21/2024 12:39 PM PUBLIC HOUSING INTERVIEWER 4 mg propofol (DIPRIVAN) infusion Intravenous, CONTINUOUS PRN, Starting on Yojana 09/21/24 at 1235, Anesthesia Intra-op Rate/Dose Change 09/21/2024 12:56 PM PUBLIC HOUSING INTERVIEWER 125 mcg/kg/min 49.5 mL/hr Rate/Dose Change 09/21/2024 12:43 PM PUBLIC HOUSING INTERVIEWER 150 mcg/kg/min 59 .4 mL/hr Rate/Dose Change 09/21/2024 12:39 PM PUBLIC HOUSING INTERVIEWER 140 mcg/kg/min 55 .44 mL/hr propofol (DIPRIVAN) injection 10 mg/mL vial Intravenous, PRN, Starting on Yojana 09/21/24 at 1231, Anesthesia Intra-op $Given 09/21/2024 12:31 PM PUBLIC HOUSING INTERVIEWER 120 mg rocuronium injection Intravenous, PRN, Starting on Yojana 09/21/24 at 1232, Anesthesia Intra-op $Given 09/21/2024 12:32 PM PUBLIC HOUSING INTERVIEWER 50 mg sugammadex (BRIDION) injection Intravenous, PRN, Starting on Yojana 09/21/24 at 1300, Anesthesia Intra-op $Given 09/21/2024 1:00 PM PUBLIC HOUSING INTERVIEWER 200 mg documented in this encounter Care Teams Global Chief Creative Officer Relationship Specialty Start Date End Date Pau Franklin [address] [place] [address] PCP - General Family Medicine 09/18/24 documented as of this encounter
--- OUTSIDE RECORDS SUMMARY | 2024-09-22 23:52 | XMS_ITS | Encounter Summary ---
Author Organization [place] Address [address] [place] [address] Care Team Providers Care Wellness Rn Name Role Phone Pau Franklin Primary Care Provider [phone] Reason for Visit * Auth/Cert Specialty Diagnoses / Procedures Referred By Ava asencio Referred To Contact Surgery Diagnoses Other specified disorders of bladder Other specified disorders of bladder [N32.89] Procedures IN CYSTOSCOPY W TX MINOR LESION <0.5 CM IN CYSTOURETHROSCOPY,FULGUR .5-2CM LE* IN CYSTOURETHROSCOPY,FULGUR 2-5CM LESN IN CYSTOURETHROSCOPY,FULGUR >5CM LESN Cystoscopy, with [facility]ral [facility] [address] [place] [address] Phone: tel: Referral ID Status Reason Start Date Expiration Date Visits Re quested Visits Authorized [id number] 1 1 Encounter Details Date Type Department Care Team (Late st Contact Info) Description 09/21/2024 12:15 PM WASHING MACHINE INSTALLER - 09/21/2024 2:35 PM WASHING MACHINE INSTALLER Surgery [facility] [address] [place] [address] Nikki Bartlett MD [facility] [address] [place] [...] 1 Special Needs *marco antonio-cpap, stemi(2022), s3ckd, pyrzionvoxryiwbg-qla-tpnpl appt 09/19 @2pm [id number] minutes documented in this encounter Social History [...] Comments Blood Pressure 131/65 09/21/2024 2:30 PM WASHING MACHINE INSTALLER Pulse 74 09/21/2024 2:30 PM WASHING MACHINE INSTALLER Temperature 37.2 C (99 F) 09/21/2024 2:15 PM WASHING MACHINE INSTALLER Respiratory Rate 18 09/21/2024 2:30 PM WASHING MACHINE INSTALLER Oxygen Saturation 93% 09/21/2024 2:30 PM WASHING MACHINE INSTALLER Inhaled Oxygen Concentration - - Weight 65.9 kg (145 lb 4.8 oz) 09/21/2024 10:58 AM WASHING MACHINE INSTALLER Height 152.4 cm (5') 09/21/2024 10:58 AM WASHING MACHINE INSTALLER Body Mass Index 28.38 09/21/2024 10:58 AM WASHING MACHINE INSTALLER documented in this encounter Discharge Instructions * Discharge Instructions* Pau Egan RN - 09/21/2024 2:05 PM WASHING MACHINE INSTALLER Remove catheter at home, Monday 09/25. See [...] about your procedure, call Dr. Bartlett at [phone] ING MACHINE INSTALLER ING MACHINE INSTALLER ING MACHINE INSTALLER documented in this encounter Medications at Time [...] of this encounter Nursing Notes * Maurice aPbon RN - 09/21/2024 4:06 PM CST Meets [...] and given to daughter per pt request. ING MACHINE INSTALLER * Pau Egan RN - 09/21/2024 2:48 PM CST Candelario teaching done with daughters. ING MACHINE INSTALLER * Kwame Beth RN - 09/21/2024 11:50 AM CST Pt had itching just above the IV site. No redness noted. No hives on body, no swelling of lips, tongue or throat. Cipro stopped and flushed with NS. Dr. Bartlett in room and said no new iv needed and ordered ancef instead. ING MACHINE INSTALLER * Beverly Handley RN - 09/14/2024 8:50 AM CST Fax number given to daughter Lanny to fax H&P to us. ING MACHINE INSTALLER documented in this encounter Miscellaneous Notes * Op Note - Nikki Bartlett MD - 09/21/2024 1:30 PM CST OPERATIVE REPORT PATIENT: Radha Painter : 1940, AGE: [age] year old SSN: [id number] SURGEON Nikki Bartlett MD Blade Filer: Sanaz Matos RN; Maria Alejandra Dc RN [...] was papillary appearing. I then introduced the [place] resectoscope into the patient's bladder. Resection of [...] to the right UO. Nikki Bartlett MD [facility] Pager: [phone] Office: [phone] Surgical [phone] ING MACHINE INSTALLER ING MACHINE INSTALLER documented in this encounter Plan of Treatment Not on file documented as of this encounter Procedures Procedure Name Priority Date/Time Associated Diagnosis Comments SURGICAL PATHOLOGY EXAM Routine 09/21/2024 1:04 PM WASHING MACHINE INSTALLER CYSTOSCOPY, WITH TRANSURETHRAL RESECTION BLADDER TUMOR 09/21/2024 12:23 PM WASHING MACHINE INSTALLER Other specified disorders of bladder Special Needs *marco antonio-cpap, stemi(2022), s3ckd, fdwwdhhwufvzwwap-xbt-dsycx appt 09/19 @2pm minutes EKG CARDIAC - HIM SCAN 08/24/2024 12:00 AM WASHING MACHINE INSTALLER documented in this encounter Results * (ABNORMAL) Surgical Pathology Exam (09/21/2024 1:04 PM WASHING MACHINE INSTALLER) Case Report Surgical Pathology Report Case: [id number] Authorizing Provider: Nikki Bartlett MD Collected: 09/21/2024 01:04 PM Ordering Location: [facility] Received: 09/21/2024 01:19 PM [facility] OR Pathologist: Rebecca Ortez MD Specimen: Urinary Bladder, BLADDER TUMOR 09/22/2024 10:51 AM [facility] Final Diagnosis Bladder, 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 09/22/2024 10:51 AM [facility] Clinical Information Procedure: Cystoscopy, with transurethral resection bladder tumor Pre-op Diagnosis: Other specified disorders of bladder [N32.89] Post-op Diagnosis: N32.89 - Other specified disorders of bladder [ICD-10-CM] 09/22/2024 10:51 AM [facility] Gross Description A(1). Urinary Bladder, BLADDER [...] (ASCP) 09/21/2024 1:21 PM 09/22/2024 10:51 AM [facility] Microscopic Description Microscopic examination was performed. 09/22/2024 10:51 AM [facility] MCRS Yes(A) N/A 09/22/2024 10:51 AM [facility] Performing Labs The technical component of this testing was completed at [facility]. Stain controls for all stains resulted within this report have been reviewed and show appropriate reactivity. 09/22/2024 10:51 AM [facility] LABOR[facility] Case Images 09/22/2024 10:51 AM WASHING MACHINE INSTALL[facility] LABORATORY Tissue URINARY BLADDER STRUCTURE / Unknown 09/21/2024 1:04 PM WASHING MACHINE INSTALLER 09/21/2024 1:19 PM WASHING MACHINE INSTALLER Nikki HSIEH - PA AP Final Result LABORATORY [facility] [address] Lab (1st floor, no room number) [place] [address], [facility] [address] 1[address] floor, [address] [place] [address], [place] [phone] * EKG Cardiac - HIM Scan (08/24/2024 12:00 AM WASHING MACHINE INSTALLER) 08/24/2024 us Provider Outside ECG ORDERABLES Final [...] 4 grams/day., Pre-procedure $Given 09/21/2024 11:17 AM WASHING MACHINE INSTALLER 975 mg ciprofloxacin (CIPRO) infusion 400 mg Routine, 400 mg, Intravenous, EVERY 12 HOURS, First dose on Yojana 09/21/24 at 1100, Indications: Perioperative Pharmacoprophylaxis, Pre-procedureIndications:Periopera tive Pharmacoprophylaxis $New Bag 09/21/2024 11:17 AM WASHING MACHINE INSTALLER 400 mg sodium chloride 0.9% (bottle) irrigation PRN, Starting on Yojana 09/21/24 at 1250, Intra-procedure $Given 09/21/2024 12:50 PM WASHING MACHINE INSTALLER 1,000 mLs sodium chloride 0.9% irrigation (bag) PRN, Starting on Yojana 09/21/24 at 1251, Intra-procedure $Given 09/21/2024 12:51 PM WASHING MACHINE INSTALLER 1,000 mLs documented in this encounter Active and Recently Administered Medications Times are shown in WASHING MACHINE INSTALLER. Scheduled Medication Order 09/19/2024 09/20/2024 09/21/2024 acetaminophen [...] Pre-procedure documented in this encounter Care Teams Wellness Rn Relationship Specialty Start Date End Date Pau Franklin [address] [place] [address] PCP - General Family Medicine 09/18/24 documented as of this encounter
--- OUTSIDE RECORDS SUMMARY | 2024-09-22 23:52 | XMS_ITS | Continuity of Care Document ---
Author Name [place] User [place] Address Unknown Organization Unknown Address Unknown Procedures FILTER APPLIED:Only known Procedures with Onset Date within the last 5 years Procedure Date Procedure Provider Additiona l Information Status PA CYSTOURETHROSCOPY,FULGUR >5CM LESN (20451) Completed PA CYSTOURETHROSCOPY,FULGUR 2-5CM LESN (68111) Completed PA CYSTOURETHROSCOPY,FULGUR .5-2CM LE* (99003) Completed PA CYSTOSCOPY W TX MINOR LESION <0.5 CM (14093) Completed COMPLETE CBC W/AUTO DIFF WBC (71637) Completed ROUTINE VENIPUNCTURE (65493) Completed ASSAY OF TROPONIN QUANT (79509) Completed THER/PROPH/DIAG INJ IV PUSH (23645) Completed ASSAY OF NATRIURETIC PEPTIDE (19023) Completed TX/PRO/DX INJ NEW DRUG ADDON (81492) Completed EMERGENCY DEPT VISIT HI MDM (57850) Completed ELECTROCARDIOGRAM TRACING (31739) Completed METABOLIC PANEL TOTAL CA (21605) Completed Encounters FILTER APPLIED:Only known Encounters with Admission Date within the last 5 years Encounter Location Admission Discharge Billing Code Consultant Javier arceo [facility]
== END 2024-09-23 01:54 | disposition home or self-care (01) ==
PROVIDERS: Emergency Provider Family Medicine; PCP Family Medicine
DX: T83.028A Displacement of other urinary catheter, initial encounter (principal)
CPT/HCPCS: 51702; 99284

== ENCOUNTER 2024-09-25 14:24 | Emergency (ER) | payer MEDICARE, BC, SELFPAY ==
[2024-09-25 14:38] VITALS: BP 123/73; PULSE 71; RESP 18; TEMP 36.7; O2SAT 97; BMI 27.5
--- NOTE | 2024-09-25 15:53 | ED_ITS ---
HPI - General Adult General Chief complaint: Nausea/Vomiting Stated complaint: mayra dunne, bladder surgery 626220, vomiting Time Seen by Provider: 09/25/24 15:35 Source: patient and family Mode of arrival: ambulatory Limitations: no limitations History of Present Illness HPI narrative: 84-year-old female coming in today with concerns about vomiting. Patient vomited yesterday in again this morning. Has not been able to keep anything down today. Patient denies fevers or chills. Mild cough is present. She feels very tired but denies body pain that is unusual for her. She denies feeling short of breath. No abdominal discomfort or headaches. She had a bladder tumor removed 4 days ago. She accidentally removed her catheter the following day and had reinserted in the ED. Urine has been yellow and clear since. Her daughter removed her catheter this morning and noticed that her urine again was yellow and clear. No diarrhea. Bowel movements are generally daily. She is passing gas without discomfort. Related Data Home Medications ?Medication ?Instructions ?Recorded ?Confirmed sertraline 100 mg tablet 200 mg PO DAILY 07/05/23 09/25/24 calcium carbonate (Calcium 500) 500 mg PO DAILY 04/10/24 09/25/24 metoprolol succinate 25 mg 12.5 mg PO DAILY 04/10/24 09/25/24 tablet,extended release 24 hr omeprazole 40 mg capsule,delayed 40 mg PO DAILY 04/10/24 09/25/24 release rosuvastatin 10 mg tablet 10 mg PO QPM 04/10/24 09/25/24 spironolactone 25 mg tablet 12.5 mg PO QAM 04/10/24 09/25/24 sucralfate 1 gram tablet 1 g PO QID 04/10/24 09/25/24 apixaban 5 mg tablet (Eliquis) 5 mg PO BID 09/25/24 09/25/24 aspirin 81 mg tablet,delayed 81 mg PO QDAY 09/25/24 09/25/24 release clopidogrel 75 mg tablet 75 mg PO DAILY 09/25/24 09/25/24 donepezil 5 mg tablet 5 mg PO QPM 09/25/24 09/25/24 duloxetine 30 mg capsule,delayed mg PO 09/25/24 09/25/24 release lorazepam 0.5 mg tablet 0.5 mg PO DAILY PRN anxiety 09/25/24 09/25/24 losartan 25 mg tablet mg PO 09/25/24 09/25/24 sulfamethoxazole 800 1 tab PO DAILY 09/25/24 09/25/24 mg-trimethoprim 160 mg tablet Previous Rx's ?Medication ?Instructions ?Recorded losartan 50 mg tablet 50 mg PO DAILY #30 tabs 04/12/24 Allergies Allergy/AdvReac Type Severity Reaction Status Date / Time bee venom protein (honey bee) Allergy Mild swelling Verified 09/25/24 14:44 Penicillins Allergy Unknown Verified 09/25/24 14:44 Review of Systems Status of ROS: Reports: 10 or more systems reviewed and unremarkable except as noted in History and below [facility] Medical History Abnormal computed tomography of bladder ?R93.41 - Abnormal radiologic findings on diagnostic imaging of renal pelvis, ureter, or bladder (ICD-10) Cyst of left ovary ?N83.202 - Unspecified ovarian cyst, left side (ICD-10) Depression ?F32.A - Depression, unspecified (ICD-10) Heart attack ?I21.9 - Acute myocardial infarction, unspecified (ICD-10) Surgical History History of cholecystectomy ?Z90.49 - Acquired absence of other specified parts of digestive tract (ICD- 10) History of appendectomy ?Z90.49 - Acquired absence of other specified parts of digestive tract (ICD- 10) H/O heart artery stent ?Z95.5 - Presence of coronary angioplasty implant and graft (ICD-10) Family History Mother Heart disease Social History Smoking Status: Never smoker Do you use any of these nicotine containing products: None Second hand tobacco smoke exposure: No How often do you have a drink containing alcohol: never AUDIT-C Alcohol total score: 0 Non-prescribed substance use: denies use service: No Exam Narrative: Exam Narrative: Well-nourished well-developed elderly patient in no acute distress. Answers questions appropriately. Mood and affect are appropriate. Thoughts are goal oriented and rational. No tangential or magical thinking noted. Patient speaks in full sentences without needing to catch her breath. HEENT: Normocephalic atraumatic. Pupils are equally round reactive to light. Extraocular muscles are intact. Conjunctivae are moist without any icterus noted. Moist mucous membranes. Posterior pharynx is normal. Neck is soft with out any lymphadenopathy or masses appreciated. The Cardiovascular: Heart is regular rate and rhythm S1 and S2 are present without any murmurs. Lungs: Clear to auscultation bilaterally no wheezes rhonchi or rales are appreciated. Patient takes deep breaths without any discomfort. Abdomen: Soft and nontender nondistended with normal bowel sounds. Extremities: Bilateral lower extremities are without edema. Skin: Well perfused without any obvious rashes. Const: Vital Signs, click to edit/add: Vital Signs - 24 hr 09/25/24 14:38 09/25/24 16:37 Temperature 98.0 F Pulse Rate 88 Pulse Rate [Pulse Oximeter] 71 Respiratory Rate 18 20 Blood Pressure 137/88 Blood Pressure [Ri ght Upper Arm] 123/73 Pulse Oximetry 97 98 Oxygen Delivery Me thod Room Air Course Course ED Course: Lactate is elevated at 2.5. IV is established patient is started on 500 mL of normal saline over an hour. CBC is unremarkable. Chemistries are unremarkable. Triple swab is negative. UA is unremarkable. LFTs are normal. Normal troponin. Normal CRP. Normal lipase. Patient was feeling better after fluids. Had no vomiting while she was here. We discussed discharge and she and her daughter felt comfortable with this. Vital Signs Vital signs: Initial Vital Signs Temperature 98.0 F 09/25/24 14:38 Temperature Source Temporal Artery Scan 09/25/24 14:38 Pulse Rate 71 09/25/24 14:38 Respiratory Rate 18 09/25/24 14:38 Blood Pressure 123/73 09/25/24 14:38 Blood Pressure Mean 89 09/25/24 14:38 Blood Pressure Position Sitting 09/25/24 14:38 Pulse Oximetry 97 09/25/24 14:38 Oxygen Delivery Method Room Air 09/25/24 14:38 Vital Signs Temperature 98.0 F 09/25/24 14:38 Pulse Rate 71 09/25/24 14:38 Respiratory Rate 18 09/25/24 14:38 Blood Pressure 123/73 09/25/24 14:38 Pulse Oximetry 97 09/25/24 14:38 Oxygen Delivery Method Room Air 09/25/24 14:38 Temperature 98.0 F 09/25/24 14:38 Pulse Rate 88 09/25/24 16:37 Respiratory Rate 20 09/25/24 16:37 Blood Pressure 137/88 09/25/24 16:37 Pulse Oximetry 98 09/25/24 16:37 Oxygen Delivery Method Room Air 09/25/24 14:38 Medications Administered Medications: Discontinued Medications Generic Name Dose Route Start Last Admin Trade Name Oly PRN Reason Stop Dose Admin Sodium Chloride 500 mls @ 500 mls/hr 09/25/24 15:47 09/25/24 16:35 0.9 % Sodium Chloride 500 Ml IV 09/25/24 16:46 500 mls/hr .Q1H ONE Administration Medical Decision Making MDM Narrative Medical decision making narrative: Vomiting x2. The differential diagnoses includes gastroenteritis, occult infection that has not yet presented itself. Continue to monitor symptoms at this time. Lab Data Lab results reviewed: Yes I reviewed the patient's lab results Labs: Lab Results 09/25/24 09/25/24 Range/Units 16:10 16:10 WBC 5.79 (4.50-11.00) K/uL RBC 5.22 H (4.00-5.20) m/uL Hgb 14.3 (12.0-16.0) gm/dL Hct 43.6 (33.0-51.0) % MCV 84 (80-100) fL MCH 27 (26-34) pg MCHC 33 (32-36) gm/dL RDW Coeff of Jose Manuel 13.4 (11.5-15.5) % Plt Count 141 (140-440) K/uL Neut % (Auto) 71.1 (42.0-72.0) % Lymph % (Auto) 15.4 L (20-44) % [place] % (Auto) 10.0 (0.0-11.0) % Eos % (Auto) 2.8 (0.0-7.0) % Baso % (Auto) 0.2 (0.0-3.0) % Neut # (Auto) 4.12 (1.7-7.0) K/uL Lymph # (Auto) 0.90 (0.90-2.90) K/uL [place] # (Auto) 0.60 (0.00-0.90) K/UL Eos # (Auto) 0.16 (0.00-0.50) K/uL Baso # (Auto) 0.01 (0.00-0.30) K/uL Abs Immat Gran (auto) 0.03 (0.00-0.30) K/uL Imm/Tot Granulo (auto) 0.5 % Sodium 137 (135-149) mmol/L Potassium 4.4 (3.6-5.1) mmol/L Chloride 102 (96-114) mmol/L Carbon Dioxide 26 (20-32) mmol/L Anion Gap 9 (7-15) mEq/L BUN 15 (7-30) mg/dL Creatinine 0.8 (0.5-1.5) mg/dL Estimated Creat Clear 29.54 Estimated GFR 72 ml/min Glucose 122 H (60-115) mg/dL Lactate 2.5 H (0.5-1.9) mmol/L Calcium 9.3 (8.4-10.6) mg/dL Total Bilirubin 0.8 (0.1-1.5) mg/dL Direct Bilirubin 0.4 (0.0-0.5) mg/dL AST 30 (12-35) U/L ALT 20 (4-35) U/L Alkaline Phosphatase 59 (40-150) U/L Troponin I 0.02 Cancelled (0.01-0.04) ng/mL C-Reactive Protein < 0.5 L (0.5-1.0) mg/dL Total Protein 7.1 (6.0-8.3) g/dL Albumin 4.6 (3.3-5.0) g/dL Lipase 100 (23-300) U/L Urine Color Yellow (Yellow) Urine Appearance Clear (Clear) Urine pH 6.5 (5.0-8.5) Ur Specific Crowder 1.010 (1.000-1.030) Urine Protein Negative (Negative) Urine Glucose (UA) Negative (Negative) Urine Ketones Negative (Negative) Urine Blood 1+ A (Negative) Urine Nitrite Negative (Negative) Urine Bilirubin Negative (Negative) Urine Urobilinogen 0.2 (0.2-1.0) Ur Leukocyte Esterase Negative (Negative) Urine RBC 0-2 (0-2) Urine WBC 0-2 (0-5) Ur Squamous Epith Cells None (None-Few) Urine Bacteria None (None) SARS-CoV-2 (PCR) Negative SARS-CoV-2 (Negative) Influenza Type A (PCR) Negative PCR FLU A (Negative) Influenza Type B (PCR) Negative PCR FLU B (Negative) RSV (PCR) Negative PCR RSV (Negative) Discharge Plan Discharge Clinical Impression: Vomiting Patient Disposition: Home, Self-Care Condition: Stable Additional Instructions: Make sure to stay well hydrated with small sips of fluids frequently throughout the day. Advance diet as tolerated. Return to the emergency department if you cannot keep down any fluids or you develop a fever. Prescriptions: No Action sertraline 100 mg tablet 200 mg PO DAILY sulfamethoxazole-trimethoprim 800-160 mg tablet 1 tab PO DAILY duloxetine 30 mg capsule,delayed release(DR/EC) PO donepezil 5 mg tablet 5 mg PO QPM lorazepam 0.5 mg tablet 0.5 mg PO DAILY PRN (Reason: anxiety) clopidogrel 75 mg tablet 75 mg PO DAILY losartan 25 mg tablet PO Eliquis 5 mg tablet 5 mg PO BID aspirin 81 mg tablet,delayed release (DR/EC) 81 mg PO QDAY calcium carbonate [Calcium 500] 500 mg calcium (1,250 mg) tablet,chewable 500 mg PO DAILY sucralfate 1 gram tablet 1 g PO QID omeprazole 40 mg capsule,delayed release(DR/EC) 40 mg PO DAILY spironolactone 25 mg tablet 12.5 mg PO QAM metoprolol succinate 25 mg tablet extended release 24 hr 12.5 mg PO DAILY rosuvastatin 10 mg tablet 10 mg PO QPM losartan 50 mg tablet 50 mg PO DAILY Qty: 30 2RF Follow Up/Referrals: Pau Franklin MD [Primary Care Provider] - Stand Alone Forms: Smeet Info Instructions
[2024-09-25] MEDS: 0.9 % SODIUM CHLORIDE 500 ML 500 ML IV (16:35)
[2024-09-25 16:36] LABS: Lactate* 2.5 mmol/L (0.5-1.9)
[2024-09-25 16:37] VITALS: BP 137/88; PULSE 88; RESP 20; O2SAT 98
[2024-09-25 16:37] LABS: Basophils Absolute Auto 0.01 K/uL (0.00-0.30); Basophils Percent Auto 0.2 % (0.0-3.0); Eosinophils Absolute Auto 0.16 K/uL (0.00-0.50); Eosinophils Percent Auto 2.8 % (0.0-7.0); Hematocrit 43.6 % (33.0-51.0); Hemoglobin* 14.3 gm/dL (12.0-16.0); Immature Granulocytes Abs Auto 0.03 K/uL (0.00-0.30); Immature Granulocytes Pct Auto 0.5 %; Lymphocytes Percent Auto 15.4 % (20-44); Mean Corpuscular HGB Conc 33 gm/dL (32-36); Mean Corpuscular Hemoglobin 27 pg (26-34); Mean Corpuscular Volume 84 fL (80-100); Neutrophils Absolute Auto 4.12 K/uL (1.7-7.0); Neutrophils Percent Auto 71.1 % (42.0-72.0); Platelet Count* 141 K/uL (140-440); RDW Coefficient of Variation % 13.4 % (11.5-15.5); Red Blood Count 5.22 m/uL (4.00-5.20); White Blood Count* 5.79 K/uL (4.50-11.00)
[2024-09-25 16:44] LABS: Appearance Urine Clear (Clear); Bilirubin Urine Negative (Negative); Blood Urine 1+ (Negative); Color Urine Yellow (Yellow); Glucose Urine Negative (Negative); Ketones Urine Negative (Negative); Leukocyte Esterase Urine Negative (Negative); Nitrite Urine Negative (Negative); Protein Urine Negative (Negative); Urobilinogen Urine 0.2 (0.2-1.0); pH Urine 6.5 (5.0-8.5)
--- OUTSIDE RECORDS SUMMARY | 2024-09-25 16:44 | XMS_ITS | Continuity of Care Document ---
Author Organization [place] [facility], [facility] Address [address] [place] [address] Care Team Providers Care Pe Manager Name Role Phone GLADYS LANIER Primary Care Provider [phone] Assessment Encounter Date Assessment Date Assessment LastModified [...] (TURBT) - Surgery to be performed at [facility] or [facility] - Procedure to include: - Biopsy/resection of [...] Organization Details Last Modified Time Details Appointments ESTABLISH ED 20 2024 03:50P M JOÃO LOVETT MD Not available Not available Not available Lab urinalysi s, dipstick 2023 024 [id number] [facility], [address], [place], [address], 09/04/2024 08:17:48 Referral None recorded. Procedures None recorded. Surgeries None recorded. Imaging None recorded. Medication Orders None recorded. Patient TargetsNo targets recorded. Patient InstructionsNo instructions recorded. Reason for Referral None Reported. Results Created Date Observation Date Name Description Value Unit Range Abnormal Flag Note LastModifiedBy Organization Detail LastModifiedTime 09/01/20 24 09/01/2024 urina lysis , dipst ick Color-Status Yellow Not Available [facility] [address] [facility] [address], [place], [address], 09/01/2024 16:07:08 09/01/2009/01/2024 urina lysis , dipst ick pH-Status 6.0 Not Available [facility], [place], [address], 09/01/2024 16:07:08 09/01/20 24 09/01/2024 urina lysis , dipst ick Nitrates-Sta tus negati ve Not Available [facility], [place], [address], 09/01/2024 16:07:08 09/01/20 24 09/01/2024 urina lysis , dipst ick Blood-Status Negati ve Not Available [facility], [place], [address], 09/01/2024 16:07:08 09/01/20 24 09/01/2024 urina lysis , dipst ick Leuko-Status Negati ve Not Available [facility], [place], [address], 09/01/2024 16:07:08 08/25/20 24 08/14/2024 CT, abdom [...] Address Organization Details Recorded Time Ureteric stone 97252187 Active 024 JOÃO LOVETT MD [address] [place] [address] 0, [facility] 4 11:38:23 Abnormal findings on diagnostic imaging of urinary organs 807769312 Active 024 JOÃO LOVETT MD [address] [place] [address] 0, [facility] 4 11:39:03 Mass of urinary bladder 254090825 Active 024 JOÃO LOVETT MD [address] [place] [address] 0, [facility] 4 16:03:19 Problem Notes None recorded. Procedures Surgical History Date Name Laterality Status Provider Name and Address Organization Details Recorded Time 09/01/20 24 CystoscopyFemale completed JOÃO LOVETT MD [address] [place] [address],[place] [id number], [facility] 09/01/2024 16:24:17 Imaging Results None recorded. Procedure Notes None recorded. Medical Equipment None Reported. Allergies Allergen ID Allergen Name Allergen Category Reaction Reaction Severity Criticality Documentation Date Start Date Code Code System Note Provider Name and Address Organization Details Recorded Time [id number] 2824e Medicinal product containin g penicilli n and acting as antibacte rial agent (product) medicatio n Not available Not available Not available 09/14/2024 19230 05 SNOMED per patie nt Not Available [...] Updated DateTime 09/01/2024 152.4 cm 27.3 kg/m2 14398.93 g Xiao Giraldo [facility] 09/01/2024 16:04:36 Social History Question Answer Notes LastModified by Organizat ion Details LastModified Time Tobacco Smoking Status Never Smoker Xiao smyth [facility] 09/01/2024 16:05:35 What Is Your Level [...] Reflux Y Heart Disease Y Cancer N Lung Disease N Depression N Gynecological HistoryNo gynecological history recorded. Obstetrics History GPAL:G 0 P 0 0 0 0 Immunizations Vaccine Type Date Status Note Provider Nam e and Address Organization Details Recorded Time Influenza, adjuvanted, trivalent, PF 7 completed Asmita Grady null, [facility] 09/06/2024 15:27:30 Influenza, recombinant, quadrivalent, PF 9 [facility] 15:27:30 zoster recombinant 9 [facility] 09/06/2024 15:27:30 zoster recombinant 9 completed [facility] 09/06/2024 15:27:30 Influenza, high-dose, quadrivalent, PF 4 completed [facility] 09/06/2024 15:27:30 Influenza, high-dose, quadrivalent, PF 0 completed Asmita Grady null, [facility] 09/06/2024 15:27:30 Influenza, high-dose, quadrivalent, PF 3 [facility]/06/2024 15:27:30 Influenza, high-dose, quadrivalent, PF 1 completed [facility] 09/06/2024 15:27:30 Influenza, high-dose, quadrivalent, PF 2 [facility] 09/06/2024 15:27:31 COVID-19, mRNA, LNP-S, PF, 30 mcg/0.3 mL dose 1 completed Asmita Grady null, [facility] 09/06/2024 15:27:31 COVID-19, mRNA, LNP-S, PF, 30 mcg/0.3 mL dose 1 completed Asmita Corn null, [facility] 09/06/2024 15:27:31 COVID-19, mRNA, LNP-S, PF, 30 mcg/0.3 mL dose 1 completed Asmita Corn null, [facility] 09/06/2024 15:27:31 COVID-19, mRNA, LNP-S, PF, 30 mcg/0.3 mL dose, guicho-sucrose 2 completed Asmita Corn null, [facility] 09/06/2024 15:27:31 COVID-19, mRNA, LNP-S, bivalent, PF, 30 mcg/0.3 mL dose 2 completed Asmita Corn null, [facility] 09/06/2024 15:27:31 RSV, recombinant, protein subunit RSVpreF, adjuvant reconstituted, 0.5 mL, PF 4 completed Asmita Corn null, [facility] 09/06/2024 15:27:31 COVID-19, mRNA, LNP-S, PF, 50 mcg/0.5 mL 4 completed Asmita Grady null, [facility] 09/06/2024 15:27:31 COVID-19, mRNA, LNP-S, PF, 50 mcg/0.5 mL 4 completed Asmita Corn null, [facility] 09/06/2024 15:27:31 pneumococcal polysaccharide PPV23 7 completed Asmita Corn null, [facility] 09/06/2024 15:27:31 Tdap 1 completed Asmita Corn null, [facility] 09/06/2024 15:27:31 Tdap 4 completed Asmita Corn null, [facility] 09/06/2024 15:27:31 Pneumococcal conjugate PCV 13 6 completed Asmita Corn null, [facility] 09/06/2024 15:27:31 zoster live 9 completed Asmita Grady null, [facility] 09/06/2024 15:27:31 Influenza, high-dose, trivalent, PF 4 completed Asmita Grady null, [facility] 09/06/2024 15:27:31 Influenza, high-dose, trivalent, PF 8 completed Asmita Grady null, [facility] 09/06/2024 15:27:31 Influenza, high-dose, trivalent, PF 4 completed Asmita Grady null, [facility] 09/06/2024 15:27:31 Influenza, high-dose, trivalent, PF 8 completed Asmita Grady null, [facility] 09/06/2024 15:27:31 Influenza, high-dose, trivalent, PF 6 completed Asmita Grady null, [facility] 09/06/2024 15:27:31 Influenza, high-dose, trivalent, PF 6 completed Asmita Grady null, [facility] 09/06/2024 15:27:31 Influenza, split virus, trivalent, preservative 3 completed Asmita Grady null, [facility] 09/06/2024 15:27:31 Influenza, split virus, trivalent, preservative 9 completed Asmita Grady null, [facility] 09/06/2024 15:27:31 Influenza, split virus, trivalent, preservative 4 completed Asmita Grady null, [facility] 09/06/2024 15:27:31 Influenza, split virus, trivalent, preservative 5 completed Asmita Grady null, [facility] 09/06/2024 15:27:31 Influenza, split virus, trivalent, preservative 0 completed Asmita Corn null, [facility] 09/06/2024 15:27:31 Influenza, split virus, trivalent, preservative 7 completed Asmita smyth, [facility] 09/06/2024 15:27:31 Influenza, split virus, trivalent, preservative 8 completed Asmita Graf smyth, [facility] 09/06/2024 15:27:31 Influenza, split virus, trivalent, preservative 3 completed Asmita Corn null, [facility] 09/06/2024 15:27:31 Influenza, split virus, trivalent, PF 1 completed Asmita smyth, [facility] 09/06/2024 15:27:31 Td (adult), 5 Lf tetanus toxoid, preservative free, adsorbed 7 completed [facility]/06/2024 15:27:31 Past Encounters Encounter ID Performer Location Encounter Start Date Encounter Closed Date Diagnosis/Indication Diagnosis SNOMED-CT Code Diagnosis ICD10 Code Diagnosis Note [id number] JOÃO LOVETT MD [place] [address],[address] [address] 09/01/2024 16:03:55 09/04/2024 17:11:46 Ureteric stone 30526658 N20.1 Right Abnormal f indings on diagnostic imaging of urinary organs 399422855 R93.41 Recurrent urinary tract infection 180585710 N39.0 Mass of ur inary bladder 257283349 N32.89 Health Concerns Section Related Observation LastModified by Organization Detai ls LastModified Time None Recorded Concern Status LastModified by Organization Details LastModified Time None Recorded Payers Encounter Date Sequence Insurance Name Policy Number Policy Watters Covered Member ID Watters Member ID Guarantor Name 09/01/2024 1 [place] [employer] Radha A Hand [id number] Radha A Hand 09/01/2024 2 [place] [id number] Radha A Hand [id number] Radha A Hand Notes Date Note Type Note Provider Name and Address Organization Details Recorded Time 09/01/2024 text/html Patient is a 84 yo F with PMH of memory impairment who presents as a new patient for evaluation of possible bladder lesion. Referred by: Dr Lanier Outside records reviewed and in sum:Pt seen in [place] [facility] 08/14/24 for constipation with no BM [...] of urinary tract infectionsPast Medical History:-TRI-HTN-HLD -Constipation-Prior JA-Yjoymjjpaz-Ngzppk loss Past Surgical hx- Cholecystectomy- No known kidney or bladder surgeries Social hx: nonsmoker JOÃO LOVETT MD [address] [facility],[address], [place], [address], [facility] 09/04/2024 16:05:04 OBGyn Episode No OBEpisode recorded.
[2024-09-25 16:47] LABS: Albumin* 4.6 g/dL (3.3-5.0); Chloride* 102 mmol/L (96-114)
[2024-09-25 16:48] LABS: Sodium* 137 mmol/L (135-149)
[2024-09-25 16:50] LABS: Creatinine* 0.8 mg/dL (0.5-1.5); Est. Creatinine Clearance* 29.54; Estimated Glomerular Filt Rate 72 ml/min
[2024-09-25 16:51] LABS: Alanine Aminotransferase* 20 U/L (4-35); Alkaline Phosphatase* 59 U/L (40-150); Anion Gap 9 mEq/L (7-15); Aspartate Amino Transferase* 30 U/L (12-35); Bilirubin Direct* 0.4 mg/dL (0.0-0.5); Bilirubin Total* 0.8 mg/dL (0.1-1.5); Blood Urea Nitrogen* 15 mg/dL (7-30); Calcium* 9.3 mg/dL (8.4-10.6); Carbon Dioxide* 26 mmol/L (20-32); Glucose* 122 mg/dL (60-115); Lipase* 100 U/L (23-300); Total Protein* 7.1 g/dL (6.0-8.3)
[2024-09-25 16:52] LABS: Slide Review Reflex No
[2024-09-25 16:58] LABS: RBC Urine 0-2 (0-2); WBC Urine 0-2 (0-5)
[2024-09-25 17:01] LABS: C Reactive Protein* < 0.5 mg/dL (0.5-1.0)
[2024-09-25 17:02] LABS: Troponin I* 0.02 ng/mL (0.01-0.04)
[2024-09-25 17:05] LABS: PCR FLU A Negative PCR FLU A (Negative); PCR FLU B Negative PCR FLU B (Negative); PCR RSV Negative PCR RSV (Negative); SARS PCR* Negative SARS-CoV-2 (Negative)
[2024-09-25 17:07] LABS: Potassium* 4.4 mmol/L (3.6-5.1)
== END 2024-09-25 17:38 | disposition home or self-care (01) ==
PROVIDERS: Emergency Provider Family Medicine; PCP Family Medicine
DX: R11.10 Vomiting, unspecified (principal)
CPT/HCPCS: 36415; 80048; 80076; 81001; 83605; 83690; 84484; 85025; 86140; 87086; 87631; 93005; 99284; J7030

== ENCOUNTER 2024-10-12 07:32 | Day surgery (SDC) | payer MEDICARE, BC, SELFPAY ==
--- OUTSIDE RECORDS SUMMARY | 2024-09-11 15:11 | XMS_ITS | Data Portability ---
Author Organization [place] [facility], [facility] Address [address] [place] [address] Care Team Providers Care Telecom Network Manager Name Role Phone GLADYS LANIER Primary Care Provider [phone] Assessment Encounter Date Assessment Date Assessment LastModified by Organization Details LastModified Time 09/01/2024 09/01/2024 84 yo F with: 1. 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 H/o Right distal ureteral stone noted on imaging, pt asymptomatic 3. Memory impairment Management Plan: -UA dipstick negative today - Schedule for transurethral resection of bladder tumor (TURBT) - Surgery to be performed at [facility] or [facility] - Procedure to include: - Biopsy/resection of lesion - Fulguration of base - Pathologic evaluation - Timeline: recommended within next 2 months - Potential future management options discussed: - Cystoscopic surveillance - Possible intravesical therapy (BCG or chemotherapy) depending on pathology - Counseled regarding: - Post-procedure expectations including possible hematuria - Risk of UTI - Prophylactic antibiotics to be provided [email or web address] Not available 09/04/2024 16:04:35 Plan of Treatment Reminders Order Date Submit Date Provider Last Modified By Organization Details Last Modified Time Details Appointments HOSPITAL 2024 12:50P M JOÃO LOVETT MD Not available Not available Not available Lab urinalysi s, dipstick 2023 024 [email or web address] [facility], [address], [place], [address], 09/04/2024 08:17:48 Referral None recorded. Procedures None recorded. Surgeries None recorded. Imaging None recorded. Medication Orders None recorded. Patient TargetsNo targets recorded. Patient InstructionsNo instructions recorded. Reason for Referral None Reported. Results Created Date Observation Date Name Description Value Unit Range Abnormal Flag Note LastModifiedBy Organization Detail LastModifiedTime 09/01/20 24 09/01/2024 urina lysis , dipst ick Color-Status Yellow Not Available [facility] [address] [facility] [address], [place], [address], 09/01/2024 16:07:08 09/01/2009/01/2024 urina lysis , dipst ick pH-Status 6.0 Not Available [facility], [place], [address], 09/01/2024 16:07:08 09/01/20 24 09/01/2024 urina lysis , dipst ick Nitrates-Sta tus negati ve Not Available [facility], [place], [address], 09/01/2024 16:07:08 09/01/20 24 09/01/2024 urina lysis , dipst ick Blood-Status Negati ve Not Available [facility], [place], [address], 09/01/2024 16:07:08 09/01/20 24 09/01/2024 urina lysis , dipst ick Leuko-Status Negati ve Not Available [facility], [place], [address], 09/01/2024 16:07:08 08/25/20 24 08/14/2024 CT, abdom en + pelvi s, w/ contr ast No observ ation record ed. [email or web address] Not Available 2023 16:51:28 08/25/20 24 08/14/2024 US, pelvi s, trans abdom inal + trans vagin al No observ ation record ed. [email or web address] Not Available 2023 16:57:57 Result Notes None recorded. Problems Name Problem SNOMED Code Status Onset Date Resolution Date Notes Provider Name and Address Organization Details Recorded Time Ureteric stone 80807868 Active 024 JOÃO LOVETT MD [address] [place], [place] [address] [address], [facility] 4 11:38:23 Abnormal findings on diagnostic imaging of urinary organs 617323160 Active 024 JOÃO LOVETT MD [address] [place] [address] 0, [facility] 4 11:39:03 Mass of urinary bladder 882405030 Active 024 JOÃO LOVETT MD [address] [place] [address] 0, [facility] 4 16:03:19 Problem Notes None recorded. Procedures Surgical History Date Name Laterality Status Provider Name and Address Organization Details Recorded Time 09/01/20 CystoscopyFemale completed JOÃO LOVETT MD [address] [place] [address],[address] [place] [address], [address], [facility] 09/01/2024 16:24:17 Imaging Results Imaging Date Name Status LastModified by Organization Details LastModified Time 08/14/2024 CT, abdomen + pelvis, w/ contrast completed Information not available 08/25/2024 16:51:28 08/14/2024 US, pelvis, transabdominal + transvaginal completed Information not available 08/25/2024 16:57:57 Procedure Notes None recorded. Medical Equipment None Reported. Medications Name Sig Start Date Stop Date Status Note LastModified by Organization Details LastModified Time losartan 50 mg tablet TAKE 1 TABLET (50 MG) BY MOUTH ONCE DAILY. active Not Available Not Available No t Available donepezil 5 mg tablet TAKE 1 TABLET (5 MG) BY MOUTH AT BEDTIME. active Not Available Not Available No t Available sucralfate 1 gram tablet TAKE 1 TABLET (1GM) BY MOUTH FOUR TIMES DAILY BEFORE MEALS AND AT BEDTIME. active Not Available Not Available No t Available sertraline 100 mg tablet TAKE 2 TABLETS (200 MG) BY MOUTH ONCE DAILY. active Not Available Not Available No t Available clopidogrel 75 mg tablet TAKE ONE TABLET BY MOUTH EVERY DAY - DO NOT STOP OR MISS DOSES FOR MINIMUM OF 1 YEAR OR DIRECTED BY active Not Available Not Available No t Available omeprazole 40 mg capsule,delay ed release TAKE 1 CAPSULE BY MOUTH 2 TIMES EVERY DAY 30-60 MINS BEFORE BREAKFAST AND DINNER active Not Available Not Available N ot Available spironolacton e 25 mg tablet TAKE 1/2 TABLET (12.5 MG) BY MOUTH EVERY MORNING. active Not Available Not Available No t Available losartan 25 mg tablet TAKE 1/2 TABLET (12.5 MG) BY MOUTH ONCE DAILY. active Not Available Not Available No t Available zolpidem 5 mg tablet TAKE 1 TABLET (5 MG) BY MOUTH AT BEDTIME. active Not Available Not Available No t Available metoprolol succinate ER 25 mg tablet,extend ed release 24 hr TAKE 1/2 TABLET (12.5 MG) BY MOUTH ONCE DAILY. active Not Available Not Available No t Available rosuvastatin 10 mg tablet TAKE 1 TABLET (10 MG) BY MOUTH AT BEDTIME. active Not Available Not Available No t Available duloxetine 30 mg capsule,delay ed release TAKE TWO CAPSULES (60MG) BY MOUTH IN THE MORNING AND 1 CAP (30MG) IN THE EVENING active Not Available Not Available No t Available Eliquis 5 mg tablet TAKE 1 TABLET (5 MG) BY MOUTH TWO TIMES DAILY. active Not Available Not Available No t Available Vitals Date Recorded Body height Body mass index (BMI) Body weight Provider Name and Address Organization Details Last Updated DateTime 09/01/2024 152.4 cm 27.3 kg/m2 40150.93 g Xiao Giraldo [facility] 09/01/2024 16:04:36 Social History Question Answer Notes LastModified by Organizat ion Details LastModified Time Tobacco Smoking Status Never Smoker Xiao smyth [facility] 09/01/2024 16:05:35 What Is Your Level Of Alcohol Consumption? None Information not available 09/01/2024 What Is Your Level Of Caffeine Consumption? Occasional Information not available 09/01/2024 Race White Information no t available 09/01/2024 Ethnicity Not / Information not available 09/01/2024 What Was The Date Of Your Most Recent Tobacco Screening? 09/01/2024 Information not available 09/01/2024 Sex: Female Functional Status None recorded. Mental Status None recorded. Family History Nothing Reported. Medical History Condition Response Sexually Transmitted Infection N Diabetes N Other N Bleeding Disorder N High Blood Pressure N Kidney Stones N High Cholesterol N GERD/Acid Reflux Y Heart Disease Y Cancer N Depression N Lung Disease N Gynecological HistoryNo gynecological history recorded. Obstetrics History GPAL:G 0 P 0 0 0 0 Immunizations Vaccine Type Date Status Note Provider Nam e and Address Organization Details Recorded Time Influenza, adjuvanted, trivalent, PF 7 completed Asmita [place] null, [facility] 09/06/2024 15:27:30 Influenza, recombinant, quadrivalent, PF 9 completed [facility] 15:27:30 zoster recombinant 9 completed Asmita [place] null, [facility] 09/06/2024 15:27:30 zoster recombinant 9 completed [facility]24 15:27:30 Influenza, high-dose, quadrivalent, PF 4 completed [facility] 15:27:30 Influenza, high-dose, quadrivalent, PF 0 completed Asmita Grady null, [facility] 09/06/2024 15:27:30 Influenza, high-dose, quadrivalent, PF 3 completed Asmita [place] null, [facility] 09/06/2024 15:27:30 Influenza, high-dose, quadrivalent, PF 1 [facility] 15:27:30 Influenza, high-dose, quadrivalent, PF 2 completed [facility] [place] [facility] 15:27:31 COVID-19, mRNA, LNP-S, PF, 30 mcg/0.3 mL dose 1 completed Asmita [place] null, [facility] 09/06/2024 15:27:31 COVID-19, mRNA, LNP-S, PF, 30 mcg/0.3 mL dose 1 completed Asmita [place] null, [facility] 09/06/2024 15:27:31 COVID-19, mRNA, LNP-S, PF, 30 mcg/0.3 mL dose 1 completed Asmita [place] null, [facility] 09/06/2024 15:27:31 COVID-19, mRNA, LNP-S, PF, 30 mcg/0.3 mL dose, guicho-sucrose 2 completed Asmita [place] null, [facility] 09/06/2024 15:27:31 COVID-19, mRNA, LNP-S, bivalent, PF, 30 mcg/0.3 mL dose 2 completed Asmita Grady null, [facility] 09/06/2024 15:27:31 RSV, recombinant, protein subunit RSVpreF, adjuvant reconstituted, 0.5 mL, PF 4 completed Asmita [place] null, [facility] 09/06/2024 15:27:31 COVID-19, mRNA, LNP-S, PF, 50 mcg/0.5 mL 4 completed Asmita [place] null, [facility] 09/06/2024 15:27:31 COVID-19, mRNA, LNP-S, PF, 50 mcg/0.5 mL 4 completed Asmita [place] null, [facility] 09/06/2024 15:27:31 pneumococcal polysaccharide PPV23 7 completed Asmita [place] null, [facility] 09/06/2024 15:27:31 Tdap 1 completed Asmita [place] null, [facility] 09/06/2024 15:27:31 Tdap 4 completed Asmita [place] null, [facility] 09/06/2024 15:27:31 Pneumococcal conjugate PCV 13 6 completed Asmita Grady null, [facility] 09/06/2024 15:27:31 zoster live 9 completed Asmita [place]ady null, [facility] 09/06/2024 15:27:31 Influenza, high-dose, trivalent, PF 4 completed Asmita [place] null, [facility] 09/06/2024 15:27:31 Influenza, high-dose, trivalent, PF 8 completed Asmita [place] null, [facility] 09/06/2024 15:27:31 Influenza, high-dose, trivalent, PF 4 completed Asmita Grady null, [facility] 09/06/2024 15:27:31 Influenza, high-dose, trivalent, PF 8 completed Asmita [place] null, [facility] 09/06/2024 15:27:31 Influenza, high-dose, trivalent, PF 6 completed As[place]a [place] null, [facility] 09/06/2024 15:27:31 Influenza, high-dose, trivalent, PF 6 completed Asmita [place] null, [facility] 09/06/2024 15:27:31 Influenza, split virus, trivalent, preservative 3 completed As[place]a [place] null, [facility] 09/06/2024 15:27:31 Influenza, split virus, trivalent, preservative 9 completed Asmita [place] null, [facility] 09/06/2024 15:27:31 Influenza, split virus, trivalent, preservative 4 completed Asmita Grady null, [facility] 09/06/2024 15:27:31 Influenza, split virus, trivalent, preservative 5 completed Asmita Grady null, [facility] 09/06/2024 15:27:31 Influenza, split virus, trivalent, preservative 0 completed Asmita Grady null, [facility] 09/06/2024 15:27:31 Influenza, split virus, trivalent, preservative 7 completed Asmita Grady null, [facility] 09/06/2024 15:27:31 Influenza, split virus, trivalent, preservative 8 completed Asmita [place] null, [facility] 09/06/2024 15:27:31 Influenza, split virus, trivalent, preservative 3 completed Asmita Grady null, [facility] 09/06/2024 15:27:31 Influenza, split virus, trivalent, PF 1 completed Asmita Grady null, [facility] 09/06/2024 15:27:31 Td (adult), 5 Lf tetanus toxoid, preservative free, adsorbed 7 completed Asmita [place] null, [facility] 09/06/2024 15:27:31 Past Encounters Encounter ID Performer Location Encounter Start Date Encounter Closed Date Diagnosis/Indication Diagnosis SNOMED-CT Code Diagnosis ICD10 Code [id number] JOÃO LOVETT MD [facility] [address] [address],[address] [place] [address] 09/01/2024 16:03:55 09/04/2024 17:11:46 Ureteric stone 72052412 N20.1 Abnormal f indings on diagnostic imaging of urinary organs 486226440 R93.41 Recurrent urinary tract infection 906457552 N39.0 Mass of ur inary bladder 163290440 N32.89 Health Concerns Section Related Observation LastModified by Organization Detai ls LastModified Time None Recorded Concern Status LastModified by Organization Details LastModified Time None Recorded Advance Directives Directive None Recorded Payers Encounter Date Sequence Insurance Name Policy Number Policy Watters Covered Member ID Watters Member ID Guarantor Name 09/01/2024 1 [place] [employer] Radha A Hand [id number] Radah A Hand 09/01/2024 2 [place] [id number] Radha A Hand [id number] Radha A Hand Notes Date Note Type Note Provider Name and Address Organization Details Recorded Time 09/01/2024 text/html Patient is a 84 yo F with PMH of memory impairment who presents as a new patient for evaluation of possible bladder lesion. Referred by: Dr Lanier Outside records reviewed and in sum:Pt seen in [place] [facility] 08/14/24 for constipation with no BM for 5-[address] a/p w/ 08/14/24 in the ER which showed possible right 3mm UVJ stone and focal 10mm area of hypervascular lesion in the right posterior bladder wall adjacent to the UVJ. Also noted was a 8.2 cm left adnexal cystic lesion.She was recommended to undergo non urgent cystoscopy to further assess. History:- Daughter present helps provide history as patient has some memory difficulties.- Referred for evaluation of possible bladder mass seen on imaging- Initial presentation to ER for constipation: reports difficulty with bowel movements- Denies pain in lower abdomen or back- No history of urinary tract infectionsPast Medical History:-TRI-HTN-HLD -Constipation-Prior HF-Bhczxfnnff-Mlokcj loss Past Surgical hx- Cholecystectomy- No known kidney or bladder surgeries Social hx: nonsmoker JOÃO LOVETT MD [address] [place] [address],[address], [place], [address], [facility] 09/04/2024 16:05:04 OBGyn Episode No OBEpisode recorded.
[2024-10-12] VITALS (17 sets, daily range): BP systolic 93–152; BP diastolic 44–85; PULSE 70–78; RESP 16–22; TEMP 36.3–37.5; O2SAT 91–99; BMI 27.3
--- OUTSIDE RECORDS SUMMARY | 2024-10-12 07:38 | XMS_ITS | Data Portability ---
Author Organization [place] [facility], [facility] Address [address] [place] [address] Care Team Providers Care Gas Appliance Servicer Name Role Phone GLADYS LANIER Primary Care [...] (TURBT) - Surgery to be performed at [facility] or [facility] - Procedure to include: - Biopsy/resection of lesion - Fulguration of base - Pathologic evaluation - Timeline: recommended within next 2 months - Potential future management options discussed: - Cystoscopic surveillance - Possible intravesical therapy (BCG or chemotherapy) depending on pathology - Counseled regarding: - Post-procedure expectations including possible hematuria - Risk of UTI - Prophylactic antibiotics to be provided Not available 09/04/2024 16:04:35 10/11/2024 10/11/2024 84 yo F with low risk LG Ta NMIBC (solitary 1.5cm tumor) s/p TURBT on 09/21/24 Plan: -Reviewed Pathology -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 and natural history of disease as well as treatment paradigm -Discussed need for continued surveillance cystoscopy monitoring to assess for recurrence -Follow up for surveillance cystoscopy in 3 months, and if negative, will perform subsequent surveillance cysto 6-9 months later and then annually thereafter for at least 5 years -Consider RBUS if pt develops flank discomfort given close proximity of tumor to the right UO Not available 10/11/2024 17:48:20 Plan of Treatment Reminders Order Date Submit Date Provider Last Modified By Organization Details Last Modified Time Details Appointments None recorded. Lab urinalysis , dipstick 2023 024 [email or web address] [facility], [address], [place], [place], [address], 08:17:48 Referral None recorded. Procedures None recorded. Surgeries None recorded. Imaging None recorded. Medication Orders None recorded. Patient TargetsNo targets recorded. Patient InstructionsNo instructions recorded. Reason for Referral None Reported. Results Created Date Observation Date Name Description Value Unit Range Abnormal Flag Note LastModifiedBy Organization Detail LastModifiedTime 09/01/2009/01/2024 urina lysis , dipst ick Color-Status Yellow Not Available [facility] [address], [place], [address], 09/01/2024 16:07:08 09/01/2009/01/2024 urina lysis , dipst ick pH-Status 6.0 Not Available [facility] [address], [place], [address], 09/01/2024 16:07:08 09/01/2009/01/2024 urina lysis , dipst ick Nitrates-Sta tus negati ve Not Available [facility], [place], [address], 09/01/2024 16:07:08 09/01/20 24 09/01/2024 urina lysis , dipst ick Blood-Status Negati ve Not Available [facility], [place], [address], 09/01/2024 16:07:08 09/01/20 24 09/01/2024 urina lysis , dipst ick Leuko-Status Negati ve Not Available [facility] [address], [place], [address], 09/01/2024 16:07:08 08/25/20 24 08/14/2024 CT, abdom [...] Address Organization Details Recorded Time Ureteric stone 60407361 Active 024 JOÃO LOVETT MD [address] [place] [address],[address] [place] [phone], [facility] 4 11:38:23 Abnormal findings on diagnostic imaging of urinary organs 444428748 Active 024 JOÃO LOVETT MD [address] [place] [address],[address] [place] [address], [phone], [facility] 4 11:39:03 Mass of urinary bladder 132085185 Active 024 JOÃO LOVETT MD [address] [place] [address],[address] [place] [address], [phone], [facility] 4 16:03:19 Malignant neoplasm of urinary bladder 040420601 Active 025 JOÃO LOVETT MD [address] [place] [address],[address] [place] [address], [phone], [facility] 5 17:48:25 Problem Notes None recorded. Procedures Surgical History Date Name Laterality Status Provider Name and Address Organization Details Recorded Time 09/21/19 transurethral excision of neoplasm of urinary bladder completed Yeni Harris [facility] 10/10/2024 09:11:32 12/13/20 24 CystoscopyFemale completed JOÃO LOVETT MD [address], [place], [address], [facility] 09/01/2024 16:24:17 Imaging Results Imaging Date Name [...] Name and Address Organization Details Recorded Time [id number] 2824e Product containin g penicilli n and antibioti c (product) medicatio n Not available Not available Not available 09/14/2024 89215 05 SNOMED per patie nt Not Available Not Available Not Available [id number] ciproflox acin medicatio n itching Not available Not available 10/11/20242024 2551 RxNorm Itchi ng above IV acces s site durin g infus ion. Not Available Not Available Not Available [id number] 2824e codeine medicatio n Not available Not available Not available 10/11/2024 2670 RxNorm unrec ogniz ed react ion (text : GI Upset , code: [id number]) (from [facility]) Not Available Not Available Not Available Medications Name Sig Start Date Stop Date Status Note LastModified by Organization Details LastModified Time losartan 50 mg tablet TAKE 1 TABLET (50 MG) BY MOUTH ONCE DAILY. active Not Available Not Available No t Available donepezil 5 mg tablet TAKE 1 TABLET (5 MG) BY MOUTH AT BEDTIME. 10/11 completed Not Available Not Available Not Available sucralfate 1 gram tablet TAKE 1 TABLET (1GM) BY MOUTH FOUR TIMES DAILY BEFORE MEALS AND AT BEDTIME. active Not Available Not Available No t Available sertraline 100 mg tablet TAKE 1 TABLET (100 MG) BY MOUTH ONCE DAILY. 10/11 completed Not Available Not Available Not Available clopidogrel 75 mg tablet TAKE ONE TABLET BY MOUTH EVERY DAY - DO NOT STOP OR MISS DOSES FOR MINIMUM OF 1 YEAR OR DIRECTED BY 10/11 completed Not Available Not Available Not Available omeprazole 40 mg capsule,del ayed release TAKE ONE CAPSULE BY MOUTH TWICE A DAY 30-60 MINS BEFORE BREAKFAST AND DINNER active Not Available Not Available No t Available spironolact one 25 mg tablet TAKE 1/2 TABLET (12.5 MG) BY MOUTH EVERY MORNING. active Not Available Not Available No t Available lorazepam 0.5 mg tablet TAKE 1 TABLET (0.5 MG) BY MOUTH ONCE DAILY IF NEEDED FOR ANXIETY. 10/11 completed Not Available Not Available Not Available losartan 25 mg tablet TAKE 1/2 TABLET (12.5 MG) BY MOUTH ONCE DAILY. 10/11 completed Not Available Not Available Not Available zolpidem 5 mg tablet TAKE 1 TABLET (5 MG) BY MOUTH AT BEDTIME. 10/11 completed Not Available Not Available Not Available metoprolol succinate ER 25 mg tablet,exte nded release 24 hr TAKE ONE-HALF TABLET (12.5 MG) BY MOUTH ONCE DAILY. active Not Available Not Available No t Available risperidone 0.5 mg tablet TAKE 1 TABLET (0.5 MG) BY MOUTH AT BEDTIME. COULD TAKE AN ADDITIONA L 1/2 TABLET IN THE AM IF NEEDED FOR ANXIETY active Not Available Not Available No t Available rosuvastati n 10 mg tablet TAKE 1 TABLET (10 MG) BY MOUTH AT BEDTIME. active Not Available Not Available No t Available duloxetine 30 mg capsule,del ayed release TAKE TWO CAPSULES (60MG) BY MOUTH IN THE MORNING AND 1 CAP (30MG) IN THE EVENING active Not Available Not Available No t Available melatonin active Not Available Not Catina ilable Not Available aspirin active Not Available Not Avail able Not Available calcium active Not Available Not Avail able Not Available Vitamin D active Not Available Not Catina ilable Not Available Eliquis 5 mg tablet TAKE 1 TABLET (5 MG) BY MOUTH TWO TIMES DAILY. active Not Available Not Available No t Available Vitals Date Recorded Body height Provider Name an d Address Organization Details Last Updated DateTime 09/01/2024 152.4 cm Xiao Giraldo [facility] 09/01/2024 16:04:32 Date Recorded Body mass index (BMI) Body weight Provider Name and Address Organization Details Last Updated DateTime 09/01/2024 27.3 kg/m2 05411.93 g Xiao Kristal [facility] 09/01/2024 16:04:36 Date Recorded Body height Provider Name an d Address Organization Details Last Updated DateTime 10/11/2024 152.4 cm Yeni Harris [facility] 10/11/2024 16:53:55 Date Recorded Body mass index (BMI) Body weight Provider Name and Address Organization Details Last Updated DateTime 10/11/2024 27.3 kg/m2 43222.93 g Yeni Harris [facility] 10/11/2024 16:54:00 Social History Question Answer Notes LastModified by Organizat ion Details LastModified Time Tobacco Smoking Status Never Smoker Xiao Giraldo [facility] 09/01/2024 16:05:35 Do You Have An Advance Directive? Yes Information not available 10/11/2024 What Is Your Level Of Alcohol Consumption? None Information not available 09/01/2024 What Is Your Level Of Caffeine Consumption? Occasional Information not available 09/01/2024 Race White Information no t available 09/01/2024 Ethnicity Not / Information not available 09/01/2024 Do You Have A Medical Power Of Ppa Teacher? Yes Information not available 10/11/2024 What Was The Date Of Your Most Recent Tobacco Screening? 10/11/2024 Information not available 10/11/2024 Sex: Female Functional Status None recorded. Mental Status None recorded. Family History Relationship Description Onset Age of this Age Resolved Age Notes LastModified by Organization Details LastModified Time Father No current problems or disability Not available 10/11 17:01:52 Mother No current problems or disability Not available 10/11 17:01:52 Medical History Condition Response Other N High Blood Pressure N Kidney Stones N Depression N Lung Disease N GERD/Acid Reflux Y Sexually Transmitted Infection N Cancer N High Cholesterol N Diabetes N Bleeding Disorder N Heart Disease Y Gynecological HistoryNo gynecological history recorded. Obstetrics History GPAL:G 0 P 0 0 0 0 Immunizations Vaccine Type Date Status Note Provider Nam e and Address Organization Details Recorded Time Influenza, adjuvanted, trivalent, PF 7 completed Asmita Grady null, [facility] 09/06/2024 15:27:30 Influenza, recombinant, quadrivalent, PF 9 completed Asmita Whitney null, [facility] 09/06/2024 15:27:30 zoster recombinant 9 completed Asmita Whitney null, [facility] 09/06/2024 15:27:30 zoster recombinant 9 completed Asmita Grady null, [facility] 09/06/2024 15:27:30 Influenza, high-dose, quadrivalent, PF 4 completed Asmita Whitney null, [facility] 09/06/2024 15:27:30 Influenza, high-dose, quadrivalent, PF 0 completed Asmita Whitney null, [facility] 09/06/2024 15:27:30 Influenza, high-dose, quadrivalent, PF 3 completed Asmita Whitney null, [facility] 09/06/2024 15:27:30 Influenza, high-dose, quadrivalent, PF 1 completed Asmita Grady null, [facility] 09/06/2024 15:27:30 Influenza, high-dose, quadrivalent, PF 2 completed Asmita Grady null, [facility] 09/06/2024 15:27:31 COVID-19, mRNA, LNP-S, PF, 30 mcg/0.3 mL dose 1 completed Asmita Whitney null, [facility] 09/06/2024 15:27:31 COVID-19, mRNA, LNP-S, PF, 30 mcg/0.3 mL dose 1 completed Asmita Whitney null, [facility] 09/06/2024 15:27:31 COVID-19, mRNA, LNP-S, PF, 30 mcg/0.3 mL dose 1 completed Asmita Grady null, [facility] 09/06/2024 15:27:31 COVID-19, mRNA, LNP-S, PF, 30 mcg/0.3 mL dose, guicho-sucrose 2 completed Asmita Whitney null, [facility] 09/06/2024 15:27:31 COVID-19, mRNA, LNP-S, bivalent, PF, 30 mcg/0.3 mL dose 2 completed Asmita Whitney null, [facility] 09/06/2024 15:27:31 RSV, recombinant, protein subunit RSVpreF, adjuvant reconstituted, 0.5 mL, PF 4 completed Asmita Grady null, [facility] 09/06/2024 15:27:31 COVID-19, mRNA, LNP-S, PF, 50 mcg/0.5 mL 4 completed Asmita Grady null, [facility] 09/06/2024 15:27:31 COVID-19, mRNA, LNP-S, PF, 50 mcg/0.5 mL 4 completed Asmita Grady null, [facility] 09/06/2024 15:27:31 pneumococcal polysaccharide PPV23 7 completed Asmita Whitney null, [facility] 09/06/2024 15:27:31 Tdap 1 completed Asmita Whitney null, [facility] 09/06/2024 15:27:31 Tdap 4 completed Asmita Whitney null, [facility] 09/06/2024 15:27:31 Pneumococcal conjugate PCV 13 6 completed Asmita Grady null, [facility] 09/06/2024 15:27:31 zoster live 9 completed Asmita Whitney null, [facility] 09/06/2024 15:27:31 Influenza, high-dose, trivalent, PF 4 completed Asmita Grady null, [facility] 09/06/2024 15:27:31 Influenza, high-dose, trivalent, PF 8 completed Asmita Grady null, [facility] 09/06/2024 15:27:31 Influenza, high-dose, trivalent, PF 4 completed Asmita Grady null, [facility] 09/06/2024 15:27:31 Influenza, high-dose, trivalent, PF 8 completed Asmita Whitney null, [facility] 09/06/2024 15:27:31 Influenza, high-dose, trivalent, PF 6 completed Asmita Whitney null, [facility] 09/06/2024 15:27:31 Influenza, high-dose, trivalent, PF 6 completed Asmita Grady null, [facility] 09/06/2024 15:27:31 Influenza, split virus, trivalent, preservative 3 completed Asmita Grady null, [facility] 09/06/2024 15:27:31 Influenza, split virus, trivalent, preservative 9 completed Asmita Grady null, [facility] 09/06/2024 15:27:31 Influenza, split virus, trivalent, preservative 4 completed Asmita Grady null, [facility] 09/06/2024 15:27:31 Influenza, split virus, trivalent, preservative 5 completed Asmita Whitney null, [facility] 09/06/2024 15:27:31 Influenza, split virus, trivalent, preservative 0 completed Asmita Grady null, [facility] 09/06/2024 15:27:31 Influenza, split virus, trivalent, preservative 7 completed Asmita Grady null, [facility] 09/06/2024 15:27:31 Influenza, split virus, trivalent, preservative 8 completed Asmita Grady null, [facility] 09/06/2024 15:27:31 Influenza, split virus, trivalent, preservative 3 completed Asmita Whitney null, [facility] 09/06/2024 15:27:31 Influenza, split virus, trivalent, PF 1 completed [place] [facility] 09/06/2024 15:27:31 Td (adult), 5 Lf tetanus toxoid, preservative free, adsorbed 7 completed [place] [facility] 09/06/2024 15:27:31 Past Encounters Encounter ID Performer Location Encounter Start Date Encounter Closed Date Diagnosis/Indication Diagnosis SNOMED-CT Code Diagnosis ICD10 Code Diagnosis Note [id number] JOÃO LOVETT MD [facility] [address] [place] [address] 09/01/2024 16:03:55 09/04/2024 17:11:46 Ureteric stone 21550731 N20.1 Right Abnormal f indings on diagnostic imaging of urinary organs 465385884 R93.41 Recurrent urinary tract infection 551809925 N39.0 Mass of ur inary bladder 214770572 N32.89 [id number] JOÃO LOVETT MD _[facility] [address] [place] [address] 10/11/2024 16:50:28 10/11/2024 17:49:04 Malignant neoplasm of urinary bladder 299995324 C67.9 Health Concerns Section Related Observation LastModified by Organization Detai ls LastModified Time None Recorded Concern Status LastModified by Organization Details LastModified Time None Recorded Advance Directives Directive Y: Payers Encounter Date Sequence Insurance Name Policy Number Policy Watters Covered Member ID Watters Member ID Guarantor Name 09/01/2024 1 [place] [employer] Radha A Hand [id number] Radha A Hand 09/01/2024 2 [place] [id number] Radha A Hand [id number] Radha A Hand 10/11/2024 1 [place] [employer] Radha A Hand [id number] Radha A Hand 10/11/2024 2 [place] [id number] Radha A Hand [id number] Radha A Hand Notes Date Note Type Note Provider Name and Address Organization Details Recorded Time 09/01/2024 text/html Patient is a 84 yo F with PMH of memory impairment who presents as a new patient for evaluation of possible bladder lesion. Referred by: Dr Lanier Outside records reviewed and in sum:Pt seen in [facility] 08/14/24 for constipation with no BM [...] of urinary tract infectionsPast Medical History:-TRI-HTN-HLD -Constipation-Prior CV-Peybbfjtnq-Bytoow loss Past Surgical hx- Cholecystectomy- No known kidney or bladder surgeries Social hx: nonsmoker JOÃO LOVETT MD [address] [place] [address],[address], [address], [facility] 09/04/2024 16:05:04 10/11/2024 text/html 84 yo F with sma ll bladder mass s/p TURBT on 09/21/24 who presents for phone visit Pt doing well, accompanied by her daughters who help provide history. She denies hematuria, flank pain or abdominal pain.She has an upcoming gynecologic surgery tomorrow OR FINDINGS:There was a solitary 1.5cm papillary bladder mass at the right trigone, in close proximity/just lateral to the right UO.The mass was removed in its entirety using the bipolar resectoscope and the base was fulgurated. The resection was deep without perforation. The right UO was intact at the conclusion of case.Urethral caruncle and labia minora erythema re-demonstrated on external examination. Pathology:Bladder, transurethral resection of bladder tumor--LOW-GRADE PAPILLARY UROTHELIAL CARCINOMA, NONINVASIVE-Lamina propria and muscularis propria is present for assessment. JOÃO LOVETT MD [address] [place] [address],[address], [place], [address], [facility] 10/11/2024 17:49:02 OBGyn Episode No OBEpisode recorded.
--- OUTSIDE RECORDS SUMMARY | 2024-10-12 07:39 | XMS_ITS | Continuity of Care Document ---
Author Organization [place] [facility] [place] [facility], [facility] Address [address] [place] [address] Care Team Providers Care Strategic Buyer Name Role Phone GLADYS LANIER Primary Care Provider [phone] Assessment Encounter Date Assessment Date Assessment LastModified [...] (TURBT) - Surgery to be performed at [facility] or [facility] - Procedure to include: - Biopsy/resection [...] recorded. Lab urinalysis , dipstick 2023 024 [email or web address] [facility], [address], [place], [address], 08:17:48 Referral None recorded. Procedures None recorded. Surgeries None recorded. Imaging None recorded. Medication Orders None recorded. Patient TargetsNo targets recorded. Patient InstructionsNo instructions recorded. Reason for Referral None Reported. Results Created Date Observation Date Name Description Value Unit Range Abnormal Flag Note LastModifiedBy Organization Detail LastModifiedTime 09/01/20 24 09/01/2024 urina lysis , dipst ick Color-Status Yellow Not Available [facility] [address] [facility] [address], [place], [address], 09/01/2024 16:07:08 09/01/20 24 09/01/2024 urina lysis , dipst ick pH-Status 6.0 Not Available [facility], [place], [address], 09/01/2024 16:07:08 09/01/20 24 09/01/2024 urina lysis , dipst ick Nitrates-Sta tus negati ve Not Available [facility], [place], [address], 09/01/2024 16:07:08 09/01/20 24 09/01/2024 urina lysis , dipst ick Blood-Status Negati ve Not Available [facility], [place], [address], 09/01/2024 16:07:08 09/01/20 24 09/01/2024 urina lysis , dipst ick Leuko-Status Negati ve Not Available [facility], [place], [address], 09/01/2024 16:07:08 08/25/20 24 08/14/2024 CT, abdom [...] Address Organization Details Recorded Time Ureteric stone 72707234 Active 024 JOÃO LOVETT MD [address] [place] [address],[address] [place] [address], [address], [facility] 4 11:38:23 Abnormal findings on diagnostic imaging of urinary organs 995166791 Active 024 JOÃO LOVETT MD [address] [place] [address],[address], [place], [address], [facility] 4 11:39:03 Mass of urinary bladder 077389287 Active 024 JOÃO LOVETT MD [address] [place] [address],[address] [place] [address], [address], [facility] 4 16:03:19 Malignant neoplasm of urinary bladder 614918591 Active 025 JOÃO LOVETT MD [address] [place] [address],[address] [place] [address], [address], [facility] 5 17:48:25 Problem Notes None recorded. Procedures Surgical History Date Name Laterality Status Provider Name and Address Organization Details Recorded Time 09/21/19 25 transurethral excision of neoplasm of urinary bladder completed Yeni Harris [facility] 10/10/2024 09:11:32 09/01/20 24 CystoscopyFemale completed JOÃO LOVETT MD [address] [place] [address],[address], [place], [address], [facility] 09/01/2024 16:24:17 Imaging Results None recorded. Procedure Notes None recorded. Medical Equipment None Reported. Allergies Allergen ID Allergen Name Allergen Category Reaction Reaction Severity Criticality Documentation Date Start Date Code Code System Note Provider Name and Address Organization Details Recorded Time [id number] 8245724i0 2824e Product containin g penicilli n and antibioti c (product) medicatio n Not available Not available Not available 09/14/2024 45783 05 SNOMED per patie nt Not Available Not Available Not Available [id number] c2b23 ciproflox acin medicatio n itching Not available Not available 10/11/20242024 2551 RxNorm Itchi ng above IV acces s site durin g infus ion. Not Available Not Available Not Available [id number] 2824e codeine medicatio n Not available Not available Not available 10/11/2024 2670 RxNorm unrec ogniz ed react ion (text : GI Upset , code: 63220 5008) (from [facility] to [facility]) Not Available Not Available Not Available [...] t Available melatonin active Not Available Not Caitna ilable Not Available aspirin active Not Available [...] Updated DateTime 09/01/2024 152.4 cm Xiao Giraldo [facility] 09/01/2024 16:04:32 Date Recorded Body mass index (BMI) Body weight Provider Name and Address Organization Details Last Updated DateTime 09/01/2024 27.3 kg/m2 58118.93 g Xiao Giraldo [facility] 09/01/2024 16:04:36 Social History Question Answer Notes LastModified by Organizat ion Details LastModified Time Tobacco Smoking Status Never Smoker Xiao Giraldo null, [facility] 09/01/2024 16:05:35 Do You Have An Advance Directive? Yes [email or web address] Information not available 10/11/2024 What Is Your Level Of Alcohol Consumption? None Information not available 09/01/2024 What Is Your Level Of Caffeine Consumption? Occasional Information not available 09/01/2024 Race White Information no t available 09/01/2024 Ethnicity Not / Information not available 09/01/2024 Do You Have A Medical Power Of Merchandise Support Associate? Yes Information not available 10/11/2024 What Was [...] High Blood Pressure N Kidney Stones N Lung Disease N Depression N GERD/Acid Reflux Y Sexually Transmitted Infection N Cancer N High Cholesterol N Diabetes N Bleeding Disorder N Heart Disease Y Gynecological HistoryNo gynecological history recorded. Obstetrics History GPAL:G 0 P 0 0 0 0 Immunizations Vaccine Type Date Status Note Provider Nam e and Address Organization Details Recorded Time Influenza, adjuvanted, trivalent, PF 7 completed Asmita Dillard null, [facility] 09/06/2024 15:27:30 Influenza, recombinant, quadrivalent, PF 9 completed Asmita Dillard null, [facility] 09/06/2024 15:27:30 zoster recombinant 9 completed Asmita Dillard null, [facility] 09/06/2024 15:27:30 zoster recombinant 9 [facility] 15:27:30 Influenza, high-dose, quadrivalent, PF 4 completed Asmita Dillard null, [facility] 09/06/2024 15:27:30 Influenza, high-dose, quadrivalent, PF 0 completed Asmita Grady null, [facility] 09/06/2024 15:27:30 Influenza, high-dose, quadrivalent, PF 3 completed Asmita Dillard null, [facility] 09/06/2024 15:27:30 Influenza, high-dose, quadrivalent, PF 1 [facility] 15:27:30 Influenza, high-dose, quadrivalent, PF 2 completed Asmita Grady null, [facility] 09/06/2024 15:27:31 COVID-19, mRNA, LNP-S, PF, 30 mcg/0.3 mL dose 1 completed Asmita Grady null, [facility] 09/06/2024 15:27:31 COVID-19, mRNA, LNP-S, PF, 30 mcg/0.3 mL dose 1 completed Asmita Grady null, [facility] 09/06/2024 15:27:31 COVID-19, mRNA, LNP-S, PF, 30 mcg/0.3 mL dose 1 completed Asmita Grady null, [facility] 09/06/2024 15:27:31 COVID-19, mRNA, LNP-S, PF, 30 mcg/0.3 mL dose, guicho-sucrose 2 completed Asmita Grady null, [facility] 09/06/2024 15:27:31 COVID-19, mRNA, LNP-S, bivalent, PF, 30 mcg/0.3 mL dose 2 completed Asmita Grady null, [facility] 09/06/2024 15:27:31 RSV, recombinant, protein subunit RSVpreF, adjuvant reconstituted, 0.5 mL, PF 4 completed Asmita Grady null, [facility] 09/06/2024 15:27:31 COVID-19, mRNA, LNP-S, PF, 50 mcg/0.5 mL 4 completed Asmita Dillard null, [facility] 09/06/2024 15:27:31 COVID-19, mRNA, LNP-S, PF, 50 mcg/0.5 mL 4 completed Asmita Dillard null, [facility] 09/06/2024 15:27:31 pneumococcal polysaccharide PPV23 7 completed Asmita Grady null, [facility] 09/06/2024 15:27:31 Tdap 1 completed Asmita Grady null, [facility] 09/06/2024 15:27:31 Tdap 4 completed Asmita Dillard null, [facility] 09/06/2024 15:27:31 Pneumococcal conjugate PCV 13 6 completed Asmita Dillard null, [facility] 09/06/2024 15:27:31 zoster live 9 completed Asmita Dillard null, [facility] 09/06/2024 15:27:31 Influenza, high-dose, trivalent, PF 4 completed Asmita Grady null, [facility] 09/06/2024 15:27:31 Influenza, high-dose, trivalent, PF 8 completed Asmita Grady null, [facility] 09/06/2024 15:27:31 Influenza, high-dose, trivalent, PF 4 completed Asmita Dillard null, [facility] 09/06/2024 15:27:31 Influenza, high-dose, trivalent, PF 8 completed Asmita Grady null, [facility] 09/06/2024 15:27:31 Influenza, high-dose, trivalent, PF 6 completed Asmita Dillard null, [facility] 09/06/2024 15:27:31 Influenza, high-dose, trivalent, PF 6 completed Asmita Grady null, [facility] 09/06/2024 15:27:31 Influenza, split virus, trivalent, preservative 3 completed Asmita Dillard null, [facility] 09/06/2024 15:27:31 Influenza, split virus, trivalent, preservative 9 completed Asmita Grady null, [facility] 09/06/2024 15:27:31 Influenza, split virus, trivalent, preservative 4 completed Asmita Dillard null, [facility] 09/06/2024 15:27:31 Influenza, split virus, trivalent, preservative 5 completed Asmita Dillard null, [facility] 09/06/2024 15:27:31 Influenza, split virus, trivalent, preservative 0 completed Asmita Grady null, [facility] 09/06/2024 15:27:31 Influenza, split virus, trivalent, preservative 7 completed Asmita Dillard null, [facility] 09/06/2024 15:27:31 Influenza, split virus, trivalent, preservative 8 completed Asmita Grady null, [facility] 09/06/2024 15:27:31 Influenza, split virus, trivalent, preservative 3 completed Asmita Dillard null, [facility] 09/06/2024 15:27:31 Influenza, split virus, trivalent, PF 1 completed Asmita Grady null, [facility] 09/06/2024 15:27:31 Td (adult), 5 Lf tetanus toxoid, preservative free, adsorbed 7 completed Asmita Grady null, [facility] 09/06/2024 15:27:31 Past Encounters Encounter ID Performer Location Encounter Start Date Encounter Closed Date Diagnosis/Indication Diagnosis SNOMED-CT Code Diagnosis ICD10 Code Diagnosis Note [id number] JOÃO LOVETT MD [place] [address] [address] 09/01/2024 16:03:55 09/04/2024 17:11:46 Ureteric stone 38437668 N20.1 Right Abnormal f indings on diagnostic imaging of urinary organs 275517354 R93.41 Recurrent urinary tract infection 841600690 N39.0 Mass of ur inary bladder 729068186 N32.89 Health Concerns Section Related Observation LastModified by Organization Detai ls LastModified Time None Recorded Concern Status LastModified by Organization Details LastModified Time None Recorded Payers Encounter Date Sequence Insurance Name Policy Number Policy Watters Covered Member ID Watters Member ID Guarantor Name 09/01/2024 1 [place] [id number] Radha A Hand [id number] 2 Radha A Hand 09/01/2024 2 [place] [id number] Radha Herrera Hand [id number] Radha Herrera Hand Notes Date Note Type Note Provider Name and Address Organization Details Recorded Time 09/01/2024 text/html Patient is a 84 yo F with PMH of memory impairment who presents as a new patient for evaluation of possible bladder lesion. Referred by: Dr Lanier Outside records reviewed and in sum:Pt seen in [facility] 08/14/24 for constipation with no BM [...] of urinary tract infectionsPast Medical History:-TRI-HTN-HLD -Constipation-Prior HQ-Bdgidmztzn-Guzpoz loss Past Surgical hx- Cholecystectomy- No known kidney or bladder surgeries Social hx: nonsmoker JOÃO LOVETT MD [address] [facility],[address], [place], [address], [facility] [place] [facility] 09/04/2024 16:05:04 OBGyn Episode No OBEpisode recorded.
--- OUTSIDE RECORDS SUMMARY | 2024-10-12 07:39 | XMS_ITS | Continuity of Care Document ---
Author Organization [facility], [facility] Address [address] [address] Care Team Providers Care Hospice Social Worker Name Role Phone GLADYS LANIER Primary Care Provider [phone] Assessment Encounter Date Assessment Date Assessment LastModified by Organization Details LastModified Time 10/11/2024 10/11/2024 84 yo F with low [...] proximity of tumor to the right UO [email or web address] Not available 10/11/2024 17:48:20 Plan of Treatment Reminders Order Date Submit Date Provider Last Modified By Organization Details Last Modified Time Details Appointments None record ed. Lab None record ed. Referral None record ed. Procedures None record ed. Surgeries None record ed. Imaging None record ed. Medication Orders None record ed. Patient TargetsNo targets recorded. Patient InstructionsNo instructions recorded. Reason for Referral None Reported. Problems Name Problem SNOMED Code Status Onset Date Resolution Date Notes Provider Name and Address Organization Details Recorded Time Ureteric stone 18890263 Active 024 JOÃO LOVETT MD [address], [address], [facility] 4 11:38:23 Abnormal findings on diagnostic imaging of urinary organs 660934975 Active 024 JOÃO LOVETT MD [address] [facility],[address] [place] [address], [address], [facility] 4 11:39:03 Mass of urinary bladder 383079408 Active 024 JOÃO LOVETT MD [address] [place] [address],[address] [place] [address], [address], [facility] 4 16:03:19 Malignant neoplasm of urinary bladder 600209599 Active 025 JOÃO LOVETT MD [address] [place] [address],[address] [place] [address], [address], [facility] 5 17:48:25 Problem Notes None recorded. Procedures Surgical History Date Name Laterality Status Provider Name and Address Organization Details Recorded Time 09/21/19 25 transurethral excision of neoplasm of urinary bladder completed Yeni Harris [facility] 10/10/2024 09:11:32 09/01/20 24 CystoscopyFemale completed JOÃO LOVETT MD [address] [facility],[address] [place] [address], [address], [facility] 09/01/2024 16:24:17 Imaging Results None recorded. Procedure Notes None recorded. Medical Equipment None Reported. Allergies Allergen ID Allergen Name Allergen Category Reaction Reaction Severity Criticality Documentation Date Start Date Code Code System Note Provider Name and Address Organization Details Recorded Time [id number] 520227286 8774645m2 2824e Product containin g penicilli n and antibioti c (product) medicatio n Not available Not available Not available 09/14/2024 22248 05 SNOMED per patie nt Not Available Not Available Not Available [id number] c2b23 ciproflox acin medicatio n itching Not available Not available 10/11/20242024 2551 RxNorm Itchi ng above IV acces s site durin g infus ion. Not Available Not Available Not Available [id number] 2824e codeine medicatio n Not available Not available Not available 10/11/2024 2670 RxNorm unrec ogniz ed react ion (text : GI Upset , code: 61255 5008) (from [facility]) Not Available Not Available Not Available Medications [...] Updated DateTime 10/11/2024 152.4 cm Yeni Harris [facility] 10/11/2024 16:53:55 Date Recorded Body mass index (BMI) Body weight Provider Name and Address Organization Details Last Updated DateTime 10/11/2024 27.3 kg/m2 85047.93 g Yeni Harris [facility] 10/11/2024 16:54:00 Social History Question Answer Notes LastModified by Organizat ion Details LastModified Time Tobacco Smoking Status Never Smoker [facility]/2024 16:05:35 Do You Have An Advance Directive? Yes Information not available 10/11/2024 What Is Your Level Of Alcohol Consumption? None Information not available 09/01/2024 What Is Your Level Of Caffeine Consumption? Occasional Information not available 09/01/2024 Race White Information no t available 09/01/2024 Ethnicity Not / Information not available 09/01/2024 Do You Have A Medical Power Of Small Products Assembler? Yes Information not available 10/11/2024 What Was [...] Influenza, adjuvanted, trivalent, PF 7 completed Asmita Elderton null, [facility] 09/06/2024 15:27:30 Influenza, recombinant, quadrivalent, PF 9 completed Asmita Grady null, [facility] 09/06/2024 15:27:30 zoster recombinant 9 completed Asmita Grady null, [facility] 09/06/2024 15:27:30 zoster recombinant 9 completed Asmita Grady null, [facility] 09/06/2024 15:27:30 Influenza, high-dose, quadrivalent, PF 4 completed Asmita Elderton null, [facility] 09/06/2024 15:27:30 Influenza, high-dose, quadrivalent, PF 0 completed Asmita Elderton null, [facility] 09/06/2024 15:27:30 Influenza, high-dose, quadrivalent, PF 3 completed Asmita Elderton null, [facility] 09/06/2024 15:27:30 Influenza, high-dose, quadrivalent, PF 1 completed Asmita Grady null, [facility] 09/06/2024 15:27:30 Influenza, high-dose, quadrivalent, PF 2 completed Asmita Grady null, [facility] 09/06/2024 15:27:31 COVID-19, mRNA, LNP-S, PF, 30 mcg/0.3 mL dose 1 completed Asmita Grady null, [facility] 09/06/2024 15:27:31 COVID-19, mRNA, LNP-S, PF, 30 mcg/0.3 mL dose 1 completed Asmita Elderton null, [facility] 09/06/2024 15:27:31 COVID-19, mRNA, LNP-S, PF, 30 mcg/0.3 mL dose 1 completed Asmita Elderton null, [facility] 09/06/2024 15:27:31 COVID-19, mRNA, LNP-S, PF, 30 mcg/0.3 mL dose, guicho-sucrose 2 completed Asmita Grady null, [facility] 09/06/2024 15:27:31 COVID-19, mRNA, LNP-S, bivalent, PF, 30 mcg/0.3 mL dose 2 completed Asmita Grady null, [facility] 09/06/2024 15:27:31 RSV, recombinant, protein subunit RSVpreF, adjuvant reconstituted, 0.5 mL, PF 4 completed Asmita Grady null, [facility] 09/06/2024 15:27:31 COVID-19, mRNA, LNP-S, PF, 50 mcg/0.5 mL 4 completed Asmita Grady null, [facility] 09/06/2024 15:27:31 COVID-19, mRNA, LNP-S, PF, 50 mcg/0.5 mL 4 completed Asmita Elderton null, [facility] 09/06/2024 15:27:31 pneumococcal polysaccharide PPV23 7 completed Asmita Elderton null, [facility] 09/06/2024 15:27:31 Tdap 1 completed Asmita Elderton null, [facility] 09/06/2024 15:27:31 Tdap 4 completed Asmita Grady null, [facility] 09/06/2024 15:27:31 Pneumococcal conjugate PCV 13 6 completed Asmita Elderton null, [facility] 09/06/2024 15:27:31 zoster live 9 completed Asmita Elderton null, [facility] 09/06/2024 15:27:31 Influenza, high-dose, trivalent, PF 4 completed [facility] Elderton null, [facility] 09/[facility] 15:27:31 Influenza, high-dose, trivalent, PF 8 completed Asmita Grady null, [facility] 09/06/2024 15:27:31 Influenza, high-dose, trivalent, PF 4 completed Asmita Grady null, [facility] 09/06/2024 15:27:31 Influenza, high-dose, trivalent, PF 8 completed Asmita Grady null, [facility] 09/06/2024 15:27:31 Influenza, high-dose, trivalent, PF 6 completed Asmita Grady null, [facility] 09/06/2024 15:27:31 Influenza, high-dose, trivalent, PF 6 completed Asmita Elderton null, [facility] 09/06/2024 15:27:31 Influenza, split virus, trivalent, preservative 3 completed Asmita Elderton null, [facility] 09/06/2024 15:27:31 Influenza, split virus, trivalent, preservative 9 completed Asmita Elderton null, [facility] 09/06/2024 15:27:31 Influenza, split virus, trivalent, preservative 4 completed Asmita Elderton null, [facility] 09/06/2024 15:27:31 Influenza, split virus, trivalent, preservative 5 completed Asmita Grady null, [facility] 09/06/2024 15:27:31 Influenza, split virus, trivalent, preservative 0 completed Asmita Grady null, [facility] 09/06/2024 15:27:31 Influenza, split virus, trivalent, preservative 7 completed Asmita Elderton null, [facility] 09/06/2024 15:27:31 Influenza, split virus, trivalent, preservative 8 completed Asmita Elderton null, [facility] 09/06/2024 15:27:31 Influenza, split virus, trivalent, preservative 3 completed Asmita smyth, [facility] 09/06/2024 15:27:31 Influenza, split virus, trivalent, PF 1 completed Asmita smyth, [facility] 09/06/2024 15:27:31 Td (adult), 5 Lf tetanus toxoid, preservative free, adsorbed 7 completed Asmita smyth, [facility] 09/06/2024 15:27:31 Past Encounters Encounter ID Performer Location Encounter Start Date Encounter Closed Date Diagnosis/Indication Diagnosis SNOMED-CT Code Diagnosis ICD10 Code Diagnosis Note [id number] JOÃO LOVETT MD [facility] [address] [place] [address] 10/11/2024 16:50:28 10/11/2024 17:49:04 Malignant neoplasm of urinary bladder 680075100 C67.9 Health Concerns Section Related Observation LastModified by Organization Detai ls LastModified Time None Recorded Concern Status LastModified by Organization Details LastModified Time None Recorded Payers Encounter Date Sequence Insurance Name Policy Number Policy Watters Covered Member ID Watters Member ID Guarantor Name 10/11/2024 1 [place] [employer] Radha A Hand [id number] Radha A Hand 10/11/2024 2 [place] [id number] Radha A Hand [id number] Radha A Hand Notes Date Note Type Note Provider Name and Address Organization Details Recorded Time 10/11/2024 text/html 84 yo F with sma [...] is present for assessment. JOÃO LOVETT MD [address] [facility],[address], [place], [address], [facility] 10/11/2024 17:49:02 OBGyn Episode No OBEpisode recorded.
[2024-10-12] MEDS: SODIUM CHLORIDE 0.9 % (FLUSH) 10 ML SYRINGE IVF (07:55)
[2024-10-12] MEDS: 0.9 % SODIUM CHLORIDE 500 ML 500 ML 100 ML IV (07:55)
--- NOTE | 2024-10-12 08:00 | W.PM.H&PU ---
History & Physical Update History & Physical Update H&P Reviewed and patient assessed: No changes noted
[2024-10-12 08:21] LABS: Hemoglobin* 12.8 gm/dL (12.0-16.0)
--- NOTE | 2024-10-12 08:21 | SUR.PREOP ---
Patient's daughters are bringing patient to a respite care facility after discharge from same day surgery.
[2024-10-12 08:36] LABS: Creatinine* 0.7 mg/dL (0.5-1.5); Est. Creatinine Clearance* 29.54; Estimated Glomerular Filt Rate 85 ml/min
--- NOTE | 2024-10-12 09:34 | P.PCN_ITS ---
Procedure Note Time Seen by Provider: 11:12 Date Seen: 10/12/24 Date of procedure: 10/12/24 Will [facility] bill your pro fee for this procedure?: Yes Procedure: Primary Care Provider: Pau Franklin MD Preoperative diagnosis: 84-year-old with 8-10 cm left adnexal cyst. Postoperative diagnosis: Same. Procedure: Laparoscopic bilateral salpingo oophorectomy Anesthesia: General endotracheal, local, TAPS block Surgeon: Angelina Machado MD Filter Tip Catcher: Roopa Kimball MD EBL: 25 mL Urine output: 300 mL clear urine IVF: 350 ml Specimen: Pelvic washings to cytology. Bilateral tubes and ovaries to pathology. Findings: On exam under anesthesia: The uterus was anteverted, less than 8 week size, mobile, without masses or nodularity palpable. Adnexa were without mass or fullness on the right. There is a fullness in the left pelvis. On laparoscopy: Appendix is surgically absent. Liver edge appears normal. Both fallopian tubes and right ovary are normal. There is a 10-13 cm thin walled, smooth left ovarian cyst with serous fluid within it. Procedure: Radha was taken to the operating room where general anesthetic was found to be adequate. She was placed in the dorsal lithotomy position and an exam under a nesthesia was performed with findings stated above. She was then prepped and draped in a normal sterile manner. A Mortensen catheter was then placed. A bivalve speculum was then placed in the vaginal canal to visualize the cervix. A sponge stick was placed within the vaginal canal as the cervix was too stenotic to place a uterine manipulator. Attention was then turned to performing the laparoscopic portion of the procedure. All incisions were injected with 0.5% Marcaine prior to incision. A vertical 5 mm infraumbilical, incision, was made and a 5 mm trocar placed under direct visualization with the laparoscope. The abdomen was then insufflated with carbon dioxide gas to a pressure of 15 mm of mercury. To bilateral lower quadrant trocars were then placed under direct visualization. Both were placed approximately 3-4 finger breaths medial to the ischial crests. The right trocar was 5 mm the left trocar was 11 mm. A diagnostic laparoscopy was then performed with findings stated above. Pelvic washings were obtained. The left fallopian tube was grasped with a sliding grasper. There were some adhesions of the sigmoid colon to the left pelvic sidewall that were taken down sharply with laparoscopic scissors. The infundibulopelvic ligament on the left was attenuated due to the left adnexal cyst. The ureter was identified coursing well below the area of surgical incision. The LigaSure dissecting forceps was used to cauterize and ligate serial pedicles starting at the infundibulopelvic ligament then moving toward the cornua. The tube and ovary with the cyst were removed from the cornua using the LigaSure forceps. The left tube and ovary were placed in the pelvis. An Endo-Catch bag was advanced into the pelvis and the cyst was too large to fit in the 10 cm Endo-Catch bag so it was removed. The 11 mm port was removed and a 15 mm port was placed. A 15 cm Endo-Catch bag within advanced into the pelvis, the left tube ovary and cyst were placed within it. The bag was then brought to the pelvic sidewall and the port removed. The cyst was then incised using a syringe and Akua clamp. The serous fluid within the cyst was then suctioned using the suction catcher filter tip. The Endo-Catch bag was then removed from the pelvis containing the specimen. The 15 mm port was then replaced. The right fallopian tube was grasped and tented up. The right ureter was noted to be coursing in the right pelvic sidewall well below the infundibulopelvic ligament. The right ovary and tube were removed using the LigaSure dissecting forceps starting at the infundibulopelvic ligament and moving toward the cornea. Sequential pedicles were formed. The tube and ovary were removed from the uterus at the cornua. The tube and ovary were removed through the 15 mm port. The CO2 gas was decreased to 8 mmHg and excellent hemostasis was noted of all pedicles. The fascia of the 15 mm port was then reapproximated using the Maury-Sobeida fascial closure device. Two 0 Vicryl sutures were placed. The remaining trocars were then removed under direct visualization. The CO2 gas was allowed to escape the infraumbilical port prior to its removal. All incisions were reapproximated using 4-0 Monocryl in a running subcuticular manner. Exofin skin adhesive was then applied to each incision. The uterine manipulator and Mortensen catheter were removed. The patient tolerated this procedure well. Sponge, lap and instrument counts were correct x2 at the end of the procedure and the patient was taken to the recovery area in stable condition.
[2024-10-12] MEDS: BUPIVACAINE 0.5% 30 ML INJECTION (10:04)
[2024-10-12] MEDS: KETOROLAC 15 MG/ML inj IVP (11:02)
--- NOTE | 2024-10-12 11:14 | P.ANES_ITS ---
Anesthesia Charges Start Date/Time Anesthesia Start Date: 10/12/24 Anesthesia Start Time: 09:31 Stop Date/Time Anesthesia Stop Date: 10/12/24 Anesthesia Stop Time: 11:15 Summary Extremes of Age - Over 70 or under 1: PARENT EDUCATOR Coding CPT Codes CPT Codes: ANESTH SURG LOWER ABDOMEN - 13729 ([id number]) P3 - PATIENT W/SEVERE SYS DISEASE, QK - AIRPORT UTILITY WORKER 2-4 CNCRNT ANES PROC, QX - PARENT EDUCATOR SVC W/ MD MED DIRECTION Additional Codes: Summary - Extremes of Age - Over 70 or under 1: PARENT EDUCATOR ([id number])
--- NOTE | 2024-10-12 11:14 | W.ANESCHARGE ---
Anesthesia Charges Start Date/Time Anesthesia Start Date: 10/12/24 Anesthesia Start Time: 09:31 Stop Date/Time Anesthesia Stop Date: 10/12/24 Anesthesia Stop Time: 11:15 Summary Extremes of Age - Over 70 or under 1: [employer]AM MEMBER Coding CPT Codes CPT Codes: ANESTH SURG LOWER ABDOMEN - 25787 ([id number]) P3 - PATIENT W/SEVERE SYS DISEASE, QK - PIPE LINER 2-4 CNCRNT ANES PROC, QX - [employer] TEAM MEMBER SVC W/ MD MED DIRECTION Additional Codes: Summary - Extremes of Age - Over 70 or under 1: [employer] TEAM MEMBER ([id number])
--- NOTE | 2024-10-12 12:01 | W.ANESCHARGE ---
Anesthesia Charges Start Date/Time Anesthesia Start Date: 10/12/24 Anesthesia Start Time: 09:31 Stop Date/Time Anesthesia Stop Date: 10/12/24 Anesthesia Stop Time: 11:15 Summary Extremes of Age - Over 70 or under 1: MDA Coding CPT Codes CPT Codes: ANESTH SURG LOWER ABDOMEN - 24192 ([id number]) QK - CATERER HELPER 2-4 CNCRNT ANES PROC, QX - ELECTRICIAN LOCOMOTIVE SVC W/ MD MED DIRECTION, P3 - PATIENT W/SEVERE SYS DISEASE Additional Codes: Summary - Extremes of Age - Over 70 or under 1: MDA ([id number])
[2024-10-12] MEDS: OXYCODONE 5 MG TABLET PO (12:30)
--- NOTE | 2024-10-12 14:21 | SUR.PREOP ---
Patient to restroom via wheelchair. Patient toileted independently. Voided.
== END 2024-10-12 14:23 | disposition home or self-care (01) ==
LOC: OR 11:36 → SS 13:05
PROVIDERS: PCP Family Medicine; Visit Provider Obstetrics & Gynecology
PROC: (CPT 58661; principal; 2024-10-12 08:45)
DX: N83.292 Other ovarian cyst, left side (principal); I48.0 Paroxysmal atrial fibrillation
CPT/HCPCS: 58661; 00840; 36415; 82565; 85018; 88305; 88307; 99100; A9270; J0330; J0665; J1100; J1885; J2405; J2704; J3010; J3490; J7030